=== PATIENT | male | born 1945 | race Caucasian/White ===

== ENCOUNTER 2022-08-10 15:05 | Inpatient (IN) | payer MEDICARE, OTHER, SELFPAY ==
--- NOTE | 2022-08-10 15:24 | PC.NURSE ---
Pt arrived to the floor at 1515
[2022-08-10 15:35] VITALS: BP 145/66; PULSE 83; RESP 18; TEMP 36.9; O2SAT 99; BMI 37.3
--- NOTE | 2022-08-10 16:29 | XR_ITS ---
PROCEDURE INFORMATION: Exam: XR Chest Exam date and time: 08/10/2022 4:42 PM Age: 77 years old Clinical indication: Shortness of breath; Additional info: SOA, failure to thrive TECHNIQUE: Imaging protocol: Radiologic exam of the chest. Views: 1 view. COMPARISON: No relevant prior studies available. FINDINGS: Tubes, catheters and devices: A pulse generator device is present, and its leads are in appropriate position. Lungs: Bilateral patchy airspace opacities with lower lobe gradient. Lungs are hypoaerated. Pleural spaces: Small bilateral pleural effusions. Heart/Mediastinum: Mild cardiomegaly Bones/joints: Unremarkable. IMPRESSION: 1. Bilateral patchy airspace opacities with lower lobe gradient which can be seen in the context of chronic interstitial changes and/or superimposed pneumonia. 2. Small bilateral pleural effusions
--- NOTE | 2022-08-10 16:38 | ECG_ITS ---
APPROVED REPORT Exam: Resting ECG HR:68 bpm ECG Measurements Heart Rate 68 AXES QRSd 192 QRS -39 QT 420 T 60 QTc 437 Conclusion ELECTRONIC VENTRICULAR PACEMAKER ABNORMAL RHYTHM ECG UNCONFIRMED REPORT Electronically signed by : Navi Pino MD 08/11/2022 22:05:29
[2022-08-10 16:39] LABS: Coronavirus 19, PCR Not Detected (NotDetected); Influenza A, PCR Not Detected (NotDetected); Influenza B, PCR Not Detected (NotDetected)
[2022-08-10 16:47] LABS: Basophils % 0.5 % (0.1-2.0); Eosinophils % 1.1 % (0.1-12.0); Hematocrit 37.3 % (42.0-52.0); Hemoglobin 11.2 g/dL (14.1-18.0); Lymphocytes # 0.8 K/mm3 (0.7-4.5); Lymphocytes % 18.6 % (10-50); Mean Corpuscular HGB Conc 30.1 g/dL (31.8-35.4); Mean Corpuscular Hemoglobin 30.6 pg (27.0-31.2); Mean Corpuscular Volume 101.7 fl (80-94); Mean Platelet Volume 8.2 fl (7.4-10.4); Monocytes # 0.3 K/mm3 (0.1-1.0); Monocytes % 7.9 % (1.7-9.3); Neutrophils # 2.9 K/mm3 (1.8-7.8); Neutrophils % 71.9 % (37.0-80.0); Platelet Count 347 K/mm3 (142-424); Red Blood Count 3.67 M/mm3 (4.60-6.20); Red Cell Distribution Width 19.8 % (11.5-17.5)
[2022-08-10 16:49] LABS: Alanine Aminotransferase 13 U/L (12-78); Albumin Level 4.4 g/dl (3.5-5.0); Albumin/Globulin Ratio 1.5 (1.1-1.8); Alkaline Phosphatase 70 U/L (38-126); Anion Gap 17.7 mEq/L (5-15); Aspartate Amino Transferase 47 U/L (17-59); Bilirubin,Total 3.2 mg/dl (0.2-1.3); Blood Urea Nitrogen 49 mg/dl (9-20); Calcium 9.5 mg/dl (8.4-10.2); Carbon Dioxide 35 mmol/L (22.0-30.0); Chloride 90 mmol/L (98-107); Creatinine Clearance Estimated 63 mL/min (50-200); Estimated Glomerular Filt Rate 45 ml/min (>60); GFR (African American) 55 ML/MIN (>60); Globulin 2.9 g/dL (1.3-3.2); Glucose 99 mg/dl (74-100); Magnesium 1.5 mg/dl (1.6-2.3); Potassium 4.7 mmoL/L (3.5-5.1); Sodium 138 mmol/L (136-145); Total Protein,Serum 7.3 g/dl (6.3-8.2)
[2022-08-10 17:38] LABS: Microscopic, Urine URINE MICROSCOPIC (MICROSCOPIC)
--- NOTE | 2022-08-10 17:50 | EXP.HP ---
History of Present Illness *Admission Date: 08/10/22 *Reason for visit:: Weakness/immobility/diminished urine output *History of present illness: 77-year-old white male with history of chronic A. fib, CHF and coronary atherosclerosis who 8 weeks ago was diagnosed with aplastic anemia after CBC was done when his brassiere cup mold cutter noticed that he was very pale while he presented for echocardiogram to follow his heart disease. Hemoglobin is found to be less than 6 g, was transfused appropriately and hematology work-up initiated which resulted in a diagnosis of aplastic anemia on bone marrow biopsy. Patient was initiated on cyclosporine therapy which has been somewhat poorly tolerated because of the capsule size and its propensity for stomach upset in this patient. He aspirated on one of the capsules a couple of weeks ago and was admitted to the [facility] and treated with IV antibiotics, transition to p.o., was found to have elevated cyclosporine levels and be dehydrated. His creatinine was corrected to baseline and he was discharged on p.o. antibiotics, cyclosporine dosage was maintained the same. Over the past couple weeks has been progressively more weak and has had more problems with swallowing, notices that his urine output has declined and he has had problems with darker urine & urine leakage. His daughter brought him to our hospital today for evaluation of all these problems and he was admitted for labs, IV fluids and further diagnostic testing. [facility] Medical History (Updated 08/10/22 @ 17:59 by Navi Pino MD) Aplastic anemia Atrial fibrillation Cataract Congestive heart failure Gallbladder & bile duct stone, acute cholecystitis and obstruction History of pacemaker Hyperlipidemia Hypertension Hypothyroidism Rotator cuff arthropathy of left shoulder Rotator cuff arthropathy of right shoulder Surgical History History of revision of total knee arthroplasty Stented coronary artery Family History (Updated 08/10/22 @ 15:55 by Ashwini Love RN) Family history of acute congestive heart failure Family history of cancer Social History (Updated 08/10/22 @ 15:56 by Ashwini Love RN) Smoking Status: Never smoker alcohol intake: never current occupational status: retired Travel in the last 8 weeks: None Review of Systems Review of Systems Review of systems:: pertinent systems reviewed and negative unless documented below Review of systems (narrative): Positive for loss of taste with metallic taste. Positive for blurry vision. Positive for nausea. Positive for cough with occasional productive of clear sputum although this has not worsened since his discharge from [facility] for an pneumonia. Negative for blood in stool or urine. Negative for fevers. Negative for chills or skin rash. Positive for worsening pedal edema to mid velez. Positive for neuropathy, worse in the right leg-patient believes this is status post knee replacement therapy surgical complication. Meds Home Medications and Allergies Home Medications Medication Instructions Recorded Confirmed Type apixaban 2.5 mg tablet (Eliquis) 2.5 mg PO BID Blood thinner 08/10/22 08/10/22 History aspirin 81 mg chewable tablet See Rx Instructions .Route 08/10/22 08/10/22 History .COMPLEX Heart cyclosporine 25 mg capsule 125 mg PO BID APLASTIC ANEMIA 08/10/22 08/10/22 History digoxin 125 mcg (0.125 mg) tablet 125 mcg PO DAILY AFIB 08/10/22 08/10/22 History furosemide 40 mg tablet (Lasix) 40 mg PO DAILY CHF 08/10/22 08/10/22 History mecobalamin (vitamin B12) 1,000 1,000 mcg PO DAILY VITAMIN 08/10/22 08/10/22 History mcg chewable tablet (B12 Active) nebivolol 5 mg tablet (Bystolic) 5 mg PO DAILY BLOOD PRESSURE 08/10/22 08/10/22 History rosuvastatin 5 mg tablet (Crestor) 5 mg PO DAILY Cholesterol 08/10/22 08/10/22 History New Prescriptions to Start Prescriptions: Allergies Aller
[2022-08-10 18:16] LABS: Appearance,Urine CLEAR (Clear); Bilirubin,Urine Negative (Negative); Blood, Urine Negative (Negative); Color,Urine YELLOW (Yellow); Glucose,Urine (UA) Negative (Negative); Ketones,Urine Negative (Negative); Leukocyte Esterase,Urine Negative (Negative); Nitrate,Urine Negative (Negative); Protein,Urine Negative (Negative); Specific Gravity, Urine 1.025 (1.005-1.030); Urobilinogen,Urine 0.2 EU/dl (0.2)
[2022-08-10 18:43] LABS: Amorphous Sediment,Urine Trace /lpf; Bacteria,Urine Trace /lpf; RBC,Urine Occasional #/hpf (0-3); Squamous Epithelial Cell,Urine Occasional #/hpf (0-5); WBC,Urine Occasional #/hpf (0-3)
[2022-08-10 19:51] VITALS: BP 141/67; PULSE 64; RESP 18; TEMP 36.8; O2SAT 98
--- NOTE | 2022-08-10 21:11 | HMH.PHAINT1 ---
Pharmacy Intervention Comments: home medication list verified using list from pt and outpt pharmacy
[2022-08-11] VITALS (8 sets, daily range): BP systolic 131–150; BP diastolic 65–76; PULSE 60–90; RESP 17–18; TEMP 36.8–37.1; O2SAT 95–100; BMI 38.0
[2022-08-11 06:31] LABS: Alanine Aminotransferase 10 U/L (12-78); Albumin Level 3.6 g/dl (3.5-5.0); Albumin/Globulin Ratio 1.4 (1.1-1.8); Alkaline Phosphatase 70 U/L (38-126); Anion Gap 14.4 mEq/L (5-15); Aspartate Amino Transferase 31 U/L (17-59); Bilirubin,Total 2.4 mg/dl (0.2-1.3); Blood Urea Nitrogen 39 mg/dl (9-20); Calcium 8.7 mg/dl (8.4-10.2); Carbon Dioxide 34 mmol/L (22.0-30.0); Chloride 96 mmol/L (98-107); Creatinine Clearance Estimated 74 mL/min (50-200); Estimated Glomerular Filt Rate 54 ml/min (>60); GFR (African American) 65 ML/MIN (>60); Globulin 2.5 g/dL (1.3-3.2); Glucose 99 mg/dl (74-100); Magnesium 1.8 mg/dl (1.6-2.3); Potassium 4.4 mmoL/L (3.5-5.1); Sodium 140 mmol/L (136-145); Total Protein,Serum 6.1 g/dl (6.3-8.2)
[2022-08-11 07:28] LABS: Basophils % 0.6 % (0.1-2.0); Eosinophils # 0.1 K/mm3 (0.0-0.4); Eosinophils % 1.1 % (0.1-12.0); Lymphocytes # 0.7 K/mm3 (0.7-4.5); Lymphocytes % 15.8 % (10-50); Mean Corpuscular HGB Conc 31.1 g/dL (31.8-35.4); Mean Corpuscular Hemoglobin 31.3 pg (27.0-31.2); Mean Corpuscular Volume 100.5 fl (80-94); Mean Platelet Volume 8.2 fl (7.4-10.4); Monocytes # 0.4 K/mm3 (0.1-1.0); Monocytes % 9.8 % (1.7-9.3); Neutrophils % 72.8 % (37.0-80.0); Platelet Count 284 K/mm3 (142-424); Red Blood Count 3.19 M/mm3 (4.60-6.20); Red Cell Distribution Width 19.8 % (11.5-17.5); White Blood Count 4.1 K/mm3 (4.8-10.8)
--- NOTE | 2022-08-11 09:54 | HMH.PTEV ---
Physical Therapy Evaluation Rehab PT IP Evaluation Start: 08/11/22 08:31 Freq: ONCE Status: Active Protocol: Document 08/11/22 09:51 ANANYA (Rec: 08/11/22 09:53 ANANYA [id number]) Subjective/History History History 77-year-old white male with history of chronic A. 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 Hemoglobin is found to be less than 6 g, was transfused appropriately and hematology work-up initiated which resulted in a diagnosis of aplastic anemia on bone marrow biopsy. Subjective Subjective Pt reports he lives w/ spouse and has HHPT and caregiver assistance Rehab PT IP Eval Objective Appearance Patient Behavior Appropriate,Cooperative Patient Orientation Place,Name,Birthday,Year, Situation Difficulty following instructions none Speech Pattern Appropriate Ambulation Patient Able to Ambulate Yes Ambulation Observation IP General Gait Pattern Observation Shuffling Step Ambulation Distance (feet) 30 Ambulation Assistive Device Rolling Walker Ambulation Ability Supervision/Stand by Balance Ability to Arise Able, uses arms to help Sitting Balance Steady, safe Standing Balance Steady, wide stance Dynamic Sitting Balance Ability Good Dynamic Standing Balance Ability Fair Transfers Bed Transfer Ability Independent Chair Transfer Ability Independent Sit to Stand Bed Transfer Ability Supervision/Stand by Sit to Stand Chair Transfer Ability Supervision/Stand by Rehab PT IP prob,goals,plan Problems Date of Evaluation: 08/11/22 PT IP Problems Transfers,Gait,Balance,Self care,Safety Rehab Potential Rehab Potential Good Equipment Needs Assistive Devices Rolling / Wheeled Walker Plan PT Intervention Plan Transfers,Gait,Balance,Self care,Safety,Therapeutic Exercise PT Plan Frequency BID Duration
--- NOTE | 2022-08-11 10:36 | HMH.OTEV ---
OT Inpatient Evaluation Rehab OT IP Evaluation Start: 08/11/22 08:27 Freq: ONCE Status: Complete Protocol: Document 08/11/22 09:59 [facility] (Rec: 08/11/22 10:35 [facility] [id number]) Rehab OT IP Assessment Subjective History Pt oriented x 3 on arrival. Pt agreeable to engage in therapy evaluation. Pt was admitted to [facility] on 08/10/22 due to Weakness, immobility, and diminished urine output. Prior to being in the hospital , pt lived at home with his . His has Stage 4 lung cancer as well. They do have a caregiver come in and complete all IADLs (cooking, cleaning, grocery shoppping, and laundry). Pt claims he is normally able to complete ADLs independently (dressing, bathing, and feeding). He uses a walker during ambulation. Pt has a past medical history of: Aplastic anemia Atrial fibrillation Cataract Congestive heart failure Gallbladder & bile duct stone, acute cholecystitis and obstruction History of pacemaker Hyperlipidemia Hypertension Hypothyroidism Rotator cuff arthropathy of left shoulder Rotator cuff arthropathy of right shoulde Subjective I have been weak since I was sick with pneumonia. Objective Patient Orientation Person,Place,Birthday Upper Extremity Gross ROM WFL Transfer Training Sit/Stand Transfer Assist Level Contact Guard/Hand Hold Chair Transfer Ability Contact Guard/Hand Hold Chair Transfer Technique Sit to/from Ambulatory Chair Transfer Assistive Devices Rolling Walker Rehab OT IP prob,goals,plan Problems Date of Evaluation: 08/11/22 OT IP Problems Bed Mobility,Transfers,Balance ,Self care,Safety Rehab Potential Rehab Potential
--- NOTE | 2022-08-11 12:20 | EXP.ACUTE.PN ---
Subjective *Date: 08/11/22 *Time: 12:20 Interval history: Overall has little bit more energy than yesterday, feels a little better, visual disturbances of blurring have resolved. Was able to eat a little bit of his supper last night. Good urine output. No fevers. Has coughed up some sputum and it has been sent off for culture. Medical Exam Vital signs and Labs for Last 24 Hours: Vital Signs Temp Pulse Resp BP Pulse Ox 08/11/22 07:21 98.8 F 65 17 144/71 H 96 08/11/22 04:00 98.2 F 64 18 138/68 98 08/10/22 19:51 98.3 F 64 18 141/67 H 98 08/10/22 15:35 98.5 F 83 18 145/66 H 99 Intake and Output 08/11/22 08/11/22 08/11/22 03:59 11:59 19:59 Intake Total 1652 / 1952 180 / 1952 Output Total 1150 / 2375 1000 / 2375 Balance 502 / -423 -820 / -423 Intake: Intake, Oral Amount 222 / 522 180 / 522 Intake, Total IV Amount 1430 / 1430 0.9 % Sodium Chloride 1,000 ml 1430 / 1430 @ 100 mls/hr IV .Q10H [facility] Rx#: [id number] Output: Output, Urine Amount 1150 / 2375 1000 / 2375 Other: Number of Voids 0 Number of Unmeasured Voids 1 Weight 242 lb 0.728 oz Laboratory Results - last 24 hr 08/10/22 15:30: WBC 4.0 L, RBC 3.67 L, Hgb 11.2 L, Hct 37.3 L, MCV 101.7 H, MCH 30.6, MCHC 30.1 L, RDW 19.8 H, Plt Count 347, MPV 8.2, Neut % (Auto) 71.9, Lymph % (Auto) 18.6, [place] % (Auto) 7.9, Eos % (Auto) 1.1, Baso % (Auto) 0.5, Neut # (Auto) 2.9, Lymph # (Auto) 0.8, [place] # (Auto) 0.3, Eos # (Auto) 0.0, Baso # (Auto) 0.0 08/10/22 15:30: Sodium 138, Potassium 4.7, Chloride 90 L, Carbon Dioxide 35 H, Anion Gap 17.7 H, BUN 49 H, Creatinine 1.50 H, Estimated Creat Clear 63, Estimated GFR 45 L, Est GFR ( Amer) 55 L, Glucose 99, Calcium 9.5, Total Bilirubin 3.2 H, AST 47, ALT 13, Alkaline Phosphatase 70, Total Protein 7.3, Albumin 4.4, Globulin 2.9, Albumin/Globulin Ratio 1.5 08/10/22 15:30: Magnesium 1.5 L 08/10/22 15:30: Digoxin 2.30 H* 08/10/22 17:25: Urine Color Yellow, Urine Appearance Clear, Urine pH 5.0, Ur Specific [place] 1.025, Urine Protein Negative, Urine Glucose (UA) Negative, Urine Ketones Negative, Urine Blood Negative, Urine Nitrate Negative, Urine Bilirubin Negative, Urine Urobilinogen 0.2, Ur Leukocyte Esterase Negative, Urine RBC Occasional, Urine WBC Occasional, Ur Squamous Epith Cells Occasional, Amorphous Sediment Trace, Urine Bacteria Trace 08/10/22 : SARS-CoV-2 (PCR) Not detected, Influenza A Untype (PCR) Not detected, Influenza Type B (PCR) Not detected 08/11/22 06:10: Magnesium 1.8 D 08/11/22 06:10: WBC 4.1 L, RBC 3.19 L, Hgb 10.0 L D, Hct 32.0 L, MCV 100.5 H, MCH 31.3 H, MCHC 31.1 L, RDW 19.8 H, Plt Count 284, MPV 8.2, Neut % (Auto) 72.8, Lymph % (Auto) 15.8, [place] % (Auto) 9.8 H, Eos % (Auto) 1.1, Baso % (Auto) 0.6, Neut # (Auto) 3.0, Lymph # (Auto) 0.7, [place] # (Auto) 0.4, Eos # (Auto) 0.1, Baso # (Auto) 0.0 08/11/22 06:10: Sodium 140, Potassium 4.4, Chloride 96 L, Carbon Dioxide 34 H, Anion Gap 14.4, BUN 39 H, Creatinine 1.30 H, Estimated Creat Clear 74, Estimated GFR 54 L, Est GFR ( Amer) 65, Glucose 99, Calcium 8.7, Total Bilirubin 2.4 H, AST 31 D, ALT 10 L, Alkaline Phosphatase 70, Total Protein 6.1 L, Albumin 3.6 D, Globulin 2.5, Albumin/Globulin Ratio 1.4 08/11/22 06:10: Digoxin 2.80 H* I & O for Labs for Last 24 Hours: Intake & Output 08/09/22 08/10/22 08/11/22 08/12/22 11:59 11:59 11:59 11:59 Intake Total 1951 / 1951 Output Total 2375 / 2375 Balance -423 / -423 Weight 242 lb 0.728 oz Comment:: , Pleasant. Appears less dehydrated. Skin turgor normal. Lungs have rhonchi on the left middle lung field as previously noted. Heart rate regular. Abdomen soft, extremities still with edema to mid velez as noted. Assessment and Plan *Assessment and plan (1) Aplastic anemia: Status: Acute Category: Medical Code(s): D61.9 - Aplastic anemia, unspecified Plan: Aplastic anemia seems to have greatly improved with
--- NOTE | 2022-08-11 17:42 | CA_ITS ---
APPROVED REPORT EXAM: Comprehensive 2D, Doppler, and color-flow Echocardiogram Gold Marker: TAMRA Carney, RVS Ht: 5 ft 7 in Wt: 238lbs BSA: 2.18 BP: 144/65 mmHg Indications: Afib, Edema, Aplastic Anemia, Pacer, Stent, CHF 2D Dimensions IVSd 1.64 cm LVEF (Visual) 47.90 % PWd 1.37 cm LA Volume 192.30 mL LVDd 4.92 cm LA Volume Index 88.60 mL/m2 (M/F) 16-34 LVDs 3.73 cm Aortic Root 3.22 cm Left Atrium 7.89 cm LVOT 2.16 cm (M/F) 1.5-2.5 M-Mode Dimensions LA Diam 6.36 cm (1.9-4.0) Ao Diam 4.13 cm (2.0-3.7) EPSs 0.79 cm TAPSE 1.26 (<1.7) LV Diastology E Decel Time 160.00 (160-240 msec) E/A Ratio 1.33 MED E' 6.00 (< 7 cm/sec) MED A' 2.70 cm/s E'/MED E' Ratio 19.57 (>14) LAT E' 8.90 (<10 cm/sec) LAT A' 3.80 cm/s E/LAT E' Ratio 13.19 (>14) Aortic Valve LVOT Max 114.00 (70-110 cm/s) LVOT VTI 25.37 cm AI PHT 626.00 ms AO VTI 182.71 (18-25 cm) Mitral Valve MV A Velocity 88.00 (40-130 cm/s) E/A Ratio 1.33 MV Decel. Time 160.00 (160-240 ms) MV Mean Gr. 2.70 (<2mmHg) MV PHT 43.00 ms Pulmonary Valve PV Peak Velocity 69.00 (50-150 cm/s) NV End VMAX 212.00 cm/s Tricuspid Valve TR P. Velocity 306.00 cm/s RAP Estimate 10.00 mmHg RVSP 47.50 mmHg Left Ventricle Left atrium is markedly enlarged, left ventricle is normal size mild concentric left ventricular hypertrophy, estimated ejection fraction 50%, there with no regional wall motion abnormality, diastolic parameters are inconclusive. Right Ventricle Right atrium and right ventricle are mildly enlarged with normal contractility. Pacemaker leads in the right ventricle. Aortic Valve Aortic valve is thickened and calcified without aortic stenosis there is moderate aortic insufficiency. Mitral Valve Mitral valve has mitral annular calcification, there is no mitral stenosis, there is moderate mitral regurgitation. Tricuspid Valve Tricuspid valve is minimally thickened, there is moderate tricuspid regurgitation. Calculated right ventricular systolic pressure is 48 mmHg. Pulmonic Valve Pulmonic valve is poorly visualized. Great Vessels Aortic root is normal size. Inferior vena cava is poorly visualized. Pericardium No significant pericardial effusion noted. Conclusion 1. Biatrial enlargement, normal left ventricular size, mild concentric left ventricular hypertrophy, estimated ejection fraction 50% with no regional wall motion abnormality, diastolic parameters are inconclusive. 2. Mildly enlarged right ventricle with normal contractility. 3. Moderate aortic, mitral and tricuspid regurgitation, calculated right ventricular systolic pressure is 48 mmHg. 4. No significant pericardial effusion noted. 5. Inferior vena cava is poorly visualized. Electronically signed by : Timothy Vaz MD 08/12/2022 06:54:07
--- NOTE | 2022-08-11 19:29 | PC.NURSE ---
Addendum entered by Dean Michel RN 08/11/22 19:31: Report given to Lizzie Seay RN. Original Note: Have educated on use of incentive spirometer. Pt remains on 2 L NC. No distress, with family @ bedside. VSS. CB in reach.
[2022-08-12] VITALS: BP 128/62; PULSE 60; PULSE 62; RESP 17; TEMP 36.8; O2SAT 93; O2SAT 97
[2022-08-12 03:57] VITALS: BP 129/53; PULSE 61; RESP 18; TEMP 36.9; O2SAT 95
[2022-08-12 04:00] VITALS: PULSE 60
[2022-08-12 04:54] VITALS: BMI 38.0
[2022-08-12 06:53] LABS: Basophils % 0.6 % (0.1-2.0); Eosinophils # 0.1 K/mm3 (0.0-0.4); Eosinophils % 2.1 % (0.1-12.0); Hematocrit 33.4 % (42.0-52.0); Lymphocytes # 0.8 K/mm3 (0.7-4.5); Lymphocytes % 23.2 % (10-50); Mean Corpuscular HGB Conc 29.9 g/dL (31.8-35.4); Mean Corpuscular Volume 103.7 fl (80-94); Mean Platelet Volume 8.1 fl (7.4-10.4); Monocytes # 0.3 K/mm3 (0.1-1.0); Monocytes % 8.6 % (1.7-9.3); Neutrophils # 2.2 K/mm3 (1.8-7.8); Neutrophils % 65.6 % (37.0-80.0); Platelet Count 277 K/mm3 (142-424); Red Blood Count 3.22 M/mm3 (4.60-6.20); Red Cell Distribution Width 19.7 % (11.5-17.5); White Blood Count 3.4 K/mm3 (4.8-10.8)
--- NOTE | 2022-08-12 07:00 | PC.NURSE ---
no changes in previous assessment, lung sounds diminished, 02 sats 95-96% on 2L 02 pnc, pt alert and oriented x4, VSS, pt assisted up to chair and ambulated via walker with assist x1 without difficulty, 1-2+ pitting edema to BLE, no other issues or concerns noted at this time, no acute distress.
[2022-08-12 07:02] LABS: Magnesium 1.8 mg/dl (1.6-2.3)
[2022-08-12 07:04] LABS: Anion Gap 14.3 mEq/L (5-15); Blood Urea Nitrogen 29 mg/dl (9-20); Calcium 8.5 mg/dl (8.4-10.2); Carbon Dioxide 34 mmol/L (22.0-30.0); Chloride 100 mmol/L (98-107); Creatinine Clearance Estimated 96 mL/min (50-200); Estimated Glomerular Filt Rate 72 ml/min (>60); GFR (African American) 88 ML/MIN (>60); Glucose 112 mg/dl (74-100); Potassium 4.3 mmoL/L (3.5-5.1); Sodium 144 mmol/L (136-145)
[2022-08-12 07:19] VITALS: BP 135/58; PULSE 67; RESP 16; TEMP 36.7; O2SAT 96
--- NOTE | 2022-08-12 08:16 | EXP.DC.SUM ---
General Admission date:: 08/10/22 Discharge date: 08/12/22 HPI HPI HPI: 77-year-old white male with history of chronic A. 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 Hemoglobin is found to be less than 6 g, was transfused appropriately and hematology work-up initiated which resulted in a diagnosis of aplastic anemia on bone marrow biopsy. Patient was initiated on cyclosporine therapy which has been somewhat poorly tolerated because of the capsule size and its propensity for stomach upset in this patient. He aspirated on one of the capsules a couple of weeks ago and was admitted to the [facility] and treated with IV antibiotics, transition to p.o., was found to have elevated cyclosporine levels and be dehydrated. His creatinine was corrected to baseline and he was discharged on p.o. antibiotics, cyclosporine dosage was maintained the same. Over the past couple weeks has been progressively more weak and has had more problems with swallowing, notices that his urine output has declined and he has had problems with darker urine & urine leakage. His daughter brought him to our hospital today for evaluation of all these problems and he was admitted for labs, IV fluids and further diagnostic testing. Hospital Course Hospital Course Hospital Course: Patient was admitted to hospital. Rehydrated secondary to CHARISSA and digoxin was held secondary to digitalis toxicity. His creatinine slowly returned to normal and this morning was back at 1.0. [place] much better with holding of digoxin with less fatigue and visual disturbances improved. Echocardiogram confirmed his diagnosis of chronic systolic and diastolic heart failure as well as the diagnosis of mitral regurgitation-moderate. Patient was found to have a left lobe infiltrate. Comparison of his chest x-rays to his recent admission showed that this was new and he was started on ceftriaxone and azithromycin. He did well this morning and is able to go home. He will be discharged home with antibiotics as noted. I have asked him to stop his digoxin, resume his Lasix and continue just on beta-isra for rate control. 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 If worsening of fluid status occurs we will reevaluate. He will resume care with his primary care physicians in [place]. Exam Data for Last 24 hours Vital signs and Labs for Last 24 Hours: Temp Pulse Resp BP Pulse Ox 98.1 F 67 16 135/58 L 96 08/12/22 07:19 08/12/22 07:19 08/12/22 07:19 08/12/22 07:19 08/12/22 07:19 Laboratory Results - last 24 hr 08/12/22 06:38: WBC 3.4 L, RBC 3.22 L, Hgb 10.0 L, Hct 33.4 L, MCV 103.7 H, MCH 31.0, MCHC 29.9 L, RDW 19.7 H, Plt Count 277, MPV 8.1, Neut % (Auto) 65.6, Lymph % (Auto) 23.2, [place] % (Auto) 8.6, Eos % (Auto) 2.1, Baso % (Auto) 0.6, Neut # (Auto) 2.2, Lymph # (Auto) 0.8, [place] # (Auto) 0.3, Eos # (Auto) 0.1, Baso # (Auto) 0.0 08/12/22 06:38: Sodium 144, Potassium 4.3, Chloride 100, Carbon Dioxide 34 H, Anion Gap 14.3, BUN 29 H D, Creatinine 1.00 D, Estimated Creat Clear 96, Estimated GFR 72, Est GFR ( Amer) 88 D, Glucose 112 H, Calcium 8.5 08/12/22 06:38: Magnesium 1.8 08/12/22 06:38: Digoxin 1.70 I & O for Last 24 hours: Intake & Output 08/09/22 08/10/22 08/11/22 08/12/22 11:59 11:59 11:59 11:59 Intake Total 1951 / 1951 4405 / 4405 Output Total 2375 / 2375 400 / 400 Balance -423 / -423 4005 / 4005 Weight 242 lb 0.728 oz 242 lb 9 oz Microbiology Reports for the Last 24 Hours: Microbiology 08/10/22 07:12 Sputum - Expectorated Sputum Gram Stain - Final 08/10/22 07:12 Sputum - Expectorated Sputum Sputum Culture - Preliminary Constitutional Constitutional: no acute distress
--- NOTE | 2022-08-12 10:42 | SW/DCPLANNER ---
I spoke with patient, and daughter regarding discharge plans. Patient is currently established with a home private sitter and home PT services. PT evaluated this patient and stated that he was safe to return home w/ home PT services. Patient and concur w/ discharge plan. Patient will discharge home later today.
[2022-08-12 11:13] VITALS: BP 140/65; PULSE 78; RESP 17; TEMP 36.7; O2SAT 100
--- NOTE | 2022-08-13 13:47 | CARE MANAGER ---
Contacted patient's whom states he is doing very well. 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 They will follow up with MD as previously scheduled. VIRAL Tripathi
[2022-08-16 12:44] LABS: Cyclosporine 377 ng/mL (100-400)
== END 2022-08-12 13:12 | disposition home health service (06) | DRG 682 ==
PROVIDERS: Admitting Provider Internal Medicine Adolescent Medicine; PCP Internal Medicine Adolescent Medicine; Visit Provider Internal Medicine Adolescent Medicine
DX: N17.9 Acute kidney failure, unspecified (principal); I50.23 Acute on chronic systolic (congestive) heart failure; J18.1 Lobar pneumonia, unspecified organism; D61.9 Aplastic anemia, unspecified; I48.20 Chronic atrial fibrillation, unspecified; R01.1 Cardiac murmur, unspecified; T46.0X5A Adverse effect of cardiac-stimulant glycosides and drugs of similar action, initial encounter; N18.9 Chronic kidney disease, unspecified; I11.0 Hypertensive heart disease with heart failure; E03.9 Hypothyroidism, unspecified; E78.5 Hyperlipidemia, unspecified
CPT/HCPCS: 36415; 71045; 80048; 80053; 80158; 80162; 81001; 83735; 85025; 87070; 87205; 93005; 93306; 94640; 97110; 97116; 97162; 97166; 97530; C9803; J0696; J3475; U0003; U0005

== ENCOUNTER 2022-09-20 22:45 | Inpatient (IN) | payer MEDICARE, OTHER, SELFPAY ==
[2022-09-20 23:00] VITALS: RESP 16; O2SAT 99
[2022-09-20 23:06] VITALS: BP 94/59; PULSE 77; RESP 16; O2SAT 98
[2022-09-20 23:30] VITALS: BP 120/69; PULSE 69; RESP 17; O2SAT 98
[2022-09-20 23:44] VITALS: BMI 34.9
[2022-09-20 23:58] LABS: ABG Base Excess 12.4 mmol/L (-2.4-2.3); ABG HCO3 34.8 mmhg (22.0-26.0); ABG Oxygen Saturation 98 % (90-100); ABG PCO2 41.4 mmhg (35.0-45.0); ABG PH 7.54 mmol/L (7.35-7.45); ABG PO2 101.8 mmhg (80-100); ABG TCO2 36.1 mmhg (23-27)
[2022-09-21] VITALS (34 sets, daily range): BP systolic 90–124; BP diastolic 46–76; PULSE 60–81; RESP 16–18; TEMP 36.7–37.2; O2SAT 92–100; BMI 34.7
[2022-09-21] LABS: Allen's Test Non Applicable; Oxygen 60 %; PEEP 5; Source Right Radial; Tidal Volume 450; Vent Rate 16
--- NOTE | 2022-09-21 | XR_ITS ---
PROCEDURE INFORMATION: Exam: XR Chest Exam date and time: 09/21/2022 12:15 AM Age: 77 years old Clinical indication: Device placement; Ett placement (vent status) TECHNIQUE: Imaging protocol: Radiologic exam of the chest. Views: 1 view. COMPARISON: CR XR CHEST PORTABLE 08/10/2022 4:42 PM FINDINGS: Tubes, catheters and devices: Endotracheal tube in good position above the henry. Single lead left-sided cardiac pacemaker. And Lungs: Bilateral atelectasis and or edema. Pleural spaces: Large bilateral pleural effusions right greater than left. Heart/Mediastinum: Unremarkable. No cardiomegaly. Bones/joints: Unremarkable. IMPRESSION: 1. Endotracheal tube in good position above the henry. 2. Large bilateral pleural effusions right greater than left. 3. Bilateral atelectasis and or edema.
--- NOTE | 2022-09-21 00:09 | PC.NURSE ---
RESP CARE NOTE: FIO2 weaned to 50% per Dr Pino t/o. Will continue to monitor patient.
--- NOTE | 2022-09-21 00:25 | HMH.PHAINT1 ---
Pharmacy Intervention Comments: HOME MEDICATION LIST RECONCILED USING LIST FROM [facility]
[2022-09-21 01:04] LABS: Coronavirus 19, PCR Not Detected (NotDetected); Influenza A, PCR Not Detected (NotDetected); Influenza B, PCR Not Detected (NotDetected)
--- NOTE | 2022-09-21 01:36 | PC.WOUNDNOTE ---
pt's davon area.
--- NOTE | 2022-09-21 05:31 | PC.NURSE ---
Pt remains intubated and sedated. Vent settings area as follows: AC, FiO2 40, TV 450, PEEP 5. Fentanyl is infusing @ 150 mcg/hr, Versed @ 0.06 mg/kg/hr. Levophed @ 9 mcg/hr. VSS at this time. Medication administered per dec. Oral care administered. Pt has excoriation to davon area and stage 2 to coccyx. See wound note.
--- NOTE | 2022-09-21 06:54 | CA_ITS ---
APPROVED REPORT EXAM: Comprehensive 2D, Doppler, and color-flow Echocardiogram Credit Department Manager: Elsie Heredia RT(R) Ht: 5 ft 6 in Wt: 216lbs BSA: 2.07 BP: 95/54 mmHg Indications: pleural effusion, hypotension, ARF, 08/11/22 echo 50% EF, MR, pt on ventilator, LIVAN, pacemaker, GERD, AFIB, CAD, hx CHF Tricuspid Valve TR P. Velocity 281.00 cm/s RAP Estimate 15.00 mmHg RVSP 46.70 mmHg Conclusion 1. Limited echocardiogram is performed. This is technically difficult and poor study. 2. Normal left ventricular size preserved left ventricular systolic function, estimated ejection fraction 55%. 3. Right atrium and right ventricle are mildly enlarged with normal contractility. 4. Aortic valve is thickened and calcified. 5. Dense mitral annular calcification seen. 6. No significant pericardial effusion noted. Electronically signed by : Timothy Vaz MD 09/21/2022 19:32:09
[2022-09-21 06:59] LABS: Basophils % 0.4 % (0.1-2.0); Eosinophils # 0.5 K/mm3 (0.0-0.4); Eosinophils % 5.6 % (0.1-12.0); Hematocrit 24.7 % (42.0-52.0); Hemoglobin 8.2 g/dL (14.1-18.0); Lymphocytes # 1.3 K/mm3 (0.7-4.5); Lymphocytes % 15.2 % (10-50); Mean Corpuscular HGB Conc 33.4 g/dL (31.8-35.4); Mean Corpuscular Volume 86.9 fl (80-94); Mean Platelet Volume 8.9 fl (7.4-10.4); Monocytes # 0.5 K/mm3 (0.1-1.0); Monocytes % 6.1 % (1.7-9.3); Neutrophils # 6.4 K/mm3 (1.8-7.8); Neutrophils % 72.7 % (37.0-80.0); Platelet Count 280 K/mm3 (142-424); Red Blood Count 2.84 M/mm3 (4.60-6.20); Red Cell Distribution Width 16.9 % (11.5-17.5); White Blood Count 8.8 K/mm3 (4.8-10.8)
[2022-09-21 07:05] LABS: Chloride 98 mmol/L (98-107); INR 1.16 (0.9-1.1); Prothrombin Time 12.4 seconds (10.1-12.5)
[2022-09-21 07:06] LABS: Potassium 3.5 mmoL/L (3.5-5.1); Sodium 138 mmol/L (136-145)
[2022-09-21 07:08] LABS: Alanine Aminotransferase 29 U/L (12-78); Aspartate Amino Transferase 45 U/L (17-59); Blood Urea Nitrogen 59 mg/dl (9-20); Creatinine Clearance Estimated 66 mL/min (50-200); Estimated Glomerular Filt Rate 54 ml/min (>60); GFR (African American) 65 ML/MIN (>60)
[2022-09-21 07:09] LABS: Albumin/Globulin Ratio 1.1 (1.1-1.8); Alkaline Phosphatase 141 U/L (38-126); Anion Gap 8.5 mEq/L (5-15); Bilirubin,Total 0.6 mg/dl (0.2-1.3); Calcium 11.3 mg/dl (8.4-10.2); Carbon Dioxide 35 mmol/L (22.0-30.0); Globulin 2.8 g/dL (1.3-3.2); Glucose 122 mg/dl (74-100); Magnesium 2.3 mg/dl (1.6-2.3); Total Protein,Serum 5.8 g/dl (6.3-8.2)
--- NOTE | 2022-09-21 07:12 | EXP.HP ---
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 He had been in a somewhat compromised state of health with chronic A. fib and history of vascular disease until this fatigue symptomatology, diagnosed with aplastic anemia and initiated on cyclosporine therapy. Has had several complications of cyclosporine therapy, most notably recurrent pulmonary edema and pneumonitis. He was admitted here in the first week of August for pneumonia and pulmonary edema, treated with empiric antibiotics and diuretics and improved, but a couple of weeks later ended up worsening and was in the [facility] in [place] for pneumonia and pneumonitis. Of note at the [place] admission around he did have thoracentesis and drainage of some of his fluid.At that time hematology felt that his aplastic anemia might not be a primary disease but could have been related to viral issues and cyclosporine was finally stopped, although we had stopped it here in August because of the toxicity issues. Because of the [id number] respiratory issues he was extremely weak and was admitted to a swing bed type rehab unit at the [facility]. There he has been wearing a BiPAP mask at night because of persistent hypercapnia and chronic respiratory failure from the pulmonary edema symptomatology. In the swing bed occasionally he will not wear his BiPAP at night and a couple of times this is because severe hypercapnia with admission once to the acute care side of the [facility] for 5 days and treatment of his hypercapnia and another time that apparently required intubation and transferred to [place]. Over the past week or so has been back at the swing bed unit at [facility]. He was diagnosed a week ago with an Enterococcus UTI and treated with vancomycin. He finished 5 days of vancomycin. Unfortunately, this happened again on the evening of 09/19/2022, where he was not wearing his BiPAP in the swing bed and was unable to be aroused the next morning and was found to have CO2 levels above 120. Transferred to the ER at the [facility] where he was intubated. Intubation and mechanical ventilation quickly resolved his hypercapnia situation his CO2 went down to the 40s. Blood pressure over was somewhat low and Levophed drip was started and because of his increasing mental status and some agitation on the vent he was started on Versed and fentanyl. He was given 2 doses of Zosyn while he was at the [place] emergency department. Unsure about whether cultures were obtained. Right before transfer he was found to have a fever over 100 degrees before getting on the helicopter for transfer to [place]. Because of his need for ongoing ICU care and the unavailability of beds at the [facility] his family wished him to be transferred here as family members live in the [place] area. He arrived early this morning. Initial ABG here looks good, essentially unchanged from the [place] ABG after stabilization. Chest x-ray here shows large pleural effusions bilaterally. He has continued to require pressor support at 8 mics of Levophed. Remains on his 2 drips for sedation. [facility] Disclaimer: The information contained in this section may have been updated after the patient was seen, as this information can be updated by other users. Medical History (Updated 09/21/22 @ 07:21 by Navi Pino MD) Aplastic anemia Atrial fibrillation Cataract Congestive heart failure Enterococcus UTI Gallbladder & bile duct stone, acute cholecystitis and obstruction History of anemia History of cataract History of gastroesophageal reflux (GERD) History of pacemaker Hyperlipidemia Hypertens
[2022-09-21 07:16] LABS: ABG Base Excess 9.4 mmol/L (-2.4-2.3); ABG HCO3 32.1 mmhg (22.0-26.0); ABG Oxygen Saturation 94 % (90-100); ABG PCO2 39.8 mmhg (35.0-45.0); ABG PH 7.53 mmol/L (7.35-7.45); ABG PO2 70.3 mmhg (80-100); ABG TCO2 33.4 mmhg (23-27)
[2022-09-21 07:18] LABS: Oxygen 40% %; PEEP 5; Source RIGHT BRACHIAL; Tidal Volume 450; Vent Rate 16
--- NOTE | 2022-09-21 08:11 | ECG_ITS ---
APPROVED REPORT Exam: Resting ECG HR:63 bpm ECG Measurements Heart Rate 63 AXES QRSd 107 QRS 184 QT 397 T 198 QTc 405 Conclusion Atrial fibrillation Electronic PACEMAKER -- CONTOUR ANALYSIS BASED ON INTRINSIC RHYTHM POSSIBLE RIGHT VENTRICULAR HYPERTROPHY [SOME/ALL OF: PROMINENT R IN V1, LATE TRANSITION, RAD, MARY ALICE, SSS] INFERIOR MYOCARDIAL INFARCTION , OF INDETERMINATE AGE [40+ ms Q WAVE AND/OR ST/T ABNORMALITY IN II/aVF] ABNORMAL ECG UNCONFIRMED REPORT Electronically signed by : Navi Pino MD 09/21/2022 22:17:51
--- NOTE | 2022-09-21 09:46 | EXP.PHA.CONS ---
Pharmacy Consult Date: 09/21/22 Time: 09:46 Referring provider: DR MARTINEZ Reason for Consult:: VANCOMYCIN DOSE CONSULT Allergies Allergy/AdvReac Type Severity Reaction Status Date / Time No Known Allergies Allergy Unverified 09/20/17 14:17 Home Medications Medication Instructions Recorded Confirmed Type apixaban 5 mg tablet (Eliquis) 5 mg PO BID atrial fib/blood 08/10/22 09/20/22 History thinner aspirin 81 mg chewable tablet 81 mg PO MOWEFR Heart disease 08/10/22 09/20/22 History mecobalamin (vitamin B12) 1,000 1,000 mcg PO DAILY Supplement 08/10/22 09/20/22 History mcg chewable tablet (B12 Active) nebivolol 5 mg tablet (Bystolic) 5 mg PO DAILY High blood pressure- 08/10/22 09/20/22 History hold for SBP <120 rosuvastatin 5 mg tablet (Crestor) 5 mg PO DAILY Cholesterol 08/10/22 09/20/22 History bumetanide 1 mg tablet 1 mg PO Q48H Fluid 09/20/22 09/20/22 History cetirizine 10 mg capsule (Zyrtec) 10 mg PO DAILY Allergy symptoms 09/20/22 09/20/22 History levothyroxine 50 mcg tablet 50 mcg PO DAILY Allergy symptoms 09/20/22 09/20/22 History New Prescriptions to Start Prescriptions: Height: 1.68 m Weight: 98.067 kg Laboratory Results:: Laboratory Results - last 24 hr 09/20/22 23:54: Specimen Source Right radial, O2 % 60, ABG pH 7.54 H, ABG pCO2 41.4, ABG pO2 101.8 H, ABG HCO3 34.8 H, ABG Total CO2 36.1 H, ABG O2 Saturation 98, ABG Base Excess 12.4 H, Daniel Test Non applicable, Vent Rate 16, Tidal Volume 450, PEEP 5 09/21/22 00:45: SARS-CoV-2 (PCR) Not detected, Influenza A Untype (PCR) Not detected, Influenza Type B (PCR) Not detected 09/21/22 05:39: WBC 8.8, RBC 2.84 L, Hgb 8.2 L, Hct 24.7 L, MCV 86.9, MCH 29.0, MCHC 33.4, RDW 16.9, Plt Count 280, MPV 8.9, Neut % (Auto) 72.7, Lymph % (Auto) 15.2, [place] % (Auto) 6.1, Eos % (Auto) 5.6, Baso % (Auto) 0.4, Neut # (Auto) 6.4, Lymph # (Auto) 1.3, [place] # (Auto) 0.5, Eos # (Auto) 0.5 H, Baso # (Auto) 0.0 09/21/22 05:39: PT 12.4, INR 1.16 H 09/21/22 05:39: Sodium 138, Potassium 3.5, Chloride 98, Carbon Dioxide 35 H, Anion Gap 8.5, BUN 59 H, Creatinine 1.30 H, Estimated Creat Clear 66, Estimated GFR 54 L, Est GFR ( Amer) 65, Glucose 122 H, Calcium 11.3 H, Magnesium 2.3, Total Bilirubin 0.6, AST 45, ALT 29, Alkaline Phosphatase 141 H, Total Protein 5.8 L, Albumin 3.0 L, Globulin 2.8, Albumin/Globulin Ratio 1.1 09/21/22 07:13: Specimen Source Right brachial, O2 % 40%, ABG pH 7.53 H, ABG pCO2 39.8, ABG pO2 70.3 L, ABG HCO3 32.1 H, ABG Total CO2 33.4 H, ABG O2 Saturation 94, ABG Base Excess 9.4 H, Vent Rate 16, Tidal Volume 450, PEEP 5 Medical History: Medical History (Updated 09/21/22 @ 07:21 by Navi Martinez MD) Aplastic anemia Atrial fibrillation Cataract Congestive heart failure Enterococcus UTI Gallbladder & bile duct stone, acute cholecystitis and obstruction History of anemia History of cataract History of gastroesophageal reflux (GERD) History of pacemaker Hyperlipidemia Hypertension Hypothyroid Hypothyroidism Rotator cuff arthropathy of left shoulder Rotator cuff arthropathy of right shoulder Sleep apnea Urinary tract infection Assessment and Plan Assessment and plan all Dx Assessment and Plan for all problems:: Pharmacokinetic dosing service Objective: Patient: Floor: Age: 77 yo Serum creatinine: 1.3 mg/dL Height: 66.1 Inches Weight (kg): 98.067 Diagnosis: UTI/PNEUMONIA Assessment: IBW (kg): 64.03 Dosing wt(kg): 98.067 Estimated Creatinine clearance (ml/min): 43.1 CRCL method: Cockcroft and Gault using ibw(default). Drug selected: Vancomycin Vd (liters): 68.6 (factor used: 0.7 L/kg) Josias (hr-1): 0.040 Half life (hrs): 17.33 CLvanco=?? 2.744 L/hr Recommended dose: 1500 mg Interval: 24 hrs Infusion time (hrs): 2.0 Predicted peak (mcg/mL): 34.1 Predicted trough (mcg/mL): 14.14 Total bod
--- NOTE | 2022-09-21 10:00 | HMH.PTWOUND ---
Rehab Inpt Wound Evaluation Rehab IP Wound Evaluation Start: 09/21/22 09:51 Freq: ONCE Status: Active Protocol: Document 09/21/22 08:00 PHOBrooksDOMENIC (Rec: 09/21/22 09:59 PHORNE [id number]) Rehab PT Wound Assessment Subjective Subjective 77 yowm adm to [facility] with ARF requiring mech vent currently. Sacral pressure injury present prior to adm. He was previously staying in a usp care facility. Wound Sacrum Wound Type Pressure Ulcer Is This a Chronic Wound Yes Wound Staging Stage II Query Text:Stage I - Unbroken, red skin, no blanching. Stage II - Skin broken, superficial skin loss involving epidermis alone or also dermis. Partial loss of skin layers. Stage III - Pressure area involves epidermis, dermis and subcutaneous tissue, full thickness skin loss. Stage IV - Pressure area involves epidermis, subcutaneous tissue, bone and other supportive tissue. Full thickness skin loss with extensive destruction of underlying tissue and structures. Wound Length (cm) 12.8 Wound Width (cm) 10.0 Wound Depth (cm) 0.1 Wound Bed Appearance Dusky Red,[place],Peeling Skin Wound Margins Description Indistinct Surrounding Tissue Appearance [place],Purple Wound Drainage Description Sanguineous Drainage Amount Small Drainage Odor No Odor Dressing Status Changed Wound Topical Solution/Irrigant Saline Irrigant Primary Dressing Composite Comment optifoam gentle sacrum border Wound Debridement Method Gauze Wound Debridement Amount of Tissue None Removed Dressing Change Patient Tolerance Tolerated Well Plan/Recommendation Comment Pt is currently sedated on mech vent and unable to participatie in care. Recommend return to LTC once medically stable. Nsg to perform dressing changes as needed with above dressing unless wound evolves further, which is possible given pt current medical status. NSG already performing proper pressure relief. Will follow distantly and provide input as
--- NOTE | 2022-09-21 10:01 | PC.NURSE ---
Addendum entered by Jennifer Burks RN 09/21/22 14:31: fentanyl decreased to 25mcg Addendum entered by Jennifer Burks RN 09/21/22 13:36: versed stopped at 1300. fentanyl decreased to 75mcg Original Note: versed decreased to 0.01 mg/kg/hr fentanyl decreased to 100mcg/hr
--- NOTE | 2022-09-21 10:09 | XR_ITS ---
FINAL REPORT CLINICAL HISTORY: Confirm PICC line placement COMPARISON: 3 hours prior FINDINGS: The endotracheal tube terminates in the midthoracic trachea. The right PICC line courses up the right side of the neck off of the image and likely in the right internal jugular. The heart size is normal. The mediastinum is within normal limits. There are moderate bilateral pleural effusions. There are bilateral pulmonary opacities. There is no pneumothorax. The bony thorax is intact. IMPRESSION: Right-sided PICC line likely in the right internal jugular vein. Moderate pleural effusions with bilateral pulmonary opacities that could represent pneumonia or atelectasis. Reviewed, Interpreted and Dictated by Patrice Gonzalez III, MD Transcribed by Thuan Myers Authenticated and [facility]
--- NOTE | 2022-09-21 10:12 | DIET.NUTRFU ---
RD consulted for TF order. Patient was here on 08/11 with wt of 109kg, CBW is 98kg. Has been in facilities and hospitals since was discharged. He had thorcentesis in August. Also had PNA and UTI in August. Hx of swallowing difficulty. 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 Currently has a G-tube and has been receiving 100% nutrition via tube. Nutritional needs at current wt with hx of CHF and skin breakdown are: 2500-2700kcal, 116-125gm protein (stage II), fluid needs are 1950ml/day (20ml/kg d/t CHF). His renal fxn appears fair with BUN 59H, Cr 1.3H, increased protein needs are feasible at this time. Will continue to monitor renal fxn. Was tolerating Nepro at 60ml/hr ATC at previous facility, will restart at 20ml/hr with goal of 60ml/hr. To provide 1440ml formula/2592kcal/116gm protein with 1046ml formula water. Would also benefit from prostat AWC BID to provide additional 34gm protein for total of 150gm/day and add additional [id number]=3815dbpb/day. He is currently receiving IVF, will provide minimal flush of 50ml TID. Once IVF discontinued increase to 150 Q4H providing 900ml for total of 1946ml/day. He is also receiving ABT and protonix.
--- NOTE | 2022-09-21 10:34 | EXP.PULM.CON ---
History of Present Illness History of present illness: Mr. Loja is a 77-year-old male with a significant smoking history, prior respiratory complaints recently diagnosed with aplastic anemia status post bone marrow biopsy, initiating cyclosporine complicated by pulmonary toxicity status post discontinuation of cyclosporine around July 2022, since then noted to have new oxygen requirements and new hypercarbic respiratory failure requiring 2-3 recent hospital admissions for hypercarbic respiratory failure presented to [facility] ER yesterday with hypercarbic respiratory failure needing intubation mechanical ventilatory support, transferred to [facility] for further evaluation. [facility] Disclaimer: The information contained in this section may have been updated after the patient was seen, as this information can be updated by other users. Medical History (Updated 09/21/22 @ 16:35 by Darnell Stewart MD) Aplastic anemia Atrial fibrillation Cataract Congestive heart failure Enterococcus UTI Gallbladder & bile duct stone, acute cholecystitis and obstruction History of anemia History of cataract History of gastroesophageal reflux (GERD) History of pacemaker Hyperlipidemia Hypertension Hypothyroid Hypothyroidism On mechanically assisted ventilation Pleural effusion Rotator cuff arthropathy of left shoulder Rotator cuff arthropathy of right shoulder Sleep apnea Urinary tract infection Surgical History History of revision of total knee arthroplasty Stented coronary artery Family History Other Family history of acute congestive heart failure Family history of cancer Social History (Updated 09/20/22 @ 23:33 by Perla Martinez, RN) Smoking Status: Never smoker alcohol intake: never current occupational status: retired Travel in the last 8 weeks: None Review of Systems Review of Systems Review of systems:: unable to obtain Review of systems (narrative): Intubated and sedated Pulmonology Exam Inpatient Vital signs and Labs for Last 24 Hours: Temp Pulse Resp BP Pulse Ox FiO2 98.1 F 64 16 109/54 L 96 40 09/21/22 08:00 09/21/22 07:00 09/21/22 10:29 09/21/22 07:00 09/21/22 10:29 09/21/22 10:29 Laboratory Results - last 24 hr 09/20/22 23:54: Specimen Source Right radial, O2 % 60, ABG pH 7.54 H, ABG pCO2 41.4, ABG pO2 101.8 H, ABG HCO3 34.8 H, ABG Total CO2 36.1 H, ABG O2 Saturation 98, ABG Base Excess 12.4 H, Daniel Test Non applicable, Vent Rate 16, Tidal Volume 450, PEEP 5 09/21/22 00:45: SARS-CoV-2 (PCR) Not detected, Influenza A Untype (PCR) Not detected, Influenza Type B (PCR) Not detected 09/21/22 05:39: WBC 8.8, RBC 2.84 L, Hgb 8.2 L, Hct 24.7 L, MCV 86.9, MCH 29.0, MCHC 33.4, RDW 16.9, Plt Count 280, MPV 8.9, Neut % (Auto) 72.7, Lymph % (Auto) 15.2, [place] % (Auto) 6.1, Eos % (Auto) 5.6, Baso % (Auto) 0.4, Neut # (Auto) 6.4, Lymph # (Auto) 1.3, [place] # (Auto) 0.5, Eos # (Auto) 0.5 H, Baso # (Auto) 0.0 09/21/22 05:39: PT 12.4, INR 1.16 H 09/21/22 05:39: Sodium 138, Potassium 3.5, Chloride 98, Carbon Dioxide 35 H, Anion Gap 8.5, BUN 59 H, Creatinine 1.30 H, Estimated Creat Clear 66, Estimated GFR 54 L, Est GFR ( Amer) 65, Glucose 122 H, Calcium 11.3 H, Magnesium 2.3, Total Bilirubin 0.6, AST 45, ALT 29, Alkaline Phosphatase 141 H, Total Protein 5.8 L, Albumin 3.0 L, Globulin 2.8, Albumin/Globulin Ratio 1.1 09/21/22 07:13: Specimen Source Right brachial, O2 % 40%, ABG pH 7.53 H, ABG pCO2 39.8, ABG pO2 70.3 L, ABG HCO3 32.1 H, ABG Total CO2 33.4 H, ABG O2 Saturation 94, ABG Base Excess 9.4 H, Vent Rate 16, Tidal Volume 450, PEEP 5 I & O for Labs for Last 24 Hours: Intake & Output 09/18/22 09/19/22 09/20/22 09/21/22 23:59 23:59 23:59 23:59 Intake Total 1427 / 1427 Output Total 795 / 795 Balance 632 / 632 Weight 216 lb 11.43 oz 216 lb 3.2 oz [place]
--- NOTE | 2022-09-21 11:23 | HMH.PTWOUND ---
Rehab Inpt Wound Evaluation Rehab IP Wound Evaluation Start: 09/21/22 09:51 Freq: ONCE Status: Active Protocol: Document 09/21/22 08:00 PHOBrooksDOMENIC (Rec: 09/21/22 09:59 PHORNE [id number]) Rehab PT Wound Assessment Subjective Subjective 77 yowm adm to [facility] with ARF requiring mech vent currently. Sacral pressure injury present prior to adm. He was previously staying in a long-term care facility. Wound Sacrum Wound Type Pressure Ulcer Is This a Chronic Wound Yes Wound Staging Stage II Query Text:Stage I - Unbroken, red skin, no blanching. Stage II - Skin broken, superficial skin loss involving epidermis alone or also dermis. Partial loss of skin layers. Stage III - Pressure area involves epidermis, dermis and subcutaneous tissue, full thickness skin loss. Stage IV - Pressure area involves epidermis, subcutaneous tissue, bone and other supportive tissue. Full thickness skin loss with extensive destruction of underlying tissue and structures. Wound Length (cm) 12.8 Wound Width (cm) 10.0 Wound Depth (cm) 0.1 Wound Bed Appearance Dusky Red,[place],Peeling Skin Wound Margins Description Indistinct Surrounding Tissue Appearance [place],Purple Wound Drainage Description Sanguineous Drainage Amount Small Drainage Odor No Odor Dressing Status Changed Wound Topical Solution/Irrigant Saline Irrigant Primary Dressing Composite Comment optifoam gentle sacrum border Wound Debridement Method Gauze Wound Debridement Amount of Tissue None Removed Dressing Change Patient Tolerance Tolerated Well Plan/Recommendation Comment Pt is currently sedated on mech vent and unable to participatie in care. Recommend return to LTC once medically stable. Nsg to perform dressing changes as needed with above dressing unless wound evolves further, which is possible given pt current medical status. NSG already performing proper pressure relief. Will follow distantly and provide input as
--- NOTE | 2022-09-21 12:57 | XR_ITS ---
FINAL REPORT CLINICAL HISTORY: PICC line placement COMPARISON: 30 minutes prior FINDINGS: The endotracheal tube terminates in the midthoracic trachea. A right-sided PICC line now terminates near the cavoatrial junction. The heart size is normal. The mediastinum is within normal limits. There are persistent pulmonary opacities and pleural effusions. There is no pneumothorax. The bony thorax is intact. IMPRESSION: Right-sided PICC line terminates near the cavoatrial junction. Persistent pulmonary opacities and pleural effusions. Reviewed, Interpreted and Dictated by Patrice Gonzalez III, MD Transcribed by Thuan Myers Authenticated and . [facility]
--- NOTE | 2022-09-21 16:02 | XR_ITS ---
FINAL REPORT CLINICAL HISTORY: change in exam rapidly decreasing oxygen level. COMPARISON: Earlier the same day FINDINGS: A single portable view of the chest was obtained. An endotracheal tube remains in place with it's tip 3.5 cm from the henry. A right PICC line remains in place. A left subclavian pacemaker is present. There is cardiomegaly. The mediastinum is within normal limits. There are moderate to large right and moderate left pleural effusions, appear larger on the right since the prior. There is worsening right lung base opacities, atelectasis or pneumonia. The bony thorax is intact. IMPRESSION: Worsening right lung base atelectasis or pneumonia. Bilateral pleural effusions as above, appear larger on the right since the prior exam. Reviewed, Interpreted and Dictated by Patrice Gonzalez III, MD Transcribed by Lanette Wheeler Authenticated and [facility]
--- NOTE | 2022-09-21 16:41 | PC.NURSE ---
1550 pt oxygen level noted to desat into the mid 70's. pt suctioned, no sputum noted, sats did not improve. RT called to bedside, assessment revealed minimal to no lung sounds on left. stat chest xray ordered. Dr Stewart notified via phone at 1558 and asked to come to bedside. RT suctioned and lavaged pt ett, mucous plugs noted. pt o2 sats improved to mid to upper 90's. xray and Dr Stewart at bedside 1605. pt stable at time of MD arrival to unit.
--- NOTE | 2022-09-21 16:45 | PC.NURSE ---
orders received from Dr Stewart. dc versed, start propofol at 10mcg, fentanyl decreased to 12.5mcg. per Dr Stewart may bolus 12.5mcg of fentanyl 3 times before increasing drip. titrate for rass of -1 to 1
--- NOTE | 2022-09-21 18:05 | PC.NURSE ---
RESP CARE NOTE: Attempted to do an SBT with patient per Dr Stewart order, but patient was apneic and unable to perform the spontaneous breathing trial. RN informed and we will continue to monitor patient.
--- NOTE | 2022-09-21 18:27 | PC.NURSE ---
R Femoral central line removed at 1809. pressure held until 1814, no bleeding noted.
--- NOTE | 2022-09-21 19:49 | PC.WOUNDNOTE ---
coccyx during am assessment
--- NOTE | 2022-09-21 19:50 | PC.WOUNDNOTE ---
coccyx during am assessment
--- NOTE | 2022-09-21 19:51 | PC.WOUNDNOTE ---
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
--- NOTE | 2022-09-21 19:51 | PC.WOUNDNOTE ---
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
--- NOTE | 2022-09-21 19:52 | PC.WOUNDNOTE ---
wound to back of left ear during am assessment
--- NOTE | 2022-09-21 20:01 | PC.NURSE ---
1850 levophed drip titrated to 6mcg
[2022-09-22] VITALS (29 sets, daily range): BP systolic 94–131; BP diastolic 43–66; PULSE 69–121; RESP 10–22; TEMP 36.9–37; O2SAT 91–100; BMI 34.7
--- NOTE | 2022-09-22 06:55 | PC.NURSE ---
Pt is resting in bed with little response at this time. Fentanyl gtt was placed on standby at 0650. Levophed titrated to 5 mcg/min.Tube feedings started overnight. Nepro is currently infusing @ 30 ml/hr. No residuals. Pt has tolerated well. Family remains at bedside.
[2022-09-22 07:00] LABS: Basophils % 0.3 % (0.1-2.0); Eosinophils # 0.7 K/mm3 (0.0-0.4); Eosinophils % 8.5 % (0.1-12.0); Hematocrit 25.9 % (42.0-52.0); Hemoglobin 8.3 g/dL (14.1-18.0); Lymphocytes # 0.8 K/mm3 (0.7-4.5); Mean Corpuscular HGB Conc 32.2 g/dL (31.8-35.4); Mean Corpuscular Hemoglobin 29.3 pg (27.0-31.2); Mean Corpuscular Volume 90.8 fl (80-94); Monocytes # 0.5 K/mm3 (0.1-1.0); Monocytes % 6.1 % (1.7-9.3); Neutrophils # 5.7 K/mm3 (1.8-7.8); Neutrophils % 74.2 % (37.0-80.0); Platelet Count 304 K/mm3 (142-424); Red Blood Count 2.85 M/mm3 (4.60-6.20); Red Cell Distribution Width 17.5 % (11.5-17.5); White Blood Count 7.6 K/mm3 (4.8-10.8)
[2022-09-22 07:04] LABS: Chloride 99 mmol/L (98-107); Potassium 3.6 mmoL/L (3.5-5.1); Sodium 138 mmol/L (136-145)
[2022-09-22 07:07] LABS: Anion Gap 8.6 mEq/L (5-15); Blood Urea Nitrogen 54 mg/dl (9-20); Calcium 10.5 mg/dl (8.4-10.2); Carbon Dioxide 34 mmol/L (22.0-30.0); Creatinine Clearance Estimated 72 mL/min (50-200); Estimated Glomerular Filt Rate 59 ml/min (>60); GFR (African American) 71 ML/MIN (>60); Glucose 126 mg/dl (74-100)
--- NOTE | 2022-09-22 07:11 | XR_ITS ---
PROCEDURE INFORMATION: Exam: XR Chest Exam date and time: 09/22/2022 5:52 AM Age: 77 years old Clinical indication: Device placement; Ett placement (vent status); Additional info: F/u icu exam TECHNIQUE: Imaging protocol: Radiologic exam of the chest. Views: 1 view. COMPARISON: CR XR CHEST PORTABLE 09/21/2022 4:02 PM FINDINGS: Tubes, catheters and devices: There is an endotracheal tube with its tip 6.1 cm above the henry. Right-sided PICC line with its tip in stable position in the SVC/right atrial junction. Cardiac pacer system in place. Lungs: Stable opacification of the right lower lung. Pleural spaces: Moderate left and large right pleural effusions. No pneumothoraces. Heart/Mediastinum: Unremarkable. No cardiomegaly. Bones/joints: Degenerative changes throughout the spine. IMPRESSION: Endotracheal tube 6.1 cm above the henry. Otherwise stable chest x-ray.
--- NOTE | 2022-09-22 08:13 | EXP.ACUTE.PN ---
Subjective *Date: 09/22/22 *Time: 08:13 Interval history: Overnight patient has been stable. Has been weaned off sedation over the past several hours. Levophed has been weaned down to 5 mics. Blood pressure has remained somewhat low in the low 100s systolic. He is minimally more responsive to stimuli. Good urine output. Medical Exam Vital signs and Labs for Last 24 Hours: Vital Signs Temp Pulse Pulse Resp BP Pulse Ox FiO2 09/22/22 04:00 80 09/22/22 07:00 74 16 113/64 100 40 09/22/22 06:00 73 16 98/56 L 97 40 09/22/22 06:00 16 94 L 40 09/22/22 05:00 73 16 97/54 L 97 40 09/22/22 04:00 40 09/22/22 04:00 98.5 F 76 16 97/56 L 98 40 09/22/22 03:00 90 16 103/52 L 99 40 09/22/22 02:00 75 16 102/57 L 97 40 09/22/22 00:00 80 09/21/22 20:00 80 09/22/22 01:15 16 98 40 09/22/22 01:00 76 16 101/61 L 97 40 09/22/22 00:00 98.6 F 76 16 101/57 L 97 40 09/22/22 00:00 97 40 09/21/22 21:35 16 100 40 09/21/22 17:30 16 100 40 09/21/22 23:00 78 16 111/67 98 40 09/21/22 22:00 40 09/21/22 20:00 40 09/21/22 22:00 78 16 95/52 L 99 40 09/21/22 21:00 73 16 107/46 L 100 40 09/21/22 20:00 98.9 F 61 16 96/54 L 99 40 09/21/22 16:00 63 100 09/21/22 12:00 73 100 09/21/22 16:00 80 09/21/22 16:00 98.4 F 09/21/22 14:00 40 09/21/22 19:00 71 16 97/54 L 100 09/21/22 18:00 73 16 105/46 L 100 09/21/22 17:00 74 16 109/60 L 100 09/21/22 18:00 40 09/21/22 12:00 40 09/21/22 16:30 81 16 114/62 100 09/21/22 15:00 71 16 100/66 L 100 09/21/22 14:00 63 16 102/55 L 98 09/21/22 13:00 63 16 96/60 L 98 09/21/22 12:00 63 16 110/62 99 09/21/22 12:00 70 09/21/22 14:22 16 98 40 09/21/22 12:00 98.6 F 09/21/22 11:00 68 16 102/65 L 99 09/21/22 10:00 65 16 90/51 L 92 L 09/21/22 09:00 74 16 99/51 L 92 L 09/21/22 10:29 16 96 40 09/21/22 10:00 40 Intake and Output 09/21/22 09/22/22 09/22/22 19:59 03:59 11:59 Intake Total 335.025 / 1105.025 397 / 1105.025 373 / 1105.025 Output Total 410 / 1260 575 / 1260 275 / 1260 Balance -74.975 / -154.975 -178 / -154.975 98 / -154.975 Intake: Intake, Tube Feeding Amount 143 / 320 177 / 320 Intake, Tube Irrigant Amount 150 / 300 150 / 300 Intake, Total IV Amount 335.025 / 485.025 104 / 485.025 46 / 485.025 0.9 % Sodium Chloride 1,000 ml 80 / 80 @ 75 mls/hr IV .[id number] RANJAN Rx# :[id number] Fentanyl Citrate/Pf 1,000 mcg 15 / 30 10 / 30 5 / 30 In 0.9 % Sodium Chloride 80 ml @ 150 MCG/HR 15 mls/hr IV .Q7H RANJAN Rx#:[id number] Norepinephrine Bitartrate 8 mg 82 / 217 94 / 217 41 / 217 In Dextrose 5 % in Water 250 ml @ 10 MCG/MIN 19.35 mls/hr IV . [id number] RANJAN Rx#:[id number] Output: Output, Urine Amount 410 / 410 Output, Urine Amount (Catheter) 575 / 850 275 / 850 Ny 575 / 850 275 / 850 Other: Number of Voids 0 Number of Unmeasured Voids 0 0 0 Weight 216 lb 3.176 oz Patient Weight 09/22/22 11:59 Weight 216 lb 3.176 oz Laboratory Results - last 24 hr 09/22/22 06:43: WBC 7.6, RBC 2.85 L, Hgb 8.3 L, Hct 25.9 L, MCV 90.8, MCH 29.3, MCHC 32.2, RDW 17.5, Plt Count 304, MPV 8.0, Neut % (Auto) 74.2, Lymph % (Auto) 11.0, Ellis % (Auto) 6.1, Eos % (Auto) 8.5, Baso % (Auto) 0.3, Neut # (Auto) 5.7, Lymph # (Auto) 0.8, Ellis # (Auto) 0.5, Eos # (Auto) 0.7 H, Baso # (Auto) 0.0 09/22/22 06:43: Sodium 138, Potassium 3.6, Chloride 99, Carbon Dioxide 34 H, Anion Gap 8.6, BUN 54 H, Creatinine 1.20, Estimated Creat Clear 72, Estimated GFR 59, Est GFR ( Amer) 71, Glucose 126 H, Calcium 10.5 H I & O for Labs for Last 24 Hours: Intake & Output 09/19/22 09/20/22 09/21/22 09/22/22 11:59
--- NOTE | 2022-09-22 11:08 | PC.NURSE ---
lung sounds in [place] are muffled and diminished
--- NOTE | 2022-09-22 11:22 | DIET.NUTRFU ---
Addendum entered by Elke Ramirez, RD, LD 09/22/22 14:33: Patient continues to tolerate tubefeeding at 40ml/hr and flush at [id number]/day. prostat AWC requires 30ml flush prior to dose, dilute with 60ml and then flush after with 30ml, total fluid with prostat dose is 120ml fluid BID. Therefore will change flush to 110ml fluid Q4H= 660ml plus the 240ml with prostat [id number] needed. Pharmacy to add to dosing instruction and also printed out for nursing. No IVF running at this time and propofol continues to be on hold. Administration instructions also encourages nursing not to mix with any other medications Original Note: patient tolerating TF, currently running Nepro at 40ml/hr ATC with goal rate of 60ml/hr. no residuals noted. IVF discontinued, flush with 150ml [id number] for total of 1950ml/day. He is also receiving Prostat AWC BID to provide additional 200kcal and 30gm protein for skin breakdown. Labs reviewed, renal labs showing some improvement BUN 54H, Cr 1.20. Propofol ordered but not given. Bumex given today. Good urine output 09/22 at 915ml. Will continue to monitor TF tolerance.
--- NOTE | 2022-09-22 13:11 | EXP.PULM.PN ---
Subjective *Date: 09/22/22 *Time: 13:34 Interval history: No acute respiratory events overnight. Patient off sedation still lethargic only responding to painful stimuli. Pulmonology Exam Inpatient Vital signs and Labs for Last 24 Hours: Temp Pulse Resp BP Pulse Ox FiO2 98.5 F 121 H 22 131/59 L 95 40 09/22/22 04:00 09/22/22 11:00 09/22/22 11:00 09/22/22 11:00 09/22/22 11:00 09/22/22 10:00 Laboratory Results - last 24 hr 09/22/22 06:43: WBC 7.6, RBC 2.85 L, Hgb 8.3 L, Hct 25.9 L, MCV 90.8, MCH 29.3, MCHC 32.2, RDW 17.5, Plt Count 304, MPV 8.0, Neut % (Auto) 74.2, Lymph % (Auto) 11.0, [place] % (Auto) 6.1, Eos % (Auto) 8.5, Baso % (Auto) 0.3, Neut # (Auto) 5.7, Lymph # (Auto) 0.8, [place] # (Auto) 0.5, Eos # (Auto) 0.7 H, Baso # (Auto) 0.0 09/22/22 06:43: Sodium 138, Potassium 3.6, Chloride 99, Carbon Dioxide 34 H, Anion Gap 8.6, BUN 54 H, Creatinine 1.20, Estimated Creat Clear 72, Estimated GFR 59, Est GFR ( Amer) 71, Glucose 126 H, Calcium 10.5 H I & O for Labs for Last 24 Hours: Intake & Output 09/19/22 09/20/22 09/21/22 09/22/22 23:59 23:59 23:59 23:59 Intake Total 1848.025 / 2039.025 1200 / 1200 Output Total 1525 / 1600 885 / 885 Balance 323.025 / 439.025 315 / 315 Weight 216 lb 11.43 oz 216 lb 3.2 oz 216 lb 3.176 oz Constitutional: Present severe distress Head: Present normocephalic and atraumatic ENT: Present normal exam, normal oropharynx and mucous membranes moist Neck: Present normal inspection and trachea midline Respiratory: Present respiratory distress, crackles, distant breath sounds, diminished air movement and able to speak in complete sentences Comment:: Decreased breath sounds lower lung hayden Cardiac: Present S1/S2, Tachycardia and radial pulses present GI: Present soft and distention; Absent tenderness or guarding Skin: Present intact; Absent cyanosis or jaundice Neuro: Absent alert, awake or oriented x 3 Extremities: Present edema; Absent clubbing or cyanosis Assessment and Plan *Assessment and plan (1) Acute hypercapnic respiratory failure: Status: Acute Category: Medical Code(s): J96.02 - Acute respiratory failure with hypercapnia (2) On mechanically assisted ventilation: Status: Acute Category: Medical Code(s): Z99.11 - Dependence on respirator [ventilator] status (3) Pleural effusion: Status: Acute Category: Medical Code(s): J90 - Pleural effusion, not elsewhere classified Plan #Acute hypoxic respiratory failure: #On mechanical ventilation: #Bilateral pleural effusions right > left, #HAP: Intubated and sedated, history obtained from chart review and patient's family 77-year-old male with a significant smoking history, prior respiratory complaints recently diagnosed with aplastic anemia status post bone marrow biopsy, initiating cyclosporine complicated by pulmonary toxicity status post discontinuation of cyclosporine around July 2022, since then noted to have new oxygen requirements and new hypercarbic respiratory failure requiring 2-3 recent hospital admissions for hypercarbic respiratory failure presented to [facility] ER yesterday with hypercarbic respiratory failure needing intubation mechanical ventilatory support, transferred to [facility] for further evaluation. Patient chest x-ray significant also noted to have bilateral pleural effusions right greater than left, worsening from his most recent hospital admission for August 2022. As per the family patient had a recent right-sided thoracentesis performed by [facility], will obtain records for further evaluation. Records from outside hospital reviewed patient had a thoracentesis with pleural fluid studies consistent with exudative effusion with LDH of 250 pH is 7.5. Lymphocytic predominant at 64% however negative for malignancy. Interval update: Sedation and completely this morning only responding to painful stimuli.
[2022-09-22 14:23] LABS: Thyroid Stimulating Hormone 9.13 uIU/mL (0.465-4.68)
[2022-09-22 14:48] LABS: Ammonia 12 umol/L (9-30)
[2022-09-22 14:58] LABS: Vitamin B12 380 pg/mL (239-931)
--- NOTE | 2022-09-22 16:31 | PC.WOUNDNOTE ---
skin assessment from noon
--- NOTE | 2022-09-22 19:50 | PC.NURSE ---
bp 113/52, decreased levophed drip to 3mcg/min (was at 5mcg/min), bp at 1999 94/56 (70)
--- NOTE | 2022-09-22 20:50 | PC.NURSE ---
bp 109/60 (74), decreased levophed drip to 2mcg/min
--- NOTE | 2022-09-22 21:00 | PC.NURSE ---
RESP CARE NOTE: Pt is more responsive to verbal stimulus, and sedation medication was stopped early this AM. Spontaneous breathing trial initiated with 8cmH20 of Pressure support, and 5 cmH2O of PEEP. Sensitivity was decreased to 1.0 to accommodate patient's inspiratory effort. Vt ranges 250 ml-350 ml, and patients SPO2 remains 91-92%. Will continue to monitor patient.
--- NOTE | 2022-09-22 21:30 | PC.NURSE ---
RESP CARE NOTE: Pt placed back into assist control mode after 30 minute breathing trial. Vt began to decrease to 200 ml and respiratory rate averaged 20 bpm. Vitals remained in patient's normal range. Will continue to monitor patient.
[2022-09-23] VITALS (30 sets, daily range): BP systolic 92–123; BP diastolic 46–68; PULSE 72–102; RESP 16–33; TEMP 36.4–37.4; O2SAT 90–99; BMI 34.0
--- NOTE | 2022-09-23 02:31 | PC.NURSE ---
2315-bp 116/54 (74), held levophed drip at this time 0115-bp 85/39 (58), restarted levophed drip at 2mcg/min 0130-bp 75/42 (55), increased levophed drip to 4mcg/min 0145-bp 120/66 (82) 0200-bp 104/57 (78) 0215-bp 136/73, decreased levophed drip to 2mcg/min 0230-bp 96/56 (68)
--- NOTE | 2022-09-23 02:56 | PC.NURSE ---
changed tubefeeding and flush bags
--- NOTE | 2022-09-23 06:36 | PC.WOUNDNOTE ---
changed dressing after bath, mild serous drainage on old dressing upon removal
--- NOTE | 2022-09-23 06:47 | PC.NURSE ---
pt has not been on any sedation this shift, RT attempting SBT at this time
[2022-09-23 07:49] LABS: ABG HCO3 31.7 mmhg (22.0-26.0); ABG Oxygen Saturation 72 % (90-100); ABG PH 7.28 mmol/L (7.35-7.45); ABG TCO2 33.9 mmhg (23-27)
--- NOTE | 2022-09-23 08:30 | EXP.ACUTE.PN ---
Subjective *Date: 09/23/22 *Time: 08:30 Interval history: Patient remains intubated on mechanical ventilation. Spontaneous breathing trial was unsuccessful. He remains on a very minimal dose of Levophed. In talking with his family apparently at [facility] he was on midodrine for pressure support. They do report that his communication is much improved with hand squeezing and acknowledging their presence. Medical Exam Vital signs and Labs for Last 24 Hours: Vital Signs Temp Pulse Pulse Pulse Resp BP Pulse Ox 09/23/22 06:44 95 H 33 H 112/65 93 L 09/23/22 06:00 88 18 101/54 L 93 L 09/23/22 04:00 93 L 09/23/22 05:00 94 H 16 103/53 L 94 L 09/23/22 04:00 99.3 F 90 16 95/51 L 93 L 09/23/22 04:00 88 09/23/22 02:30 17 90 L 09/22/22 23:30 16 93 L 09/22/22 21:30 18 94 L 09/22/22 21:00 18 92 L 09/22/22 17:45 16 94 L 09/23/22 00:00 90 L 09/23/22 03:00 99 H 16 95/50 L 90 L 09/23/22 02:00 09/23/22 02:00 88 16 104/57 L 94 L 09/23/22 01:00 88 16 92/46 L 93 L 09/23/22 00:00 96 H 16 96/55 L 90 L 09/22/22 23:00 82 18 97/49 L 91 L 09/22/22 22:00 09/23/22 00:00 84 09/22/22 22:00 80 18 109/57 L 93 L 09/22/22 20:00 95 09/22/22 21:00 82 10 L 104/52 L 92 L 09/22/22 20:00 78 09/22/22 20:00 85 11 L 94/56 L 94 L 09/22/22 19:00 91 H 15 113/52 L 95 09/22/22 16:00 09/22/22 12:00 09/22/22 18:00 09/22/22 18:00 79 16 98/50 L 93 L 09/22/22 16:00 70 09/22/22 12:00 90 09/22/22 17:00 84 16 114/57 L 98 09/22/22 16:00 86 96 09/22/22 12:00 82 92 L 09/22/22 16:00 86 16 119/61 96 09/22/22 15:00 91 H 16 109/57 L 97 09/22/22 14:00 83 16 111/64 91 L 09/22/22 13:00 83 16 97/52 L 91 L 09/22/22 12:00 82 16 101/43 L 92 L 09/22/22 14:20 16 94 L 09/22/22 11:00 121 H 22 131/59 L 95 09/22/22 10:00 69 16 101/50 L 98 09/22/22 09:00 77 16 96/55 L 99 09/22/22 10:00 16 FiO2 09/23/22 06:44 09/23/22 06:00 09/23/22 04:00 25 09/23/22 05:00 25 09/23/22 04:00 25 09/23/22 04:00 09/23/22 02:30 30 09/22/22 23:30 25 09/22/22 21:30 25 09/22/22 21:00 25 09/22/22 17:45 25 09/23/22 00:00 25 09/23/22 03:00 25 09/23/22 02:00 25 09/23/22 02:00 09/23/22 01:00 09/23/22 00:00 09/22/22 23:00 09/22/22 22:00 25 09/23/22 00:00 09/22/22 22:00 09/22/22 20:00 09/22/22 21:00 25 09/22/22 20:00 09/22/22 20:00 25 09/22/22 19:00 25 09/22/22 16:00 25 09/22/22 12:00 25 09/22/22 18:00 25 09/22/22 18:00 09/22/22 16:00 09/22/22 12:00 09/22/22 17:00 09/22/22 16:00 09/22/22 12:00 09/22/22 16:00 09/22/22 15:00 09/22/22 14:00 09/22/22 13:00 09/22/22 12:00 09/22/22 14:20 25 09/22/22 11:00 09/22/22 10:00 09/22/22 09:00 09/22/22 10:00 40 Intake and Output 09/22/22 09/23/22 09/23/22 19:59 03:59 11:59 Intake Total 767 / 2375 120 / 2375 1488 / 2375 Output Total 790 / 1920 470 / 1920 660 / 1920 Balance -23 / 455 -350 / 455 828 / 455 Intake: Intake, Oral Amount 0 / 0 Intake, Tube Feeding Amount 291 / 835 544 / 835 Intake, Tube Irrigant Amount 300 / 870 120 / 870 450 / 870 Intake, Total IV Amount 176 / 670 494 / 670 Cefepime HCl 2 gm In 0.9 % 98 / 198 100 / 198 Sodium Chloride 100 ml @ 200 mls/hr IV Q12H RANJAN Rx#:[id number] Norepinephrine Bitartrate 8 mg 78 / 222 144 / 222 In Dextrose 5 % in Water 250 ml @ 10 MCG/MIN 19.35 mls/hr IV . [id number] RANJAN Rx#:[id number] Vancomycin/Water For Inj (Peg) 250 / 250 1.5 gm In 300 ml @ 150 mls/hr IV Q18H RANJAN Rx#:[id number] Output: Output, Urine Amount 790 / 790 0 / 790 0 / 790 Output, Urine Amount (Catheter) 470 / 1130 660 / 113
[2022-09-23 08:49] LABS: Basophils % 0.4 % (0.1-2.0); Eosinophils # 0.8 K/mm3 (0.0-0.4); Hematocrit 28.2 % (42.0-52.0); Hemoglobin 8.7 g/dL (14.1-18.0); Lymphocytes # 0.7 K/mm3 (0.7-4.5); Lymphocytes % 8.3 % (10-50); Mean Corpuscular HGB Conc 30.6 g/dL (31.8-35.4); Mean Corpuscular Hemoglobin 28.4 pg (27.0-31.2); Mean Corpuscular Volume 92.8 fl (80-94); Mean Platelet Volume 8.3 fl (7.4-10.4); Monocytes # 0.4 K/mm3 (0.1-1.0); Monocytes % 4.6 % (1.7-9.3); Neutrophils # 6.1 K/mm3 (1.8-7.8); Neutrophils % 76.7 % (37.0-80.0); Platelet Count 335 K/mm3 (142-424); Red Blood Count 3.04 M/mm3 (4.60-6.20); Red Cell Distribution Width 17.3 % (11.5-17.5)
[2022-09-23 09:04] LABS: Chloride 99 mmol/L (98-107); Potassium 3.5 mmoL/L (3.5-5.1); Sodium 138 mmol/L (136-145)
[2022-09-23 09:07] LABS: Anion Gap 9.5 mEq/L (5-15); Blood Urea Nitrogen 58 mg/dl (9-20); Carbon Dioxide 33 mmol/L (22.0-30.0); Creatinine Clearance Estimated 70 mL/min (50-200); Estimated Glomerular Filt Rate 59 ml/min (>60); GFR (African American) 71 ML/MIN (>60)
[2022-09-23 09:08] LABS: Calcium 10.6 mg/dl (8.4-10.2); Glucose 152 mg/dl (74-100)
[2022-09-23 11:01] LABS: Allen's Test ACCEPTABLE; Oxygen 50 %; PEEP 5; Pressure Support 8; Source L RADIAL
[2022-09-23 11:02] LABS: ABG PCO2 69.1 mmhg (35.0-45.0); ABG PO2 45.9 mmhg (80-100)
--- NOTE | 2022-09-23 11:24 | XR_ITS ---
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 An endotracheal tube is again seen terminating in the midthoracic trachea. A right-sided PICC line terminates in the lower SVC. The heart size is normal. The mediastinum is within normal limits. There is bibasilar atelectasis. There are large right and moderate left pleural effusions, stable. There is no pneumothorax. The bony thorax is intact. IMPRESSION: Endotracheal tube as above. Right greater than left pleural effusions, stable. Reviewed, Interpreted and Dictated by Patrice Gonzalez III, MD Transcribed by Thuan Myers Authenticated and . [facility]
--- NOTE | 2022-09-23 12:18 | PC.NURSE ---
BP 123/60, MAP 78, levophed titrated to 1mcg at this time
--- NOTE | 2022-09-23 12:57 | PC.NURSE ---
DR. PEPPER ROUNDING AT BEDSIDE
--- NOTE | 2022-09-23 13:20 | DIET.NUTRFU ---
Tolerating Nepro at 60ml/hr ATC, providing 1440ml formula/2592kcal/116gm protein with 1046ml formula water. Also providing prostat AWC BID to provide additional 34gm protein for total of 150gm/day and add additional [id number]=9128bfkp/day. Flush with Prostat is 120ml TDR=790tg+1046ml formula water and 110ml flush G6J=035sc for grand total of 1946ml/day. labs reviewed: Na 138, BUN 58H, Cr 1.2, glucose 152H. Urine out 09/22: 1370ml and todays output so far 1530ml. Bumex given again today to help with respiratory. No BM noted, will review tomorrow. No bowel regimen ordered and pain meds in place.
--- NOTE | 2022-09-23 13:29 | US_ITS ---
FINAL REPORT CLINICAL HISTORY: Pleural effusion, 720 ml FINDINGS: ULTRASOUND-GUIDED THORACENTESIS HISTORY: Pleural effusion. TECHNIQUE: Ultrasound guidance was provided by clinical service and performance of a thoracentesis. IMPRESSION: Ultrasound guidance for thoracentesis performed by clinical service. Films reviewed , interpreted and dictated by Dr. Gonzalez Transcribed by Sukhdev Oleary PA-C. Reviewed, Interpreted and Dictated by Patrice Gonzalez III, MD Transcribed by DEBBIE Younger Authenticated and [facility]
--- NOTE | 2022-09-23 13:37 | PC.NURSE ---
BP 86/41, Levophed titrated to 2mcg at this time
--- NOTE | 2022-09-23 15:01 | XR_ITS ---
PROCEDURE INFORMATION: Exam: XR Chest Exam date and time: 09/23/2022 3:42 PM Age: 77 years old Clinical indication: Screening exam; Other screening; Additional info: Post US thoracentesis TECHNIQUE: Imaging protocol: Radiologic exam of the chest. Views: 1 view. COMPARISON: CR (CHEST, CXR AP LANDSCAPE) 09/22/2022 5:52 AM FINDINGS: Tubes, catheters and devices: A pulse generator device is present, and its leads are in appropriate position. Right PICC line, endotracheal tube remain in place. There is a pigtail catheter projected in the right lower lobe. Lungs: Unremarkable. No consolidation. Pleural spaces: Interval decrease in size of right pleural effusion. Left pleural effusion persists. Heart/Mediastinum: Contours of the cardiac silhouette are unchanged Bones/joints: Unremarkable. IMPRESSION: 1. Interval decrease in size of right pleural effusion. Left pleural effusion persists. 2. Right pigtail catheter in the right lower lobe
--- NOTE | 2022-09-23 15:16 | EXP.PULM.PN ---
Subjective *Date: 09/23/22 *Time: 15:16 Interval history: No acute respiratory vents overnight. Continues remain on minimal vent settings. Pulmonology Exam Inpatient Vital signs and Labs for Last 24 Hours: Temp Pulse Resp BP Pulse Ox FiO2 98.5 F 93 H 16 101/46 L 93 L 30 09/23/22 13:00 09/23/22 13:00 09/23/22 13:00 09/23/22 13:00 09/23/22 13:00 09/23/22 13:00 Laboratory Results - last 24 hr 09/23/22 07:47: Specimen Source L radial, O2 % 50, ABG pH 7.28 L, ABG pCO2 69.1 H, ABG pO2 45.9 L, ABG HCO3 31.7 H, ABG Total CO2 33.9 H, ABG O2 Saturation 72 L*, ABG Base Excess 5.0 H, Daniel Test Acceptable, PEEP 5 09/23/22 08:30: WBC 8.0, RBC 3.04 L, Hgb 8.7 L, Hct 28.2 L, MCV 92.8, MCH 28.4, MCHC 30.6 L, RDW 17.3, Plt Count 335, MPV 8.3, Neut % (Auto) 76.7, Lymph % (Auto) 8.3 L, [place] % (Auto) 4.6, Eos % (Auto) 10.0, Baso % (Auto) 0.4, Neut # (Auto) 6.1, Lymph # (Auto) 0.7, [place] # (Auto) 0.4, Eos # (Auto) 0.8 H, Baso # (Auto) 0.0 09/23/22 08:30: Sodium 138, Potassium 3.5, Chloride 99, Carbon Dioxide 33 H, Anion Gap 9.5, BUN 58 H, Creatinine 1.20, Estimated Creat Clear 70, Estimated GFR 59, Est GFR ( Amer) 71, Glucose 152 H, Calcium 10.6 H I & O for Labs for Last 24 Hours: Intake & Output 09/20/22 09/21/22 09/22/22 09/23/22 23:59 23:59 23:59 23:59 Intake Total 1848.025 / 2039.025 2138 / 2138 2130 / 2130 Output Total 1525 / 1600 2180 / 2230 1670 / 1670 Balance 323.025 / 439.025 -42 / -92 460 / 460 Weight 216 lb 11.43 oz 216 lb 3.2 oz 216 lb 3.176 oz 211 lb 6.773 oz Constitutional: Present severe distress Head: Present normocephalic and atraumatic ENT: Present normal exam, normal oropharynx and mucous membranes moist Neck: Present normal inspection and trachea midline Respiratory: Present respiratory distress, crackles, distant breath sounds, diminished air movement and able to speak in complete sentences Comment:: Decreased breath sounds lower lung hayden Cardiac: Present S1/S2, Tachycardia and radial pulses present GI: Present soft and distention; Absent tenderness or guarding Skin: Present intact; Absent cyanosis or jaundice Neuro: Absent alert, awake or oriented x 3 Extremities: Present edema; Absent clubbing or cyanosis Assessment and Plan *Assessment and plan (1) Acute hypercapnic respiratory failure: Status: Acute Category: Medical Code(s): J96.02 - Acute respiratory failure with hypercapnia (2) On mechanically assisted ventilation: Status: Acute Category: Medical Code(s): Z99.11 - Dependence on respirator [ventilator] status (3) Pleural effusion: Status: Acute Category: Medical Code(s): J90 - Pleural effusion, not elsewhere classified Plan #Acute hypoxic respiratory failure: #On mechanical ventilation: #Bilateral pleural effusions right > left, #HAP: Intubated and sedated, history obtained from chart review and patient's family 77-year-old male with a NO significant smoking history, prior respiratory complaints recently diagnosed with aplastic anemia status post bone marrow biopsy, initiating cyclosporine complicated by pulmonary toxicity status post discontinuation of cyclosporine around July 2022, since then noted to have new oxygen requirements and new hypercarbic respiratory failure requiring 2-3 recent hospital admissions for hypercarbic respiratory failure presented to [facility] ER yesterday with hypercarbic respiratory failure needing intubation mechanical ventilatory support, transferred to [facility] for further evaluation. Patient chest x-ray significant also noted to have bilateral pleural effusions right greater than left, worsening from his most recent hospital admission for August 2022. As per the family patient had a recent right-sided thoracentesis performed by [facility], will obtain records for further evaluation. Records from outside hospital reviewed patient had a thoracentesis with
--- NOTE | 2022-09-23 15:19 | P.PCN_ITS ---
[facility] Procedure Note Date: 09/23/22 Time: 15:20 Procedure Note:: Procedure: Right Thoracentesis Indication for procedure: Pleural Effusion, Hypoxic Respiratory failure A time out was performed, and the chest x-ray was reviewed, the appropriate side was confirmed and marked. My hands were washed immediately prior to the procedure. I wore a surgical cap, mask with protective eyewear, sterile gown, and sterile gloves throughout the procedure. The patient was prepped and draped in a sterile manner using chlorhexidine scrub after the appropriate level was percussed and confirmed by ultrasound. 1% lidocaine was used to anesthetize the skin, ?subcutaneous tissue, superior aspect of the rib periosteum and parietal pleura.? A finder needle was then introduced at the seventh intercoastal space posteriorly?to locate the pleural fluid; blood-tinged fluid was aspirated. A 10- blade scalpel was used to nita the skin at the insertion site. The Ckuy-t-Uhcxldew needle was then introduced through the skin incision into the pleural space using negative aspiration pressure and the red colorimetric indicator to confirm appropriate positioning of the needle. The thoracentesis catheter was then threaded without difficulty.? 720 ml of blood-tinged?fluid was removed without difficulty. The catheter was then removed. No immediate complications were noted during the procedure. A post-procedure chest X-ray is pending at the time of this note. The fluid will be sent for routine pleural studies, cultures along with cytopathology.? Patient tolerated the procedure well? Estimated blood loss is 5cc.
--- NOTE | 2022-09-23 15:23 | PC.WOUNDNOTE ---
daily skin assessment
[2022-09-23 15:37] LABS: RBC,Body Fluid 126 cells/uL (< 10 X 10^3); TNC,Body Fluid 921 cells/uL (< 1000)
[2022-09-23 15:38] LABS: Appearance,Body Fld. Bloody; Source, Body Fld. Thoracentesis Fluid; Volume,Body Fld. 720 mL
[2022-09-23 18:06] LABS: Mononuclear WBCs,Body Fluid 54 %; Polynuclear WBC,Body Fluid 46 %
[2022-09-23 18:56] LABS: Chloride 98 mmol/L (98-107); Potassium 3.6 mmoL/L (3.5-5.1); Sodium 138 mmol/L (136-145)
[2022-09-23 18:59] LABS: Alanine Aminotransferase 42 U/L (12-78); Alkaline Phosphatase 160 U/L (38-126); Anion Gap 9.6 mEq/L (5-15); Aspartate Amino Transferase 47 U/L (17-59); Bilirubin,Total 0.4 mg/dl (0.2-1.3); Blood Urea Nitrogen 64 mg/dl (9-20); Calcium 10.4 mg/dl (8.4-10.2); Carbon Dioxide 34 mmol/L (22.0-30.0); Creatinine Clearance Estimated 70 mL/min (50-200); Estimated Glomerular Filt Rate 59 ml/min (>60); GFR (African American) 71 ML/MIN (>60); Globulin 2.9 g/dL (1.3-3.2); Glucose 139 mg/dl (74-100); Total Protein,Serum 5.9 g/dl (6.3-8.2)
[2022-09-23 19:17] LABS: Lactate Dehydrogenase 141 U/L (313-618)
--- NOTE | 2022-09-23 22:16 | XR_ITS ---
PROCEDURE INFORMATION: Exam: XR Chest Exam date and time: 09/23/2022 10:18 PM Age: 77 years old Clinical indication: Other: 02 sat decrease; Prior surgery; Surgery date: Post-operative (0-2 days); Surgery type: Thoracentesis; Patient HX: Right sided chest tube; Additional info: Oxygen saturations decreasing TECHNIQUE: Imaging protocol: Radiologic exam of the chest. Views: 1 view. COMPARISON: CR XR CHEST PORTABLE 09/23/2022 3:42 PM FINDINGS: Tubes, catheters and devices: Stable left chest cardiac device. There is pleural catheter at the right lung base. Stable right-sided PICC line. Endotracheal tube is stable. Lungs: Atelectasis annual infiltrate at the left mid to lower lung zone, stable. Pleural spaces: Left-sided pleural effusion is stable. There is right-sided pneumothorax with up to 1.8 cm of pleural separation. This is decreased in size compared to prior examination. Heart/Mediastinum: Stable cardiac silhouette. Bones/joints: Unremarkable. IMPRESSION: 1. Right-sided pneumothorax measures up to 1.8 cm of pleural separation at the right lung apex which is improved compared to prior examination. Pleural catheter remains at the right lung base. 2. Remaining findings are not significantly changed.
--- NOTE | 2022-09-23 23:35 | PC.NURSE ---
turned pt's suction on pleuravac up to 30 per telephone order from Dr. Green and called RT to lavage suction pt once
[2022-09-24] VITALS (35 sets, daily range): BP systolic 101–138; BP diastolic 51–77; PULSE 70–106; RESP 16–28; TEMP 36.6–37.6; O2SAT 88–99; BMI 33.9
[2022-09-24 02:17] LABS: Vancomycin,Trough 21.8 ug/mL (5.0-10.0)
--- NOTE | 2022-09-24 02:21 | PC.NURSE ---
notified nightwatch of pt's vanc trough of 21.8, instructed to hold 0200 dose and pharmacy will re-dose in am accordingly
[2022-09-24 05:57] LABS: Basophils % 0.2 % (0.1-2.0); Eosinophils % 11.9 % (0.1-12.0); Hematocrit 26.4 % (42.0-52.0); Hemoglobin 8.4 g/dL (14.1-18.0); Lymphocytes # 0.8 K/mm3 (0.7-4.5); Lymphocytes % 10.5 % (10-50); Mean Corpuscular HGB Conc 31.7 g/dL (31.8-35.4); Mean Corpuscular Hemoglobin 29.1 pg (27.0-31.2); Mean Corpuscular Volume 91.6 fl (80-94); Mean Platelet Volume 8.1 fl (7.4-10.4); Monocytes # 0.5 K/mm3 (0.1-1.0); Monocytes % 6.1 % (1.7-9.3); Neutrophils # 5.7 K/mm3 (1.8-7.8); Neutrophils % 71.3 % (37.0-80.0); Platelet Count 362 K/mm3 (142-424); Red Blood Count 2.89 M/mm3 (4.60-6.20); Red Cell Distribution Width 17.5 % (11.5-17.5)
[2022-09-24 06:01] LABS: Chloride 99 mmol/L (98-107); Potassium 3.4 mmoL/L (3.5-5.1); Sodium 140 mmol/L (136-145)
[2022-09-24 06:04] LABS: Blood Urea Nitrogen 65 mg/dl (9-20); Creatinine Clearance Estimated 70 mL/min (50-200); Estimated Glomerular Filt Rate 59 ml/min (>60); GFR (African American) 71 ML/MIN (>60)
[2022-09-24 06:05] LABS: Anion Gap 9.4 mEq/L (5-15); Calcium 10.7 mg/dl (8.4-10.2); Carbon Dioxide 35 mmol/L (22.0-30.0); Glucose 143 mg/dl (74-100)
[2022-09-24 06:46] LABS: Vancomycin,Peak 24.8 ug/ml (11-39)
--- NOTE | 2022-09-24 07:35 | EXP.PHA.PN ---
Subjective *Date: 09/24/22 *Time: 07:35 Medical Exam Vital signs and Labs for Last 24 Hours: Vital Signs Temp Pulse Pulse Resp BP Pulse Ox FiO2 09/24/22 06:11 22 88 L 80 09/24/22 04:00 94 L 100 09/24/22 06:00 88 17 106/56 L 93 L 09/24/22 05:00 85 16 128/68 94 L 09/24/22 04:00 99.2 F 09/24/22 04:00 85 09/24/22 03:13 25 H 95 80 09/24/22 03:00 91 H 16 115/64 95 80 09/24/22 02:00 87 17 117/58 L 96 90 09/24/22 01:00 90 16 112/51 L 97 100 09/24/22 00:00 85 09/24/22 01:44 16 98 90 09/24/22 00:00 99 100 09/23/22 20:00 95 30 09/24/22 00:00 99 100 09/24/22 00:00 97.8 F 85 26 H 112/60 98 100 09/23/22 23:00 81 17 113/61 98 100 09/23/22 23:24 16 99 100 09/23/22 22:00 78 16 110/57 L 97 100 09/23/22 21:00 75 16 103/48 L 99 40 09/23/22 21:33 17 93 L 40 09/23/22 20:00 77 09/23/22 20:00 97.5 F L 81 16 110/58 L 94 L 30 09/23/22 19:49 16 94 L 30 09/23/22 16:00 78 09/23/22 18:43 81 16 104/58 L 95 30 09/23/22 18:00 81 16 107/51 L 98 30 09/23/22 18:05 97 30 09/23/22 18:05 16 97 30 09/23/22 17:00 98.6 F 72 16 95/52 L 94 L 30 09/23/22 12:00 90 09/23/22 08:00 100 H 09/23/22 16:00 79 16 94/49 L 94 L 30 09/23/22 15:59 94 L 30 09/23/22 15:00 80 16 115/55 L 96 30 09/23/22 14:00 30 09/23/22 14:00 90 16 105/61 L 95 30 09/23/22 13:00 98.5 F 93 H 16 101/46 L 93 L 30 09/23/22 12:00 91 L 09/23/22 12:00 98.7 F 91 H 20 123/60 91 L 30 09/23/22 11:00 88 16 112/54 L 95 30 09/23/22 08:00 95 30 09/23/22 10:00 30 09/23/22 10:00 83 16 105/54 L 94 L 30 09/23/22 09:00 92 H 16 96/53 L 95 30 09/23/22 08:00 98.9 F 102 H 16 115/68 95 30 Intake and Output 09/23/22 09/23/22 09/24/22 15:59 23:59 07:59 Intake Total 779 / 2586 456 / 2586 Output Total 1020 / 2490 770 / 2490 365 / 365 Balance -241 / 96 -314 / 96 -365 / -365 Intake: Intake, Tube Feeding Amount 518 / 1168 234 / 1168 Intake, Tube Irrigant Amount 230 / 790 110 / 790 Intake, Total IV Amount 31 / 628 112 / 628 Cefepime HCl 2 gm In 0.9 % 100 / 200 Sodium Chloride 100 ml @ 200 mls/hr IV Q12H RANJAN Rx#:[id number] Norepinephrine Bitartrate 8 mg 9 / 144 In Dextrose 5 % in Water 250 ml @ 10 MCG/MIN 19.35 mls/hr IV . [id number] RANJAN Rx#:[id number] Norepinephrine Bitartrate 8 mg / In Dextrose 5 % in Water 250 ml @ 2 MCG/MIN 3.87 mls/hr IV . Q24H RANJAN Rx#:[id number] Output: Output, Urine Amount 0 / 0 0 / 0 0 / 0 Output, Urine Amount (Catheter) 1010 / 2480 770 / 2480 365 / 365 Ny 1010 / 2480 770 / 2480 365 / 365 Output, Gastric Drainage Amount 10 / 10 Mid Upper Abdomen 10 10 Other: Number of Unmeasured Voids 0 0 0 Weight 95.7 kg Patient Weight 09/24/22 23:59 Weight 95.7 kg Laboratory Results - last 24 hr 09/23/22 07:47: Specimen Source L radial, O2 % 50, ABG pH 7.28 L, ABG pCO2 69.1 H, ABG pO2 45.9 L, ABG HCO3 31.7 H, ABG Total CO2 33.9 H, ABG O2 Saturation 72 L*, ABG Base Excess 5.0 H, Daniel Test Acceptable, PEEP 5 09/23/22 08:30: WBC 8.0, RBC 3.04 L, Hgb 8.7 L, Hct 28.2 L, MCV 92.8, MCH 28.4, MCHC 30.6 L, RDW 17.3, Plt Count 335, MPV 8.3, Neut % (Auto) 76.7, Lymph % (Auto) 8.3 L, [place] % (Auto) 4.6, Eos % (Auto) 10.0, Baso % (Auto) 0.4, Neut # (Auto) 6.1, Lymph # (Auto) 0.7, [place] # (Auto) 0.4, Eos # (Auto) 0.8 H, Baso # (Auto) 0.0 09/23/22 08:30: Sodium 138, Potassium 3.5, Chloride 99, Carbon Dioxide 33 H, Anion Gap 9.5, BUN 58 H, Creatinine 1.20, Estimated Creat Clear 70, Estimated GFR 59, Est GFR ( Amer) 71, Glucose 152 H, Calcium 10.6 H 09/23/22 14:40: Fluid Source Thoracentesis fluid, Fluid Volume 720, Fluid Appearance Bloody
--- NOTE | 2022-09-24 09:30 | CT_ITS ---
FINAL REPORT CLINICAL HISTORY: MS changes COMPARISON: 09/20/2022 FINDINGS: After the administration of IV contrast, images of the head were obtained without contrast. Coronal reformatted images were also obtained. This study was performed with techniques to keep radiation doses as low as reasonably achievable (ALARA). Individualized dose reduction techniques using automated exposure control or adjustment of mA and/or kV according to the patient''s size were employed. There is generalized age-appropriate atrophy. Periventricular low-attenuation areas are seen consistent with mild chronic ischemic changes. There is no evidence of intracranial hemorrhage or mass. There is no evidence of acute infarct. There is no evidence of shift of the midline structures. No skull abnormality is seen on the bone window images. There is no evidence of abnormal contrast enhancement. IMPRESSION: Atrophy and mild periventricular chronic ischemic changes. No acute intracranial abnormality identified. Reviewed, Interpreted and Dictated by Patrice Gonzalez III, MD Transcribed by Raeann Duke Authenticated and [facility]
--- NOTE | 2022-09-24 09:32 | EXP.ACUTE.PN ---
Subjective *Date: 09/24/22 *Time: 09:32 Interval history: Patient had a fairly stable night except for a couple of hours of hypoxia which were ameliorated by turning him in bed and repositioning him. His CT status is improving with better air excursion after evacuation of the pleural effusion. Long discussion with patient's ongoing care with daughters at bedside. Patient did not do well with a spontaneous breathing trial this morning. Medical Exam Vital signs and Labs for Last 24 Hours: Vital Signs Temp Pulse Pulse Resp BP Pulse Ox FiO2 09/24/22 08:00 99.4 F 85 18 133/54 L 96 09/24/22 07:00 104 H 24 116/61 95 09/24/22 06:11 22 88 L 80 09/24/22 04:00 94 L 100 09/24/22 06:00 88 17 106/56 L 93 L 09/24/22 05:00 85 16 128/68 94 L 09/24/22 04:00 99.2 F 09/24/22 04:00 85 09/24/22 03:13 25 H 95 80 09/24/22 03:00 91 H 16 115/64 95 80 09/24/22 02:00 87 17 117/58 L 96 90 09/24/22 01:00 90 16 112/51 L 97 100 09/24/22 00:00 85 09/24/22 01:44 16 98 90 09/24/22 00:00 99 100 09/23/22 20:00 95 30 09/24/22 00:00 99 100 09/24/22 00:00 97.8 F 85 26 H 112/60 98 100 09/23/22 23:00 81 17 113/61 98 100 09/23/22 23:24 16 99 100 09/23/22 22:00 78 16 110/57 L 97 100 09/23/22 21:00 75 16 103/48 L 99 40 09/23/22 21:33 17 93 L 40 09/23/22 20:00 77 09/23/22 20:00 97.5 F L 81 16 110/58 L 94 L 30 09/23/22 19:49 16 94 L 30 09/23/22 16:00 78 09/23/22 18:43 81 16 104/58 L 95 30 09/23/22 18:00 81 16 107/51 L 98 30 09/23/22 18:05 97 30 09/23/22 18:05 16 97 30 09/23/22 17:00 98.6 F 72 16 95/52 L 94 L 30 09/23/22 12:00 90 09/23/22 16:00 79 16 94/49 L 94 L 30 09/23/22 15:59 94 L 30 09/23/22 15:00 80 16 115/55 L 96 30 09/23/22 14:00 30 09/23/22 14:00 90 16 105/61 L 95 30 09/23/22 13:00 98.5 F 93 H 16 101/46 L 93 L 30 09/23/22 12:00 91 L 09/23/22 12:00 98.7 F 91 H 20 123/60 91 L 30 09/23/22 11:00 88 16 112/54 L 95 30 09/23/22 10:00 30 09/23/22 10:00 83 16 105/54 L 94 L 30 Intake and Output 09/23/22 09/24/22 09/24/22 19:59 03:59 11:59 Intake Total 814 / 1686 872 / 1686 Output Total 765 / 1755 680 / 1755 310 / 1755 Balance 49 / -69 -680 / -69 562 / -69 Intake: Intake, Tube Feeding Amount 469 / 1275 806 / 1275 Intake, Tube Irrigant Amount 220 / 280 60 / 280 Intake, Total IV Amount 125 / 131 6 / 131 Cefepime HCl 2 gm In 0.9 % 100 / 100 Sodium Chloride 100 ml @ 200 mls/hr IV Q12H RANJAN Rx#:[id number] Norepinephrine Bitartrate 8 mg In Dextrose 5 % in Water 250 ml @ 2 MCG/MIN 3.87 mls/hr IV . Q24H RANJAN Rx#:[id number] Output: Output, Urine Amount 0 / 0 0 / 0 0 / 0 Output, Urine Amount (Catheter) 755 / 1745 680 / 1745 310 / 1745 Ny 755 / 1745 680 / 1745 310 / 1745 Output, Gastric Drainage Amount 10 Mid Upper Abdomen 10 Other: Number of Unmeasured Voids 0 0 0 Weight 210 lb 15.718 oz Patient Weight 09/24/22 11:59 Weight 210 lb 15.718 oz Laboratory Results - last 24 hr 09/23/22 07:47: Specimen Source L radial, O2 % 50, ABG pH 7.28 L, ABG pCO2 69.1 H, ABG pO2 45.9 L, ABG HCO3 31.7 H, ABG Total CO2 33.9 H, ABG O2 Saturation 72 L*, ABG Base Excess 5.0 H, Daniel Test Acceptable, PEEP 5 09/23/22 14:40: Fluid Source Thoracentesis fluid, Fluid Volume 720, Fluid Appearance Bloody, Fluid RBC (Auto) 126, Fld Tot Nucleated Cell 921, Fld Polynuclear WBCs % 46, Fld Mononuclear WBCs % 54 09/23/22 18:37: Sodium 138, Potassium 3.6, Chloride 98, Carbon Dioxide 34 H, Anion Gap 9.6, BUN 64 H, Creatinine 1.20, Estimated Creat Clear 70, Estimated GFR 59, Est GFR ( Amer) 71, Glucose 139 H, Calcium 10.4 H, Total Bilirubin 0.4, A
[2022-09-24 10:30] LABS: Thyroid Stimulating Hormone 8.34 uIU/mL (0.465-4.68)
--- NOTE | 2022-09-24 11:15 | DIET.NUTRFU ---
Patient continues to tolerate TF- Nepro 60ml/hr ATC with flush of 110ml Q4H to meet 100% of needs. Minimal residuals of 10ml noted. I/O's reviewed, good urine out 09/23 at 2430 with bumex tx. he is ordered bumex again today. No BM since admit, will review with nursing today. Had thorcentesis 1222 pulled 720ml off. Wt went from 216# to 210#. Continued to be intubated, SBT unsuccessful. ABT tx in place. Has skin breakdown with prostat AWC ordered BID for extra protein/amino acids to promote healing. Labs reviewed: Na 140, K 3.4, BUN 65, Cr 1.2, glucose 143H. Will continue current POC
--- NOTE | 2022-09-24 11:15 | HMH.ITSTN ---
late entry: spoke to alma graff around 944 and she stated she was with another pt and would call when available
--- NOTE | 2022-09-24 11:26 | XR_ITS ---
FINAL REPORT CLINICAL HISTORY: Pneumothorax COMPARISON: 09/23/2022 FINDINGS: SINGLE-VIEW CHEST There is cardiomegaly. Left subclavian pacer is identified. Endotracheal tube terminates in the midthoracic trachea. Right PICC line tip terminates in the lower SVC. The mediastinum is normal. There are stable bilateral pleural effusions and bibasilar pulmonary opacities. There is a stable right apical pneumothorax with approximately 1.8 cm of pleural separation. IMPRESSION: Stable appearance of the chest. Reviewed, Interpreted and Dictated by Patrice Gonzalez III, MD Transcribed by Raeann Duke Authenticated and [facility]
--- NOTE | 2022-09-24 11:27 | EXP.PULM.PN ---
Subjective *Date: 09/24/22 *Time: 13:48 Interval history: No acute respiratory events overnight except for a hypoxic episode needing increasing afterwards 100% eventually weaned to 35% this morning. Otherwise continue to remain on minimal vent settings. Pulmonology Exam Inpatient Vital signs and Labs for Last 24 Hours: Temp Pulse Resp BP Pulse Ox FiO2 99.6 F 96 H 16 110/67 95 40 09/24/22 08:00 09/24/22 11:00 09/24/22 11:00 09/24/22 11:00 09/24/22 11:00 09/24/22 10:40 Laboratory Results - last 24 hr 09/23/22 14:40: Fluid Source Thoracentesis fluid, Fluid Volume 720, Fluid Appearance Bloody, Fluid RBC (Auto) 126, Fld Tot Nucleated Cell 921, Fld Polynuclear WBCs % 46, Fld Mononuclear WBCs % 54 09/23/22 18:37: Sodium 138, Potassium 3.6, Chloride 98, Carbon Dioxide 34 H, Anion Gap 9.6, BUN 64 H, Creatinine 1.20, Estimated Creat Clear 70, Estimated GFR 59, Est GFR ( Amer) 71, Glucose 139 H, Calcium 10.4 H, Total Bilirubin 0.4, AST 47, ALT 42 D, Alkaline Phosphatase 160 H, Lactate Dehydrogenase 141 L, Total Protein 5.9 L, Albumin 3.0 L, Globulin 2.9, Albumin/Globulin Ratio 1.0 L 09/24/22 00:05: Vancomycin Trough 21.8 H 09/24/22 05:50: Vancomycin Peak 24.8 09/24/22 05:50: WBC 8.0, RBC 2.89 L, Hgb 8.4 L, Hct 26.4 L, MCV 91.6, MCH 29.1, MCHC 31.7 L, RDW 17.5, Plt Count 362, MPV 8.1, Neut % (Auto) 71.3, Lymph % (Auto) 10.5, [place] % (Auto) 6.1, Eos % (Auto) 11.9, Baso % (Auto) 0.2, Neut # (Auto) 5.7, Lymph # (Auto) 0.8, [place] # (Auto) 0.5, Eos # (Auto) 1.0 H, Baso # (Auto) 0.0 09/24/22 05:50: Sodium 140, Potassium 3.4 L, Chloride 99, Carbon Dioxide 35 H, Anion Gap 9.4, BUN 65 H, Creatinine 1.20, Estimated Creat Clear 70, Estimated GFR 59, Est GFR ( Amer) 71, Glucose 143 H, Calcium 10.7 H 09/24/22 05:50: TSH 8.34 H I & O for Labs for Last 24 Hours: Intake & Output 09/21/22 09/22/22 09/23/22 09/24/22 23:59 23:59 23:59 23:59 Intake Total 1848.025 / 2039.025 2138 / 2138 2844 / 2844 1211 / 1211 Output Total 1525 / 1600 2180 / 2230 2440 / 2490 845 / 845 Balance 323.025 / 439.025 -42 / -92 404 / 354 366 / 366 Weight 216 lb 3.2 oz 216 lb 3.176 oz 211 lb 6.773 oz 210 lb 15.718 oz Microbiology Reports for the Last 24 Hours: Microbiology 09/23/22 14:40 Pleural Fluid - Pleura Gram Stain - Final Constitutional: Present severe distress Head: Present normocephalic and atraumatic ENT: Present normal exam, normal oropharynx and mucous membranes moist Neck: Present normal inspection and trachea midline Respiratory: Present respiratory distress, crackles, distant breath sounds, diminished air movement and able to speak in complete sentences Comment:: Decreased breath sounds lower lung hayden Cardiac: Present S1/S2, Tachycardia and radial pulses present GI: Present soft and distention; Absent tenderness or guarding Skin: Present intact; Absent cyanosis or jaundice Neuro: Absent alert, awake or oriented x 3 Extremities: Present edema; Absent clubbing or cyanosis Assessment and Plan *Assessment and plan (1) Acute hypercapnic respiratory failure: Status: Acute Category: Medical Code(s): J96.02 - Acute respiratory failure with hypercapnia (2) On mechanically assisted ventilation: Status: Acute Category: Medical Code(s): Z99.11 - Dependence on respirator [ventilator] status (3) Pleural effusion: Status: Acute Category: Medical Code(s): J90 - Pleural effusion, not elsewhere classified Plan #Acute hypoxic respiratory failure: #On mechanical ventilation: #Bilateral pleural effusions right > left, #HAP: # Right Pneumothorax Intubated and sedated, history obtained from chart review and patient's family 77-year-old male with a NO significant smoking history, prior respiratory complaints recently diagnosed with aplastic anemia status post bone marrow biopsy, initiating cyclosporine complicated by pulmonary toxicity status post discontinuation of cyclosporine around
--- NOTE | 2022-09-24 12:21 | CT_ITS ---
FINAL REPORT TECHNIQUE: Axial CT images were performed from the lung apices through the upper abdomen. Coronal reformats were submitted. This study was performed with techniques to keep radiation doses as low as reasonably achievable (ALARA). Individualized dose reduction techniques using automated exposure control or adjustment of mA and/or kV according to the patient's size were employed. CLINICAL HISTORY: pleural effusions, mech vent COMPARISON: 09/11/2022 FINDINGS: There is no axillary adenopathy. There is no hilar or mediastinal mass or adenopathy. Heart size is normal. Endotracheal tube is present. There is a left subclavian pacer. There are moderate right and large left pleural effusions. The left pleural effusion is somewhat larger than previous. There is bilateral lower lobe collapse. There is small to moderate anterior right pneumothorax with up to 27 mm of pleural separation. Right PICC line tip terminates in the lower SVC. Limited images of the upper abdomen demonstrate the patient to be status post cholecystectomy. A G-tube is present. IMPRESSION: Bilateral pleural effusions, left greater than right. Small to moderate anterior right pneumothorax with up to 27 mm of pleural separation. Reviewed, Interpreted and Dictated by Patrice Gonzalez III, MD Transcribed by Raeann Duke Authenticated and [facility]
[2022-09-24 13:12] LABS: ABG Base Excess 7.2 mmol/L (-2.4-2.3); ABG HCO3 32.3 mmhg (22.0-26.0); ABG Oxygen Saturation 94 % (90-100); ABG PH 7.38 mmol/L (7.35-7.45); ABG PO2 79.9 mmhg (80-100); ABG TCO2 34.1 mmhg (23-27)
[2022-09-24 13:13] LABS: Allen's Test Patient Unable; PEEP 5; Pressure Support 10; Source Left Radial
[2022-09-24 13:14] LABS: ABG PCO2 56.3 mmhg (35.0-45.0)
[2022-09-24 15:22] LABS: Vancomycin,Trough 17.2 ug/mL (5.0-10.0)
[2022-09-25] VITALS (37 sets, daily range): BP systolic 92–149; BP diastolic 42–88; PULSE 71–105; RESP 15–29; TEMP 36.7–37.9; O2SAT 91–99; BMI 33.5
--- NOTE | 2022-09-25 04:50 | PC.NURSE ---
Pt is awake and following commands this AM. Pt will blink eyes, lift arms and nod yes or no when asked for responses. Levophed is currently on standby. Was titrated from 2 mcg to 1 mcg around 0100. Standby @ 0300. Pt has been suctioned multiple times this shift due to copious amounts of sputum. Oral care also provided. Pt has had periods of desaturation in the upper 80s. Consuelo Brown STOCK [employer] consulted. BP is currently stable. Pt has had elevated temp this AM of 100.2. Tube feeds, Nepro has infused @ goal rate of 60 ml/hr. Stopped @ 0445 due to SBT this AM. Pt has tolerated well. Residuals have been no more than 10 ml. Pt has had 2 BM. F/C draining to bedside with yellow urine . Sediment noted. Pt is Afib-paced on telemetry.
--- NOTE | 2022-09-25 07:00 | XR_ITS ---
PROCEDURE INFORMATION: Exam: XR Chest Exam date and time: 09/25/2022 6:54 AM Age: 77 years old Clinical indication: Device placement; Ett placement (vent status) TECHNIQUE: Imaging protocol: Radiologic exam of the chest. Views: 1 view. COMPARISON: CT CHEST WO CON 09/24/2022 1:14 PM FINDINGS: Tubes, catheters and devices: The endotracheal tube is above the level of the henry. Pacemaker is present via a left subclavian approach. PICC line from the right with the tip projecting over the right atrium. Lungs: See Pleural spaces finding. Pleural spaces: Moderate subpulmonic effusions bilaterally. Adjacent atelectasis. Heart/Mediastinum: Unremarkable. No cardiomegaly. Bones/joints: Unremarkable. IMPRESSION: Moderate subpulmonic effusions bilaterally. Adjacent atelectasis.
[2022-09-25 07:19] LABS: Chloride 102 mmol/L (98-107)
[2022-09-25 07:20] LABS: Potassium 3.4 mmoL/L (3.5-5.1); Sodium 142 mmol/L (136-145)
[2022-09-25 07:22] LABS: Blood Urea Nitrogen 64 mg/dl (9-20); Creatinine Clearance Estimated 75 mL/min (50-200); Estimated Glomerular Filt Rate 65 ml/min (>60); GFR (African American) 79 ML/MIN (>60)
[2022-09-25 07:23] LABS: Anion Gap 8.4 mEq/L (5-15); Calcium 10.9 mg/dl (8.4-10.2); Carbon Dioxide 35 mmol/L (22.0-30.0); Glucose 106 mg/dl (74-100)
[2022-09-25 07:24] LABS: Basophils % 0.3 % (0.1-2.0); Eosinophils # 0.9 K/mm3 (0.0-0.4); Eosinophils % 8.7 % (0.1-12.0); Hematocrit 23.7 % (42.0-52.0); Hemoglobin 7.5 g/dL (14.1-18.0); Lymphocytes % 9.5 % (10-50); Mean Corpuscular HGB Conc 31.8 g/dL (31.8-35.4); Mean Corpuscular Hemoglobin 28.4 pg (27.0-31.2); Mean Corpuscular Volume 89.4 fl (80-94); Mean Platelet Volume 8.5 fl (7.4-10.4); Monocytes # 0.6 K/mm3 (0.1-1.0); Monocytes % 5.4 % (1.7-9.3); Neutrophils # 7.7 K/mm3 (1.8-7.8); Neutrophils % 76.1 % (37.0-80.0); Platelet Count 371 K/mm3 (142-424); Red Blood Count 2.66 M/mm3 (4.60-6.20); Red Cell Distribution Width 17.5 % (11.5-17.5); White Blood Count 10.1 K/mm3 (4.8-10.8)
[2022-09-25 08:39] LABS: Alanine Aminotransferase 38 U/L (12-78); Albumin Level 2.9 g/dl (3.5-5.0); Alkaline Phosphatase 140 U/L (38-126); Aspartate Amino Transferase 45 U/L (17-59); Bilirubin,Direct 0.4 mg/dl (0.0-0.4); Bilirubin,Indirect 0.1 mg/dL (0.0-0.9); Bilirubin,Total 0.5 mg/dl (0.2-1.3); Total Protein,Serum 5.9 g/dl (6.3-8.2)
--- NOTE | 2022-09-25 09:41 | EXP.PHA.CONS ---
Pharmacy Consult Date: 09/25/22 Time: 09:41 Referring provider: DR. MARTINEZ Reason for Consult:: VANCOMYCIN LEVELS Allergies Allergy/AdvReac Type Severity Reaction Status Date / Time No Known Allergies Allergy Unverified 09/20/17 14:17 Home Medications Medication Instructions Recorded Confirmed Type apixaban 5 mg tablet (Eliquis) 5 mg PO BID atrial fib/blood 08/10/22 09/20/22 History thinner aspirin 81 mg chewable tablet 81 mg PO MOWEFR Heart disease 08/10/22 09/20/22 History mecobalamin (vitamin B12) 1,000 1,000 mcg PO DAILY Supplement 08/10/22 09/20/22 History mcg chewable tablet (B12 Active) nebivolol 5 mg tablet (Bystolic) 5 mg PO DAILY High blood pressure- 08/10/22 09/20/22 History hold for SBP <120 rosuvastatin 5 mg tablet (Crestor) 5 mg PO DAILY Cholesterol 08/10/22 09/20/22 History bumetanide 1 mg tablet 1 mg PO Q48H Fluid 09/20/22 09/20/22 History cetirizine 10 mg capsule (Zyrtec) 10 mg PO DAILY Allergy symptoms 09/20/22 09/20/22 History levothyroxine 50 mcg tablet 50 mcg PO DAILY Allergy symptoms 09/20/22 09/20/22 History New Prescriptions to Start Prescriptions: Height: 1.68 m Weight: 94.6 kg Laboratory Results:: Laboratory Results - last 24 hr 09/24/22 05:50: TSH 8.34 H 09/24/22 13:10: Specimen Source Left radial, O2 % 34%, ABG pH 7.38, ABG pCO2 56.3 H, ABG pO2 79.9 L, ABG HCO3 32.3 H, ABG Total CO2 34.1 H, ABG O2 Saturation 94, ABG Base Excess 7.2 H, Daniel Test Patient unable, PEEP 5 09/24/22 14:16: Vancomycin Trough 17.2 H 09/25/22 06:40: WBC 10.1 D, RBC 2.66 L, Hgb 7.5 L, Hct 23.7 L, MCV 89.4, MCH 28.4, MCHC 31.8, RDW 17.5, Plt Count 371, MPV 8.5, Neut % (Auto) 76.1, Lymph % (Auto) 9.5 L, [place] % (Auto) 5.4, Eos % (Auto) 8.7, Baso % (Auto) 0.3, Neut # (Auto) 7.7, Lymph # (Auto) 1.0, [place] # (Auto) 0.6, Eos # (Auto) 0.9 H, Baso # (Auto) 0.0 09/25/22 06:40: Sodium 142, Potassium 3.4 L, Chloride 102, Carbon Dioxide 35 H, Anion Gap 8.4, BUN 64 H, Creatinine 1.10, Estimated Creat Clear 75, Estimated GFR 65, Est GFR ( Amer) 79, Glucose 106 H, Calcium 10.9 H 09/25/22 06:40: Total Bilirubin 0.5, Direct Bilirubin 0.4, Conjugated Bilirubin 0.0, Indirect Bilirubin 0.1, Unconjugated Bilirubin 0.0, AST 45, ALT 38, Alkaline Phosphatase 140 H, Total Protein 5.9 L, Albumin 2.9 L Medical History: Medical History (Updated 09/21/22 @ 16:35 by Darnell Stewart MD) Aplastic anemia Atrial fibrillation Cataract Congestive heart failure Enterococcus UTI Gallbladder & bile duct stone, acute cholecystitis and obstruction History of anemia History of cataract History of gastroesophageal reflux (GERD) History of pacemaker Hyperlipidemia Hypertension Hypothyroid Hypothyroidism On mechanically assisted ventilation Pleural effusion Rotator cuff arthropathy of left shoulder Rotator cuff arthropathy of right shoulder Sleep apnea Urinary tract infection Assessment and Plan Assessment and plan all Dx Assessment and Plan for all problems:: PATIENT HAS BEEN RECEIVING VANCOMYCIN 1500 MG Q24H. LEVELS WERE DRAWN ON 09/24/22 AT 0005 (21.8 MCG/ML), 0550 (24.8 MCG/ML), AND 1416 (17.2 MCG/ML). PATIENT RECEIVED DOSE AT 1500 YESTERDAY. RECHECKING LEVEL AT 1430 TODAY TO DETERMINE CLEARANCE.
[2022-09-25 13:16] LABS: Glucose, Body Fluid 155 mg/dL (.); LD, Body Fluid 192 IU/L (.); Protein, Body Fluid 3.6 g/dL (.)
--- NOTE | 2022-09-25 14:12 | EXP.PN ---
Subjective *Date: 09/25/22 *Time: 14:12 Interval history: No acute events overnight. Patient is awake this morning, he remains intubated, able to give me a thumbs up or thumb sideways to convey how he's feeling. Groggy despite having no sedation in 4 days. Exam Data for Last 24 hours Vital signs and Labs for Last 24 Hours: Temp Pulse Resp BP Pulse Ox FiO2 98.9 F 105 H 16 131/65 93 L 35 09/25/22 12:55 09/25/22 14:00 09/25/22 14:00 09/25/22 14:00 09/25/22 14:00 09/25/22 13:45 Laboratory Results - last 24 hr 09/23/22 14:40: Fluid Glucose 155, Fluid Albumin 2.0, Fluid LDH 192 09/23/22 14:40: Fluid Total Protein 3.6 09/24/22 14:16: Vancomycin Trough 17.2 H 09/25/22 06:40: WBC 10.1 D, RBC 2.66 L, Hgb 7.5 L, Hct 23.7 L, MCV 89.4, MCH 28.4, MCHC 31.8, RDW 17.5, Plt Count 371, MPV 8.5, Neut % (Auto) 76.1, Lymph % (Auto) 9.5 L, [place] % (Auto) 5.4, Eos % (Auto) 8.7, Baso % (Auto) 0.3, Neut # (Auto) 7.7, Lymph # (Auto) 1.0, [place] # (Auto) 0.6, Eos # (Auto) 0.9 H, Baso # (Auto) 0.0 09/25/22 06:40: Sodium 142, Potassium 3.4 L, Chloride 102, Carbon Dioxide 35 H, Anion Gap 8.4, BUN 64 H, Creatinine 1.10, Estimated Creat Clear 75, Estimated GFR 65, Est GFR ( Amer) 79, Glucose 106 H, Calcium 10.9 H 09/25/22 06:40: Total Bilirubin 0.5, Direct Bilirubin 0.4, Conjugated Bilirubin 0.0, Indirect Bilirubin 0.1, Unconjugated Bilirubin 0.0, AST 45, ALT 38, Alkaline Phosphatase 140 H, Total Protein 5.9 L, Albumin 2.9 L I & O for Last 24 hours: Intake & Output 09/22/22 09/23/22 09/24/22 09/25/22 23:59 23:59 23:59 23:59 Intake Total 2138 / 2138 2844 / 2844 2608 / 2670 1003 / 1003 Output Total 2180 / 2230 2440 / 2490 1845 / 1905 945 / 945 Balance -42 / -92 404 / 354 763 / 765 58 / 58 Weight 98.066 kg 95.9 kg 95.7 kg 94.6 kg Microbiology Reports for the Last 24 Hours: Microbiology 09/23/22 14:40 Pleural Fluid - Pleura Gram Stain - Final 09/23/22 14:40 Pleural Fluid - Pleura Body Fluid Culture - Preliminary NO GROWTH AFTER 24 HOURS Constitutional Constitutional: moderate distress (Intubated and altered mental status), average body habitus, chronically ill appearing and cooperative *Routine HEENT Exam Head: Present normocephalic and atraumatic Eye: Present EOMI and PERRL ENT: Present mucous membranes dry *Routine Neck Exam Neck: Present supple; Absent lymphadenopathy *Routine Respiratory Exam Respiratory: Present accessory muscle use, patient mechanically ventilated, respiratory distress, crackles (Fine crackles diffusely), distant breath sounds and diminished air movement; Absent CTA bilaterally *Routine Cardiovascular Exam Cardiovascular: Present murmur, tachycardia and irregular rhythm *Routine Abdominal Exam Abdominal: Present soft and normoactive bowel sounds; Absent tenderness *Routine Extremities Exam Extremities: Absent cyanosis, clubbing, edema or tenderness *Routine Skin Exam Skin: Present pallor and warm; Absent rash *Routine Neurological Exam Neurological: Present alert, altered mental status (Groggy despite no sedation) and moving all extremities; Absent motor deficit Comments: Global weakness but no focal deficits. Routine Psychiatric Exam Psychiatric: Present unable to assess Assessment and Plan *Assessment and plan (1) On mechanically assisted ventilation: Status: Acute Category: Medical Code(s): Z99.11 - Dependence on respirator [ventilator] status (2) G tube feedings: Status: Acute Category: Medical Code(s): Z93.1 - Gastrostomy status (3) Acute febrile illness: Status: Acute Category: Medical Code(s): R50.9 - Fever, unspecified (4) Pleural effusion: Status: Acute Category: Medical Code(s): J90 - Pleural effusion, not elsewhere classified (5) Acute hypercapnic respiratory failure: Status: Acute Category: Medical Code(s): J96.02 - Acute respiratory failure with hyperca
[2022-09-25 14:51] LABS: Basophils % 0.3 % (0.1-2.0); Eosinophils # 0.9 K/mm3 (0.0-0.4); Eosinophils % 8.2 % (0.1-12.0); Hematocrit 24.5 % (42.0-52.0); Hemoglobin 8.1 g/dL (14.1-18.0); Lymphocytes # 0.8 K/mm3 (0.7-4.5); Lymphocytes % 7.3 % (10-50); Mean Corpuscular HGB Conc 33.1 g/dL (31.8-35.4); Mean Corpuscular Hemoglobin 29.3 pg (27.0-31.2); Mean Corpuscular Volume 88.5 fl (80-94); Mean Platelet Volume 8.6 fl (7.4-10.4); Monocytes # 0.5 K/mm3 (0.1-1.0); Monocytes % 4.1 % (1.7-9.3); Neutrophils # 8.8 K/mm3 (1.8-7.8); Platelet Count 400 K/mm3 (142-424); Red Blood Count 2.77 M/mm3 (4.60-6.20); Red Cell Distribution Width 17.7 % (11.5-17.5)
[2022-09-25 15:06] LABS: Lactic Acid 0.9 mmol/L (0.7-2.1)
[2022-09-25 15:07] LABS: Alanine Aminotransferase 39 U/L (12-78); Albumin Level 3.2 g/dl (3.5-5.0); Alkaline Phosphatase 147 U/L (38-126); Anion Gap 8.3 mEq/L (5-15); Aspartate Amino Transferase 49 U/L (17-59); Bilirubin,Total 0.5 mg/dl (0.2-1.3); Blood Urea Nitrogen 71 mg/dl (9-20); Calcium 11.2 mg/dl (8.4-10.2); Carbon Dioxide 34 mmol/L (22.0-30.0); Chloride 103 mmol/L (98-107); Creatinine Clearance Estimated 69 mL/min (50-200); Estimated Glomerular Filt Rate 59 ml/min (>60); GFR (African American) 71 ML/MIN (>60); Globulin 3.3 g/dL (1.3-3.2); Glucose 148 mg/dl (74-100); Potassium 3.3 mmoL/L (3.5-5.1); Sodium 142 mmol/L (136-145); Total Protein,Serum 6.5 g/dl (6.3-8.2)
[2022-09-25 15:35] LABS: Vancomycin,Trough 21.1 ug/mL (5.0-10.0)
--- NOTE | 2022-09-25 18:23 | PC.WOUNDNOTE ---
daily am skin assessment
[2022-09-26] VITALS (34 sets, daily range): BP systolic 94–172; BP diastolic 43–87; PULSE 61–112; RESP 11–29; TEMP 36.7–37.4; O2SAT 90–99; BMI 34.0
--- NOTE | 2022-09-26 04:36 | PC.NURSE ---
Pt follows commands. We'll answer with shaking head yes or no. Has slept at intervals this shift. Has denied any pain. Has tolerated tube feeds. Residuals 5-10 ml. Has had a BM. Brown and soft. F/C draining to bedside with yellow urine. Sediment noted. PICC line is not patent. Double lumen. Neither will draw or flush. Consuelo Brown notified. New IV placed #20 in LFA. Pt bathed, turned, oral care provided. VSS.
[2022-09-26 09:17] LABS: Basophils # 0.1 K/mm3 (0-0.2); Basophils % 0.5 % (0.1-2.0); Eosinophils # 0.9 K/mm3 (0.0-0.4); Eosinophils % 9.6 % (0.1-12.0); Hematocrit 23.9 % (42.0-52.0); Hemoglobin 7.7 g/dL (14.1-18.0); Lymphocytes % 10.8 % (10-50); Mean Corpuscular HGB Conc 32.2 g/dL (31.8-35.4); Mean Corpuscular Hemoglobin 28.7 pg (27.0-31.2); Mean Corpuscular Volume 88.9 fl (80-94); Mean Platelet Volume 8.5 fl (7.4-10.4); Monocytes # 0.6 K/mm3 (0.1-1.0); Monocytes % 6.7 % (1.7-9.3); Neutrophils # 6.7 K/mm3 (1.8-7.8); Neutrophils % 72.4 % (37.0-80.0); Platelet Count 442 K/mm3 (142-424); Red Blood Count 2.69 M/mm3 (4.60-6.20); Red Cell Distribution Width 17.5 % (11.5-17.5); White Blood Count 9.3 K/mm3 (4.8-10.8)
[2022-09-26 09:25] LABS: Chloride 103 mmol/L (98-107); Sodium 143 mmol/L (136-145)
[2022-09-26 09:28] LABS: Alanine Aminotransferase 42 U/L (12-78); Alkaline Phosphatase 133 U/L (38-126); Aspartate Amino Transferase 47 U/L (17-59); Bilirubin,Total 0.4 mg/dl (0.2-1.3); Blood Urea Nitrogen 64 mg/dl (9-20); Carbon Dioxide 34 mmol/L (22.0-30.0); Creatinine Clearance Estimated 77 mL/min (50-200); Estimated Glomerular Filt Rate 65 ml/min (>60); GFR (African American) 79 ML/MIN (>60)
[2022-09-26 09:29] LABS: Calcium 10.9 mg/dl (8.4-10.2); Glucose 137 mg/dl (74-100)
--- NOTE | 2022-09-26 10:11 | EXP.PHA.CONS ---
Pharmacy Consult Date: 09/26/22 Time: 10:11 Referring provider: DR. MARTINEZ Reason for Consult:: VANCOMYCIN RANDOM LEVEL Allergies Allergy/AdvReac Type Severity Reaction Status Date / Time No Known Allergies Allergy Unverified 09/20/17 14:17 Home Medications Medication Instructions Recorded Confirmed Type apixaban 5 mg tablet (Eliquis) 5 mg PO BID atrial fib/blood 08/10/22 09/20/22 History thinner aspirin 81 mg chewable tablet 81 mg PO MOWEFR Heart disease 08/10/22 09/20/22 History mecobalamin (vitamin B12) 1,000 1,000 mcg PO DAILY Supplement 08/10/22 09/20/22 History mcg chewable tablet (B12 Active) nebivolol 5 mg tablet (Bystolic) 5 mg PO DAILY High blood pressure- 08/10/22 09/20/22 History hold for SBP <120 rosuvastatin 5 mg tablet (Crestor) 5 mg PO DAILY Cholesterol 08/10/22 09/20/22 History bumetanide 1 mg tablet 1 mg PO Q48H Fluid 09/20/22 09/20/22 History cetirizine 10 mg capsule (Zyrtec) 10 mg PO DAILY Allergy symptoms 09/20/22 09/20/22 History levothyroxine 50 mcg tablet 50 mcg PO DAILY Allergy symptoms 09/20/22 09/20/22 History New Prescriptions to Start Prescriptions: Height: 1.68 m Weight: 96.2 kg Laboratory Results:: Laboratory Results - last 24 hr 09/23/22 14:40: Fluid Glucose 155, Fluid Albumin 2.0, Fluid LDH 192 09/23/22 14:40: Fluid Total Protein 3.6 09/25/22 14:28: Vancomycin Trough 21.1 H 09/25/22 14:28: WBC 11.0 H, RBC 2.77 L, Hgb 8.1 L, Hct 24.5 L, MCV 88.5, MCH 29.3, MCHC 33.1, RDW 17.7 H, Plt Count 400, MPV 8.6, Neut % (Auto) 80.0, Lymph % (Auto) 7.3 L, Bailey % (Auto) 4.1, Eos % (Auto) 8.2, Baso % (Auto) 0.3, Neut # (Auto) 8.8 H, Lymph # (Auto) 0.8, Bailey # (Auto) 0.5, Eos # (Auto) 0.9 H, Baso # (Auto) 0.0 09/25/22 14:28: Sodium 142, Potassium 3.3 L, Chloride 103, Carbon Dioxide 34 H, Anion Gap 8.3, BUN 71 H, Creatinine 1.20, Estimated Creat Clear 69, Estimated GFR 59, Est GFR ( Amer) 71, Glucose 148 H D, Calcium 11.2 H, Total Bilirubin 0.5, AST 49, ALT 39, Alkaline Phosphatase 147 H, Total Protein 6.5, Albumin 3.2 L D, Globulin 3.3 H, Albumin/Globulin Ratio 1.0 L 09/25/22 14:28: Lactate 0.9 09/26/22 09:06: WBC 9.3, RBC 2.69 L, Hgb 7.7 L, Hct 23.9 L, MCV 88.9, MCH 28.7, MCHC 32.2, RDW 17.5, Plt Count 442 H, MPV 8.5, Neut % (Auto) 72.4, Lymph % (Auto) 10.8, Bailey % (Auto) 6.7, Eos % (Auto) 9.6, Baso % (Auto) 0.5, Neut # (Auto) 6.7, Lymph # (Auto) 1.0, Bailey # (Auto) 0.6, Eos # (Auto) 0.9 H, Baso # (Auto) 0.1 09/26/22 09:06: Sodium 143, Potassium 3.0 L, Chloride 103, Carbon Dioxide 34 H, Anion Gap 9.0, BUN 64 H, Creatinine 1.10, Estimated Creat Clear 77, Estimated GFR 65, Est GFR ( Amer) 79, Glucose 137 H, Calcium 10.9 H, Total Bilirubin 0.4, AST 47, ALT 42, Alkaline Phosphatase 133 H, Total Protein 6.0 L, Albumin 3.0 L, Globulin 3.0, Albumin/Globulin Ratio 1.0 L Medical History: Medical History (Updated 09/21/22 @ 16:35 by Darnell Stewart MD) Aplastic anemia Atrial fibrillation Cataract Congestive heart failure Enterococcus UTI Gallbladder & bile duct stone, acute cholecystitis and obstruction History of anemia History of cataract History of gastroesophageal reflux (GERD) History of pacemaker Hyperlipidemia Hypertension Hypothyroid Hypothyroidism On mechanically assisted ventilation Pleural effusion Rotator cuff arthropathy of left shoulder Rotator cuff arthropathy of right shoulder Sleep apnea Urinary tract infection Assessment and Plan Assessment and plan all Dx Assessment and Plan for all problems:: BASED ON PATIENT FACTORS AND RANDOM VANCOMYCIN LEVEL OF 21.1, RECOMMEND CONTINUING CURRENT DOSE OF VANCOMYCIN AT 1,500MG IV EVERY 36 HOURS. PHARMACY WILL CONTINUE TO MONITOR. -JAZMYN PEREZ, MARYLOUD
[2022-09-26 13:21] LABS: ABG Base Excess 6.8 mmol/L (-2.4-2.3); ABG HCO3 31.4 mmhg (22.0-26.0); ABG Oxygen Saturation 97 % (90-100); ABG PCO2 49.9 mmhg (35.0-45.0); ABG PH 7.42 mmol/L (7.35-7.45); ABG PO2 89.8 mmhg (80-100); ABG TCO2 32.9 mmhg (23-27)
[2022-09-26 13:24] LABS: Allen's Test Patient Unable; Oxygen 35% %; PEEP 5; Pressure Support 8; Source Right Radial
--- NOTE | 2022-09-26 14:11 | EXP.PN ---
Subjective *Date: 09/26/22 *Time: 14:11 Interval history: No acute events overnight. Patient remains intubated, although receiving little to no sedation. This morning he is awake, he interacts some. He tries to mouth answers to some questions, although I cannot understand him while he is intubated. He is able to raise both hands on request. Exam Data for Last 24 hours Vital signs and Labs for Last 24 Hours: Temp Pulse Resp BP Pulse Ox FiO2 99.1 F 88 11 L 108/57 L 99 35 09/26/22 07:57 09/26/22 07:00 09/26/22 13:42 09/26/22 07:00 09/26/22 13:42 09/26/22 13:42 Laboratory Results - last 24 hr 09/25/22 14:28: Vancomycin Trough 21.1 H 09/25/22 14:28: WBC 11.0 H, RBC 2.77 L, Hgb 8.1 L, Hct 24.5 L, MCV 88.5, MCH 29.3, MCHC 33.1, RDW 17.7 H, Plt Count 400, MPV 8.6, Neut % (Auto) 80.0, Lymph % (Auto) 7.3 L, Dorado % (Auto) 4.1, Eos % (Auto) 8.2, Baso % (Auto) 0.3, Neut # (Auto) 8.8 H, Lymph # (Auto) 0.8, Dorado # (Auto) 0.5, Eos # (Auto) 0.9 H, Baso # (Auto) 0.0 09/25/22 14:28: Sodium 142, Potassium 3.3 L, Chloride 103, Carbon Dioxide 34 H, Anion Gap 8.3, BUN 71 H, Creatinine 1.20, Estimated Creat Clear 69, Estimated GFR 59, Est GFR ( Amer) 71, Glucose 148 H D, Calcium 11.2 H, Total Bilirubin 0.5, AST 49, ALT 39, Alkaline Phosphatase 147 H, Total Protein 6.5, Albumin 3.2 L D, Globulin 3.3 H, Albumin/Globulin Ratio 1.0 L 09/25/22 14:28: Lactate 0.9 09/26/22 09:06: WBC 9.3, RBC 2.69 L, Hgb 7.7 L, Hct 23.9 L, MCV 88.9, MCH 28.7, MCHC 32.2, RDW 17.5, Plt Count 442 H, MPV 8.5, Neut % (Auto) 72.4, Lymph % (Auto) 10.8, Dorado % (Auto) 6.7, Eos % (Auto) 9.6, Baso % (Auto) 0.5, Neut # (Auto) 6.7, Lymph # (Auto) 1.0, Dorado # (Auto) 0.6, Eos # (Auto) 0.9 H, Baso # (Auto) 0.1 09/26/22 09:06: Sodium 143, Potassium 3.0 L, Chloride 103, Carbon Dioxide 34 H, Anion Gap 9.0, BUN 64 H, Creatinine 1.10, Estimated Creat Clear 77, Estimated GFR 65, Est GFR ( Amer) 79, Glucose 137 H, Calcium 10.9 H, Total Bilirubin 0.4, AST 47, ALT 42, Alkaline Phosphatase 133 H, Total Protein 6.0 L, Albumin 3.0 L, Globulin 3.0, Albumin/Globulin Ratio 1.0 L 09/26/22 13:17: Specimen Source Right radial, O2 % 35%, ABG pH 7.42, ABG pCO2 49.9 H, ABG pO2 89.8, ABG HCO3 31.4 H, ABG Total CO2 32.9 H, ABG O2 Saturation 97, ABG Base Excess 6.8 H, Daniel Test Patient unable, PEEP 5 I & O for Last 24 hours: Intake & Output 09/23/22 09/24/22 09/25/22 09/26/22 23:59 23:59 23:59 23:59 Intake Total 2844 / 2844 2608 / 2670 1870 / 2040 1100 / 1100 Output Total 2440 / 2490 1845 / 1905 2495 / 2595 500 / 500 Balance 404 / 354 763 / 765 -625 / -555 600 / 600 Weight 95.9 kg 95.7 kg 94.6 kg 96.2 kg Microbiology Reports for the Last 24 Hours: Microbiology 09/23/22 14:40 Pleural Fluid - Pleura Gram Stain - Final 09/23/22 14:40 Pleural Fluid - Pleura Body Fluid Culture - Preliminary NO GROWTH AFTER 48 HOURS Constitutional Constitutional: mild distress, moderate distress (Intubated and altered mental status), average body habitus, chronically ill appearing and cooperative *Routine HEENT Exam Head: Present normocephalic and atraumatic Eye: Present EOMI and PERRL ENT: Present mucous membranes dry *Routine Neck Exam Neck: Present supple; Absent lymphadenopathy *Routine Respiratory Exam Respiratory: Present accessory muscle use, patient mechanically ventilated, respiratory distress, crackles (Fine crackles diffusely), distant breath sounds and diminished air movement; Absent CTA bilaterally *Routine Cardiovascular Exam Cardiovascular: Present RRR, murmur and irregular rhythm *Routine Abdominal Exam Abdominal: Present soft and normoactive bowel sounds; Absent tenderness *Routine Extremities Exam Extremities: Absent cyanosis, clubbing, edema or tenderness *Routine Skin Exam Skin: Present pallor and warm; Absent rash *Routine Neurological Exam Neurological: Present alert and moving all extremities; Absent motor deficit or altered mental status Comme
--- NOTE | 2022-09-26 17:38 | PC.NURSE ---
Pt follows commands, will answer by shaking head yes or no, has been awake most of shift, has denied any pain, tolerating tube feeds, did have a BM this shift that was brown and soft, ricks draining at bedside with yellow urine with sediment noted, pt turned Q2, oral care provided
--- NOTE | 2022-09-26 22:16 | XR_ITS ---
PROCEDURE INFORMATION: Exam: XR Chest Exam date and time: 09/26/2022 10:20 PM Age: 77 years old Clinical indication: Device placement; Ett placement (vent status); Additional info: Had to adjust oett TECHNIQUE: Imaging protocol: Radiologic exam of the chest. Views: 1 view. COMPARISON: CR XR CHEST PORTABLE 09/25/2022 6:54 AM FINDINGS: Tubes, catheters and devices: Endotracheal tube tip projecting 7.0 cm above the henry. Left-sided chest wall pacing device. Lungs: See Pleural spaces finding. Pleural spaces: Left basilar opacity, probably combination of pleural effusion and adjacent atelectasis/consolidation. Additional hazy ground-glass opacities in the left hemithorax. Probable small pleural effusion on the right. Heart/Mediastinum: Unremarkable cardiomediastinal silhouette. Bones/joints: No acute osseous findings. Soft tissues: Right supraclavicular line with the tip projecting over mid SVC. IMPRESSION: 1. Left basilar opacity, probably combination of pleural effusion and adjacent atelectasis/consolidation. Additional hazy ground-glass opacities in the left hemithorax. Recommend imaging follow-up until complete resolution. 2. Endotracheal tube tip projecting 7.0 cm above the henry.
[2022-09-27] VITALS (31 sets, daily range): BP systolic 98–159; BP diastolic 42–87; PULSE 75–113; RESP 16–40; TEMP 36.6–38.2; O2SAT 89–99; BMI 34.0
--- NOTE | 2022-09-27 06:00 | XR_ITS ---
PROCEDURE INFORMATION: Exam: XR Chest Exam date and time: 09/27/2022 5:54 AM Age: 77 years old Clinical indication: Other: Pneumonia on vent; Additional info: Pneumonia mechanical ventilation TECHNIQUE: Imaging protocol: Radiologic exam of the chest. Views: 1 view. COMPARISON: CR XR CHEST PORTABLE 09/26/2022 10:20 PM FINDINGS: Tubes, catheters and devices: ET tube and central venous catheter are in good position. Right-sided effusion is noted. Left-sided effusion is also present. Lungs: The lung volumes are low. Pleural spaces: Unremarkable. No pleural effusion. No pneumothorax. Heart/Mediastinum: Unremarkable. No cardiomegaly. Bones/joints: Unremarkable. IMPRESSION: Stable exam.
--- NOTE | 2022-09-27 10:53 | EXP.PULM.PN ---
Subjective *Date: 09/27/22 *Time: 12:04 Interval history: No acute respiratory vents overnight. He denies any new complaints. Awake following commands today. Pulmonology Exam Inpatient Vital signs and Labs for Last 24 Hours: Temp Pulse Resp BP Pulse Ox FiO2 98.9 F 96 H 16 137/87 95 40 09/27/22 09:14 09/27/22 07:00 09/27/22 09:00 09/27/22 07:00 09/27/22 09:00 09/27/22 09:00 Laboratory Results - last 24 hr 09/26/22 13:17: Specimen Source Right radial, O2 % 35%, ABG pH 7.42, ABG pCO2 49.9 H, ABG pO2 89.8, ABG HCO3 31.4 H, ABG Total CO2 32.9 H, ABG O2 Saturation 97, ABG Base Excess 6.8 H, Daniel Test Patient unable, PEEP 5 I & O for Labs for Last 24 Hours: Intake & Output 09/24/22 09/25/22 09/26/22 09/27/22 23:59 23:59 23:59 23:59 Intake Total 2608 / 2670 1870 / 2040 2085 / 2085 917 / 917 Output Total 1845 / 1905 2495 / 2595 2265 / 2340 475 / 475 Balance 763 / 765 -625 / -555 -180 / -255 442 / 442 Weight 210 lb 15.718 oz 208 lb 8.917 oz 212 lb 1.355 oz 211 lb 13.828 oz Microbiology Reports for the Last 24 Hours: Microbiology 09/23/22 14:40 Pleural Fluid - Pleura Gram Stain - Final 09/23/22 14:40 Pleural Fluid - Pleura Body Fluid Culture - Preliminary NO GROWTH AFTER 72 HOURS Constitutional: Present moderate distress Head: Present normocephalic and atraumatic ENT: Present normal exam, normal oropharynx and mucous membranes moist Neck: Present normal inspection and trachea midline Respiratory: Present respiratory distress, crackles, distant breath sounds, diminished air movement and able to speak in complete sentences Comment:: Decreased breath sounds lower lung hayden Cardiac: Present S1/S2, Tachycardia and radial pulses present GI: Present soft and distention; Absent tenderness or guarding Skin: Present intact; Absent cyanosis or jaundice Neuro: Present alert and awake; Absent oriented x 3 Extremities: Present edema; Absent clubbing or cyanosis Assessment and Plan *Assessment and plan (1) Acute hypercapnic respiratory failure: Status: Acute Category: Medical Code(s): J96.02 - Acute respiratory failure with hypercapnia (2) On mechanically assisted ventilation: Status: Acute Category: Medical Code(s): Z99.11 - Dependence on respirator [ventilator] status (3) Pleural effusion: Status: Acute Category: Medical Code(s): J90 - Pleural effusion, not elsewhere classified Plan #Acute hypoxic respiratory failure: #On mechanical ventilation: #Bilateral pleural effusions right > left, #HAP: # Right Pneumothorax Intubated and sedated, history obtained from chart review and patient's family 77-year-old male with a NO significant smoking history, prior respiratory complaints recently diagnosed with aplastic anemia status post bone marrow biopsy, initiating cyclosporine complicated by pulmonary toxicity status post discontinuation of cyclosporine around July 2022, since then noted to have new oxygen requirements and new hypercarbic respiratory failure requiring 2-3 recent hospital admissions for hypercarbic respiratory failure presented to [facility] ER yesterday with hypercarbic respiratory failure needing intubation mechanical ventilatory support, transferred to [facility] for further evaluation. Patient chest x-ray significant also noted to have bilateral pleural effusions right greater than left, worsening from his most recent hospital admission for August 2022. As per the family patient had a recent right-sided thoracentesis performed by [facility], will obtain records for further evaluation. Records from outside hospital reviewed patient had a thoracentesis with pleural fluid studies consistent with exudative effusion with LDH of 250 pH is 7.5. Lymphocytic predominant at 64% however negative for malignancy. Right Thoracentesis 09/23/22 with removal of 720 cc of blood-ting
--- NOTE | 2022-09-27 15:23 | PC.NURSE ---
[address] byrd. ordered pt to be on fentanyl and propfol. family concerned about pt being on fentatnyl r/t length of time pt took to become alert last time. per dr byrd ok to start propofol and use fentanyl prn. family asked about information on chest tube. per dr byrd, place chest tube to waterseal, tube to stay in place while pt intubated.
--- NOTE | 2022-09-27 20:37 | EXP.PN ---
Subjective *Date: 09/27/22 *Time: 20:37 Interval history: No acute events overnight. Patient seems slightly more weak and confused today compared to yesterday. Exam Data for Last 24 hours Vital signs and Labs for Last 24 Hours: Temp Pulse Resp BP Pulse Ox FiO2 100.7 F H 94 H 16 110/57 L 97 31 09/27/22 16:00 09/27/22 19:00 09/27/22 20:34 09/27/22 19:00 09/27/22 19:00 09/27/22 20:34 I & O for Last 24 hours: Intake & Output 09/24/22 09/25/22 09/26/22 09/27/22 23:59 23:59 23:59 23:59 Intake Total 2608 / 2670 1870 / 2040 2085 / 2085 2474 / 2474 Output Total 1845 / 1905 2495 / 2595 2265 / 2340 1805 / 1805 Balance 763 / 765 -625 / -555 -180 / -255 669 / 669 Weight 95.7 kg 94.6 kg 96.2 kg 96.1 kg Microbiology Reports for the Last 24 Hours: Microbiology 09/23/22 14:40 Pleural Fluid - Pleura Gram Stain - Final 09/23/22 14:40 Pleural Fluid - Pleura Body Fluid Culture - Preliminary NO GROWTH AFTER 4 DAYS Constitutional Constitutional: mild distress, moderate distress (Intubated and altered mental status), average body habitus, chronically ill appearing and cooperative *Routine HEENT Exam Head: Present normocephalic and atraumatic Eye: Present EOMI and PERRL ENT: Present mucous membranes dry *Routine Neck Exam Neck: Present supple; Absent lymphadenopathy *Routine Respiratory Exam Respiratory: Present accessory muscle use, patient mechanically ventilated, CTA bilaterally, respiratory distress, distant breath sounds and diminished air movement; Absent rhonchi, wheezes or crackles *Routine Cardiovascular Exam Cardiovascular: Present RRR, murmur and irregular rhythm *Routine Abdominal Exam Abdominal: Present soft and normoactive bowel sounds; Absent tenderness *Routine Extremities Exam Extremities: Absent cyanosis, clubbing, edema or tenderness *Routine Skin Exam Skin: Present pallor and warm; Absent rash *Routine Neurological Exam Neurological: Present alert, altered mental status and moving all extremities; Absent motor deficit Comments: Global weakness but no focal deficits. Routine Psychiatric Exam Psychiatric: Present cooperative Assessment and Plan *Assessment and plan (1) On mechanically assisted ventilation: Status: Acute Category: Medical Code(s): Z99.11 - Dependence on respirator [ventilator] status (2) G tube feedings: Status: Acute Category: Medical Code(s): Z93.1 - Gastrostomy status (3) Acute febrile illness: Status: Acute Category: Medical Code(s): R50.9 - Fever, unspecified (4) Pleural effusion: Status: Acute Category: Medical Code(s): J90 - Pleural effusion, not elsewhere classified (5) Acute hypercapnic respiratory failure: Status: Acute Category: Medical Code(s): J96.02 - Acute respiratory failure with hypercapnia (6) Acute on chronic systolic and diastolic heart failure, NYHA class 1: Status: Acute Category: Medical Code(s): I50.43 - Acute on chronic combined systolic (congestive) and diastolic (congestive) heart failure (7) Atrial fibrillation: Status: Acute Category: Medical Code(s): I48.91 - Unspecified atrial fibrillation Plan 1. Mechanical ventilation - SBT daily, pt failed weaning trial again this morning and had a worse tidal volume than yesterday. - Currently on FiO2 of 30%. - ABG yesterday shows improved hypercapnea: pCO2 69 -> 56 -> 49.9. And improved hypoxia 45 -> 80 -> 89.8. - CXR today is stable: moderate subpulmonic effusions bilaterally. - Pulm following. 2. Cont vancomycin and cefepime. Fluconazole added 09/24 as urine Cx from [facility] were positive for antionette. - Tmax of 100.1 at 4pmyesterday. WBC stable at 9.3. 3. Pleural effusion - Thoracentesis on 09/23 suggests exudative effusion. 720 mL of blood-tinged fluid removed. 4. CHF - Cont Bumex 1 mg IV qd. Cr has remain
--- NOTE | 2022-09-27 22:22 | PC.NURSE ---
5 - pt daughter called to check on him - updated of current status.
[2022-09-28] VITALS (31 sets, daily range): BP systolic 90–133; BP diastolic 48–77; PULSE 68–93; RESP 16–42; TEMP 36.6–37.3; O2SAT 91–100; BMI 34.3
--- NOTE | 2022-09-28 06:00 | XR_ITS ---
PROCEDURE INFORMATION: Exam: XR Chest Exam date and time: 09/28/2022 5:59 AM Age: 77 years old Clinical indication: Device placement; Ett placement (vent status); Additional info: Pneumonia mechanical ventilation TECHNIQUE: Imaging protocol: Radiologic exam of the chest. Views: 1 view. COMPARISON: CR XR CHEST PORTABLE 09/27/2022 5:54 AM FINDINGS: Tubes, catheters and devices: The ET tube central and venous catheter tube are unchanged. Lungs: The lung volumes are low. Bibasilar airspace disease. Pleural spaces: Unremarkable. No pleural effusion. No pneumothorax. Heart/Mediastinum: The heart is enlarged. Bilateral effusions are unchanged. Bones/joints: Unremarkable. IMPRESSION: ET tube in good position. Stable exam.
--- NOTE | 2022-09-28 06:05 | PC.NURSE ---
Addendum entered by Teri Anne RN 09/28/22 06:19: Received total bath and bed change this shift. Original Note: Pt remains intubated and sedated with minimal sedation. Pt will open eyes to verbal and physical stimuli and will follow commands. Has rested fairly well this shift. Pt being turned Q2 hours using wedge pillow, and heels floated. 1+ edema noted to BLE. Remains Afib/flutter/paced on telemetry. BP stable. Pt has required frequent oral and ETT suctioning this shift. LS rhonchorus t/o. Diminished bases. Chest tube to right chest remains intact, no change from previous shift. F/c remains intact, draining clear, yellow urine. No BM this shift. Peg tube remains in place with Nepro 1.8 tube feeds running at 60ml/hr. No acute distress noted, will continue to monitor.
[2022-09-28 09:16] LABS: Chloride 103 mmol/L (98-107)
[2022-09-28 09:17] LABS: Potassium 3.4 mmoL/L (3.5-5.1); Sodium 145 mmol/L (136-145)
[2022-09-28 09:19] LABS: Blood Urea Nitrogen 67 mg/dl (9-20); Creatinine Clearance Estimated 77 mL/min (50-200); Estimated Glomerular Filt Rate 65 ml/min (>60); GFR (African American) 79 ML/MIN (>60)
[2022-09-28 09:20] LABS: Anion Gap 10.4 mEq/L (5-15); Calcium 11.8 mg/dl (8.4-10.2); Carbon Dioxide 35 mmol/L (22.0-30.0); Glucose 116 mg/dl (74-100)
[2022-09-28 09:24] LABS: Basophils # 0.1 K/mm3 (0-0.2); Basophils % 0.6 % (0.1-2.0); Eosinophils # 0.7 K/mm3 (0.0-0.4); Eosinophils % 9.1 % (0.1-12.0); Hematocrit 23.7 % (42.0-52.0); Hemoglobin 7.7 g/dL (14.1-18.0); Lymphocytes # 1.3 K/mm3 (0.7-4.5); Lymphocytes % 16.3 % (10-50); Mean Corpuscular HGB Conc 32.3 g/dL (31.8-35.4); Mean Corpuscular Volume 89.8 fl (80-94); Mean Platelet Volume 8.5 fl (7.4-10.4); Monocytes # 0.4 K/mm3 (0.1-1.0); Monocytes % 5.3 % (1.7-9.3); Neutrophils # 5.6 K/mm3 (1.8-7.8); Neutrophils % 68.6 % (37.0-80.0); Platelet Count 507 K/mm3 (142-424); Red Blood Count 2.64 M/mm3 (4.60-6.20); Red Cell Distribution Width 17.7 % (11.5-17.5); White Blood Count 8.2 K/mm3 (4.8-10.8)
[2022-09-28 10:55] LABS: ABG Base Excess 8.8 mmol/L (-2.4-2.3); ABG HCO3 33.1 mmhg (22.0-26.0); ABG Oxygen Saturation 92 % (90-100); ABG PH 7.43 mmol/L (7.35-7.45); ABG TCO2 34.7 mmhg (23-27)
[2022-09-28 10:56] LABS: ABG PCO2 51.3 mmhg (35.0-45.0); Allen's Test ACCEPTABLE; Oxygen 40% %; Pressure Support T-PIECE; Source Left Radial
--- NOTE | 2022-09-28 12:27 | EXP.ENTCONS ---
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 He had been in a somewhat compromised state of health with chronic A. fib and history of vascular disease until this fatigue symptomatology, diagnosed with aplastic anemia and initiated on cyclosporine therapy. Has had several complications of cyclosporine therapy, most notably recurrent pulmonary edema and pneumonitis. He was admitted here in the first week of August for pneumonia and pulmonary edema, treated with empiric antibiotics and diuretics and improved, but a couple of weeks later ended up worsening and was in the [facility] in [place] for pneumonia and pneumonitis. Of note at the [facility] admission around he did have thoracentesis and drainage of some of his fluid.At that time hematology felt that his aplastic anemia might not be a primary disease but could have been related to viral issues and cyclosporine was finally stopped, although we had stopped it here in August because of the toxicity issues. Because of the [id number] respiratory issues he was extremely weak and was admitted to a swing bed type rehab unit at the [facility]. There he has been wearing a BiPAP mask at night because of persistent hypercapnia and chronic respiratory failure from the pulmonary edema symptomatology. In the swing bed occasionally he will not wear his BiPAP at night and a couple of times this is because severe hypercapnia with admission once to the acute care side of the [facility] for 5 days and treatment of his hypercapnia and another time that apparently required intubation and transferred to [place]. Over the past week or so has been back at the swing bed unit at [facility]. He was diagnosed a week ago with an Enterococcus UTI and treated with vancomycin. He finished 5 days of vancomycin. Unfortunately, this happened again on the evening of 09/19/2022, where he was not wearing his BiPAP in the swing bed and was unable to be aroused the next morning and was found to have CO2 levels above 120. Transferred to the ER at the [facility] where he was intubated. Intubation and mechanical ventilation quickly resolved his hypercapnia situation his CO2 went down to the 40s. Blood pressure over was somewhat low and Levophed drip was started and because of his increasing mental status and some agitation on the vent he was started on Versed and fentanyl. He was given 2 doses of Zosyn while he was at the [place] emergency department. Unsure about whether cultures were obtained. Right before transfer he was found to have a fever over 100 degrees before getting on the helicopter for transfer to [place]. Because of his need for ongoing ICU care and the unavailability of beds at the [place] facility his family wished him to be transferred here as family members live in the [place] area. so far has been unable to adequately wean on trials ENT consulted re: possible trach Exam: NAD, resting comfortably on t-piece trial neck soft, thin, with palpable landmarks OC with ET tube in place, otherwise WNL PFSH PFS Disclaimer: The information contained in this section may have been updated after the patient was seen, as this information can be updated by other users. Medical History (Updated 09/21/22 @ 16:35 by Darnell Stewart MD) Aplastic anemia Atrial fibrillation Cataract Congestive heart failure Enterococcus UTI Gallbladder & bile duct stone, acute cholecystitis and obstruction History of anemia History of cataract History of gastroesophageal reflux (GERD) History of pacemaker Hyperlipidemia Hypertension Hypothyroid Hypothyroidism On mechanically assisted ventilation Pleural effusion Rotator cuff arthropathy of left shoulder Rotato
--- NOTE | 2022-09-28 12:31 | EXP.ACUTE.PN ---
Subjective *Date: 09/28/22 *Time: 16:51 Interval history: Patient alert this morning and interactive. Still on the vent. Remains afebrile and hemodynamically stable. Labs reviewed, kidney function stable. Family at bedside and updated of plan. Tolerating tube feeds, having bowel movements. Medical Exam Vital signs and Labs for Last 24 Hours: Vital Signs Temp Pulse Pulse Resp BP Pulse Ox FiO2 09/28/22 08:00 76 20 93 L 30 09/28/22 11:00 91 H 18 129/61 97 09/28/22 10:00 80 21 133/59 L 97 09/28/22 09:00 75 20 90/51 L 94 L 09/28/22 08:00 76 20 107/49 L 93 L 09/28/22 11:22 40 09/28/22 08:00 99.2 F 09/28/22 06:50 75 18 118/58 L 93 L 30 09/28/22 06:30 16 94 L 30 09/28/22 04:00 84 18 93 L 30 09/28/22 06:00 83 18 112/59 L 93 L 30 09/28/22 04:00 80 09/28/22 04:00 98.6 F 76 18 103/54 L 93 L 30 09/28/22 03:34 16 94 L 30 09/28/22 03:00 76 18 100/54 L 93 L 30 09/28/22 02:00 81 18 99/56 L 93 L 30 09/28/22 02:13 91 L 30 09/28/22 00:00 70 09/28/22 00:00 99 F 84 18 97/53 L 92 L 30 09/28/22 00:00 93 H 93 L 30 09/27/22 18:40 95 30 09/27/22 23:23 16 93 L 30 09/28/22 01:00 84 18 95/58 L 94 L 30 09/27/22 23:00 79 18 107/53 L 93 L 35 09/27/22 20:00 80 09/27/22 21:41 16 96 30 09/27/22 22:00 88 18 100/63 L 94 L 35 09/27/22 21:00 75 18 101/64 L 96 35 09/27/22 20:00 97.9 F 87 18 107/42 L 95 35 09/27/22 20:00 97 35 09/27/22 20:34 16 31 09/27/22 19:00 94 H 16 110/57 L 97 09/27/22 16:00 78 94 L 09/27/22 18:00 30 09/27/22 14:00 40 09/27/22 18:39 17 95 30 09/27/22 18:00 81 20 104/50 L 94 L 09/27/22 17:00 89 20 100/44 L 96 09/27/22 16:00 84 09/27/22 16:00 100.7 F H 09/27/22 16:00 78 22 110/63 94 L 09/27/22 15:00 84 22 109/63 L 90 L 09/27/22 14:00 80 24 113/64 92 L 09/27/22 13:00 85 22 119/62 95 Intake and Output 09/27/22 09/28/22 09/28/22 23:59 07:59 15:59 Intake Total 677 / 3036 720 / 849 129 / 849 Output Total 575 / 2130 500 / 1260 760 / 1260 Balance 102 / 906 220 / -411 -631 / -411 Intake: Intake, Oral Amount 0 / 0 Intake, Tube Feeding Amount 408 / 1638 441 / 561 120 / 561 Intake, Tube Irrigant Amount 200 / 1120 223 / 223 Intake, Other Amount 20 / 20 Intake, Total IV Amount 49 / 258 56 / 65 9 65 propofoL 100 ml @ 5 MCG/KG/MIN 49 / 68 56 / 65 65 2.942 mls/hr IV .Q25H [facility] Rx#: [id number] Output: Output, Urine Amount 350 / 1330 Output, Urine Amount (Catheter) 225 / 800 500 / 1260 760 / 1260 Ny 225 / 800 500 / 1260 760 / 1260 Output, Gastric Drainage Amount 0 / 0 Mid Upper Abdomen 0 / 0 Other: Intake, Other Source Saline Solution Number of Unmeasured Voids 0 Number of Bowel Movements 1 Weight 96.9 kg Patient Weight 09/28/22 23:59 Weight 96.9 kg Laboratory Results - last 24 hr 09/28/22 08:50: WBC 8.2, RBC 2.64 L, Hgb 7.7 L, Hct 23.7 L, MCV 89.8, MCH 29.0, MCHC 32.3, RDW 17.7 H, Plt Count 507 H, MPV 8.5, Neut % (Auto) 68.6, Lymph % (Auto) 16.3, [place] % (Auto) 5.3, Eos % (Auto) 9.1, Baso % (Auto) 0.6, Neut # (Auto) 5.6, Lymph # (Auto) 1.3, [place] # (Auto) 0.4, Eos # (Auto) 0.7 H, Baso # (Auto) 0.1 09/28/22 08:50: Sodium 145, Potassium 3.4 L, Chloride 103, Carbon Dioxide 35 H, Anion Gap 10.4, BUN 67 H, Creatinine 1.10, Estimated Creat Clear 77, Estimated GFR 65, Est GFR ( Amer) 79, Glucose 116 H, Calcium 11.8 H 09/28/22 10:52: Specimen Source Left radial, O2 % 40%, ABG pH 7.43, ABG pCO2 51.3 H, ABG pO2 67.0 L, ABG HCO3 33.1 H, ABG Total CO2 34.7 H, ABG O2 Saturation 92, ABG Base Excess 8.8 H, Daniel Test Acceptable I & O for Labs for Last 24 Hours: Intake & Output 09/25/22 09/26/22 09/27/22 09/28/22 23:59
--- NOTE | 2022-09-28 13:36 | DIET.NUTRFU ---
Rounded this AM, Patient seemed more alert, wanting mittens off. Unable to extubate at this time, may need trach for senior living respiratory tx. Reviewed labs: Na 145, Cr 3.4, BUN 67H, Cr 1.10H, glucose 116H. Tolerating TF with minimal residuals noted 09/26 at 5-10ml. TF is providing 1440ml formula/2592kcal/116gm protein with 1046ml formula water. Also providing prostat AWC BID to provide additional 34gm protein for total of 150gm/day and add additional [id number]=9291hboh/day. Flush with Prostat is 120ml XFQ=973bp+1046ml formula water and 110ml flush [id number] for grand total of 1946ml/day. Current BW 96kg, fluid is 20ml/kg. Continues to have skin breakdown, prostat will help meet high protein needs. Daughter reports abdomen seemed distended possibly d/t fluid, no lower edema present today. Continues on bumex. LBM noted today and yesterday. Urine output continues to be good. propofol was started yesterday provided 54ml or 59kcal and today so far 65ml=72kcal. Will continue to monitor amount provided may need to adjust TF, currently rate is 5mcg/kg/min= at most 132kcal/day. Will continue to monitor.
--- NOTE | 2022-09-28 16:25 | EXP.PULM.PN ---
Subjective *Date: 09/28/22 *Time: 16:25 Interval history: No acute respiratory events overnight. Continue to remain on minimal ventilator settings. Pulmonology Exam Inpatient Vital signs and Labs for Last 24 Hours: Temp Pulse Resp BP Pulse Ox FiO2 97.8 F 85 22 107/63 L 100 40 09/28/22 12:00 09/28/22 15:00 09/28/22 15:00 09/28/22 15:00 09/28/22 15:00 09/28/22 11:22 Laboratory Results - last 24 hr 09/28/22 08:50: WBC 8.2, RBC 2.64 L, Hgb 7.7 L, Hct 23.7 L, MCV 89.8, MCH 29.0, MCHC 32.3, RDW 17.7 H, Plt Count 507 H, MPV 8.5, Neut % (Auto) 68.6, Lymph % (Auto) 16.3, [place] % (Auto) 5.3, Eos % (Auto) 9.1, Baso % (Auto) 0.6, Neut # (Auto) 5.6, Lymph # (Auto) 1.3, [place] # (Auto) 0.4, Eos # (Auto) 0.7 H, Baso # (Auto) 0.1 09/28/22 08:50: Sodium 145, Potassium 3.4 L, Chloride 103, Carbon Dioxide 35 H, Anion Gap 10.4, BUN 67 H, Creatinine 1.10, Estimated Creat Clear 77, Estimated GFR 65, Est GFR ( Amer) 79, Glucose 116 H, Calcium 11.8 H 09/28/22 10:52: Specimen Source Left radial, O2 % 40%, ABG pH 7.43, ABG pCO2 51.3 H, ABG pO2 67.0 L, ABG HCO3 33.1 H, ABG Total CO2 34.7 H, ABG O2 Saturation 92, ABG Base Excess 8.8 H, Daniel Test Acceptable I & O for Labs for Last 24 Hours: Intake & Output 09/25/22 09/26/22 09/27/22 09/28/22 23:59 23:59 23:59 23:59 Intake Total 1869 / 20395 / 5 2799 / 3036 1029 / 1029 Output Total 2495 / 2595 2265 / 2340 2029 / 2129 1655 / 1655 Balance -625 / -555 -180 / -255 769 / 906 -626 / -626 Weight 208 lb 8.917 oz 212 lb 1.355 oz 211 lb 13.828 oz 213 lb 10.047 oz Microbiology Reports for the Last 24 Hours: Microbiology 09/23/22 14:40 Pleural Fluid - Pleura Gram Stain - Final 09/23/22 14:40 Pleural Fluid - Pleura Body Fluid Culture - Final NO GROWTH AFTER 5 DAYS Constitutional: Present moderate distress Head: Present normocephalic and atraumatic ENT: Present normal exam, normal oropharynx and mucous membranes moist Neck: Present normal inspection and trachea midline Respiratory: Present respiratory distress, crackles, distant breath sounds, diminished air movement and able to speak in complete sentences Comment:: Decreased breath sounds lower lung hayden Cardiac: Present S1/S2, Tachycardia and radial pulses present GI: Present soft and distention; Absent tenderness or guarding Skin: Present intact; Absent cyanosis or jaundice Neuro: Present alert and awake; Absent oriented x 3 Extremities: Present edema; Absent clubbing or cyanosis Assessment and Plan *Assessment and plan (1) Acute hypercapnic respiratory failure: Status: Acute Category: Medical Code(s): J96.02 - Acute respiratory failure with hypercapnia (2) On mechanically assisted ventilation: Status: Acute Category: Medical Code(s): Z99.11 - Dependence on respirator [ventilator] status (3) Pleural effusion: Status: Acute Category: Medical Code(s): J90 - Pleural effusion, not elsewhere classified Plan #Acute hypoxic respiratory failure: #On mechanical ventilation: #Bilateral pleural effusions right > left, #HAP: # Right Pneumothorax Intubated and sedated, history obtained from chart review and patient's family 77-year-old male with a NO significant smoking history, prior respiratory complaints recently diagnosed with aplastic anemia status post bone marrow biopsy, initiating cyclosporine complicated by pulmonary toxicity status post discontinuation of cyclosporine around July 2022, since then noted to have new oxygen requirements and new hypercarbic respiratory failure requiring 2-3 recent hospital admissions for hypercarbic respiratory failure presented to [facility] ER yesterday with hypercarbic respiratory failure needing intubation mechanical ventilatory support, transferred to [facility] for further evaluation. Patient chest x-ray significant also noted to have bilateral pleural effusions right gre
--- NOTE | 2022-09-28 17:19 | PC.NURSE ---
talked to Dr. Duggan at this time, stated to have RT turn FiO2 to 30, wants sats 90-95%, no blood gas in the morning
--- NOTE | 2022-09-28 18:35 | PC.NURSE ---
pt extubated this shift and placed on Bipap, able to communicate, family and pt educated on importance of leaving bipap mask in place, dressing to coccyx changed this shift, PICC line dressing changed this shift, tube feed still running at 60 mL/hr, ricks remains in place with 1285 mL out so far this shift, FiO2 decreased to 30, sats have remained above 90%
--- NOTE | 2022-09-28 20:55 | PC.NURSE ---
2015 - per RT pt bipap switched to Room Air. RT stated they spoke with Dr. Duggan and he stated to switch bipap to room air and leave bipap settings the same until the morning.
--- NOTE | 2022-09-28 23:43 | PC.NURSE ---
Pt complaining of generalized pain at this time. Pt and family requesting something else for pain. Informed patient and daughter he had a pain pill per mar at 2030, and it was not due again until 229. Pt requested to contact hospitalist to request additional pain meds. Spoke to NANO Marin at [phone]. She stated to give a Lortab 5/325mg po via peg tube now. She stated she would enter the order in.
[2022-09-29] VITALS (22 sets, daily range): BP systolic 95–130; BP diastolic 50–95; PULSE 58–114; RESP 18–25; TEMP 36.8–37.1; O2SAT 90–100; BMI 32.3
--- NOTE | 2022-09-29 04:50 | PC.NURSE ---
Pt has not rested very well t/o the shift, only sleeping for short periods of time. Pt daughter was with him most of the night. Has c/o pain frequently t/o the shift. Has been medicated per dec. Pt has been turned frequently t/o the night. IPC's remain in place, removed for skin break and then replaced. LS remain rhoncorus t/o. Pt has worn the bipap t/o the night with O2 saturations ranging from 92-100. Denies soa, but does get winded when attempting to speak. Chest tube remains in place, no change from previous assessments. Oral care given. Pt c/o pain on the bridge of his nose from the bipap, polymem dressing in place to try to prevent breakdown. Remains in Afib/flutter/paced rhythm on telemetry. Denies CP. Tube feeds infusing at 60ml/hr, minimal residual noted. No bm this shift. F/c remains patent, draining clear yellow urine, pt has had adequate urine output this shift. Swelling remains to BLE. Polymem dressing to bottom changed. Pt had a complete bath and bed change and tolerated well. No acute distress noted at this time, will continue to monitor.
--- NOTE | 2022-09-29 06:00 | XR_ITS ---
PROCEDURE INFORMATION: Exam: XR Chest Exam date and time: 09/29/2022 5:26 AM Age: 77 years old Clinical indication: Condition or disease; Lung condition and disease; Pneumonia; Additional info: Pneumonia mechanical ventilation TECHNIQUE: Imaging protocol: Radiologic exam of the chest. Views: 1 view. COMPARISON: CR (CHEST, CXR AP LANDSCAPE) 09/28/2022 5:59 AM FINDINGS: Tubes, catheters and devices: Cardiac rhythm maintenance device is in place. Right upper extremity PICC terminates in the region of the superior cavoatrial junction. Lungs: Similar bibasilar airspace opacities. Pleural spaces: Small bilateral pleural effusions, left greater than right. No pneumothorax. Heart/Mediastinum: Unremarkable. No cardiomegaly. Bones/joints: Unremarkable. IMPRESSION: Similar small bilateral pleural effusions with bibasilar airspace opacities.
--- NOTE | 2022-09-29 08:13 | EXP.ACUTE.PN ---
Subjective *Date: 09/29/22 *Time: 13:05 Interval history: Tolerating nasal cannula oxygen on exam this morning. Requesting ice chips. Denies chest pain, nausea, vomiting. Stable shortness of breath. No nausea or vomiting. Having bowel movements. Family at bedside. Updated of plan. Afebrile overnight. Wore BiPAP overnight, blood gas this morning with mild respiratory alkalosis. Medical Exam Vital signs and Labs for Last 24 Hours: Vital Signs Temp Pulse Pulse Resp BP Pulse Ox FiO2 09/29/22 07:00 69 22 112/67 97 21 09/29/22 06:00 89 22 103/51 L 95 21 09/29/22 04:00 80 09/29/22 04:00 98.3 F 82 22 114/64 94 L 21 09/29/22 04:00 82 22 95 21 09/29/22 00:00 80 09/28/22 20:00 80 09/29/22 01:44 21 09/29/22 01:00 71 22 105/56 L 100 21 09/29/22 00:00 71 22 98 21 09/29/22 00:00 98.3 F 79 22 110/67 99 21 09/28/22 23:00 68 22 92/63 L 100 21 09/28/22 22:00 77 20 109/48 L 98 21 09/28/22 21:29 21 09/28/22 21:00 82 20 115/67 100 0 09/28/22 20:00 98.9 F 86 20 113/62 100 0 09/28/22 20:00 81 20 94 L 0 09/28/22 20:25 18 09/29/22 05:00 76 22 102/57 L 100 21 09/29/22 03:00 73 22 100/61 L 95 21 09/29/22 02:00 73 22 96/57 L 95 21 09/28/22 19:00 86 18 99/58 L 99 09/28/22 18:00 81 18 126/70 94 L 09/28/22 17:00 84 18 102/60 L 100 09/28/22 17:22 100 30 09/28/22 17:21 30 09/28/22 16:00 85 09/28/22 16:00 87 18 97 09/28/22 16:00 87 18 121/77 97 09/28/22 12:00 80 22 99/59 L 95 09/28/22 15:00 85 22 107/63 L 100 09/28/22 14:00 90 24 111/60 100 09/28/22 13:00 84 20 112/55 L 99 09/28/22 12:00 80 22 95 09/28/22 12:00 89 09/28/22 12:00 97.8 F 09/28/22 11:00 91 H 18 129/61 97 09/28/22 10:00 80 21 133/59 L 97 09/28/22 09:00 75 20 90/51 L 94 L 09/28/22 11:22 40 Intake and Output 09/28/22 09/29/22 09/29/22 23:59 07:59 15:59 Intake Total 887 / 2083 721 / 721 Output Total 335 / 0 595 / 595 Balance 552 / 33 126 / 126 Intake: Intake, Oral Supplement Amount 58 / 58 Intake, Tube Feeding Amount 362 / 1157 437 / 437 Intake, Tube Irrigant Amount 405 / 741 226 / 226 Intake, Other Amount 20 / 20 Intake, Total IV Amount 100 / 165 Fluconazole in NaCl,Iso-Osm 200 100 / 100 mg In 100 ml @ 200 mls/hr IV Q24H [facility] Rx#:[id number] Output: Output, Urine Amount 65 / 65 Output, Urine Amount (Catheter) 335 / 0 530 / 530 Ny 335 / 0 530 / 530 Other: Intake, Other Source Saline Solution Weight 91.3 kg Patient Weight 09/29/22 23:59 Weight 91.3 kg Laboratory Results - last 24 hr 09/28/22 08:50: WBC 8.2, RBC 2.64 L, Hgb 7.7 L, Hct 23.7 L, MCV 89.8, MCH 29.0, MCHC 32.3, RDW 17.7 H, Plt Count 507 H, MPV 8.5, Neut % (Auto) 68.6, Lymph % (Auto) 16.3, [place] % (Auto) 5.3, Eos % (Auto) 9.1, Baso % (Auto) 0.6, Neut # (Auto) 5.6, Lymph # (Auto) 1.3, [place] # (Auto) 0.4, Eos # (Auto) 0.7 H, Baso # (Auto) 0.1 12/27/22 08:50: Sodium 145, Potassium 3.4 L, Chloride 103, Carbon Dioxide 35 H, Anion Gap 10.4, BUN 67 H, Creatinine 1.10, Estimated Creat Clear 77, Estimated GFR 65, Est GFR ( Amer) 79, Glucose 116 H, Calcium 11.8 H 09/28/22 10:52: Specimen Source Left radial, O2 % 40%, ABG pH 7.43, ABG pCO2 51.3 H, ABG pO2 67.0 L, ABG HCO3 33.1 H, ABG Total CO2 34.7 H, ABG O2 Saturation 92, ABG Base Excess 8.8 H, Daniel Test Acceptable I & O for Labs for Last 24 Hours: Intake & Output 09/26/22 09/27/22 09/28/22 09/29/22 23:59 23:59 23:59 23:59 Intake Total 2084 2799 / 3036 1915 721 / 721 Output Total 2265 / 2340 2029 595 / 595 Balance -180 / -255 769 / 906 -74 / 33 126 / 126 Weight 96.2 kg 96.1 kg 96.9 kg 91.3 kg Microbiology Reports for the Last 24 Hours: M
[2022-09-29 09:08] LABS: ABG Base Excess 7.5 mmol/L (-2.4-2.3); ABG HCO3 30.1 mmhg (22.0-26.0); ABG Oxygen Saturation 93 % (90-100); ABG PCO2 36.4 mmhg (35.0-45.0); ABG PH 7.54 mmol/L (7.35-7.45); ABG PO2 64.4 mmhg (80-100); ABG TCO2 31.3 mmhg (23-27)
[2022-09-29 09:12] LABS: Allen's Test ACCEPTABLE; Oxygen 21 %; Pressure Support BIPAP 14/6; Source Right Radial; Vent Rate 20
--- NOTE | 2022-09-29 09:15 | PC.NURSE ---
RESP CARE NOTE: Pt placed on 1 lpm nasal cannula, oriented to time and place, and conversating with family. Will continue to monitor patient.
--- NOTE | 2022-09-29 09:37 | EXP.PULM.CON ---
[facility] Disclaimer: The information contained in this section may have been updated after the patient was seen, as this information can be updated by other users. Medical History (Updated 09/21/22 @ 16:35 by Darnell Stewart MD) Aplastic anemia Atrial fibrillation Cataract Congestive heart failure Enterococcus UTI Gallbladder & bile duct stone, acute cholecystitis and obstruction History of anemia History of cataract History of gastroesophageal reflux (GERD) History of pacemaker Hyperlipidemia Hypertension Hypothyroid Hypothyroidism On mechanically assisted ventilation Pleural effusion Rotator cuff arthropathy of left shoulder Rotator cuff arthropathy of right shoulder Sleep apnea Urinary tract infection Surgical History History of revision of total knee arthroplasty Stented coronary artery Family History Other Family history of acute congestive heart failure Family history of cancer Social History (Updated 09/20/22 @ 23:33 by Perla Martinez, RN) Smoking Status: Never smoker alcohol intake: never current occupational status: retired Travel in the last 8 weeks: None Pulmonology Exam Inpatient Vital signs and Labs for Last 24 Hours: Temp Pulse Resp BP Pulse Ox FiO2 98.8 F 89 20 121/95 H 96 21 09/29/22 08:00 09/29/22 09:00 09/29/22 09:00 09/29/22 09:00 09/29/22 09:00 09/29/22 07:00 Laboratory Results - last 24 hr 09/28/22 10:52: Specimen Source Left radial, O2 % 40%, ABG pH 7.43, ABG pCO2 51.3 H, ABG pO2 67.0 L, ABG HCO3 33.1 H, ABG Total CO2 34.7 H, ABG O2 Saturation 92, ABG Base Excess 8.8 H, Daniel Test Acceptable 09/29/22 08:53: Specimen Source Right radial, O2 % 21, ABG pH 7.54 H, ABG pCO2 36.4, ABG pO2 64.4 L, ABG HCO3 30.1 H, ABG Total CO2 31.3 H, ABG O2 Saturation 93, ABG Base Excess 7.5 H, Daniel Test Acceptable, Vent Rate 20 I & O for Labs for Last 24 Hours: Intake & Output 09/26/22 09/27/22 09/28/22 09/29/22 23:59 23:59 23:59 23:59 Intake Total 2084 2799 / 3036 1915 839 / 839 Output Total 2264 / 2340 2029 695 / 695 Balance -180 / -255 769 / 906 -74 / 33 144 / 144 Weight 212 lb 1.355 oz 211 lb 13.828 oz 213 lb 10.047 oz 201 lb 4.513 oz Microbiology Reports for the Last 24 Hours: Microbiology 09/23/22 14:40 Pleural Fluid - Pleura Gram Stain - Final 09/23/22 14:40 Pleural Fluid - Pleura Body Fluid Culture - Final NO GROWTH AFTER 5 DAYS Meds Home Medications and Allergies Home Medications Medication Instructions Recorded Confirmed Type apixaban 5 mg tablet (Eliquis) 5 mg PO BID atrial fib/blood 08/10/22 09/20/22 History thinner aspirin 81 mg chewable tablet 81 mg PO MOWEFR Heart disease 08/10/22 09/20/22 History mecobalamin (vitamin B12) 1,000 1,000 mcg PO DAILY Supplement 08/10/22 09/20/22 History mcg chewable tablet (B12 Active) nebivolol 5 mg tablet (Bystolic) 5 mg PO DAILY High blood pressure- 08/10/22 09/20/22 History hold for SBP <120 rosuvastatin 5 mg tablet (Crestor) 5 mg PO DAILY Cholesterol 08/10/22 09/20/22 History bumetanide 1 mg tablet 1 mg PO Q48H Fluid 09/20/22 09/20/22 History cetirizine 10 mg capsule (Zyrtec) 10 mg PO DAILY Allergy symptoms 09/20/22 09/20/22 History levothyroxine 50 mcg tablet 50 mcg PO DAILY Allergy symptoms 09/20/22 09/20/22 History New Prescriptions to Start Prescriptions: Allergies Allergy/AdvReac Type Severity Reaction Status Date / Time No Known Allergies Allergy Unverified 09/20/17 14:17 Results Laboratory Findings CBC and BMP: 09/28/22 08:50 09/28/22 08:50 ABG ABG pH 7.54 mmol/L (7.35-7.45) H 09/29/22 08:53 ABG pCO2 36.4 mmhg (35.0-45.0) 09/29/22 08:53 ABG pO2 64.4 mmhg (80-100) L 09/29/22 08:53 ABG O2 Saturation 93 % (90-100) 09/29/22 08:53 PT/INR, D-dimer
--- NOTE | 2022-09-29 10:24 | DIET.NUTRFU ---
Rounded with provider today, patient was able to be extubated. He was visiting with upon clinical visit. He has a strong cough and able to project voice, STEAM TABLE ATTENDANT jannette ordered. Prior to this recent hospitalization he was taking ice chips. Before that he was on pureed when had PEG placed. Will follow up with STEAM TABLE ATTENDANT recommendations. Continues to tolerate TF, Ca depleted at 11.8, provider added phosphate binder and additional labs. Family continues to be concerned about confusion. Continues on bumex tx. Propofol received 09/28 was 65ml, 72kcal. BM noted on 09/27,09/28. Also continues on prostat AWC BID for additional protein to promote healing. No changes in TF regimen at this time.
[2022-09-29 10:42] LABS: Alanine Aminotransferase 56 U/L (12-78); Albumin Level 3.3 g/dl (3.5-5.0); Alkaline Phosphatase 137 U/L (38-126); Anion Gap 8.2 mEq/L (5-15); Aspartate Amino Transferase 68 U/L (17-59); Bilirubin,Total 0.5 mg/dl (0.2-1.3); Carbon Dioxide 37 mmol/L (22.0-30.0); Chloride 104 mmol/L (98-107); Creatinine Clearance Estimated 73 mL/min (50-200); Estimated Glomerular Filt Rate 65 ml/min (>60); GFR (African American) 79 ML/MIN (>60); Globulin 3.2 g/dL (1.3-3.2); Glucose 141 mg/dl (74-100); Phosphorous 4.5 mg/dl (2.5-4.5); Potassium 3.2 mmoL/L (3.5-5.1); Sodium 146 mmol/L (136-145); Total Protein,Serum 6.5 g/dl (6.3-8.2)
[2022-09-29 10:52] LABS: Blood Urea Nitrogen 83 mg/dl (9-20)
[2022-09-29 11:13] LABS: Thyroid Stimulating Hormone 9.97 uIU/mL (0.465-4.68)
--- NOTE | 2022-09-29 11:38 | EXP.PULM.PN ---
Subjective *Date: 09/29/22 *Time: 11:38 Interval history: No acute respiratory events overnight. Tolerating BiPAP well overnight. Denies any new complaints today. Pulmonology Exam Inpatient Vital signs and Labs for Last 24 Hours: Temp Pulse Resp BP Pulse Ox FiO2 98.8 F 82 20 115/62 93 L 21 09/29/22 08:00 09/29/22 11:00 09/29/22 11:00 09/29/22 11:00 09/29/22 11:00 09/29/22 07:00 Laboratory Results - last 24 hr 09/29/22 08:53: Specimen Source Right radial, O2 % 21, ABG pH 7.54 H, ABG pCO2 36.4, ABG pO2 64.4 L, ABG HCO3 30.1 H, ABG Total CO2 31.3 H, ABG O2 Saturation 93, ABG Base Excess 7.5 H, Daniel Test Acceptable, Vent Rate 20 09/29/22 10:20: Sodium 146 H, Potassium 3.2 L, Chloride 104, Carbon Dioxide 37 H, Anion Gap 8.2, BUN 83 H, Creatinine 1.10, Estimated Creat Clear 73, Estimated GFR 65, Est GFR ( Amer) 79, Glucose 141 H, Calcium 11.0 H, Phosphorus 4.5, Total Bilirubin 0.5, AST 68 H, ALT 56, Alkaline Phosphatase 137 H, Total Protein 6.5, Albumin 3.3 L, Globulin 3.2, Albumin/Globulin Ratio 1.0 L, TSH 9.97 H I & O for Labs for Last 24 Hours: Intake & Output 09/26/22 09/27/22 09/28/22 09/29/22 23:59 23:59 23:59 23:59 Intake Total 2084 / 2084 2799 / 3036 1915 / 208 1159 / 1159 Output Total 2265 / 2340 2029 / 2129 820 / 820 Balance -180 / -255 769 / 906 -74 / 33 339 / 339 Weight 212 lb 1.355 oz 211 lb 13.828 oz 213 lb 10.047 oz 201 lb 4.513 oz Microbiology Reports for the Last 24 Hours: Microbiology 09/23/22 14:40 Pleural Fluid - Pleura Gram Stain - Final 09/23/22 14:40 Pleural Fluid - Pleura Body Fluid Culture - Final NO GROWTH AFTER 5 DAYS Constitutional: Present moderate distress Head: Present normocephalic and atraumatic ENT: Present normal exam, normal oropharynx and mucous membranes moist Neck: Present normal inspection and trachea midline Respiratory: Present respiratory distress, crackles, distant breath sounds, diminished air movement and able to speak in complete sentences; Absent accessory muscle use Comment:: Decreased breath sounds lower lung hayden Cardiac: Present S1/S2, Tachycardia and radial pulses present GI: Present soft and distention; Absent tenderness or guarding Skin: Present intact; Absent cyanosis or jaundice Neuro: Present alert, awake and oriented x 3 Extremities: Absent edema, clubbing or cyanosis Assessment and Plan *Assessment and plan (1) Acute hypercapnic respiratory failure: Status: Acute Category: Medical Code(s): J96.02 - Acute respiratory failure with hypercapnia (2) Pleural effusion: Status: Acute Category: Medical Code(s): J90 - Pleural effusion, not elsewhere classified Plan #Acute hypoxic respiratory failure: #Bilateral pleural effusions right > left, #HAP: Intubated and sedated, history obtained from chart review and patient's family 77-year-old male with a NO significant smoking history, prior respiratory complaints recently diagnosed with aplastic anemia status post bone marrow biopsy, initiating cyclosporine complicated by pulmonary toxicity status post discontinuation of cyclosporine around July 2022, since then noted to have new oxygen requirements and new hypercarbic respiratory failure requiring 2-3 recent hospital admissions for hypercarbic respiratory failure presented to [facility] ER yesterday with hypercarbic respiratory failure needing intubation mechanical ventilatory support, transferred to [facility] for further evaluation. Patient chest x-ray significant also noted to have bilateral pleural effusions right greater than left, worsening from his most recent hospital admission for August 2022. As per the family patient had a recent right-sided thoracentesis performed by [facility], will obtain records for further evaluation. Records from outside hospital reviewed patient had a thoracentesis with pleural fluid
--- NOTE | 2022-09-29 13:42 | FL_ITS ---
FINAL REPORT CLINICAL HISTORY: EVALUATE SWALLOWING POST INTUBATION FINDINGS: MODIFIED BARIUM SWALLOW History: Dysphagia FINDINGS: Fluoroscopy was provided for the speech pathologist to evaluate the swallowing mechanism. The patient was given several different consistencies of barium while the swallow was visualized fluoroscopically. The report of the speech pathologist should be consulted prior to making dietary decisions. FLUOROSCOPY TIME:2 minutes IMPRESSION: Modified barium swallow under fluoroscopic guidance. Please see the report of the speech pathologist for Dietary recommendations. Reviewed, Interpreted and Dictated by Patrice Gonzalez III, MD Transcribed by DEBBIE Younger Authenticated and [facility]
--- NOTE | 2022-09-29 13:52 | HMH.OTEV ---
OT Inpatient Evaluation Rehab OT IP Evaluation Start: 09/29/22 10:40 Freq: ONCE Status: Active Protocol: Document 09/29/22 13:41 [facility] (Rec: 09/29/22 13:51 [facility] [id number]) Rehab OT IP Assessment Subjective History Pt orineted x 3 on arrival. Pt agreeable to engage in therapy evaluation. Pt was admitted was admitted on 09/21 due to Status post respiratory arrest and intubation, acute respiratory failure. Pt does have a compromised state of health with chronic A. fib and history of vascular disease until this fatigue symptomatology, diagnosed with aplastic anemia and initiated on cyclosporine therapy. Pt was intubated at outside facility on 09/19/22 and then transferred here on 09/21/22. He has had multiple hospital stays and has been in and out of short term rehab prior to . Pt has a past medical history of: Aplastic anemia Atrial fibrillation Cataract Congestive heart failure Enterococcus UTI Gallbladder & bile duct stone, acute cholecystitis and obstruction History of anemia History of cataract History of gastroesophageal reflux (GERD) History of pacemaker Hyperlipidemia Hypertension Hypothyroid Hypothyroidism Rotator cuff arthropathy of left shoulder Rotator cuff arthropathy of right shoulder Sleep apnea Urinary tract infection Subjective I need to lay back down. Objective Patient Orientation Person,Place,Birthday Upper Extremity
--- NOTE | 2022-09-29 13:59 | SW/DCPLANNER ---
Addendum entered by Meggan Beaulieu 10/05/22 09:10: The plan for this patient is to discharge to [facility] level of care later today. COVID swab will be ordered prior to discharge. Addendum entered by Meggan Beaulieu 10/04/22 15:28: Jo Ann stated that she will be onsite tomorrow morning to re evaluate this patient. Addendum entered by Meggan Beaulieu 10/04/22 10:54: Updated patient information has been faxed to Jo Ann Casper. Original Note: I spoke with patient's and daughter regarding plans once medically stable for discharge. PT/OT evaluated this patient today and has recommended SNF level of care at time of discharge. has requested that patient information be faxed to Jo Ann Casper. Patient information has been faxed at this time. Discharge date is unknown at this time.
--- NOTE | 2022-09-29 14:00 | HMH.PTEV ---
Physical Therapy Evaluation Rehab PT IP Evaluation Start: 09/29/22 10:40 Freq: ONCE Status: Active Protocol: Document 09/29/22 13:43 [facility] (Rec: 09/29/22 13:59 [facility] [id number]) Subjective/History History History Patient is a 77 year old male admitted to [facility] 09/21/22 secondary to ARF. Patient has previously been under some form of skilled care for approx the past 2 months per spouse report. Patient has previously undergone intubation secondary to hypoxic episodes. He was previously seen by PT for sacral ulcer, which has since improved per caregiver report. Subjective Subjective I feel horrible. I hurt all over. Rehab PT IP Eval Objective Appearance Patient Behavior Appropriate,Fatigued Patient Orientation Person,Place,Name,Birthday Difficulty following instructions none Speech Pattern Clear,Delayed Ambulation Patient Able to Ambulate No Balance Ability to Arise Able, uses arms to help Dynamic Sitting Balance Ability Fair Transfers Bed Transfer Ability Moderate x 2 (50% assist) ROM All Extremities PT ROM Status ABN MMT All Extremities PT MMT ABN Abnormal MMT Grade 3-/5 Rehab PT IP prob,goals,plan Problems Date of Evaluation: 09/29/22 PT IP Problems Bed Mobility,Transfers,Gait, Balance,Self care,Safety Rehab Potential Rehab Potential Fair Equipment Needs Assistive Devices Rolling / Wheeled Walker Plan PT Intervention Plan Bed Mobility,Transfers,Gait, Balance,Self care,Safety, Therapeutic Exercise PT Plan Frequency BID Duration LOS Discharge Goals Bed Transfer Ability Contact Guard/Hand Hold Sit to Stand Chair Transfer Ability Contact Guard/Hand Hold Ambulation Assistive Device Rolling Walker Ambulation Distance (feet) 20 Discharge Plan PT Discharge Plan PT suggests that patient would benefit from transferring to SNF for further rehab once found medically stable by MD. G -code Required Yes Eval Complexity Eval Charge Codes 67018 - High Complexity G Codes PT Current Status
--- NOTE | 2022-09-29 15:26 | HMH.SLDYSPHA ---
Speech & Language Evaluation Speech/Language Dysphagia Evaluation Start: 09/29/22 14:42 Freq: ONCE Status: Active Protocol: Document 09/29/22 14:44 [facility] (Rec: 09/29/22 15:26 [facility] [id number]) Dysphagia Assess/Goals/Plan Assessment Date of Evaluation: 09/29/22 Evaluation Type Initial Certification Assessment/Problems Clinical bedside swallow evaluation completed per MD order for post-extubation. Does Patient Qualify for Service Yes Qualify/Failure Comment Based on CSE results, pt requires further assessment and MBSS will be completed. Recommendations PHYSICIAN CERTIFICATION: The specified therapy services are required, authorized, and reviewed every 30 days. Pt will be seen # times/week 3 for # weeks 3 Diet Recommendations MBSS Plan Pt/Guardian verbally ack understanding Yes of dx/prognosis/goals G -code Required No STG-Other Comment/Non-Specific Pt will complete further instrumental testing to evaluate swallow. Education Instructions provided Discussed risk of aspiration/ aspiration and need for further testing with pt, family, nursing, and care management all of whom expressed understanding. Pt/Caregiver able to recall information Able to recall/restate Reinforcement needed No Speech & Language HPI History Present Illness Description of Patient Problem Pt is a 77 year old male admitted for acute respiratory failure. He had been in a somewhat compromised state of health with chronic A. fib and history of vascular disease until this fatigue symptomatology, diagnosed with aplastic anemia and initiated on cyclosporine therapy. Has had several complications of cyclosporine therapy, most notably recurrent pulmonary edema and pneumonitis. Chest X -ray impressions exhbited large bilateral pleural effusions. He has had frequent admissions to acute care setting in [address]
--- NOTE | 2022-09-29 16:17 | HMH.SLMBS2 ---
Speech & Language Evaluation Speech/Language Mod Barium Swallow Start: 09/29/22 13:42 Freq: ONCE Status: Complete Protocol: Document 09/29/22 15:27 [facility] (Rec: 09/29/22 16:17 [facility] [id number]) General Information General Current Food Consistancy NPO Dentition Good Dentition Oxygen Status Nasal Cannula Patient Orientation Person,Place Ability to Follow Directions Good Communication Ability Mild Impairment MBS Recommendations Diet Dietary Recommendations NPO Referrals/Other Recommended Referrals Alternate Feeding Method Other Recommendations Discussed with care mangement following discussion with family as they requested for pt to continue on PEG. Mod Barium Swallow Impressions Summary and Impressions Oral Phase Impression Severe Impairment Oral Phase Summary There was obstructed view 2' pt being cathardic, however, throughout bolus adminstration across all consistencies, pt had anterior loss, premature spillage, and was observed to withold the bolus in his oral cavity. Pharyngeal Phase Impression Severe Impairment Pharyngeal Phase Summary Pt was observed to have a delayed swallow with fatigue that resulted in marie aspiration across all presented consistencies. Speech/Language MBS Assessment/Goals/Plan Assessment Date of Evaluation: 09/29/22 Evaluation Type Initial Certification Assessment/Problems MBSS 2' results of CSE per order. Does Patient Qualify for Service Yes Qualify/Failure Comment Based on clinical observation and results of MBSS, pt would benefit from skilled speech therapy services to improve oral motor strength and awareness, as well as completing trials for PO intake. Recommendations PHYSICIAN CERTIFICATION: The specified therapy services are required, authorized, and reviewed every 30 days. Pt will be seen # times/week 3 for # weeks 4 Diet Recommendations NPO SL Swallow Guidelines High aspiration risk Plan Anticipate reaching STG in # weeks 2 Anticipate reaching LTG in # weeks 4 Pt/Guardian verbally ack understanding Yes of dx/prognosis/goals
--- NOTE | 2022-09-29 19:44 | PC.NURSE ---
Pt has been alert to person and place. He remains on RA with O2 sats measuring > then 90%. He's been afib on telemetry. His ricks is to bedside draining yellow urine with some sediment noted. Chest tube in place to water seal, no output this shift. Tube feeds running at goal rate of 60mls/hr. Residuals have been less than 5mls at each check. Dressing to coccyx and bridge of nose. Scab noted to upper lip. He's been turned q2hrs and oral care provided. Bed is locked and in the lowest position, call light is within reach.
[2022-09-30] VITALS (14 sets, daily range): BP systolic 96–138; BP diastolic 44–70; PULSE 70–92; RESP 18–30; TEMP 36.3–37.1; O2SAT 89–96; BMI 32.1
--- NOTE | 2022-09-30 06:00 | XR_ITS ---
PROCEDURE INFORMATION: Exam: XR Chest Exam date and time: 09/30/2022 5:08 AM Age: 77 years old Clinical indication: Condition or disease; Lung condition and disease; Pneumonia; Additional info: Pneumonia mechanical ventilation TECHNIQUE: Imaging protocol: Radiologic exam of the chest. Views: 1 view. COMPARISON: CR (CHEST, CXR AP LANDSCAPE) 09/29/2022 5:26 AM FINDINGS: Tubes, catheters and devices: Right-sided PICC line with the tip at the lower SVC level. Pacemaker in the left hemithorax in stable position. Lungs: Mild left basilar opacity similar to the prior exam. Rounded soft tissue density projects over the trachea at the level of the clavicular heads, not seen on the prior exam. Pleural spaces: Moderate left-sided pleural effusion. Trace right-sided pleural effusion. Heart/Mediastinum: No acute findings or cardiomegaly. Persistent elevation of the right hemidiaphragm. Bones/joints: No acute findings. IMPRESSION: 1. Persistent left basilar airspace disease with bilateral pleural effusions, left greater than right. 2. Rounded soft tissue density projecting over the trachea at the level of the clavicular heads, not seen on the prior exam suspected to be related to rotation producing overlapping spinal and soft tissue structures. Correlate clinically.
--- NOTE | 2022-09-30 06:25 | PC.NURSE ---
Pt has rested well this shift. Tolerated bipap t/o night. C/O discomfort x1 this shift. Medicated per dec. Nepro infusing @ 60 ml/hr. Residuals 5. Pt bathed and turned Q2 hr. Bed bath given. VSS. F/C draining to bedside with yellow urine with sediment noted. No BM this shift. Call light within reach.
[2022-09-30 06:45] LABS: Basophils # 0.1 K/mm3 (0-0.2); Basophils % 1.5 % (0.1-2.0); Eosinophils # 0.6 K/mm3 (0.0-0.4); Eosinophils % 9.9 % (0.1-12.0); Hematocrit 26.2 % (42.0-52.0); Hemoglobin 8.2 g/dL (14.1-18.0); Lymphocytes # 1.1 K/mm3 (0.7-4.5); Lymphocytes % 16.9 % (10-50); Mean Corpuscular HGB Conc 31.4 g/dL (31.8-35.4); Mean Corpuscular Hemoglobin 29.4 pg (27.0-31.2); Mean Corpuscular Volume 93.7 fl (80-94); Mean Platelet Volume 8.5 fl (7.4-10.4); Monocytes # 0.5 K/mm3 (0.1-1.0); Neutrophils # 4.2 K/mm3 (1.8-7.8); Neutrophils % 64.7 % (37.0-80.0); Platelet Count 624 K/mm3 (142-424); Red Cell Distribution Width 17.7 % (11.5-17.5); White Blood Count 6.5 K/mm3 (4.8-10.8)
[2022-09-30 06:47] LABS: Phosphorous 5.5 mg/dl (2.5-4.5)
--- NOTE | 2022-09-30 07:20 | DIET.NUTRFU ---
Addendum entered by Elke Ramirez RD, LD 10/01/22 15:40: wt review: wt on 09/21 was 98kg, thorcentesis completed on 09/23 with wt on 09/24 at 95kg. Current wt is 92kg after receiving diuretic tx, edema improved. Bumex on hold yesterday, restarted today and plan to continue skilled nursing. Urine output 09/2800=8626gq, 09/2985=4938vg and 09/3051=0365tq. Started on remeron to help with sleeping. Na improved slightly at 147H, will continue to monitor on same flush. Plan is to discharge to [facility] when ready Addendum entered by Elke Ramirez RD, LD 09/30/22 11:11: todays sodium was 148H, will increase flush to 150 Q4H= 900ml for total of 2186ml/day. Dr. Bo also held bumex with labs labs ordered again tomorrow. Original Note: Speech completed MBSS 09/29 and recommends yto continue NPO diet d/t high aspiration risk secondary to holding in oral cavity and fatigue. may need to re-eval when patient feels stronger. He is okayed to have trials ice chips at bedside. Will continue to provide 100% of nutrition via TF. Labs reviewed Na 146H, K 3.2L, BUN 83H, ca continues to be high at 11.0, phosphorous was WNL at 4.5. Continues to receive bumex tx. TF is providing 1440ml formula/2592kcal/116gm protein with 1046ml formula water. Also providing prostat AWC BID to provide additional 34gm protein for total of 150gm/day and add additional 152ikgt=9855tomt/day. Flush with Prostat is 120ml BYP=053ki+1046ml formula water and 110ml flush E9L=213hb for grand total of 1946ml/day. Will review hydration status with provider
[2022-09-30 09:33] LABS: Chloride 103 mmol/L (98-107); Sodium 148 mmol/L (136-145)
[2022-09-30 09:34] LABS: Potassium 3.8 mmoL/L (3.5-5.1)
--- NOTE | 2022-09-30 09:34 | EXP.PULM.PN ---
Subjective *Date: 09/30/22 *Time: 11:44 Interval history: No acute respiratory events overnight. Patient admits improving symptoms . Pulmonology Exam Inpatient Vital signs and Labs for Last 24 Hours: Temp Pulse Resp BP Pulse Ox FiO2 98.8 F 78 19 108/56 L 94 L 21 09/30/22 08:00 09/30/22 06:00 09/30/22 06:00 09/30/22 06:00 09/30/22 06:00 09/30/22 05:20 Laboratory Results - last 24 hr 09/29/22 10:20: Sodium 146 H, Potassium 3.2 L, Chloride 104, Carbon Dioxide 37 H, Anion Gap 8.2, BUN 83 H, Creatinine 1.10, Estimated Creat Clear 73, Estimated GFR 65, Est GFR ( Amer) 79, Glucose 141 H, Calcium 11.0 H, Phosphorus 4.5, Total Bilirubin 0.5, AST 68 H, ALT 56, Alkaline Phosphatase 137 H, Total Protein 6.5, Albumin 3.3 L, Globulin 3.2, Albumin/Globulin Ratio 1.0 L, TSH 9.97 H 09/30/22 06:14: Phosphorus 5.5 H 09/30/22 06:14: WBC 6.5, RBC 2.80 L, Hgb 8.2 L, Hct 26.2 L, MCV 93.7, MCH 29.4, MCHC 31.4 L, RDW 17.7 H, Plt Count 624 H, MPV 8.5, Neut % (Auto) 64.7, Lymph % (Auto) 16.9, [place] % (Auto) 7.0, Eos % (Auto) 9.9, Baso % (Auto) 1.5, Neut # (Auto) 4.2, Lymph # (Auto) 1.1, [place] # (Auto) 0.5, Eos # (Auto) 0.6 H, Baso # (Auto) 0.1 I & O for Labs for Last 24 Hours: Intake & Output 09/27/22 09/28/22 09/29/22 09/30/22 23:59 23:59 23:59 23:59 Intake Total 2799 / 3036 1915 / 2082 1434 / 1894 460 / 460 Output Total 2029 / 2129 1470 / 2220 750 / 750 Balance 769 / 906 -74 / 33 -36 / -326 -290 / -290 Weight 211 lb 13.828 oz 213 lb 10.047 oz 201 lb 4.513 oz 200 lb 4.513 oz Microbiology Reports for the Last 24 Hours: Microbiology 09/23/22 14:40 Pleural Fluid - Pleura Gram Stain - Final 09/23/22 14:40 Pleural Fluid - Pleura Body Fluid Culture - Final NO GROWTH AFTER 5 DAYS Constitutional: Present moderate distress Head: Present normocephalic and atraumatic ENT: Present normal exam, normal oropharynx and mucous membranes moist Neck: Present normal inspection and trachea midline Respiratory: Present respiratory distress, crackles, diminished air movement and able to speak in complete sentences; Absent accessory muscle use or wheezes Comment:: Decreased breath sounds lower lung hayden Cardiac: Present S1/S2, Tachycardia and radial pulses present GI: Present soft and distention; Absent tenderness or guarding Skin: Present intact; Absent cyanosis or jaundice Neuro: Present alert, awake and oriented x 3 Extremities: Absent edema, clubbing or cyanosis Assessment and Plan *Assessment and plan (1) Acute hypercapnic respiratory failure: Status: Acute Category: Medical Code(s): J96.02 - Acute respiratory failure with hypercapnia (2) Pleural effusion: Status: Acute Category: Medical Code(s): J90 - Pleural effusion, not elsewhere classified Plan #Acute hypoxic respiratory failure: #Bilateral pleural effusions right > left, #HAP: 77-year-old male with a NO significant smoking history, prior respiratory complaints recently diagnosed with aplastic anemia status post bone marrow biopsy, initiating cyclosporine complicated by pulmonary toxicity status post discontinuation of cyclosporine around July 2022, since then noted to have new oxygen requirements and new hypercarbic respiratory failure requiring 2-3 recent hospital admissions for hypercarbic respiratory failure presented to [facility] ER yesterday with hypercarbic respiratory failure needing intubation mechanical ventilatory support, transferred to [facility] for further evaluation. Patient chest x-ray on admission noted to have bilateral pleural effusions right greater than left, worsening from his most recent hospital admission for August 2022. As per the family patient had a recent right-sided thoracentesis performed by [facility], Records from outside hospital reviewed patient had a thoracentesis with pleural fluid studies consistent with exudativ
[2022-09-30 09:36] LABS: Alanine Aminotransferase 53 U/L (12-78); Albumin Level 3.3 g/dl (3.5-5.0); Albumin/Globulin Ratio 1.1 (1.1-1.8); Alkaline Phosphatase 137 U/L (38-126); Anion Gap 10.8 mEq/L (5-15); Aspartate Amino Transferase 55 U/L (17-59); Bilirubin,Total 0.5 mg/dl (0.2-1.3); Carbon Dioxide 38 mmol/L (22.0-30.0); Creatinine Clearance Estimated 66 mL/min (50-200); Estimated Glomerular Filt Rate 59 ml/min (>60); GFR (African American) 71 ML/MIN (>60); Globulin 3.1 g/dL (1.3-3.2); Total Protein,Serum 6.4 g/dl (6.3-8.2)
[2022-09-30 09:37] LABS: Calcium 10.7 mg/dl (8.4-10.2); Glucose 119 mg/dl (74-100)
[2022-09-30 09:41] LABS: Blood Urea Nitrogen 82 mg/dl (9-20)
--- NOTE | 2022-09-30 11:21 | PC.WOUNDNOTE ---
[address] chest tube removed by Dr Stewart. 4x4 tegaderm placed at that time
--- NOTE | 2022-09-30 11:40 | EXP.ACUTE.PN ---
Subjective *Date: 09/30/22 *Time: 17:24 Interval history: Wore BiPAP overnight. Transition to room air this morning. Showing improvement daily. Denies nausea, vomiting. Having daily bowel movements. Tolerating tube feeds. Afebrile overnight. Weak but stable. Family at bedside, updated of plan. Still having mild confusion but oriented to person and place. Medical Exam Vital signs and Labs for Last 24 Hours: Vital Signs Temp Pulse Pulse Resp BP Pulse Ox FiO2 09/30/22 10:00 86 18 138/67 90 L 09/30/22 08:00 90 18 130/66 96 09/30/22 08:00 98.8 F 09/29/22 20:00 100 H 09/30/22 04:00 80 09/30/22 00:00 80 09/30/22 06:00 78 19 108/56 L 94 L 09/30/22 04:00 98.6 F 82 19 106/54 L 96 09/30/22 05:20 21 09/30/22 02:00 76 21 96/44 L 95 09/30/22 00:00 98.2 F 92 H 20 117/64 94 L 09/29/22 22:00 82 20 95/66 L 96 09/29/22 20:00 98.4 F 79 20 104/52 L 92 L 09/30/22 01:02 21 09/29/22 16:00 98.4 F 09/29/22 12:00 98.4 F 09/29/22 18:00 105 H 20 129/67 92 L 09/29/22 16:00 100 H 09/29/22 16:00 81 18 130/69 92 L 09/29/22 12:00 80 09/29/22 15:00 108 H 22 123/66 92 L 09/29/22 14:00 114 H 20 127/68 90 L 09/29/22 13:00 87 18 124/73 96 09/29/22 12:00 87 22 118/68 95 Intake and Output 09/29/22 09/30/22 09/30/22 23:59 07:59 15:59 Intake Total 60 / 1894 460 / 460 Output Total 750 / 1050 300 / 1050 Balance 60 / -326 -290 / -590 -300 / -590 Intake: Intake, Tube Feeding Amount 60 / 1130 240 / 240 Intake, Tube Irrigant Amount 220 / 220 Output: Output, Urine Amount 750 / 750 Output, Urine Amount (Catheter) 300 / 300 Ny 300 / 300 Other: Number of Unmeasured Voids 0 0 0 Weight 90.846 kg Patient Weight 09/30/22 23:59 Weight 90.846 kg Laboratory Results - last 24 hr 09/30/22 06:14: Phosphorus 5.5 H 09/30/22 06:14: WBC 6.5, RBC 2.80 L, Hgb 8.2 L, Hct 26.2 L, MCV 93.7, MCH 29.4, MCHC 31.4 L, RDW 17.7 H, Plt Count 624 H, MPV 8.5, Neut % (Auto) 64.7, Lymph % (Auto) 16.9, [place] % (Auto) 7.0, Eos % (Auto) 9.9, Baso % (Auto) 1.5, Neut # (Auto) 4.2, Lymph # (Auto) 1.1, [place] # (Auto) 0.5, Eos # (Auto) 0.6 H, Baso # (Auto) 0.1 09/30/22 06:14: Sodium 148 H, Potassium 3.8, Chloride 103, Carbon Dioxide 38 H, Anion Gap 10.8, BUN 82 H, Creatinine 1.20, Estimated Creat Clear 66, Estimated GFR 59, Est GFR ( Amer) 71, Glucose 119 H, Calcium 10.7 H, Total Bilirubin 0.5, AST 55, ALT 53, Alkaline Phosphatase 137 H, Total Protein 6.4, Albumin 3.3 L, Globulin 3.1, Albumin/Globulin Ratio 1.1 I & O for Labs for Last 24 Hours: Intake & Output 09/27/22 09/28/22 09/29/22 09/30/22 23:59 23:59 23:59 23:59 Intake Total 2799 / 3036 191 / 3 1434 / 1894 460 / 460 Output Total 2029 1470 / 2220 1050 / 1050 Balance 769 / 906 -74 / 33 -36 / -326 -590 / -590 Weight 96.1 kg 96.9 kg 91.3 kg 90.846 kg Constitutional: Present no acute distress, obese, chronically ill appearing, disheveled and cooperative Head: Present atraumatic and normocephalic ENT: Present normal exam Comment:: irritation of upper lip from ETT vela. Neck: Present normal inspection Respiratory: Present accessory muscle use and able to speak in complete sentences; Absent rhonchi, wheezes or crackles Cardiac: Present Reg Rate and Rhythm and No Murmur GI: Present soft; Absent distention or tenderness Extremities: Present normal inspection; Absent edema Skin: Present intact; Absent cyanosis or erythema Comment:: See wound care notes for breakdown lesions on back Neuro: Present alert, awake and moves all extremities Comment:: Oriented to person and place. Answers questions appropriately. Recognizes family. Follows command, globally weak Assessment and Plan *Assessment and plan (1) Acute hypercapnic respiratory failure: Status: Acute [place]
--- NOTE | 2022-09-30 11:43 | PC.NURSE ---
0940 critical lab results BUN 82 received from lab. results repeated and verified back. [address] Shrestha face to face of lab values. new orders, hold bumex at this time
[2022-09-30 17:22] LABS: Calcium, Ionized 6.5 mg/dL (4.5-5.6)
[2022-10-01] VITALS (10 sets, daily range): BP systolic 102–148; BP diastolic 52–75; PULSE 71–93; RESP 18–30; TEMP 36.3–36.9; O2SAT 91–95; BMI 32.7
--- NOTE | 2022-10-01 00:47 | PC.NURSE ---
pt. has a stage 2 to coccyx. Turn q 2 hours with confusion. He also has a male pure wick in place with urine present.
--- NOTE | 2022-10-01 01:36 | PC.NURSE ---
pt. continues to remove his bipap. He is 93% on RA.
--- NOTE | 2022-10-01 04:26 | PC.NURSE ---
RESP CARE NOTE placed pt on bipap around 2030 pt took of bipap several times and was placed back on the bipap. when asked why he kept taking it off he stated he was already on a bipap.
--- NOTE | 2022-10-01 06:00 | XR_ITS ---
PROCEDURE INFORMATION: Exam: XR Chest Exam date and time: 10/01/2022 5:40 AM Age: 77 years old Clinical indication: Condition or disease; Lung condition and disease; Pneumonia; Additional info: Pneumonia mechanical ventilation TECHNIQUE: Imaging protocol: Radiologic exam of the chest. Views: 1 view. COMPARISON: CR XR CHEST PORTABLE 09/30/2022 5:08 AM FINDINGS: Tubes, catheters and devices: Pacemaker is present via a left subclavian approach. PICC line from the right with the tip projecting over the right atrium. Lungs: Prominent and indistinct pulmonary vasculature as well as prominence of the interstitium representing edema.. Alveolar airspace disease/consolidation in the perihilar region and particularly within the lung bases left greater than right. Pleural spaces: Pleural effusions bilaterally left greater than right. Heart/Mediastinum: cardiac silhouette is enlarged. Bones/joints: No acute osseous abnormality IMPRESSION: Edema with basilar consolidation and pleural effusions left greater than right.
--- NOTE | 2022-10-01 06:18 | PC.NURSE ---
Pt. is total care and a trun q2 hours. Meds are crushed and put through his peg. He has been confused through out the night.
[2022-10-01 07:50] LABS: Chloride 104 mmol/L (98-107); Potassium 3.9 mmoL/L (3.5-5.1); Sodium 147 mmol/L (136-145)
[2022-10-01 07:52] LABS: Alanine Aminotransferase 43 U/L (12-78); Aspartate Amino Transferase 42 U/L (17-59); Creatinine Clearance Estimated 73 mL/min (50-200); Estimated Glomerular Filt Rate 65 ml/min (>60); GFR (African American) 79 ML/MIN (>60)
[2022-10-01 07:53] LABS: Albumin Level 3.4 g/dl (3.5-5.0); Albumin/Globulin Ratio 1.1 (1.1-1.8); Alkaline Phosphatase 138 U/L (38-126); Anion Gap 7.9 mEq/L (5-15); Bilirubin,Total 0.5 mg/dl (0.2-1.3); Calcium 10.5 mg/dl (8.4-10.2); Carbon Dioxide 39 mmol/L (22.0-30.0); Glucose 138 mg/dl (74-100); Magnesium 2.6 mg/dl (1.6-2.3); Phosphorous 5.2 mg/dl (2.5-4.5); Total Protein,Serum 6.4 g/dl (6.3-8.2)
[2022-10-01 08:20] LABS: Blood Urea Nitrogen 83 mg/dl (9-20)
--- NOTE | 2022-10-01 10:00 | EXP.PULM.PN ---
Subjective *Date: 10/01/22 *Time: 12:15 Interval history: Patient has worsening respiratory distress and altered mentation overnight and this morning eventually needing BiPAP therapy. He is awake this morning but not oriented. Pulmonology Exam Inpatient Vital signs and Labs for Last 24 Hours: Temp Pulse Resp BP Pulse Ox FiO2 97.7 F 71 18 102/53 L 91 L 21 10/01/22 08:00 10/01/22 08:00 10/01/22 08:00 10/01/22 08:00 10/01/22 08:00 09/30/22 20:36 Laboratory Results - last 24 hr 09/29/22 10:20: Ionized Calcium 6.5 H 10/01/22 06:58: Sodium 147 H, Potassium 3.9, Chloride 104, Carbon Dioxide 39 H, Anion Gap 7.9, BUN 83 H, Creatinine 1.10, Estimated Creat Clear 73, Estimated GFR 65, Est GFR ( Amer) 79, Glucose 138 H, Calcium 10.5 H, Phosphorus 5.2 H, Magnesium 2.6 H, Total Bilirubin 0.5, AST 42, ALT 43, Alkaline Phosphatase 138 H, Total Protein 6.4, Albumin 3.4 L, Globulin 3.0, Albumin/Globulin Ratio 1.1 I & O for Labs for Last 24 Hours: Intake & Output 09/28/22 09/29/22 09/30/22 10/01/22 23:59 23:59 23:59 23:59 Intake Total 1915 / 2082 1434 / 1894 1404 / 1404 780 / 780 Output Total 1989 1470 / 2220 1800 / 1800 Balance -74 / 33 -36 / -326 -396 / -396 780 / 780 Weight 213 lb 10.047 oz 201 lb 4.513 oz 200 lb 4.513 oz 203 lb 8 oz Microbiology Reports for the Last 24 Hours: Microbiology 09/23/22 14:40 Pleural Fluid - Pleura Gram Stain - Final 09/23/22 14:40 Pleural Fluid - Pleura Body Fluid Culture - Final NO GROWTH AFTER 5 DAYS Constitutional: Present moderate distress Head: Present normocephalic and atraumatic ENT: Present normal exam, normal oropharynx and mucous membranes moist Neck: Present normal inspection and trachea midline Respiratory: Present respiratory distress, crackles, diminished air movement and able to speak in complete sentences; Absent accessory muscle use or wheezes Comment:: Decreased breath sounds lower lung hayden Cardiac: Present S1/S2, Tachycardia and radial pulses present GI: Present soft and distention; Absent tenderness or guarding Skin: Present intact; Absent cyanosis or jaundice Neuro: Present alert and awake; Absent oriented x 3 Extremities: Absent edema, clubbing or cyanosis Assessment and Plan *Assessment and plan (1) Pleural effusion: Status: Acute Category: Medical Code(s): J90 - Pleural effusion, not elsewhere classified (2) Acute and chronic respiratory failure with hypercapnia: Status: Acute Category: Medical Code(s): J96.22 - Acute and chronic respiratory failure with hypercapnia Plan #Acute hypoxic respiratory failure: #Bilateral pleural effusions right > left, #HAP: 77-year-old male with a NO significant smoking history, prior respiratory complaints recently diagnosed with aplastic anemia status post bone marrow biopsy, initiating cyclosporine complicated by pulmonary toxicity status post discontinuation of cyclosporine around July 2022, since then noted to have new oxygen requirements and new hypercarbic respiratory failure requiring 2-3 recent hospital admissions for hypercarbic respiratory failure presented to [facility] ER yesterday with hypercarbic respiratory failure needing intubation mechanical ventilatory support, transferred to [facility] for further evaluation. Patient chest x-ray on admission noted to have bilateral pleural effusions right greater than left, worsening from his most recent hospital admission for August 2022. As per the family patient had a recent right-sided thoracentesis performed by [facility], Records from outside hospital reviewed patient had a thoracentesis with pleural fluid studies consistent with exudative effusion with LDH of 250 pH is 7.5. Lymphocytic predominant at 64% however negative for malignancy. Right Thoracentesis at [facility] 09/23/22 with removal of 720 cc of blood-tinged fluid. Pleural fluid no gr
--- NOTE | 2022-10-01 11:19 | ECG_ITS ---
APPROVED REPORT Exam: Resting ECG HR:99 bpm ECG Measurements Heart Rate 99 AXES QRSd 108 QRS 9 QT 382 T 15 QTc 438 Conclusion ATRIAL FIBRILLATION PROBABLE LATERAL MYOCARDIAL INFARCTION , PROBABLY OLD [35 ms Q WAVE IN I/aVL/V5/V6] ABNORMAL ECG UNCONFIRMED REPORT Electronically signed by : Navi Pino MD 10/01/2022 17:02:44
[2022-10-01 14:13] LABS: ABG Base Excess 11.3 mmol/L (-2.4-2.3); ABG HCO3 35.7 mmhg (22.0-26.0); ABG Oxygen Saturation 91 % (90-100); ABG PH 7.43 mmol/L (7.35-7.45); ABG TCO2 37.3 mmhg (23-27)
[2022-10-01 14:16] LABS: Allen's Test ACCEPTABLE; Oxygen 1 LPM %
[2022-10-01 14:17] LABS: Source Right Radial
[2022-10-01 14:29] LABS: ABG PCO2 55.2 mmhg (35.0-45.0)
--- NOTE | 2022-10-01 15:45 | PC.NURSE ---
Called to bedside for SPO2 76% on 6 LPM NC per RN. Placed Pt on BiPAP see charting.
--- NOTE | 2022-10-01 18:27 | EXP.ACUTE.PN ---
Subjective *Date: 10/01/22 *Time: 18:27 Interval history: Wore BiPAP intermittently overnight. More confused last night per family. Kept removing his BiPAP. Has required oxygen this morning. Tolerating tube feeds. Reviewed labs. Denies nausea, chest pain, shortness of breath. Working with therapy today, in bedside chair. Having daily bowel movements. Tolerating tube feeds. Afebrile overnight. Weak but stable. Family at bedside, updated of plan. Medical Exam Vital signs and Labs for Last 24 Hours: Vital Signs Temp Pulse Pulse Resp BP Pulse Ox FiO2 10/01/22 15:50 21 10/01/22 15:41 98.0 F 89 22 125/75 94 L 10/01/22 13:52 79 10/01/22 12:00 97.4 F L 77 20 109/64 L 95 10/01/22 08:00 97.7 F 71 18 102/53 L 91 L 10/01/22 04:00 98.4 F 93 H 18 111/61 94 L 09/30/22 20:00 95 10/01/22 00:00 98.2 F 87 18 111/52 L 93 L 09/30/22 20:36 21 09/30/22 19:52 98.6 F 87 20 109/56 L 92 L Intake and Output 10/01/22 10/01/22 10/01/22 07:59 15:59 23:59 Intake Total 780 / 780 Output Total 800 / 800 0 / 800 Balance 780 / -20 -800 / -20 0 / -20 Intake: Intake, Tube Feeding Amount 480 / 480 Intake, Tube Irrigant Amount 300 / 300 Output: Output, Urine Amount 800 / 800 0 / 800 Other: Number of Unmeasured Voids 0 0 Weight 92.306 kg Patient Weight 10/01/22 23:59 Weight 92.306 kg Laboratory Results - last 24 hr 10/01/22 06:58: Sodium 147 H, Potassium 3.9, Chloride 104, Carbon Dioxide 39 H, Anion Gap 7.9, BUN 83 H, Creatinine 1.10, Estimated Creat Clear 73, Estimated GFR 65, Est GFR ( Amer) 79, Glucose 138 H, Calcium 10.5 H, Phosphorus 5.2 H, Magnesium 2.6 H, Total Bilirubin 0.5, AST 42, ALT 43, Alkaline Phosphatase 138 H, Total Protein 6.4, Albumin 3.4 L, Globulin 3.0, Albumin/Globulin Ratio 1.1 10/01/22 13:59: Specimen Source Right radial, O2 % 1 lpm, ABG pH 7.43, ABG pCO2 55.2 H, ABG pO2 63.0 L, ABG HCO3 35.7 H, ABG Total CO2 37.3 H, ABG O2 Saturation 91, ABG Base Excess 11.3 H, Daniel Test Acceptable I & O for Labs for Last 24 Hours: Intake & Output 09/28/22 09/29/22 09/30/22 10/01/22 23:59 23:59 23:59 23:59 Intake Total 1915 / 2082 1434 / 1894 1404 / 1404 780 / 780 Output Total 1989 1470 / 2220 1800 / 1800 800 / 800 Balance -74 / 33 -36 / -326 -396 / -396 -20 / -20 Weight 96.9 kg 91.3 kg 90.846 kg 92.306 kg Constitutional: Present no acute distress, obese, chronically ill appearing, disheveled and cooperative Head: Present atraumatic and normocephalic ENT: Present normal exam Comment:: irritation of upper lip from ETT vela. Neck: Present normal inspection Respiratory: Present accessory muscle use and able to speak in complete sentences; Absent rhonchi, wheezes or crackles Cardiac: Present Reg Rate and Rhythm and No Murmur GI: Present soft; Absent distention or tenderness Extremities: Present normal inspection; Absent edema Skin: Present intact; Absent cyanosis or erythema Comment:: Intervally improving stage I decub over sacrum Neuro: Present alert, awake and moves all extremities Comment:: Oriented to person and place. Answers questions appropriately. Recognizes family. Follows command, globally weak Assessment and Plan *Assessment and plan (1) Acute hypercapnic respiratory failure: Status: Acute Category: Medical Code(s): J96.02 - Acute respiratory failure with hypercapnia (2) Acute on chronic systolic and diastolic heart failure, NYHA class 1: Status: Acute Category: Medical Code(s): I50.43 - Acute on chronic combined systolic (congestive) and diastolic (congestive) heart failure (3) G tube feedings: Status: Acute Category: Medical Code(s): Z93.1 - Gastrostomy status (4) Acute febrile illness: Status: Acute Category: Medical Code(s): R50.9 - Fever, unspecified (5) Atrial fibrillation: Status: Acute
--- NOTE | 2022-10-01 20:26 | PC.NURSE ---
pt alert to self only. pt has done well for the most part with leaving bipap on. have went back and forth between bipap and 1l o2 via nc, with sats bouncing between 85%-95%. pt did have an episode where sats dropped in the 70s, RT notified and pt put back on cpap. pt has had a weak cough, have been able to get mucus up with suction. family has been at bedside all day. questions and concerns addressed. peg tube i place with feeding at 60ml/hr, no complications at this time.
[2022-10-02] VITALS (10 sets, daily range): BP systolic 101–117; BP diastolic 49–68; PULSE 69–88; RESP 18–22; TEMP 36.4–36.9; O2SAT 93–99; BMI 32.8
--- NOTE | 2022-10-02 06:00 | XR_ITS ---
PROCEDURE INFORMATION: Exam: XR Chest Exam date and time: 10/02/2022 5:52 AM Age: 77 years old Clinical indication: Dyspnea; Additional info: Pneumonia mechanical ventilation TECHNIQUE: Imaging protocol: Radiologic exam of the chest. Views: 1 view. COMPARISON: CR XR CHEST PORTABLE 10/01/2022 5:40 AM FINDINGS: Tubes, catheters and devices: Right PICC line and pacemaker again demonstrated. Lungs: Trace right basilar airspace disease. Pleural spaces: Hypoinflation with asymmetric left-sided airspace/pleural disease. Small right pleural effusion. Heart/Mediastinum: No cardiomegaly. Bones/joints: Degenerative change. IMPRESSION: Hypoinflation with asymmetric left-sided airspace/pleural disease.
--- NOTE | 2022-10-02 06:23 | PC.NURSE ---
NO ACUTE CHANGES SINCE PREVIOUS ASSESSMENT. PT HAS RESTED BEER THIS SHIFT. LUNG SOUNDS HAVE CRACKLES ON THE LEFT SIDE. TOLERATING BIPAP WELL. VSS. PT C/O BACK PAIN X1 THIS SHIFT AND WAS MEDICATED PER MAR WITH ADEQUATE RELIEF. BEING TURNED Q2HRS AND PT/FAMILY REQUESTED. GASTRIC RESIDUALS HAVE BEEN 0-1ML. CALL MAY WITHIN REACH. DAUGHTER AT BEDSIDE.
--- NOTE | 2022-10-02 13:47 | EXP.ACUTE.PN ---
Subjective *Date: 10/02/22 *Time: 13:47 Interval history: Wore BiPAP overnight. Slept from approximately 1 AM to 8 AM. Family at bedside this morning. Confusion is stable. Oriented to self but not place and time. Tolerating tube feeds. Having daily bowel movements. Chest x-ray obtained this morning, reviewed, stable effusions. No nausea, vomiting, chest pain, worsening shortness of breath. Continues to require monitoring. Plan to get up to bedside chair today and work with therapy. Medical Exam Vital signs and Labs for Last 24 Hours: Vital Signs Temp Pulse Pulse Resp BP Pulse Ox FiO2 10/02/22 11:37 97.9 F 69 19 117/62 99 10/02/22 09:15 95 10/02/22 08:38 84 10/02/22 08:00 97.6 F 73 22 110/68 95 10/02/22 03:47 21 10/02/22 03:54 98.4 F 80 20 101/65 L 98 10/01/22 23:58 98.4 F 86 20 105/56 L 95 10/01/22 21:39 25 10/01/22 21:38 25 10/01/22 20:00 97.9 F 88 20 148/58 H 94 L 10/01/22 15:50 21 10/01/22 15:41 98.0 F 89 22 125/75 94 L 10/01/22 13:52 79 Intake and Output 10/01/22 10/02/22 10/02/22 23:59 07:59 15:59 Intake Total 1994 Output Total 800 / 1600 900 / 900 Balance -800 / -820 1994 -900 / 1095 Intake: Intake, Tube Feeding Amount 1495 / 1495 Intake, Tube Irrigant Amount 500 / 500 Output: Output, Urine Amount 800 / 1600 900 / 900 Other: Number of Unmeasured Voids 0 0 Weight 92.788 kg Patient Weight 10/02/22 23:59 Weight 92.788 kg Laboratory Results - last 24 hr 10/01/22 13:59: Specimen Source Right radial, O2 % 1 lpm, ABG pH 7.43, ABG pCO2 55.2 H, ABG pO2 63.0 L, ABG HCO3 35.7 H, ABG Total CO2 37.3 H, ABG O2 Saturation 91, ABG Base Excess 11.3 H, Daniel Test Acceptable I & O for Labs for Last 24 Hours: Intake & Output 09/29/22 09/30/22 10/01/22 10/02/22 23:59 23:59 23:59 23:59 Intake Total 1434 / 1894 1404 / 1404 780 / 780 1994 Output Total 1470 / 2220 1800 / 1800 1600 / 1600 900 / 900 Balance -36 / -326 -396 / -396 -820 / -820 1095 / 1095 Weight 91.3 kg 90.846 kg 92.306 kg 92.788 kg Constitutional: Present no acute distress, obese, chronically ill appearing, disheveled and cooperative Head: Present atraumatic and normocephalic ENT: Present normal exam Comment:: irritation of upper lip from ETT vela. Neck: Present normal inspection Respiratory: Present accessory muscle use and able to speak in complete sentences; Absent rhonchi, wheezes or crackles Cardiac: Present Reg Rate and Rhythm and No Murmur GI: Present soft; Absent distention or tenderness Extremities: Present normal inspection; Absent edema Skin: Present intact; Absent cyanosis or erythema Comment:: Intervally improving stage I decub over sacrum Neuro: Present alert, awake and moves all extremities Comment:: Oriented to person and place. Answers questions appropriately. Recognizes family. Follows command, globally weak Assessment and Plan *Assessment and plan (1) Acute hypercapnic respiratory failure: Status: Acute Category: Medical Code(s): J96.02 - Acute respiratory failure with hypercapnia (2) Acute on chronic systolic and diastolic heart failure, NYHA class 1: Status: Acute Category: Medical Code(s): I50.43 - Acute on chronic combined systolic (congestive) and diastolic (congestive) heart failure (3) G tube feedings: Status: Acute Category: Medical Code(s): Z93.1 - Gastrostomy status (4) Acute febrile illness: Status: Acute Category: Medical Code(s): R50.9 - Fever, unspecified (5) Atrial fibrillation: Status: Acute Category: Medical Code(s): I48.91 - Unspecified atrial fibrillation Plan 77-year-old gentleman with respiratory failure due to pulmonary fibrosis secondary to treatment for aplastic anemia with cyclosporine. Was intubated for 9 days, extubated to BiPAP. Gonzalez
--- NOTE | 2022-10-02 18:24 | PC.NURSE ---
Pt has been up to the chair for most of the evening per jose j lift. Pt has reported the need to have a BM-when putting pt on bedoan, he is unable to have one and just reports being gassy . pt currently on room air, o2 saturation is currently 100%. Stage 2 decubitus ulcer noted to coccyx this shift, new dressing applied. SCDS on BLE. Family has remained at bedside. No other acute changes or complaints.
[2022-10-03] VITALS (8 sets, daily range): BP systolic 93–126; BP diastolic 52–71; PULSE 76–102; RESP 17–22; TEMP 36–36.9; O2SAT 91–99; BMI 33.0
--- NOTE | 2022-10-03 06:00 | XR_ITS ---
PROCEDURE INFORMATION: Exam: XR Chest Exam date and time: 10/03/2022 6:24 AM Age: 77 years old Clinical indication: Condition or disease; Lung condition and disease; Respiratory failure; Patient HX: Pneumonia, resp failure; Additional info: Pneumonia mechanical ventilation TECHNIQUE: Imaging protocol: Radiologic exam of the chest. Views: 1 view. COMPARISON: CR XR CHEST PORTABLE 10/02/2022 5:52 AM FINDINGS: Tubes, catheters and devices: There is a right upper extremity PICC with tip terminating in the superior cavoatrial junction. There is a single lead pacemaker with generator in the left chest. Lungs: Bibasilar atelectasis. Pleural spaces: Large left pleural effusion. Small right pleural effusion. No detectable pneumothorax. Heart/Mediastinum: Unremarkable. No cardiomegaly. Bones/joints: Unremarkable. IMPRESSION: 1. Large left pleural effusion. Small right pleural effusion. 2. Bibasilar atelectasis. 3. No detectable pneumothorax.
[2022-10-03 07:01] LABS: Basophils # 0.1 K/mm3 (0-0.2); Basophils % 1.1 % (0.1-2.0); Eosinophils # 0.5 K/mm3 (0.0-0.4); Eosinophils % 6.7 % (0.1-12.0); Hematocrit 26.3 % (42.0-52.0); Hemoglobin 8.4 g/dL (14.1-18.0); Lymphocytes # 1.6 K/mm3 (0.7-4.5); Lymphocytes % 21.4 % (10-50); Mean Corpuscular HGB Conc 31.8 g/dL (31.8-35.4); Mean Corpuscular Hemoglobin 28.9 pg (27.0-31.2); Mean Corpuscular Volume 90.7 fl (80-94); Mean Platelet Volume 8.1 fl (7.4-10.4); Monocytes # 0.5 K/mm3 (0.1-1.0); Neutrophils # 4.9 K/mm3 (1.8-7.8); Neutrophils % 64.8 % (37.0-80.0); Platelet Count 694 K/mm3 (142-424); Red Cell Distribution Width 18.2 % (11.5-17.5); White Blood Count 7.5 K/mm3 (4.8-10.8)
[2022-10-03 07:09] LABS: Alanine Aminotransferase 37 U/L (12-78); Albumin Level 3.3 g/dl (3.5-5.0); Albumin/Globulin Ratio 1.1 (1.1-1.8); Alkaline Phosphatase 131 U/L (38-126); Anion Gap 9.9 mEq/L (5-15); Aspartate Amino Transferase 38 U/L (17-59); Bilirubin,Total 0.5 mg/dl (0.2-1.3); Blood Urea Nitrogen 79 mg/dl (9-20); Calcium 10.5 mg/dl (8.4-10.2); Carbon Dioxide 39 mmol/L (22.0-30.0); Chloride 106 mmol/L (98-107); Creatinine Clearance Estimated 81 mL/min (50-200); Estimated Glomerular Filt Rate 72 ml/min (>60); GFR (African American) 88 ML/MIN (>60); Glucose 132 mg/dl (74-100); Magnesium 2.5 mg/dl (1.6-2.3); Phosphorous 3.9 mg/dl (2.5-4.5); Potassium 3.9 mmoL/L (3.5-5.1); Total Protein,Serum 6.3 g/dl (6.3-8.2)
[2022-10-03 07:11] LABS: Sodium 151 mmol/L (136-145)
--- NOTE | 2022-10-03 07:26 | EXP.ACUTE.PN ---
Subjective *Date: 10/03/22 *Time: 14:55 Interval history: Pleasant on exam this morning but still remains altered. Did not sleep very well last night. Family at bedside this morning. Remains afebrile. No vomiting. Trying to speak but voice is weak. Denies worsening shortness of breath, chest pain, headache. Medical Exam Vital signs and Labs for Last 24 Hours: Vital Signs Temp Pulse Pulse Resp BP Pulse Ox FiO2 10/03/22 03:54 81 22 93/52 L 97 10/03/22 00:00 94 L 10/02/22 23:37 21 10/03/22 00:00 98.5 F 94 H 20 125/71 94 L 10/02/22 20:00 99 10/02/22 19:41 97.7 F 80 18 107/49 L 99 10/02/22 16:00 98.0 F 88 20 115/59 L 93 L 10/02/22 11:37 97.9 F 69 19 117/62 99 10/02/22 09:15 95 10/02/22 08:38 84 10/02/22 08:00 97.6 F 73 22 110/68 95 Intake and Output 10/02/22 10/02/22 10/03/22 15:59 23:59 07:59 Output Total 900 / 900 0 / 0 Balance -900 / 1095 0 / 0 Output: Output, Urine Amount 900 / 900 0 / 0 Other: Number of Unmeasured Voids 0 1 Weight 93.128 kg Patient Weight 10/03/22 23:59 Weight 93.128 kg Laboratory Results - last 24 hr 10/03/22 06:45: WBC 7.5, RBC 2.90 L, Hgb 8.4 L, Hct 26.3 L, MCV 90.7, MCH 28.9, MCHC 31.8, RDW 18.2 H, Plt Count 694 H, MPV 8.1, Neut % (Auto) 64.8, Lymph % (Auto) 21.4, [place] % (Auto) 6.0, Eos % (Auto) 6.7, Baso % (Auto) 1.1, Neut # (Auto) 4.9, Lymph # (Auto) 1.6, [place] # (Auto) 0.5, Eos # (Auto) 0.5 H, Baso # (Auto) 0.1 10/03/22 06:45: Sodium 151 H*, Potassium 3.9, Chloride 106, Carbon Dioxide 39 H, Anion Gap 9.9, BUN 79 H, Creatinine 1.00, Estimated Creat Clear 81, Estimated GFR 72, Est GFR ( Amer) 88, Glucose 132 H, Calcium 10.5 H, Phosphorus 3.9, Magnesium 2.5 H, Total Bilirubin 0.5, AST 38, ALT 37, Alkaline Phosphatase 131 H, Total Protein 6.3, Albumin 3.3 L, Globulin 3.0, Albumin/Globulin Ratio 1.1 I & O for Labs for Last 24 Hours: Intake & Output 09/30/22 10/01/22 10/02/22 10/03/22 23:59 23:59 23:59 23:59 Intake Total 1404 / 1404 780 / 780 1994 Output Total 1800 / 1800 1600 / 1600 900 / 900 0 / 0 Balance -396 / -396 -820 / -820 1095 / 1095 0 / 0 Weight 90.846 kg 92.306 kg 92.788 kg 93.128 kg Constitutional: Present no acute distress, obese, chronically ill appearing, disheveled and cooperative Head: Present atraumatic and normocephalic ENT: Present normal exam Comment:: irritation of upper lip from ETT vela improving Neck: Present normal inspection Respiratory: Present accessory muscle use and able to speak in complete sentences; Absent rhonchi, wheezes or crackles Cardiac: Present Reg Rate and Rhythm and No Murmur GI: Present soft; Absent distention or tenderness Comments:: G-tube insertion site clean dry and intact Extremities: Present normal inspection; Absent edema Skin: Present intact; Absent cyanosis or erythema Neuro: Present alert, awake and moves all extremities Comment:: Oriented to person and place. Answers questions appropriately. Recognizes family. Follows command, globally weak Assessment and Plan *Assessment and plan (1) Acute on chronic systolic and diastolic heart failure, NYHA class 1: Status: Acute Category: Medical Code(s): I50.43 - Acute on chronic combined systolic (congestive) and diastolic (congestive) heart failure (2) G tube feedings: Status: Acute Category: Medical Code(s): Z93.1 - Gastrostomy status (3) Acute febrile illness: Status: Acute Category: Medical Code(s): R50.9 - Fever, unspecified (4) Atrial fibrillation: Status: Acute Category: Medical Code(s): I48.91 - Unspecified atrial fibrillation (5) Sleep disturbance: Status: Acute Category: Medical Code(s): G47.9 - Sleep disorder, unspecified (6) Hypernatremia: Status: Acute Category: Medical Code(s): E87.0 - Hyperosmolality and hypernatremia
--- NOTE | 2022-10-03 10:31 | DIET.NUTRFU ---
Addendum entered by Elke Ramirez RD, LD 10/03/22 13:19: TF is providing 1440ml formula/2592kcal/116gm protein with 1046ml formula water. Also providing prostat AWC BID to provide additional 34gm protein for total of 150gm/day and add additional 039munl=1996pqbs/day. Flush with Prostat is 120ml TFN=509cx+1046ml formula water and 110ml flush X8K=003av for grand total of 1946ml/day. Based on elevated sodium of 150H, spoke to Dr Bo and agree in increasing flush to 250ml/day for total fluid 2546+ prostat flush= 2786ml/day (30ml/kg). Will continue to monitor labs. Original Note: Patients sodium is 150H, provider ordered dextrose IV, 500ml. Continues on TF, will continue to monitor labs, may need to increase flush to 250 Q4H to provide 1500+1046 from KD=8264qp/day (27ml/kg). Will recheck labs after dextrose completed.
--- NOTE | 2022-10-03 12:55 | PC.NURSE ---
Pt has been total care this shift. Tube feeds continue to infuse, residuals have been 5-10mL q4h. Active bowel sounds in all 4 quads, no BM noted this shift thus far despite mowel movement aids. D5% is infusing at 75mL/hr per PICC line. Pt has been incontinent of urine, urine is very strong. Stage 2 remains on pt's coccyx, dressing is CDI. Pt has been a q2h turn and is currently on his back. No other acute changes or complaints.
--- NOTE | 2022-10-03 20:17 | PC.NURSE ---
Pt has been on 1 L NC all shift. He gotten up to the BSC with 4 person assist. He had a large BM. I changed the dressing on the coccyx, and back. He has been turned q2, and done o2 oral care on pt.
--- NOTE | 2022-10-03 22:20 | PC.NURSE ---
FILM WASHER-Tomas contacted because pt's daughter stated that the pt was becoming more agitated and was starting to hallucinate and see things flying in his room. Tomas stated she would be in to evaluate pt.
[2022-10-04] VITALS (10 sets, daily range): BP systolic 107–141; BP diastolic 57–70; PULSE 68–113; RESP 17–32; TEMP 36.4–37.7; O2SAT 91–96; BMI 33.0
--- NOTE | 2022-10-04 05:56 | PC.NURSE ---
NO ACUTE CHANGES SINCE PREVIOUS ASSESSMENT. PT HAS SATED WELL ON BIPAP THIS SHIFT. PT HAS BEEN CONFUSED AND AGITATED THIS SHIFT. REPOSITIONING AND ORAL CARE DONE Q2HRS. VSS. LUNG SOUNDS CLEAR. RECREATIONAL ASSISTANT JULIA IS AWARE OF PT AGITATION THIS SHIFT. PT HAS NOT SLEPT VERY MUCH THIS SHIFT. MITTENS WERE PLACED ON PT LAST NIGHT DUE TO PT PULLING AT BIPAP MASK, IV, AND PICC LINES. CALL MAY WITHIN REACH. SITTER IS AT BEDSIDE.
--- NOTE | 2022-10-04 06:00 | XR_ITS ---
PROCEDURE INFORMATION: Exam: XR Chest Exam date and time: 10/04/2022 5:41 AM Age: 77 years old Clinical indication: Condition or disease; Lung condition and disease; Pleural effusion; Influenza; Additional info: Pneumonia mechanical ventilation TECHNIQUE: Imaging protocol: Radiologic exam of the chest. Views: 1 view. COMPARISON: CR XR CHEST PORTABLE 10/03/2022 6:24 AM FINDINGS: Tubes, catheters and devices: Single lead pacer is unchanged. Right PICC line is stable. Lungs: Hypoventilatory changes of the lungs, with perihilar vascular crowding and a diffuse increase in pulmonary parenchymal density. Pleural spaces: Decreasing size of left pleural effusion. Small right pleural effusion unchanged. No pneumothorax. Heart/Mediastinum: Stable cardiac size. Bones/joints: Degenerative changes of the spine. IMPRESSION: Decreasing size of left pleural effusion.
[2022-10-04 08:01] LABS: Chloride 102 mmol/L (98-107); Potassium 3.9 mmoL/L (3.5-5.1); Sodium 148 mmol/L (136-145)
[2022-10-04 08:04] LABS: Anion Gap 10.9 mEq/L (5-15); Blood Urea Nitrogen 65 mg/dl (9-20); Carbon Dioxide 39 mmol/L (22.0-30.0); Creatinine Clearance Estimated 81 mL/min (50-200); Estimated Glomerular Filt Rate 72 ml/min (>60); GFR (African American) 88 ML/MIN (>60)
[2022-10-04 08:05] LABS: Calcium 10.5 mg/dl (8.4-10.2); Glucose 146 mg/dl (74-100)
--- NOTE | 2022-10-04 09:44 | EXP.PULM.PN ---
Subjective *Date: 10/04/22 *Time: 13:55 Interval history: No acute respiratory events overnight. Patient denies any complaints. Pulmonology Exam Inpatient Vital signs and Labs for Last 24 Hours: Temp Pulse Resp BP Pulse Ox FiO2 99.9 F H 113 H 19 130/65 91 L 21 10/04/22 07:50 10/04/22 07:50 10/04/22 07:50 10/04/22 07:50 10/04/22 07:50 10/04/22 06:20 Laboratory Results - last 24 hr 10/04/22 07:45: Sodium 148 H, Potassium 3.9, Chloride 102, Carbon Dioxide 39 H, Anion Gap 10.9, BUN 65 H, Creatinine 1.00, Estimated Creat Clear 81, Estimated GFR 72, Est GFR ( Amer) 88, Glucose 146 H, Calcium 10.5 H I & O for Labs for Last 24 Hours: Intake & Output 10/01/22 10/02/22 10/03/22 10/04/22 23:59 23:59 23:59 23:59 Intake Total 780 / 780 1994 0 / 0 2292 / 2292 Output Total 1600 / 1600 900 / 900 0 / 0 Balance -820 / -820 1095 / 1095 0 / 0 2292 / 2292 Weight 203 lb 8 oz 204 lb 9 oz 205 lb 5 oz 205 lb 4.993 oz Microbiology Reports for the Last 24 Hours: Microbiology 09/23/22 14:40 Pleural Fluid - Pleura Gram Stain - Final 09/23/22 14:40 Pleural Fluid - Pleura Body Fluid Culture - Final NO GROWTH AFTER 5 DAYS Constitutional: Present moderate distress Head: Present normocephalic and atraumatic ENT: Present normal exam, normal oropharynx and mucous membranes moist Neck: Present normal inspection and trachea midline Respiratory: Present respiratory distress, crackles, diminished air movement and able to speak in complete sentences; Absent accessory muscle use or wheezes Comment:: Decreased breath sounds lower lung hayden Cardiac: Present S1/S2, Tachycardia and radial pulses present GI: Present soft and distention; Absent tenderness or guarding Skin: Present intact; Absent cyanosis or jaundice Neuro: Present alert and awake; Absent oriented x 3 Extremities: Absent edema, clubbing or cyanosis Assessment and Plan *Assessment and plan (1) Pleural effusion: Status: Acute Category: Medical Code(s): J90 - Pleural effusion, not elsewhere classified (2) Acute and chronic respiratory failure with hypercapnia: Status: Acute Category: Medical Code(s): J96.22 - Acute and chronic respiratory failure with hypercapnia Plan #Acute hypoxic respiratory failure: #Bilateral pleural effusions right > left, #HAP: 77-year-old male with a NO significant smoking history, prior respiratory complaints recently diagnosed with aplastic anemia status post bone marrow biopsy, initiating cyclosporine complicated by pulmonary toxicity status post discontinuation of cyclosporine around July 2022, since then noted to have new oxygen requirements and new hypercarbic respiratory failure requiring 2-3 recent hospital admissions for hypercarbic respiratory failure presented to [facility] ER yesterday with hypercarbic respiratory failure needing intubation mechanical ventilatory support, transferred to [facility] for further evaluation. Patient chest x-ray on admission noted to have bilateral pleural effusions right greater than left, worsening from his most recent hospital admission for August 2022. As per the family patient had a recent right-sided thoracentesis performed by [facility], Records from outside hospital reviewed patient had a thoracentesis with pleural fluid studies consistent with exudative effusion with LDH of 250 pH is 7.5. Lymphocytic predominant at 64% however negative for malignancy. Right Thoracentesis at [facility] 09/23/22 with removal of 720 cc of blood-tinged fluid. Pleural fluid no growth so far.? Exudative pleural effusion, LDH 192/151 and protein 6/3.6.? Cytology negative for malignancy. CT head no acute intracranial abnormality. Extubated to BiPAP 09/28/2022, tolerating well. Completed 7-day course of vancomycin and cefepime. Currently receiving Diflucan for positive urine culture for Sandra from an outsid
--- NOTE | 2022-10-04 12:16 | EXP.ACUTE.PN ---
Subjective *Date: 10/04/22 *Time: 12:16 Interval history: Pleasant on exam this morning, significantly altered overnight. Was pulling at things. Slept after receiving a dose of Neurontin. Did not seem to have anticipated response to higher dose of mirtazapine. Tolerating tube feeds. Remains afebrile. Stable oxygen requirement. Family remains at bedside. Remains afebrile. No vomiting. In bedside chair on exam. Medical Exam Vital signs and Labs for Last 24 Hours: Vital Signs Temp Pulse Pulse Resp BP Pulse Ox FiO2 10/04/22 11:46 98.0 F 75 20 141/68 H 94 L 10/04/22 10:06 113 H 10/04/22 07:50 99.9 F H 113 H 19 130/65 91 L 10/04/22 06:20 21 10/04/22 04:00 97.9 F 78 18 123/64 96 10/04/22 00:00 98.1 F 68 17 120/66 94 L 10/03/22 23:03 21 10/03/22 20:00 96.8 F L 76 17 126/60 97 10/03/22 15:17 98.1 F 102 H 18 120/62 91 L Intake and Output 10/03/22 10/04/22 10/04/22 23:59 07:59 15:59 Intake Total 2292 / 2292 Output Total 0 / 0 Balance 2292 / 2292 0 / 2292 Intake: Intake, Tube Feeding Amount 1272 / 1272 Intake, Tube Irrigant Amount 1020 / 1020 Output: Output, Urine Amount 0 / 0 Other: Number of Unmeasured Voids 1 1 1 Number of Bowel Movements 1 Weight 93.128 kg Patient Weight 10/04/22 23:59 Weight 93.128 kg Laboratory Results - last 24 hr 10/04/22 07:45: Sodium 148 H, Potassium 3.9, Chloride 102, Carbon Dioxide 39 H, Anion Gap 10.9, BUN 65 H, Creatinine 1.00, Estimated Creat Clear 81, Estimated GFR 72, Est GFR ( Amer) 88, Glucose 146 H, Calcium 10.5 H I & O for Labs for Last 24 Hours: Intake & Output 10/01/22 10/02/22 10/03/22 10/04/22 23:59 23:59 23:59 23:59 Intake Total 780 / 780 1994 0 / 0 2292 / 2291 Output Total 1600 / 1600 900 / 900 0 / 0 0 / 0 Balance -820 / -820 1095 / 1095 0 / 0 2291 / 2291 Weight 92.306 kg 92.788 kg 93.128 kg 93.128 kg Constitutional: Present no acute distress, obese, chronically ill appearing, disheveled and cooperative Head: Present atraumatic and normocephalic ENT: Present normal exam Neck: Present normal inspection Respiratory: Present accessory muscle use and able to speak in complete sentences; Absent rhonchi, wheezes or crackles Comment:: Voice weak Cardiac: Present Reg Rate and Rhythm and No Murmur GI: Present soft; Absent distention or tenderness Extremities: Present normal inspection; Absent edema Skin: Present intact; Absent cyanosis or erythema Neuro: Present alert, awake and moves all extremities Comment:: Oriented to person, Recognizes family. Follows command, globally weak Assessment and Plan *Assessment and plan (1) Acute on chronic systolic and diastolic heart failure, NYHA class 1: Status: Acute Category: Medical Code(s): I50.43 - Acute on chronic combined systolic (congestive) and diastolic (congestive) heart failure (2) G tube feedings: Status: Acute Category: Medical Code(s): Z93.1 - Gastrostomy status (3) Acute febrile illness: Status: Acute Category: Medical Code(s): R50.9 - Fever, unspecified (4) Atrial fibrillation: Status: Acute Category: Medical Code(s): I48.91 - Unspecified atrial fibrillation (5) Sleep disturbance: Status: Acute Category: Medical Code(s): G47.9 - Sleep disorder, unspecified (6) Hypernatremia: Status: Acute Category: Medical Code(s): E87.0 - Hyperosmolality and hypernatremia (7) Delirium: Status: Acute Category: Medical Code(s): R41.0 - Disorientation, unspecified Plan 77-year-old gentleman with respiratory failure due to pulmonary fibrosis secondary to treatment for aplastic anemia with cyclosporine. Was intubated for 9 days, extubated to BiPAP. Has tolerated BiPAP at night with room air tolerance during the day. Pulmonology consulted, appreciate their recomme
--- NOTE | 2022-10-04 12:41 | DIET.NUTRFU ---
Patient reviewed during rounds today, todays sodium still elevated at 148H, down from 151H with the addition of Dextrose 500ml and increase in tubefeeding flush. He is now receiving =2786ml/day. Dextrose IV ordered again today and 1 dose of Diuril salt wasting. Will continue current flush and monitor labs. Some sleep/behavior meds were addressed also. Dischargeis stilled planned for [facility] when ready
[2022-10-04 15:03] LABS: 25-OH Vitamin D, Total 26.6 ng/mL (30-100)
--- NOTE | 2022-10-04 17:33 | PC.NURSE ---
patient has done well. minimal complaints. did sit up in chair for short period. also got up to bedside commode with a max assist. q2 turns. purwick placed. tolerating tube feeds well. no complaints of pain when asked. scuds have been on and off. sitter at bedside at this time. patient requested bipap on at this time for an attempt at resting. encouraged sitter and patient to ring out as needed
--- NOTE | 2022-10-04 19:29 | EXP.DC.SUM ---
General Admission date:: 09/20/22 HPI HPI HPI: HPI per medical records: 77-year-old male with recent diagnosis, and the late summer of this year of aplastic anemia that was found after work-up by his art specialist for fatigue. He had been in a somewhat compromised state of health with chronic A. fib and history of vascular disease until this fatigue symptomatology, diagnosed with aplastic anemia and initiated on cyclosporine therapy. Has had several complications of cyclosporine therapy, most notably recurrent pulmonary edema and pneumonitis. He was admitted here in the first week of August for pneumonia and pulmonary edema, treated with empiric antibiotics and diuretics and improved, but a couple of weeks later ended up worsening and was in the [facility] in [place] for pneumonia and pneumonitis. Of note at the [place] admission around he did have thoracentesis and drainage of some of his fluid.At that time hematology felt that his aplastic anemia might not be a primary disease but could have been related to viral issues and cyclosporine was finally stopped, although we had stopped it here in August because of the toxicity issues. Because of the [id number] respiratory issues he was extremely weak and was admitted to a swing bed type rehab unit at the [facility]. There he has been wearing a BiPAP mask at night because of persistent hypercapnia and chronic respiratory failure from the pulmonary edema symptomatology. In the swing bed occasionally he will not wear his BiPAP at night and a couple of times this is because severe hypercapnia with admission once to the acute care side of the [facility] for 5 days and treatment of his hypercapnia and another time that apparently required intubation and transferred to [place]. Over the past week or so has been back at the swing bed unit at [facility]. He was diagnosed a week ago with an Enterococcus UTI and treated with vancomycin. He finished 5 days of vancomycin. Unfortunately, this happened again on the evening of 09/19/2022, where he was not wearing his BiPAP in the swing bed and was unable to be aroused the next morning and was found to have CO2 levels above 120. Transferred to the ER at the [facility] where he was intubated. Intubation and mechanical ventilation quickly resolved his hypercapnia situation his CO2 went down to the 40s. Blood pressure over was somewhat low and Levophed drip was started and because of his increasing mental status and some agitation on the vent he was started on Versed and fentanyl. He was given 2 doses of Zosyn while he was at the [place] emergency department. Unsure about whether cultures were obtained. Right before transfer he was found to have a fever over 100 degrees before getting on the helicopter for transfer to [place]. Because of his need for ongoing ICU care and the unavailability of beds at the [place] facility his family wished him to be transferred here as family members live in the [place] area. so far has been unable to adequately wean on trials ENT consulted re: possible trach Exam: NAD, resting comfortably on t-piece trial neck soft, thin, with palpable landmarks OC with ET tube in place, otherwise WNL Hospital Course Hospital Course Hospital Course: 77-year-old gentleman with respiratory failure due to pulmonary fibrosis secondary to treatment for aplastic anemia with cyclosporine.? Was intubated for 9 days, extubated to BiPAP.? Has tolerated BiPAP at night with 1L NC during the day.? Pulmonology consulted, appreciate their recommendations and management.? [facility]. Remains weak needing therapy for meaningful recovery.? Problems addressed as follows: Hypercapnic and hypoxemic respiratory failure Pleural effusion -Patient presented as a transfer to [facility] from [facility] where he presented in hypercapnic respiratory failure nec
[2022-10-05] VITALS: BP 120/68; PULSE 69; RESP 17; TEMP 36.7; O2SAT 94
--- NOTE | 2022-10-05 01:55 | PC.NURSE ---
Pt laying in bed awake at this time. Pt has been sleeping intermittently. Bipap secure no leaks. Pt has been Alert and oriented. Sitter at bedside. Patient has been repositioned q 2 hours, feeding pump is patent, no residual. Pt has a external catheter in place. Pt educated on Plan of care. Encouraged sitter to report any needs. Pt lungs where clear but diminished this morning. Resp even and non labored. Bed locked in low position, side rails up x 2, call light in place.
--- NOTE | 2022-10-05 02:49 | PC.NURSE ---
Called Bailee Per Pt request, no answer. Pt wanting to speak with his .
[2022-10-05 04:00] VITALS: BP 104/53; PULSE 76; RESP 19; TEMP 36.2; O2SAT 93; BMI 329536.7
--- NOTE | 2022-10-05 05:28 | PC.NURSE ---
Notified Hospitalist of patient stating he felt short of air. Placed pt tube feeding on hold. Pt has not had any residual tonight, lungs sound diminished, no crackles for Rhonchi noted. New order for chest x ray. Pt placed in high fowlers. No signs of distress noted.
--- NOTE | 2022-10-05 06:00 | XR_ITS ---
PROCEDURE INFORMATION: Exam: XR Chest Exam date and time: 10/05/2022 5:52 AM Age: 77 years old Clinical indication: Shortness of breath; Prior surgery; Additional info: SOA TECHNIQUE: Imaging protocol: Radiologic exam of the chest. Views: 1 view. COMPARISON: CR XR CHEST PORTABLE 10/04/2022 5:41 AM FINDINGS: Tubes, catheters and devices: Again noted is the right-sided PICC line. The support tubes/lines are stable in the interval. Again noted is the pacemaker. Lungs: Again noted is hazy density at the lung bases, more on the left. The density represents a combination of pleural fluid and airspace consolidation. The appearance of the lungs is essentially unchanged in the interval. Pleural spaces: See Lungs finding. Heart/Mediastinum: Unremarkable. No cardiomegaly. Bones/joints: Unremarkable. IMPRESSION: Hazy density over both lung hayden probably representing a combination of pleural fluid and adjacent airspace consolidation. Findings are unchanged in the interval.
--- NOTE | 2022-10-05 07:34 | PC.NURSE ---
Pt has been A/O through the night, was cooperative with his Plan of care. Has slept most of shift, awake for short periods of time. Pt voice has become stronger this morning, able to communicate better. Pt States he has no needs at this time. Encouraged pt to report any Shortness of air or pain to staff. Bed locked in low position, side railes up x 2, call light in reach
[2022-10-05 07:58] LABS: Basophils # 0.1 K/mm3 (0-0.2); Basophils % 1.1 % (0.1-2.0); Eosinophils # 0.5 K/mm3 (0.0-0.4); Eosinophils % 6.8 % (0.1-12.0); Hematocrit 27.3 % (42.0-52.0); Hemoglobin 8.6 g/dL (14.1-18.0); Lymphocytes # 1.7 K/mm3 (0.7-4.5); Lymphocytes % 22.3 % (10-50); Mean Corpuscular HGB Conc 31.4 g/dL (31.8-35.4); Mean Corpuscular Hemoglobin 28.5 pg (27.0-31.2); Mean Corpuscular Volume 90.8 fl (80-94); Mean Platelet Volume 8.2 fl (7.4-10.4); Monocytes # 0.6 K/mm3 (0.1-1.0); Monocytes % 7.2 % (1.7-9.3); Neutrophils # 4.8 K/mm3 (1.8-7.8); Neutrophils % 62.6 % (37.0-80.0); Platelet Count 680 K/mm3 (142-424); Red Blood Count 3.01 M/mm3 (4.60-6.20); White Blood Count 7.7 K/mm3 (4.8-10.8)
[2022-10-05 08:00] VITALS: BP 115/67; PULSE 78; RESP 22; TEMP 37; O2SAT 94; O2SAT 97
[2022-10-05 08:07] LABS: Alanine Aminotransferase 30 U/L (12-78); Albumin Level 3.6 g/dl (3.5-5.0); Albumin/Globulin Ratio 1.2 (1.1-1.8); Alkaline Phosphatase 141 U/L (38-126); Aspartate Amino Transferase 34 U/L (17-59); Bilirubin,Total 0.7 mg/dl (0.2-1.3); Blood Urea Nitrogen 67 mg/dl (9-20); Calcium 10.3 mg/dl (8.4-10.2); Carbon Dioxide 38 mmol/L (22.0-30.0); Chloride 100 mmol/L (98-107); Creatinine Clearance Estimated 56 mL/min (50-200); Estimated Glomerular Filt Rate 72 ml/min (>60); GFR (African American) 88 ML/MIN (>60); Glucose 109 mg/dl (74-100); Magnesium 2.6 mg/dl (1.6-2.3); Sodium 144 mmol/L (136-145); Total Protein,Serum 6.6 g/dl (6.3-8.2)
[2022-10-05 09:04] VITALS: PULSE 81
--- NOTE | 2022-10-05 09:18 | DIET.NUTRFU ---
Addendum entered by Elke Ramirez RD, LD 10/05/22 12:01: TF Nepro at 60ml/hr ATC is providing 1440ml formula/2592kcal/116gm protein with 1046ml formula water. Also providing prostat AWC BID to provide additional 34gm protein for total of 150gm/day and add additional [id number]=3587pgoh/day. Flush with Prostat is 120ml [id number]+1046ml formula water and 250ml flush [id number] for grand total of 2786ml/day. Spoke to provider about flushes, since his sodium is now corrected at 144, he only needs to continue the increase flush for 2 more days. So until continue 250ml Q4H for water flushes ands then decrease to 150ml Q4H to provide 900ml for grand total of 2186ml/day (24ml/kg). Spoke to Yadiel Casper to review flush changes and RD was off today, spoke to admissions and they would like progress notes sent to relay this information. Original Note: Reviewed labs Na 144, K 4.0, BUN 67H, Cr 1.0, BS 109H. Hypernatermia resolved, will continue current TF regimen. 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 Continues to have good urine output and wt is stable. LBM was 10/03. No new dietary interventions at this time.
--- NOTE | 2022-10-05 09:50 | EXP.PULM.PN ---
Subjective *Date: 10/05/22 *Time: 13:49 Interval history: No acute respiratory events overnight. Pulmonology Exam Inpatient Vital signs and Labs for Last 24 Hours: Temp Pulse Resp BP Pulse Ox FiO2 98.6 F 81 22 115/67 97 21 10/05/22 08:00 10/05/22 09:04 10/05/22 08:00 10/05/22 08:00 10/05/22 08:00 10/04/22 22:28 Laboratory Results - last 24 hr 10/04/22 07:45: 25-OH Vitamin D Total 26.6 L 10/05/22 07:51: WBC 7.7, RBC 3.01 L, Hgb 8.6 L, Hct 27.3 L, MCV 90.8, MCH 28.5, MCHC 31.4 L, RDW 19.0 H, Plt Count 680 H, MPV 8.2, Neut % (Auto) 62.6, Lymph % (Auto) 22.3, [place] % (Auto) 7.2, Eos % (Auto) 6.8, Baso % (Auto) 1.1, Neut # (Auto) 4.8, Lymph # (Auto) 1.7, [place] # (Auto) 0.6, Eos # (Auto) 0.5 H, Baso # (Auto) 0.1 10/05/22 07:51: Sodium 144, Potassium 4.0, Chloride 100, Carbon Dioxide 38 H, Anion Gap 10.0, BUN 67 H, Creatinine 1.00, Estimated Creat Clear 56, Estimated GFR 72, Est GFR ( Amer) 88, Glucose 109 H, Calcium 10.3 H, Magnesium 2.6 H, Total Bilirubin 0.7, AST 34, ALT 30, Alkaline Phosphatase 141 H, Total Protein 6.6, Albumin 3.6, Globulin 3.0, Albumin/Globulin Ratio 1.2 I & O for Labs for Last 24 Hours: Intake & Output 10/02/22 10/03/22 10/04/22 10/05/22 23:59 23:59 23:59 23:59 Intake Total 1994 0 / 0 2818 / 2818 Output Total 900 / 900 0 / 0 1700 / 1700 800 / 800 Balance 1095 / 1095 0 / 0 1118 / 1118 -800 / -800 Weight 204 lb 9 oz 205 lb 5 oz 205 lb 4.993 oz [id number] lb 1.867 oz Microbiology Reports for the Last 24 Hours: Microbiology 09/23/22 14:40 Pleural Fluid - Pleura Gram Stain - Final 09/23/22 14:40 Pleural Fluid - Pleura Body Fluid Culture - Final NO GROWTH AFTER 5 DAYS Constitutional: Present mild distress Head: Present normocephalic and atraumatic ENT: Present normal exam, normal oropharynx and mucous membranes moist Neck: Present normal inspection and trachea midline Respiratory: Present respiratory distress, diminished air movement and able to speak in complete sentences; Absent accessory muscle use, wheezes or crackles Comment:: Decreased breath sounds lower lung hayden Cardiac: Present S1/S2, Tachycardia and radial pulses present GI: Present soft and distention; Absent tenderness or guarding Skin: Present intact; Absent cyanosis or jaundice Neuro: Present alert and awake; Absent oriented x 3 Extremities: Absent edema, clubbing or cyanosis Assessment and Plan *Assessment and plan (1) Pleural effusion: Status: Acute Category: Medical Code(s): J90 - Pleural effusion, not elsewhere classified (2) Acute and chronic respiratory failure with hypercapnia: Status: Acute Category: Medical Code(s): J96.22 - Acute and chronic respiratory failure with hypercapnia Plan #Acute hypoxic respiratory failure: #Bilateral pleural effusions right > left, #HAP: 77-year-old male with a NO significant smoking history, prior respiratory complaints recently diagnosed with aplastic anemia status post bone marrow biopsy, initiating cyclosporine complicated by pulmonary toxicity status post discontinuation of cyclosporine around July 2022, since then noted to have new oxygen requirements and new hypercarbic respiratory failure requiring 2-3 recent hospital admissions for hypercarbic respiratory failure presented to [facility] ER yesterday with hypercarbic respiratory failure needing intubation mechanical ventilatory support, transferred to [facility] for further evaluation. Patient chest x-ray on admission noted to have bilateral pleural effusions right greater than left, worsening from his most recent hospital admission for August 2022. As per the family patient had a recent right-sided thoracentesis performed by [facility], Records from outside hospital reviewed patient had a thoracentesis with pleural fluid studies consistent with exudative effusion with LDH of 250 pH is 7.5. Lympho
[2022-10-05 10:12] LABS: ABG Base Excess 8.7 mmol/L (-2.4-2.3); ABG HCO3 32.9 mmhg (22.0-26.0); ABG Oxygen Saturation 89 % (90-100); ABG PH 7.44 mmol/L (7.35-7.45); ABG PO2 60.6 mmhg (80-100); ABG TCO2 34.4 mmhg (23-27)
[2022-10-05 10:14] LABS: Allen's Test acceptable; Oxygen room air %; Source Right Radial
[2022-10-05 10:15] LABS: ABG PCO2 50.1 mmhg (35.0-45.0)
[2022-10-05 12:00] VITALS: BP 116/64; PULSE 75; RESP 21; TEMP 37; O2SAT 95
--- NOTE | 2022-10-05 12:32 | EXP.DC.SUM ---
General Admission date:: 09/20/22 Discharge date: 10/05/22 HPI HPI HPI: HPI per medical records: 77-year-old male with recent diagnosis, and the late summer of this year of aplastic anemia that was found after work-up by his spot worker for fatigue. He had been in a somewhat compromised state of health with chronic A. fib and history of vascular disease until this fatigue symptomatology, diagnosed with aplastic anemia and initiated on cyclosporine therapy. Has had several complications of cyclosporine therapy, most notably recurrent pulmonary edema and pneumonitis. He was admitted here in the first week of August for pneumonia and pulmonary edema, treated with empiric antibiotics and diuretics and improved, but a couple of weeks later ended up worsening and was in the [facility] in [place] for pneumonia and pneumonitis. Of note at the [place] admission around he did have thoracentesis and drainage of some of his fluid.At that time hematology felt that his aplastic anemia might not be a primary disease but could have been related to viral issues and cyclosporine was finally stopped, although we had stopped it here in August because of the toxicity issues. Because of the uwye-gs-vjow respiratory issues he was extremely weak and was admitted to a swing bed type rehab unit at the [facility]. There he has been wearing a BiPAP mask at night because of persistent hypercapnia and chronic respiratory failure from the pulmonary edema symptomatology. In the swing bed occasionally he will not wear his BiPAP at night and a couple of times this is because severe hypercapnia with admission once to the acute care side of the [facility] for 5 days and treatment of his hypercapnia and another time that apparently required intubation and transferred to [place]. Over the past week or so has been back at the swing bed unit at [facility]. He was diagnosed a week ago with an Enterococcus UTI and treated with vancomycin. He finished 5 days of vancomycin. Unfortunately, this happened again on the evening of 09/19/2022, where he was not wearing his BiPAP in the swing bed and was unable to be aroused the next morning and was found to have CO2 levels above 120. Transferred to the ER at the [facility] where he was intubated. Intubation and mechanical ventilation quickly resolved his hypercapnia situation his CO2 went down to the 40s. Blood pressure over was somewhat low and Levophed drip was started and because of his increasing mental status and some agitation on the vent he was started on Versed and fentanyl. He was given 2 doses of Zosyn while he was at the [place] emergency department. Unsure about whether cultures were obtained. Right before transfer he was found to have a fever over 100 degrees before getting on the helicopter for transfer to [place]. Because of his need for ongoing ICU care and the unavailability of beds at the [place] facility his family wished him to be transferred here as family members live in the [place] area. so far has been unable to adequately wean on trials ENT consulted re: possible trach Exam: NAD, resting comfortably on t-piece trial neck soft, thin, with palpable landmarks OC with ET tube in place, otherwise WNL Hospital Course Hospital Course Hospital Course: 77-year-old gentleman with respiratory failure due to pulmonary fibrosis secondary to treatment for aplastic anemia with cyclosporine.? Was intubated for 9 days, extubated to BiPAP.? Has tolerated BiPAP at night with 1L NC during the day.? Hypercapnic and hypoxemic respiratory failure Pleural effusion Intubated due to hypercapnic respiratory failure complicated by bilateral pleural effusions, drained with chest tube. Tolerating BiPAP at night and nasal cannula. Completed vancomycin and cefepime. Follow-up pulmonology, 1 L nasal cannula as needed for saturations less than 90%. Do not use continuous O
[2022-10-05 13:48] LABS: Coronavirus 19, PCR Not Detected (NotDetected); Influenza A, PCR Not Detected (NotDetected); Influenza B, PCR Not Detected (NotDetected)
--- NOTE | 2022-10-06 15:18 | CARE MANAGER ---
Spoke with Kelly at [facility], for post-discharge interview.
== END 2022-10-05 15:02 | DRG 207 ==
PROVIDERS: Internal Medicine Adolescent Medicine; Internal Medicine Pulmonary Disease; Admitting Provider Emergency Medicine; PCP Internal Medicine Adolescent Medicine; Visit Provider Student in an Organized Health Care Education/Training Program
DX: J96.02 Acute respiratory failure with hypercapnia (principal); J18.9 Pneumonia, unspecified organism; I50.43 Acute on chronic combined systolic (congestive) and diastolic (congestive) heart failure; D61.9 Aplastic anemia, unspecified; I48.20 Chronic atrial fibrillation, unspecified; J90 Pleural effusion, not elsewhere classified; J93.9 Pneumothorax, unspecified; E87.0 Hyperosmolality and hypernatremia; Z79.01 Long term (current) use of anticoagulants; Z93.1 Gastrostomy status; L89.152 Pressure ulcer of sacral region, stage 2; J84.10 Pulmonary fibrosis, unspecified; I11.0 Hypertensive heart disease with heart failure; Y95 Nosocomial condition; E83.52 Hypercalcemia
CPT/HCPCS: 31500; 94002; 32555; 36410; 36415; 36569; 70371; 70460; 71045; 71250; 80048; 80053; 80076; 80202; 82042; 82140; 82306; 82330; 82607; 82746; 82803; 82945; 83605; 83615; 83735; 84100; 84155; 84443; 85025; 85610; 87070; 87205; 88112; 88305; 89051; 92526; 92610; 92611; 93005; 93306; 93308; 94003; 94640; 94660; 94761; 97110; 97163; 97167; 97530; 97535; C1751; C9803; G0238; J1205; J2405; J2704; J7060; Q9967; U0003; U0005

== ENCOUNTER 2022-10-08 08:12 | Inpatient (IN) | payer MEDICARE, OTHER, SELFPAY ==
[2022-10-08] VITALS (21 sets, daily range): BP systolic 85–130; BP diastolic 45–87; PULSE 60–101; RESP 12–28; TEMP 35.3–37.8; O2SAT 93–100; BMI 32.1; BMI 33.0
--- NOTE | 2022-10-08 08:16 | PC.NURSE ---
bipap placed on pt at this time
--- NOTE | 2022-10-08 08:16 | PC.NURSE ---
fsbs 190
--- NOTE | 2022-10-08 08:20 | CT_ITS ---
FINAL REPORT CLINICAL HISTORY: [facility] COMPARISON: 09/24/2022 FINDINGS: Axial images of the head were obtained without contrast. Coronal reformatted images were also obtained. This study was performed with techniques to keep radiation doses as low as reasonably achievable (ALARA). Individualized dose reduction techniques using automated exposure control or adjustment of mA and/or kV according to the patient''s size were employed. There is moderate generalized age-appropriate atrophy. Periventricular low-attenuation areas are seen consistent with mild chronic ischemic changes. There is no evidence of intracranial hemorrhage or mass. There is no evidence of acute infarct. There is no evidence of shift of the midline structures. No skull abnormality is seen on the bone window images. IMPRESSION: Atrophy and mild periventricular chronic ischemic changes. No change from previous. Reviewed, Interpreted and Dictated by Serene Huerta MD Transcribed by Raeann Duke Authenticated and [facility]
--- NOTE | 2022-10-08 08:20 | XR_ITS ---
FINAL REPORT CLINICAL HISTORY: resp failure COMPARISON: 10/05/2022 FINDINGS: SINGLE-VIEW CHEST There is cardiomegaly. The mediastinum is normal. There are bibasilar opacities compatible with effusions and atelectasis. Findings are worse since previous. The previously identified PICC line is no longer evident. There is no pneumothorax. IMPRESSION: Worsening bibasilar atelectasis and effusions. Reviewed, Interpreted and Dictated by Serene Huerta MD Transcribed by Raeann Duke Authenticated and [facility]
--- NOTE | 2022-10-08 08:21 | ECG_ITS ---
APPROVED REPORT Exam: Resting ECG HR:89 bpm ECG Measurements Heart Rate 89 AXES QRSd 124 QRS 18 QT 387 T 84 QTc 433 Conclusion ATRIAL FLUTTER/TACHYCARDIA POSSIBLE LATERAL MYOCARDIAL INFARCTION , PROBABLY OLD [30 ms Q WAVE IN I/aVL/V5/V6] ABNORMAL RHYTHM ECG UNCONFIRMED REPORT Electronically signed by : Navi Pino MD 10/08/2022 21:14:56
--- NOTE | 2022-10-08 08:25 | HMH.EDGENADL ---
Discharge Plan Disposition Patient Disposition: Admitted As Inpatient Condition: Critical Chief Complaint: Shortness of Breath/Dyspnea Prescriptions Prescriptions: No Action mecobalamin (vitamin B12) [B12 Active] 1,000 mcg Tablet,Chewable 1,000 mcg PO DAILY Eliquis 5 mg Tablet 5 mg G-tube BID Qty: 0 0RF acetaminophen 325 mg Tablet 650 mg G-tube Q6HP PRN (Reason: FEVER/MILD PAIN) Qty: 0 0RF atorvastatin 20 mg Tablet 20 mg G-tube HS Qty: 0 0RF aspirin 81 mg Tablet,Chewable 81 mg G-tube MoWeFr Qty: 0 0RF acetaminophen 325 mg/10.15 mL Solution 650 mg G-tube HS Qty: 0 0RF Pro-Stat AWC 17-100 gram-kcal/30 mL Liquid In Packet 30 ml G-tube BID Qty: 0 0RF bumetanide 0.5 mg tablet 0.5 mg PO DAILY Qty: 30 0RF quetiapine 25 mg Tablet 25 mg PO HS Qty: 0 0RF sennosides-docusate sodium [Stool Softener-Stimulant Laxat] 8.6-50 mg Tablet 1 tab PO DAILY Qty: 0 0RF midodrine 5 mg Tablet 5 mg PO TID Qty: 0 0RF levothyroxine [Synthroid] 100 mcg Tablet 100 mcg PO DAILYDM Qty: 0 0RF digoxin [Digox] 125 mcg (0.125 mg) Tablet 125 mcg PO DAILY Qty: 0 0RF ergocalciferol (vitamin D2) 1,250 mcg (50,000 unit) Capsule 50,000 unit PO WEEKLY Qty: 0 0RF Rx Instructions: dissolve capsule in warm water before administering per tube to prevent blockage melatonin 5 mg Tablet 10 mg PO HS Qty: 0 0RF nebivolol [Bystolic] 2.5 mg tablet 2.5 mg PO DAILY Qty: 30 3RF hydrocodone-acetaminophen 5-325 mg Tablet 1 tab G-tube Q6HP PRN (Reason: Moderate Pain) 3 Days Qty: 12 0RF potassium chloride 20 mEq/15 mL Liquid 20 meq G-tube DAILY 7 Days Qty: 105 0RF pantoprazole [Protonix] [address] for susp in packet 40 mg PO DAILY Qty: 30 3RF Clinical Impressions Clinical Impression: Acute on chronic respiratory failure with hypoxia and hypercapnia, Pleural effusion Discharge ED Provider: Renusch,Pasquale General Adult HPI General Chief complaint: Shortness of Breath/Dyspnea Stated complaint: Unresponsive Time Seen by Provider: 10/08/22 08:15 History of Present Illness HPI narrative: History obtained from family, nursing staff and EMS. The patient is brought in by ambulance from [facility]. 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 He reportedly was unresponsive this morning at the [facility]. He is on BiPAP at night and was on BiPAP when EMS arrived, however our nurse received report from [facility] that he wore BiPAP through the night and they had put him on nasal cannula oxygen this morning with resultant pulse ox in the 80s. They have transitioned him to [id number] ventilations during transport. He was unresponsive on their arrival and remained so. He was diaphoretic. The patient's is here and she states she does not want him to be intubated. He does consent to BiPAP and consents to other noninvasive treatments such as antibiotics and IV fluids. Related Data Home Medications Medication Instructions Recorded Confirmed mecobalamin (vitamin B12) 1,000 1,000 mcg PO DAILY Supplement 08/10/22 09/20/22 mcg chewable tablet (B12 Active) Previous Rx's Medication Instructions Recorded acetaminophen 325 mg tablet 650 mg G-tube Q6HP PRN FEVER/MILD 10/04/22 PAIN #0 tabs acetaminophen 325 mg/10.15 mL oral 650 mg (20.3 mL) G-tube HS #0 mL 10/04/22 solution amino acids-protein hydrolysate 17 30 ml G-tube BID #0 mL 10/04/22 gram-100 kcal/30 mL liquid packet (Pro-Stat AW) apixaban 5 mg tablet (Eliquis) 5 mg G-tube BID #0 tabs 10/04/22 aspirin 81 mg chewable tablet 81 mg G-tube MoWeFr #0 tabs 10/04/22 atorvastatin 20 mg tablet 20 mg G-tube HS #0 tabs 10/04/22 bumetanide 0.5 mg tablet 0.5 mg PO DAILY #30 tabs 10/04/22 digoxin 125 mcg (0.125 mg) tablet 125 mcg PO DAILY #0 tabs 10/04/22 (Dig
--- NOTE | 2022-10-08 08:30 | PC.NURSE ---
rectal temp of 95.5 obtained. pt placed on emily hugger at this time
--- NOTE | 2022-10-08 08:36 | PC.NURSE ---
RT at the bedside to assist with transport to CT
--- NOTE | 2022-10-08 08:36 | PC.NURSE ---
RN, respiratory, and radiology techs @ BS taking patient to CT
[2022-10-08 08:37] LABS: Basophils # 0.1 K/mm3 (0-0.2); Basophils % 1.1 % (0.1-2.0); Eosinophils # 0.7 K/mm3 (0.0-0.4); Eosinophils % 5.6 % (0.1-12.0); Hematocrit 32.3 % (42.0-52.0); Hemoglobin 9.8 g/dL (14.1-18.0); Lymphocytes # 1.8 K/mm3 (0.7-4.5); Lymphocytes % 14.9 % (10-50); Mean Corpuscular HGB Conc 30.2 g/dL (31.8-35.4); Mean Corpuscular Hemoglobin 27.9 pg (27.0-31.2); Mean Corpuscular Volume 92.4 fl (80-94); Mean Platelet Volume 7.8 fl (7.4-10.4); Monocytes # 0.6 K/mm3 (0.1-1.0); Monocytes % 5.1 % (1.7-9.3); Neutrophils # 8.9 K/mm3 (1.8-7.8); Neutrophils % 73.4 % (37.0-80.0); Platelet Count 769 K/mm3 (142-424); Red Cell Distribution Width 18.2 % (11.5-17.5); White Blood Count 12.1 K/mm3 (4.8-10.8)
[2022-10-08 08:38] LABS: Chloride 100 mmol/L (98-107); Potassium 4.8 mmoL/L (3.5-5.1); Sodium 147 mmol/L (136-145)
[2022-10-08 08:41] LABS: Alanine Aminotransferase 29 U/L (12-78); Albumin Level 3.9 g/dl (3.5-5.0); Alkaline Phosphatase 162 U/L (38-126); Aspartate Amino Transferase 33 U/L (17-59); Bilirubin,Total 0.5 mg/dl (0.2-1.3); Blood Urea Nitrogen 78 mg/dl (9-20); Estimated Glomerular Filt Rate 65 ml/min (>60); GFR (African American) 79 ML/MIN (>60); Globulin 3.8 g/dL (1.3-3.2); Total Protein,Serum 7.7 g/dl (6.3-8.2)
[2022-10-08 08:42] LABS: Calcium 10.7 mg/dl (8.4-10.2); Glucose 187 mg/dl (74-100); Lactic Acid 1.1 mmol/L (0.7-2.1)
[2022-10-08 08:47] LABS: Coronavirus 19, PCR Not Detected (NotDetected); Influenza B, PCR Not Detected (NotDetected)
[2022-10-08 08:48] LABS: Anion Gap 15.8 mEq/L (5-15); Carbon Dioxide 36 mmol/L (22.0-30.0)
--- NOTE | 2022-10-08 08:48 | PC.NURSE ---
pt back from ct
[2022-10-08 08:50] LABS: NT Pro Brain Natriuretic Pep. 1880 pg/mL (0-450)
[2022-10-08 08:54] LABS: Troponin I 0.02 ng/ml (0.00-0.034)
[2022-10-08 09:09] LABS: Microscopic, Urine URINE MICROSCOPIC (MICROSCOPIC)
[2022-10-08 09:11] LABS: Influenza A, PCR Detected (NotDetected)
[2022-10-08 09:13] LABS: Appearance,Urine CLEAR (Clear); Bilirubin,Urine Negative (Negative); Blood, Urine Negative (Negative); Color,Urine YELLOW (Yellow); Glucose,Urine (UA) Negative (Negative); Ketones,Urine Negative (Negative); Leukocyte Esterase,Urine Negative (Negative); Nitrate,Urine Negative (Negative); PH,Urine 5.5 (5.0-8.5); Protein,Urine 1+ (Negative); Specific Gravity, Urine >= 1.030 (1.005-1.030); Urobilinogen,Urine 0.2 EU/dl (0.2)
[2022-10-08 09:30] LABS: Bacteria,Urine Trace /lpf; Squamous Epithelial Cell,Urine Occasional #/hpf (0-5)
--- NOTE | 2022-10-08 09:34 | PC.NURSE ---
RT at the bedside for repeat abg
[2022-10-08 09:36] LABS: Thyroid Stimulating Hormone 6.39 uIU/mL (0.465-4.68)
[2022-10-08 09:42] LABS: ABG Base Excess 8.4 mmol/L (-2.4-2.3); ABG Oxygen Saturation 96 % (90-100); ABG PH 7.35 mmol/L (7.35-7.45); ABG PO2 94.9 mmhg (80-100)
[2022-10-08 09:44] LABS: Oxygen 50 %; PEEP Bipap 18/8; Vent Rate 24
[2022-10-08 09:45] LABS: ABG PCO2 63.5 mmhg (35.0-45.0); Source Right Brachial
--- NOTE | 2022-10-08 09:53 | PC.NURSE ---
MESSAGE LEFT WITH HOWARD FOR DR MARTINEZ TO CALL ED
--- NOTE | 2022-10-08 10:29 | PC.NURSE ---
cm called for admit
--- NOTE | 2022-10-08 10:30 | PC.NURSE ---
Bee STRATTON and I Fadi BS to recheck patient's temp.
[2022-10-08 10:31] LABS: ABG Base Excess 9.8 mmol/L (-2.4-2.3); ABG HCO3 37.1 mmhg (22.0-26.0); ABG Oxygen Saturation 97 % (90-100); ABG PH 7.25 mmol/L (7.35-7.45); ABG TCO2 39.8 mmhg (23-27); Oxygen 100 %
[2022-10-08 10:32] LABS: ABG PCO2 87.4 mmhg (35.0-45.0); Source R BRACHIAL; Tidal Volume 18/8
--- NOTE | 2022-10-08 11:11 | PC.NURSE ---
VIRAL Gamboa and Daniel and I @ BS to clean patient and readjust him in the bed. Also recheck patient's temp.
--- NOTE | 2022-10-08 11:40 | PC.NURSE ---
called report to alma devine
--- NOTE | 2022-10-08 12:51 | PC.NURSE ---
Maribel and Megan STRATTON taking patient up to room 206.
--- NOTE | 2022-10-08 12:53 | PC.NURSE ---
arrived to floor by stretcher form ED
--- NOTE | 2022-10-08 13:46 | EXP.HP ---
History of Present Illness *Admission Date: 10/08/22 *Reason for visit:: Unresponsive at [facility], hypercapnia *History of present illness: Very unfortunate 77-year-old male with history of coronary disease and diagnosed with aplastic anemia about 4 months ago. Initially was thought to be a hematologic process and he was placed on cyclosporine and which has caused a plethora of devastating side effects including pulmonary edema, chronic pneumonitis and chronic hypercapnia. Hematology in [place] where he lives has now thought that the aplastic anemia was viral and whether or not cyclosporine was helpful-his blood counts are now normalized. However, he continues to deal with the consequences of lung damage. He has been in and out of the hospital several times including this hospital and also the [facility] in addition to [facility] in [place] for hypercapnia. He has been placed on BiPAP because of his pneumonitis and acute on chronic respiratory failure but a pattern has emerged where he will take the BiPAP off for a certain length of time and then become hypercapnic and unresponsive. He was recently discharged from here at [facility] and the hospitalist service about 48 hours ago and went to the [facility] locally. His daughter and son-in-law live in [place], and he will be staying here to convalesce until hopefully he can return to [place]. He was doing well yesterday at the [facility] and his and daughter report that he was actually engaging in physical therapy and doing some bicep curls. He was not really verbal but was certainly responsive and following commands. This morning he was taken off of his BiPAP and placed on nasal cannula oxygen. He initially did fairly well. There was an episode of low O2 saturations in the 80% range but a large quantity of mucus was suctioned and he improved. However he then became unresponsive and ambulance brought him to the emergency room. Here where he was found to have hypercapnia, respiratory acidosis and placed on BiPAP. His has indicated she would wish to no longer have him intubated. I have confirmed this with her personally today also. He was placed on the BiPAP and this was continued, 3 hours later his blood gas improved with improving hypercapnia. Interestingly he was also have found to have flu a positive on PCR testing. COVID testing was negative. He is admitted to the hospital for BiPAP therapy, treatment of his influenza and supportive care. [facility] Disclaimer: The information contained in this section may have been updated after the patient was seen, as this information can be updated by other users. Medical History Acute and chronic respiratory failure with hypercapnia Aplastic anemia Atrial fibrillation Cataract Congestive heart failure Enterococcus UTI Gallbladder & bile duct stone, acute cholecystitis and obstruction History of anemia History of cataract History of gastroesophageal reflux (GERD) History of pacemaker Hyperlipidemia Hypertension Hypothyroid Hypothyroidism On mechanically assisted ventilation Pleural effusion Rotator cuff arthropathy of left shoulder Rotator cuff arthropathy of right shoulder Sleep apnea Urinary tract infection Surgical History History of revision of total knee arthroplasty Stented coronary artery Family History Family history of acute congestive heart failure Family history of cancer Social History Smoking Status: Never smoker alcohol intake: never current occupational status: retired Travel in the last 8 weeks: None Meds Home Medications and Allergies Home Medications Medication Instructions Recorded Confirmed Type mecobalamin (vitamin B12) 1,000 1,000
--- NOTE | 2022-10-08 13:57 | DIET.NUTRFU ---
Addendum entered by Elke Ramirez RD, LD 10/08/22 15:59: daughter (facility Pharmacist) did indicate his sodium was WNL today. Will start TF will provider feels patient is ready. Original Note: Patient was previously here, had discharged 1/3 to [facility], discharged on TF Nepro at 60ml/hr ATC is providing 1440ml formula/2592kcal/116gm protein with 1046ml formula water. Also providing prostat AWC BID to provide additional 34gm protein for total of 150gm/day and add additional [id number]/day. Flush with Prostat is 120ml XVN=982bp+1046ml formula water and 150ml flush [id number] for grand total of 1946ml/day. He should of completed his increase flush from hypernatremia. Will continue to follow provider recommendations on when TF is feasible to start.
--- NOTE | 2022-10-08 14:55 | SW/DCPLANNER ---
Addendum entered by Meggan Beaulieu 10/12/22 12:54: [facility] has stated that due to patient's BiPap settings they are unable to accept this patient back to their facility. This situation was discussed with patient's family. The following facilities stated that they are unable to accept this patient: [facility], [facility] and [facility]. Family has requested that patient information be faxed to [facility] for a [facility] where patient was prior. I will continue to follow up with facility and family. Addendum entered by Meggan Beaulieu 10/11/22 08:30: Updated patient information has been faxed to [facility] including Pulm recommendations for BiPap settings. Original Note: This patient currently resides at [facility] level of care. Per [facility] family will be paying bedhold. The plan for this patient is to return to [facility] level of care at time of discharge.
--- NOTE | 2022-10-08 16:47 | PC.NURSE ---
tech note; notified nurse of high temp for 1600 vital signs. Room temperature decreased. Pt blankets previously stripped to one sheet.
[2022-10-08 17:11] LABS: ABG Base Excess 7.2 mmol/L (-2.4-2.3); ABG HCO3 33.3 mmhg (22.0-26.0); ABG Oxygen Saturation 99 % (90-100); ABG PH 7.32 mmol/L (7.35-7.45); ABG PO2 148.9 mmhg (80-100); ABG TCO2 35.4 mmhg (23-27)
[2022-10-08 17:13] LABS: Allen's Test Patient Unable; Oxygen 70% %; Source Left Radial; Vent Rate 24
[2022-10-08 17:16] LABS: ABG PCO2 66.6 mmhg (35.0-45.0)
--- NOTE | 2022-10-08 21:39 | PC.NURSE ---
He has been awake during this shift with his eyes open but is unable to answer questions. 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 He continues on bipap-70% FiO2. His mucus membranes are dry and oral care provided. He is being turned q 2 hours. G-tube placement verified via auscultation. He continues in droplet precautions.
[2022-10-08 22:27] LABS: POC Glucose,Bedside 136 (70-110)
--- NOTE | 2022-10-08 23:20 | ECG_ITS ---
APPROVED REPORT Exam: Resting ECG HR:68 bpm ECG Measurements Heart Rate 68 AXES QRSd 112 QRS 34 QT 378 T -2 QTc 394 Conclusion Atrial fibrillation ELECTRONIC VENTRICULAR PACEMAKER -- CONTOUR ANALYSIS BASED ON INTRINSIC RHYTHM MODERATE INTRAVENTRICULAR CONDUCTION DELAY [110+ ms QRS DURATION] NONSPECIFIC ST & T-WAVE ABNORMALITY ABNORMAL RHYTHM ECG UNCONFIRMED REPORT Electronically signed by : Navi Pino MD 10/09/2022 21:20:15
--- NOTE | 2022-10-08 23:21 | ECG_ITS ---
APPROVED REPORT Exam: Resting ECG HR:70 bpm ECG Measurements Heart Rate 70 AXES QRSd 113 QRS 34 QT 372 T -3 QTc 393 Conclusion Atrial fib with slow response MODERATE INTRAVENTRICULAR CONDUCTION DELAY [110+ ms QRS DURATION] NONSPECIFIC ST & T-WAVE ABNORMALITY ABNORMAL RHYTHM ECG UNCONFIRMED REPORT Electronically signed by : Navi Pino MD 10/09/2022 21:20:49
[2022-10-09] VITALS (15 sets, daily range): BP systolic 88–112; BP diastolic 50–59; PULSE 60–93; RESP 18–25; TEMP 36.5–37.3; O2SAT 98–100; BMI 33.4
--- NOTE | 2022-10-09 08:38 | XR_ITS ---
PROCEDURE INFORMATION: Exam: XR Chest Exam date and time: 10/09/2022 10:48 AM Age: 77 years old Clinical indication: Shortness of breath; Additional info: F/u icu exam TECHNIQUE: Imaging protocol: Radiologic exam of the chest. Views: 1 view. COMPARISON: CR XR CHEST PORTABLE 10/08/2022 9:00 AM FINDINGS: Lungs: Unremarkable. No consolidation. Pleural spaces: Bilateral smaller but persistent, tvdum-sy-vgwntuzn pleural effusions. Bilateral compressive subsegmental atelectasis. Heart/Mediastinum: Unremarkable. No cardiomegaly. Bones/joints: Unremarkable. Single lead pacemaker grossly in place. IMPRESSION: Bilateral, smaller but persistent pleural effusions with compressive subsegmental atelectasis.
[2022-10-09 08:49] LABS: Calcium 9.9 mg/dl (8.4-10.2); Carbon Dioxide 34 mmol/L (22.0-30.0); Chloride 108 mmol/L (98-107); Creatinine Clearance Estimated 75 mL/min (50-200); Estimated Glomerular Filt Rate 65 ml/min (>60); GFR (African American) 79 ML/MIN (>60); Glucose 110 mg/dl (74-100); Sodium 149 mmol/L (136-145)
[2022-10-09 08:54] LABS: Blood Urea Nitrogen 109 mg/dl (9-20)
--- NOTE | 2022-10-09 08:57 | EXP.ACUTE.PN ---
Subjective *Date: 10/09/22 *Time: 08:57 Interval history: Patient has been stable overnight. Blood pressure has been in the low 100s at baseline. Heart rate remains irregular, paced rhythm. No vomiting. No diarrhea. Patient remains minimally responsive to verbal and tactile stimuli. His tidal volumes on BiPAP instruments are erratic and very frequently below 100. When aroused he improves and will box puller 250 mL. He was unwilling to let ABG be drawn this morning with withdrawal complaints. BMP was drawn from a fingerstick. Medical Exam Vital signs and Labs for Last 24 Hours: Vital Signs Temp Pulse Pulse Resp BP BP Pulse Ox 10/09/22 07:56 10/09/22 04:00 99.2 F 76 24 109/54 L 100 10/09/22 04:00 70 10/09/22 01:53 10/09/22 00:00 80 10/09/22 00:43 88/54 L 10/09/22 00:00 97.9 F 10/08/22 23:27 10/08/22 20:00 85 10/08/22 20:00 100 10/08/22 20:00 98.5 F 66 24 127/53 L 100 10/08/22 16:00 85 10/08/22 17:10 98 10/08/22 17:10 10/08/22 15:35 98.6 F 10/08/22 16:00 100.0 F H 88 16 117/69 100 10/08/22 13:14 70 10/08/22 13:00 100.1 F H 82 15 85/46 L 100 10/08/22 12:50 96.8 F L 61 24 110/51 L 10/08/22 12:31 61 24 110/51 L 99 10/08/22 12:00 76 18 89/57 L 97 10/08/22 11:30 61 21 97/54 L 95 10/08/22 11:00 67 24 118/63 100 10/08/22 11:14 96.8 F L 10/08/22 10:30 95.6 F L 65 23 104/61 L 100 10/08/22 10:00 62 22 111/58 L 100 10/08/22 09:00 63 10/08/22 09:00 60 10/08/22 09:39 72 19 103/53 L 98 10/08/22 09:00 79 17 114/57 L 97 FiO2 10/09/22 07:56 70 10/09/22 04:00 10/09/22 04:00 10/09/22 01:53 70 10/09/22 00:00 10/09/22 00:43 10/09/22 00:00 10/08/22 23:27 70 10/08/22 20:00 10/08/22 20:00 70 10/08/22 20:00 10/08/22 16:00 10/08/22 17:10 70 10/08/22 17:10 70 10/08/22 15:35 10/08/22 16:00 10/08/22 13:14 10/08/22 13:00 10/08/22 12:50 10/08/22 12:31 10/08/22 12:00 10/08/22 11:30 10/08/22 11:00 10/08/22 11:14 10/08/22 10:30 10/08/22 10:00 10/08/22 09:00 10/08/22 09:00 10/08/22 09:39 10/08/22 09:00 Intake and Output 10/08/22 10/09/22 10/09/22 19:59 03:59 11:59 Intake Total 70 / 70 Output Total 0 / 1500 1500 / 1500 Balance 0 / -1430 -1430 / -1430 Intake: Intake, Tube Feeding Amount 60 / 60 Intake, Other Amount 10 / 10 Output: Output, Urine Amount 0 / 1500 1500 / 1500 Other: Intake, Other Source Saline Solution Number of Voids 0 Number of Unmeasured Voids 1 Weight 204 lb 9 oz 208 lb 3.2 oz Patient Weight 10/09/22 11:59 Weight 208 lb 3.2 oz Laboratory Results - last 24 hr 10/08/22 08:17: Digoxin 1.10 10/08/22 08:17: TSH 6.39 H 10/08/22 08:36: Specimen Source R brachial, O2 % 100, ABG pH 7.25 L, ABG pCO2 87.4 H, ABG pO2 115.0 H, ABG HCO3 37.1 H, ABG Total CO2 39.8 H, ABG O2 Saturation 97, ABG Base Excess 9.8 H, Tidal Volume 18/8 10/08/22 08:42: SARS-CoV-2 (PCR) Not detected, Influenza A Untype (PCR) Detected A, Influenza Type B (PCR) Not detected 10/08/22 08:53: Urine Color Yellow, Urine Appearance Clear, Urine pH 5.5, Ur Specific [place] >= 1.030, Urine Protein 1+, Urine Glucose (UA) Negative, Urine Ketones Negative, Urine Blood Negative, Urine Nitrate Negative, Urine Bilirubin Negative, Urine Urobilinogen 0.2, Ur Leukocyte Esterase Negative, Urine RBC None, Urine WBC None, Ur Squamous Epith Cells Occasional, Urine Bacteria Trace 10/08/22 09:39: Specimen Source Right brachial, O2 % 50, ABG pH 7.35, ABG pCO2 63.5 H, ABG pO2 94.9, ABG HCO3 34.0 H, ABG Total CO2 36.0 H, ABG O2 Saturation 96, ABG Base Excess 8.4 H, Daniel Test n/a, Vent Rate 24, PEEP Bipap 20/0510/08/22 17:00: Specimen Source Left radial, O2 % 70%, ABG pH 7.32 L, ABG pCO2 66.6 H, ABG pO2 148.9 H, ABG HCO3 33.3 H, ABG Total CO2
[2022-10-09 18:15] LABS: Chloride 106 mmol/L (98-107); Potassium 4.5 mmoL/L (3.5-5.1); Sodium 149 mmol/L (136-145)
[2022-10-09 18:18] LABS: Anion Gap 8.5 mEq/L (5-15); Carbon Dioxide 39 mmol/L (22.0-30.0); Creatinine Clearance Estimated 64 mL/min (50-200); Estimated Glomerular Filt Rate 54 ml/min (>60); GFR (African American) 65 ML/MIN (>60); Glucose 118 mg/dl (74-100)
[2022-10-09 18:19] LABS: Calcium 9.2 mg/dl (8.4-10.2)
[2022-10-09 18:21] LABS: Blood Urea Nitrogen 86 mg/dl (9-20)
--- NOTE | 2022-10-09 18:23 | PC.NURSE ---
LATE ENTRY 0850- Spoke to Elza in lab regarding critical K+ and BUN 0855- Spoke to MD Pino face to face, new orders received and carried out
--- NOTE | 2022-10-09 18:24 | PC.NURSE ---
1818- Spoke to Stefany in lab regarding critical BUN. Verified name, and room number 8780- Notified MD Pino, NNO
--- NOTE | 2022-10-09 18:25 | PC.NURSE ---
Pt has only been alert to himself at times, and other times not oriented to anything. Pt has been on and off the bipap this shift, o2 sats have been satisfactory. When pt is off the bipap, he is on 1LNC and o2 sats are >93%. Pt has had x2 small incontinent BM's this shift. Ny cath is draining cloudy, dark yellow urine per gravity. NS still infusing at 100mL/hr, PIV remains intact. Pt has been a q2h turn, heels floated w/ heel protectors in place. Family has remained at bedside.
--- NOTE | 2022-10-09 18:41 | PC.NURSE ---
pt has had 3 bm this shift
--- NOTE | 2022-10-09 21:26 | PC.NURSE ---
He continues in droplet precautions for flu A. He is being turned and repositioned q 2 hours. HOB elevated. G-tube placement verified via auscultation. F/c patent with yellow, clear urine. He continues on the bipap at a rate of 24 with 70% FiO2. Respiratory changed the mask size per family request. Family is at the beside at this time but states a sitter will be in later. Oral care provided.
[2022-10-10] VITALS (22 sets, daily range): BP systolic 99–140; BP diastolic 42–81; PULSE 60–85; RESP 1–27; TEMP 36.4–37.3; O2SAT 85–100; BMI 33.9; BMI 33.7
--- NOTE | 2022-10-10 06:24 | PC.NURSE ---
Respiratory is increasing the FiO2 to 80% at this time.
[2022-10-10 06:56] LABS: Basophils # 0.1 K/mm3 (0-0.2); Eosinophils # 0.7 K/mm3 (0.0-0.4); Hemoglobin 8.1 g/dL (14.1-18.0)
[2022-10-10 07:01] LABS: Basophils % 1.6 % (0.1-2.0); Eosinophils % 10.8 % (0.1-12.0); Lymphocytes # 1.4 K/mm3 (0.7-4.5); Lymphocytes % 20.4 % (10-50); Mean Corpuscular HGB Conc 30.8 g/dL (31.8-35.4); Mean Corpuscular Hemoglobin 28.4 pg (27.0-31.2); Mean Corpuscular Volume 92.4 fl (80-94); Mean Platelet Volume 7.8 fl (7.4-10.4); Monocytes # 0.5 K/mm3 (0.1-1.0); Monocytes % 7.8 % (1.7-9.3); Neutrophils % 59.4 % (37.0-80.0); Platelet Count 471 K/mm3 (142-424); Red Blood Count 2.84 M/mm3 (4.60-6.20); White Blood Count 6.7 K/mm3 (4.8-10.8)
[2022-10-10 07:04] LABS: Hematocrit 26.2 % (42.0-52.0)
[2022-10-10 07:10] LABS: Anion Gap 9.5 mEq/L (5-15); Calcium 9.1 mg/dl (8.4-10.2); Carbon Dioxide 35 mmol/L (22.0-30.0); Chloride 110 mmol/L (98-107); Creatinine Clearance Estimated 76 mL/min (50-200); Estimated Glomerular Filt Rate 65 ml/min (>60); GFR (African American) 79 ML/MIN (>60); Glucose 112 mg/dl (74-100); Potassium 4.5 mmoL/L (3.5-5.1)
[2022-10-10 07:24] LABS: Blood Urea Nitrogen 96 mg/dl (9-20); Sodium 150 mmol/L (136-145)
--- NOTE | 2022-10-10 08:52 | EXP.ACUTE.PN ---
Subjective *Date: 10/10/22 *Time: 08:52 Interval history: Patient had a good night, stable hemodynamically. Has been on BiPAP through the night. Is progressively, more alert, somewhat restless and try to pull his tube off. Measured tidal volumes in the BiPAP machine have improved. Urine output is good. Labs this morning are noted. Medical Exam Vital signs and Labs for Last 24 Hours: Vital Signs Temp Pulse Pulse Resp BP Pulse Ox FiO2 10/10/22 08:00 97.8 F 74 20 140/42 L 100 10/10/22 08:00 73 10/10/22 06:32 80 10/10/22 06:32 85 L 70 10/10/22 04:00 97.6 F 60 20 103/57 L 99 10/10/22 04:00 70 10/10/22 00:00 70 10/09/22 23:50 97.9 F 79 18 100/59 L 98 10/09/22 20:00 60 10/09/22 20:00 100 70 10/09/22 19:54 97.9 F 63 18 103/50 L 100 10/09/22 18:51 70 10/09/22 16:00 67 10/09/22 16:00 97.7 F 66 18 106/52 L 100 10/09/22 12:00 71 10/09/22 13:12 70 10/09/22 11:41 97.8 F 93 H 20 107/58 L 99 10/09/22 09:53 73 Intake and Output 10/09/22 10/10/22 10/10/22 19:59 03:59 11:59 Intake Total 1816 / 3011 1195 / 3011 Output Total 500 / 1200 700 / 1200 Balance 1316 / 1811 1195 / 1811 -700 / 1811 Intake: Intake, Total IV Amount 1816 / 3011 1195 / 3011 0.9 % Sodium Chloride 1,000 ml 1816 / 3011 1195 / 3011 @ 100 mls/hr IV .Q10H [facility] Rx#: [id number] Output: Output, Urine Amount 500 / 1200 700 / 1200 Other: Number of Unmeasured Voids 0 0 0 Number of Bowel Movements 1 Weight 210 lb Patient Weight 10/10/22 11:59 Weight 210 lb Laboratory Results - last 24 hr 10/09/22 07:41: Sodium 149 H, Potassium 6.0 H D, Chloride 108 H, Carbon Dioxide 34 H, Anion Gap 13.0, BUN 109 H* D, Creatinine 1.10, Estimated Creat Clear 75, Estimated GFR 65, Est GFR ( Amer) 79, Glucose 110 H D, Calcium 9.9 10/09/22 18:00: Sodium 149 H, Potassium 4.5 D, Chloride 106, Carbon Dioxide 39 H, Anion Gap 8.5, BUN 86 H, Creatinine 1.30 H, Estimated Creat Clear 64, Estimated GFR 54 L, Est GFR ( Amer) 65, Glucose 118 H, Calcium 9.2 10/10/22 06:49: WBC 6.7 D, RBC 2.84 L, Hgb 8.1 L, Hct 26.2 L, MCV 92.4, MCH 28.4, MCHC 30.8 L, RDW 18.0 H, Plt Count 471 H D, MPV 7.8, Neut % (Auto) 59.4, Lymph % (Auto) 20.4, [place] % (Auto) 7.8, Eos % (Auto) 10.8, Baso % (Auto) 1.6, Neut # (Auto) 4.0, Lymph # (Auto) 1.4, [place] # (Auto) 0.5, Eos # (Auto) 0.7 H, Baso # (Auto) 0.1 10/10/22 06:49: Sodium 150 H, Potassium 4.5, Chloride 110 H, Carbon Dioxide 35 H, Anion Gap 9.5, BUN 96 H, Creatinine 1.10, Estimated Creat Clear 76, Estimated GFR 65, Est GFR ( Amer) 79 D, Glucose 112 H, Calcium 9.1 10/10/22 06:49: Digoxin 0.90 I & O for Labs for Last 24 Hours: Intake & Output 10/07/22 10/08/22 10/09/22 10/10/22 11:59 11:59 11:59 11:59 Intake Total 70 / 70 3011 / 3011 Output Total 1500 / 1500 1200 / 1200 Balance -1430 / -1430 1811 / 1811 Weight 250 lb 208 lb 3.2 oz 210 lb Microbiology Reports for the Last 24 Hours: Microbiology 10/08/22 08:17 Blood Blood Culture - Preliminary NO GROWTH AFTER 48 HOURS 01/06/23 08:17 Blood Blood Culture - Preliminary NO GROWTH AFTER 48 HOURS 10/08/22 09:40 Sputum - Nasotracheal Suction Gram Stain - Final 10/08/22 09:40 Sputum - Nasotracheal Suction Sputum Culture - Final Normal Respiratory [place] Comment:: More alert, responsive to verbal stimuli. Much more movement of his extremities. Lungs have diminished air sounds as previously noted. Heart rate irregular. Abdomen soft. Extremities warm and well-perfused. Urine catheter draining clear yellow urine. G-tube site looks good Assessment and Plan *Assessment and plan (1) Acute on chronic respiratory failure with hypoxia and hypercapnia: Status: Acute Category: Medical
--- NOTE | 2022-10-10 10:34 | PC.NURSE ---
DR MARTINEZ GSVR V/O TO PERFORM BEDSIDE SWALLOW EVEL. PT DID NOT TOLERATE WELL.
[2022-10-10 10:56] LABS: ABG Base Excess 4.7 mmol/L (-2.4-2.3); ABG HCO3 30.8 mmhg (22.0-26.0); ABG Oxygen Saturation 100 % (90-100); ABG PH 7.32 mmol/L (7.35-7.45); ABG PO2 254.6 mmhg (80-100); ABG TCO2 32.6 mmhg (23-27)
[2022-10-10 11:02] LABS: Vent Rate 24
[2022-10-10 11:03] LABS: Allen's Test Patient Unable; Source Left Radial
[2022-10-10 11:05] LABS: ABG PCO2 60.7 mmhg (35.0-45.0)
[2022-10-10 18:48] LABS: Hematocrit 28.8 % (42.0-52.0); Hemoglobin 8.9 g/dL (14.1-18.0)
[2022-10-11] VITALS (17 sets, daily range): BP systolic 111–131; BP diastolic 50–79; PULSE 50–66; RESP 17–25; TEMP 36.4–37.1; O2SAT 92–100; BMI 32.0
--- NOTE | 2022-10-11 04:58 | PC.NURSE ---
NO ACUTE CHANGES SINCE PREVIOUS ASSESSMENT. PT HAS NOT RESTED MUCH THIS SHIFT AND HAS BEEN RESTLESS AND AGITATED AT TIMES. SPOKE WITH DAUGHTER ON THE PHONE LAST NIGHT ABOUT PT'S AGITATION. SHE STATED SHE WOULD BE HERE IN THE MORNING. PT HAS BEEN TURNED Q2HRS AND REQUESTED BY SITTERS FOR PT COMFORT. PT DID TAKE A BREAK FROM THE BIPAP THIS SHIFT AND APPEARED TO REST BETTER WITHOUT THE BIPAP. LUNG SOUNDS ARE DIMINISHED. REMAINS AFEBRILE. VSS.
[2022-10-11 06:41] LABS: Basophils # 0.1 K/mm3 (0-0.2); Basophils % 1.6 % (0.1-2.0); Eosinophils # 0.6 K/mm3 (0.0-0.4); Eosinophils % 10.8 % (0.1-12.0); Hematocrit 26.9 % (42.0-52.0); Hemoglobin 8.6 g/dL (14.1-18.0); Lymphocytes # 1.4 K/mm3 (0.7-4.5); Lymphocytes % 27.3 % (10-50); Mean Corpuscular Volume 87.5 fl (80-94); Monocytes # 0.4 K/mm3 (0.1-1.0); Monocytes % 8.7 % (1.7-9.3); Neutrophils # 2.6 K/mm3 (1.8-7.8); Neutrophils % 51.6 % (37.0-80.0); Platelet Count 376 K/mm3 (142-424); Red Blood Count 3.08 M/mm3 (4.60-6.20); White Blood Count 5.1 K/mm3 (4.8-10.8)
[2022-10-11 06:53] LABS: Anion Gap 8.6 mEq/L (5-15); Blood Urea Nitrogen 66 mg/dl (9-20); Calcium 8.8 mg/dl (8.4-10.2); Carbon Dioxide 32 mmol/L (22.0-30.0); Chloride 114 mmol/L (98-107); Creatinine Clearance Estimated 79 mL/min (50-200); Estimated Glomerular Filt Rate 82 ml/min (>60); GFR (African American) 99 ML/MIN (>60); Glucose 93 mg/dl (74-100); Potassium 3.6 mmoL/L (3.5-5.1)
[2022-10-11 07:08] LABS: Sodium 151 mmol/L (136-145)
--- NOTE | 2022-10-11 08:40 | DIET.NUTRFU ---
Currently receiving prostat AWC BID to provide additional 34gm protein for total of 150gm/day and add additional 200kcal. Flush with Prostat is 120ml [id number]. Rounded with provider okay to start TF today at slow rate. Will start Nepro at 20ml and increase every shift to reach goal of 60ml/hr ATC is providing 1440ml formula/2592kcal/116gm protein with 1046ml formula water. Will flush with 150ml Q4H= 900ml. Na level elevated, increase in fluid via TF will help. LBM was 10/09. IVF is also running for hydration. BUN improving now at 66H. [employer] ordered, trailed water at bedside, did not tolerant well. Family providing ice chips. Oral care ordered.
--- NOTE | 2022-10-11 08:41 | EXP.ACUTE.PN ---
Subjective *Date: 10/11/22 *Time: 08:41 Interval history: Overall patient has done better over the past 24 hours. Tolerated unit of packed cells well with appropriate response to hemoglobin. Was able to stay off BiPAP for several hours yesterday. Unfortunately was not able to swallow well with bedside swallowing evaluation showing symptoms/signs of coughing/aspiration. Was off the BiPAP for an hour this morning, then went back on. Is much more alert and communicative. Medical Exam Vital signs and Labs for Last 24 Hours: Vital Signs Temp Pulse Pulse Resp BP BP Pulse Ox 10/11/22 07:19 98.2 F 65 17 131/53 L 100 10/11/22 06:30 10/11/22 04:00 97.9 F 66 22 116/79 97 10/11/22 04:00 60 10/10/22 20:00 80 10/11/22 00:00 60 10/11/22 00:00 98.4 F 61 22 111/50 L 99 10/10/22 21:18 10/10/22 20:00 99.2 F 83 26 H 119/81 100 10/10/22 18:15 98.4 F 82 22 103/56 L 100 10/10/22 17:15 98.1 F 76 22 116/57 L 100 10/10/22 16:35 97.9 F 85 22 114/63 100 10/10/22 15:35 97.9 F 74 22 99/81 L 100 10/10/22 15:20 98 F 73 22 101/68 L 100 10/10/22 15:05 98.1 F 74 22 104/69 L 100 10/10/22 14:50 98.1 F 79 22 109/78 L 100 10/10/22 14:45 98.3 F 75 22 121/46 L 100 10/10/22 14:40 97.9 F 74 22 125/66 100 10/10/22 14:35 98.3 F 76 22 100/72 L 100 10/10/22 16:00 71 10/10/22 14:30 98.1 F 71 22 104/73 L 95 10/10/22 12:00 61 10/10/22 13:55 100 10/10/22 13:54 10/10/22 12:00 97.7 F 71 20 119/52 L 100 10/10/22 10:34 10/10/22 10:34 100 FiO2 10/11/22 07:19 10/11/22 06:30 30 10/11/22 04:00 10/11/22 04:00 10/10/22 20:00 10/11/22 00:00 10/11/22 00:00 10/10/22 21:18 30 10/10/22 20:00 10/10/22 18:15 10/10/22 17:15 10/10/22 16:35 10/10/22 15:35 10/10/22 15:20 10/10/22 15:05 10/10/22 14:50 10/10/22 14:45 10/10/22 14:40 10/10/22 14:35 10/10/22 16:00 10/10/22 14:30 10/10/22 12:00 10/10/22 13:55 30 10/10/22 13:54 30 10/10/22 12:00 10/10/22 10:34 70 10/10/22 10:34 70 Intake and Output 10/10/22 10/11/22 10/11/22 19:59 03:59 11:59 Intake Total 250 / 250 0 / 250 Output Total 700 / 1450 750 / 1450 Balance -450 / -1200 -750 / -1200 Intake: Intake, Oral Amount 0 / 0 Intake (Blood Product) Amt 250 / 250 Red Blood Cells Unit 250 / 250 [id number] Output: Output, Urine Amount 700 / 700 Output, Urine Amount (Catheter) 750 / 750 Ny 750 / 750 Other: Number of Bowel Movements 1 Weight 209 lb 15.986 oz 199 lb 3.2 oz Patient Weight 10/11/22 11:59 Weight 199 lb 3.2 oz Laboratory Results - last 24 hr 10/10/22 06:49: Blood Type Confirm A Positive 10/10/22 09:30: Blood Type A Positive, Antibody Screen Negative, Crossmatch (AHG) See Detail 10/10/22 11:15: Specimen Source Left radial, O2 % 70% bipap 22/10, ABG pH 7.32 L, ABG pCO2 60.7 H, ABG pO2 254.6 H, ABG HCO3 30.8 H, ABG Total CO2 32.6 H, ABG O2 Saturation 100, ABG Base Excess 4.7 H, Daniel Test Patient unable, Vent Rate 24 10/10/22 18:35: Hgb 8.9 L, Hct 28.8 L 10/11/22 06:12: WBC 5.1, RBC 3.08 L, Hgb 8.6 L, Hct 26.9 L, MCV 87.5, MCH 28.0, MCHC 32.0, RDW 18.0 H, Plt Count 376, MPV 8.0, Neut % (Auto) 51.6, Lymph % (Auto) 27.3, [place] % (Auto) 8.7, Eos % (Auto) 10.8, Baso % (Auto) 1.6, Neut # (Auto) 2.6, Lymph # (Auto) 1.4, [place] # (Auto) 0.4, Eos # (Auto) 0.6 H, Baso # (Auto) 0.1 10/11/22 06:12: Sodium 151 H*, Potassium 3.6, Chloride 114 H, Carbon Dioxide 32 H, Anion Gap 8.6, BUN 66 H D, Creatinine 0.90, Estimated Creat Clear 79, Estimated GFR 82, Est GFR ( Amer) 99 D, Glucose 93, Calcium 8.8 I & O for Labs for Last 24 Hours: Intake & Output 10/08/22 10/09/22 10/10/22 10/11/22 11:59 11:59 11:59 11:59 Intake Total 70 / 70 3011 / 3011 250 / 250 Output Total 1500 / 1500 1200 / 1200 1450
--- NOTE | 2022-10-11 10:56 | HMH.PTEV ---
Physical Therapy Evaluation Rehab PT IP Evaluation Start: 10/11/22 08:41 Freq: ONCE Status: Active Protocol: Document 10/11/22 09:00 IAN (Rec: 10/11/22 10:56 PHOBK [id number]) Subjective/History History History 77 yowm adm to [facility] with resp failure. He was [facility] prior to adm for rehab. Currently on Bi-Pap this am. Subjective Subjective Pt with only c/o feeling tired this am. Rehab PT IP Eval Objective Appearance Patient Behavior Appropriate Patient Orientation Person,Place Difficulty following instructions none Speech Pattern Clear,Soft-Spoken Ambulation Patient Able to Ambulate No Balance Ability to Arise Able, uses arms to help Sitting Balance Steady, safe Standing Balance Unsteady Dynamic Sitting Balance Ability Fair Dynamic Standing Balance Ability Poor Transfers Bed Transfer Ability Moderate x 2 (50% assist) Chair Transfer Ability Maximum x 2 (75% assist) Sit to Stand Bed Transfer Ability Maximum x 2 (75% assist) Sit to Stand Chair Transfer Ability Maximum x 2 (75% assist) Rehab PT IP prob,goals,plan Problems Date of Evaluation: 10/11/22 PT IP Problems Bed Mobility,Transfers Rehab Potential Rehab Potential Good Plan PT Intervention Plan Bed Mobility,Transfers, Therapeutic Exercise PT Plan Frequency Daily Duration LOS Discharge Goals Bed Transfer Ability Moderate x 1 (50% assist) Sit to Stand Chair Transfer Ability Maximum x 1 (75% assist) Discharge Plan PT Discharge Plan Pt is currently most appropriate to return to rehab once medically stable. G -code Required No Eval Complexity Eval Charge Codes 18306 - High Complexity PHYSICIAN CERTIFICATION: I certify the specified therapy services for Juancarlos Loja are required, authorized, and reviewed every 30 days.
--- NOTE | 2022-10-11 11:01 | HMH.OTEV ---
OT Inpatient Evaluation Rehab OT IP Evaluation Start: 10/11/22 08:41 Freq: ONCE Status: Active Protocol: Document 10/11/22 10:54 [place] (Rec: 10/11/22 11:01 [facility] [id number]) Rehab OT IP Assessment Subjective History Pt re-admitted to hospital on 10/08/22 due to being unresponsive at [facility], hypercapnia, and Flu. Prior to being in the hospital, pt was at [facility] for short term rehab placement. Prior to being in the [facility] pt required assistance with all ADLs and functional transfers. Pt has a past medical history of: Acute and chronic respiratory failure with hypercapnia Aplastic anemia Atrial fibrillation Cataract Congestive heart failure Enterococcus UTI Gallbladder & bile duct stone, acute cholecystitis and obstruction History of anemia History of cataract History of gastroesophageal reflux (GERD) History of pacemaker Hyperlipidemia Hypertension Hypothyroid Hypothyroidism On mechanically assisted ventilation Pleural effusion Rotator cuff arthropathy of left shoulder Rotator cuff arthropathy of right shoulder Sleep apnea Urinary tract infection Subjective Pt on Bipap but agreeable to engage in therapy evaluation. Objective Patient Orientation Person Upper Extremity Gross ROM Min Limitation <25% Shoulder ROM Limitations Muscle Weakness Elbow ROM Limitations Muscle Weakness Wrist Limitations of Range of Motion Muscle Weakness Bed Mobility bed mobility-scooting,bed mobility - supine/sit,bed
--- NOTE | 2022-10-11 11:18 | HMH.PTEV ---
Physical Therapy Evaluation Rehab PT IP Evaluation Start: 10/11/22 08:41 Freq: ONCE Status: Active Protocol: Document 10/11/22 09:00 IAN (Rec: 10/11/22 10:56 PHOBK [id number]) Subjective/History History History 77 yowm adm to [facility] with resp failure. He was at [facility] prior to adm for rehab. Currently on Bi-Pap this am. Subjective Subjective Pt with only c/o feeling tired this am. Rehab PT IP Eval Objective Appearance Patient Behavior Appropriate Patient Orientation Person,Place Difficulty following instructions none Speech Pattern Clear,Soft-Spoken Ambulation Patient Able to Ambulate No Balance Ability to Arise Able, uses arms to help Sitting Balance Steady, safe Standing Balance Unsteady Dynamic Sitting Balance Ability Fair Dynamic Standing Balance Ability Poor Transfers Bed Transfer Ability Moderate x 2 (50% assist) Chair Transfer Ability Maximum x 2 (75% assist) Sit to Stand Bed Transfer Ability Maximum x 2 (75% assist) Sit to Stand Chair Transfer Ability Maximum x 2 (75% assist) Rehab PT IP prob,goals,plan Problems Date of Evaluation: 10/11/22 PT IP Problems Bed Mobility,Transfers Rehab Potential Rehab Potential Good Plan PT Intervention Plan Bed Mobility,Transfers, Therapeutic Exercise PT Plan Frequency Daily Duration LOS Discharge Goals Bed Transfer Ability Moderate x 1 (50% assist) Sit to Stand Chair Transfer Ability Maximum x 1 (75% assist) Discharge Plan PT Discharge Plan Pt is currently most appropriate to return to rehab once medically stable. G -code Required No Eval Complexity Eval Charge Codes 99507 - High Complexity PHYSICIAN CERTIFICATION: I certify the specified therapy services for Juancarlos Loja are required, authorized, and reviewed every 30 days.
--- NOTE | 2022-10-11 14:20 | DIET.NUTRFU ---
Tubefeeding running, tolerating. Will advance every shift to reach a goal of 60ml/hr of Nepro
[2022-10-11 16:42] LABS: ABG Base Excess 5.4 mmol/L (-2.4-2.3); ABG HCO3 29.3 mmhg (22.0-26.0); ABG Oxygen Saturation 97 % (90-100); ABG PCO2 42.9 mmhg (35.0-45.0); ABG PH 7.45 mmol/L (7.35-7.45); ABG PO2 97.8 mmhg (80-100); ABG TCO2 30.7 mmhg (23-27); Lactate Arterial 1.2 mmol/L (0.4-2.0)
[2022-10-11 16:44] LABS: Oxygen 30% %; Tidal Volume AVAPS 500; Vent Rate 18
[2022-10-11 16:45] LABS: Allen's Test Patient Unable; Source Right Radial
[2022-10-12] VITALS (15 sets, daily range): BP systolic 110–115; BP diastolic 52–61; PULSE 60–64; RESP 17–22; TEMP 36.4–36.9; O2SAT 94–100; BMI 33.3
--- NOTE | 2022-10-12 05:05 | PC.NURSE ---
NO ACUTE CHANGES SINCE PREVIOUS ASSESSMENT. PT HAS RESTED WELL THIS SHIFT. TOLERATING BIPAP WELL. MORE ALERT WHILE AWAKE. PT HAS HAD ONE MODERATE BM THIS SHIFT. TOLERATING TUBE FEEDING WELL NO GASTRIC RESIDUALS OVER NIGHT. VSS. REMAINS AFEBRILE. PT HAS BEEN TURNED Q2HRS THIS SHIFT.
[2022-10-12 06:54] LABS: Basophils % 0.8 % (0.1-2.0); Eosinophils # 0.6 K/mm3 (0.0-0.4); Eosinophils % 10.3 % (0.1-12.0); Hematocrit 28.1 % (42.0-52.0); Hemoglobin 8.8 g/dL (14.1-18.0); Lymphocytes # 1.3 K/mm3 (0.7-4.5); Lymphocytes % 24.9 % (10-50); Mean Corpuscular HGB Conc 31.4 g/dL (31.8-35.4); Mean Corpuscular Hemoglobin 28.3 pg (27.0-31.2); Mean Platelet Volume 8.3 fl (7.4-10.4); Monocytes # 0.5 K/mm3 (0.1-1.0); Monocytes % 8.7 % (1.7-9.3); Neutrophils % 55.4 % (37.0-80.0); Platelet Count 367 K/mm3 (142-424); Red Blood Count 3.12 M/mm3 (4.60-6.20); Red Cell Distribution Width 18.3 % (11.5-17.5); White Blood Count 5.4 K/mm3 (4.8-10.8)
[2022-10-12 07:28] LABS: Anion Gap 10.3 mEq/L (5-15); Blood Urea Nitrogen 47 mg/dl (9-20); Calcium 8.5 mg/dl (8.4-10.2); Carbon Dioxide 27 mmol/L (22.0-30.0); Chloride 114 mmol/L (98-107); Creatinine Clearance Estimated 82 mL/min (50-200); Estimated Glomerular Filt Rate 109 ml/min (>60); GFR (African American) 132 ML/MIN (>60); Glucose 99 mg/dl (74-100); Potassium 5.3 mmoL/L (3.5-5.1); Sodium 146 mmol/L (136-145)
--- NOTE | 2022-10-12 07:57 | EXP.ACUTE.PN ---
Subjective *Date: 10/12/22 *Time: 07:57 Interval history: Patient is adjusted well to volume controlled settings on his CPAP/BiPAP machine. Has been much more alert, ABGs have improved nicely. He is also required some less monitoring given the improved situation. He is alert today off of oxygen after his overnight stay on the pressure device Medical Exam Vital signs and Labs for Last 24 Hours: Vital Signs Temp Pulse Pulse Resp BP Pulse Ox FiO2 10/12/22 07:42 64 10/12/22 07:14 97.9 F 61 18 114/59 L 100 10/12/22 06:20 30 10/12/22 04:58 60 10/12/22 03:37 98.5 F 62 22 114/55 L 95 10/12/22 02:16 30 10/12/22 01:11 60 10/11/22 23:30 98.7 F 62 20 112/52 L 92 L 10/11/22 20:00 60 10/11/22 22:12 30 10/11/22 20:08 100 30 10/11/22 20:03 30 10/11/22 19:36 98.6 F 64 20 117/57 L 100 10/11/22 16:00 65 10/11/22 12:00 62 10/11/22 08:00 50 L 10/11/22 14:52 97.6 F 62 18 120/76 99 10/11/22 10:45 97.6 F 61 18 117/73 99 10/11/22 08:54 65 Intake and Output 10/11/22 10/12/22 10/12/22 19:59 03:59 11:59 Intake Total 0 / 3115 3115 / 3115 Output Total 0 / 0 0 / 0 Balance 0 / 3115 0 / 3115 3115 / 3115 Intake: Intake, Oral Amount 0 / 0 0 / 0 Intake, Tube Feeding Amount 315 / 315 Intake, Tube Irrigant Amount 450 / 450 Intake, Total IV Amount 2350 / 2350 Sodium Chloride 0.45 % 1,000 ml 2350 / 2350 @ 75 mls/hr IV .[id number] [facility] Rx #:[id number] Output: Output, Urine Amount 0 / 0 0 / 0 Other: Number of Unmeasured Voids 1 1 Weight 207 lb 3 oz Patient Weight 10/12/22 11:59 Weight 207 lb 3 oz Laboratory Results - last 24 hr 10/11/22 16:30: Specimen Source Right radial, O2 % 30%, ABG pH 7.45, ABG pCO2 42.9, ABG pO2 97.8, ABG HCO3 29.3 H, ABG Total CO2 30.7 H, ABG O2 Saturation 97, ABG Base Excess 5.4 H, Daniel Test Patient unable, ABG Lactate 1.2, Vent Rate 18, Tidal Volume Avaps 500 10/12/22 06:41: WBC 5.4, RBC 3.12 L, Hgb 8.8 L, Hct 28.1 L, MCV 90.0, MCH 28.3, MCHC 31.4 L, RDW 18.3 H, Plt Count 367, MPV 8.3, Neut % (Auto) 55.4, Lymph % (Auto) 24.9, [place] % (Auto) 8.7, Eos % (Auto) 10.3, Baso % (Auto) 0.8, Neut # (Auto) 3.0, Lymph # (Auto) 1.3, [place] # (Auto) 0.5, Eos # (Auto) 0.6 H, Baso # (Auto) 0.0 10/12/22 06:41: Sodium 146 H, Potassium 5.3 H D, Chloride 114 H, Carbon Dioxide 27, Anion Gap 10.3, BUN 47 H D, Creatinine 0.70 D, Estimated Creat Clear 82, Estimated GFR 109, Est GFR ( Amer) 132 D, Glucose 99, Calcium 8.5 I & O for Labs for Last 24 Hours: Intake & Output 10/09/22 10/10/22 10/11/22 10/12/22 11:59 11:59 11:59 11:59 Intake Total 70 / 70 3011 / 3011 400 / 400 3115 / 3115 Output Total 1500 / 1500 1200 / 1200 1850 / 1850 0 / 0 Balance -1430 / -1430 1811 / 1811 -1450 / -1450 3115 / 3115 Weight 208 lb 3.2 oz 210 lb 199 lb 3.2 oz 207 lb 3 oz Comment:: Alert. Talkative. Lungs have diminished air movement but at baseline. Heart rate irregular. Abdomen soft, G-tube site looks good, infusing tube feeds well. Extremities are warm and well-perfused. Assessment and Plan *Assessment and plan (1) Acute on chronic respiratory failure with hypoxia and hypercapnia: Status: Acute Category: Medical Code(s): J96.21 - Acute and chronic respiratory failure with hypoxia; J96.22 - Acute and chronic respiratory failure with hypercapnia (2) Delirium: Status: Acute Category: Medical Code(s): R41.0 - Disorientation, unspecified (3) G tube feedings: Status: Acute Category: Medical Code(s): Z93.1 - Gastrostomy status (4) Acute on chronic systolic and diastolic heart failure, NYHA class 1: Status: Acute Category: Medical Code(s): I50.43 - Acute on chronic combined systolic (congestive) and diastolic (congestive) heart failure (5) Atrial fibrillation: Statu
--- NOTE | 2022-10-12 08:20 | DIET.NUTRFU ---
Addendum entered by Elke Ramirez RD, LD 10/12/22 16:41: When checked at lunch was up to 40ml/hr and tolerating. Will continue to increase as tolerated for goal rate of 60ml/hr. Addendum entered by Elke Ramirez RD, LD 10/12/22 08:46: Will hold prostat and recheck potassium tomorrow. Original Note: Patient tolerated TF at 20ml/hr yesterday, increased to 30 this AM. Plan to increase as tolerated to reach goal of 60ml/hr. Labs reviewed Na 146H improved from 151H, Potassium is elevated at 5.3H was 3.6. Potassium supplement and Bumex on hold since 10/09. Currently receiving 1/2 NS for additional hydration. Reviewing elevated potassium he is on a renal formula provided 456gm of potassium 10/12 plus the prostat at 40mg. Consulted pharmacy, may benefit form holding prostat. Continues to have skin breakdown to coccyx. Provider looking for placement that better meets respiratory needs. Labs ordered for tomorrow.
--- NOTE | 2022-10-12 17:35 | PC.NURSE ---
Pt was up to the chair for several hours today and tolerated well. He has been on bipap intermittently t/o the shift. He's been paced on telemetry. Tube feeds increased by 10mls/hr at 0800, 1200 and 1600 and running at 50mls/hr at this time. Residuals have been less than 5mls. He's been turned q2hrs. Bed is locked and in the lowest position, call light is within reach.
[2022-10-13] VITALS (10 sets, daily range): BP systolic 98–130; BP diastolic 51–70; PULSE 60–91; RESP 16–28; TEMP 36.6–37.1; O2SAT 90–98; BMI 33.7
--- NOTE | 2022-10-13 05:33 | PC.NURSE ---
NO ACUTE CHANGES. PT HAS RESTED WELL THIS SHIFT. MORE ALERT AND TALKATIVE WITH STAFF. TOLERATING TUBE FEEDS WELL THIS SHIFT. RESIDUALS HAVE BEEN 0 MOST OF SHIFT WAS 40ML AT THE START OF SHIFT. BEING TURNED Q2HRS. REMAINS AFEBRILE. VSS.
[2022-10-13 06:57] LABS: Basophils # 0.1 K/mm3 (0-0.2); Basophils % 0.9 % (0.1-2.0); Eosinophils # 0.6 K/mm3 (0.0-0.4); Eosinophils % 9.8 % (0.1-12.0); Hematocrit 30.5 % (42.0-52.0); Hemoglobin 9.4 g/dL (14.1-18.0); Lymphocytes # 1.2 K/mm3 (0.7-4.5); Mean Corpuscular HGB Conc 30.9 g/dL (31.8-35.4); Mean Corpuscular Volume 90.4 fl (80-94); Mean Platelet Volume 8.4 fl (7.4-10.4); Monocytes # 0.5 K/mm3 (0.1-1.0); Neutrophils # 3.5 K/mm3 (1.8-7.8); Neutrophils % 60.3 % (37.0-80.0); Platelet Count 355 K/mm3 (142-424); Red Blood Count 3.38 M/mm3 (4.60-6.20); Red Cell Distribution Width 18.2 % (11.5-17.5); White Blood Count 5.8 K/mm3 (4.8-10.8)
[2022-10-13 07:12] LABS: Anion Gap 9.4 mEq/L (5-15); Blood Urea Nitrogen 35 mg/dl (9-20); Calcium 8.6 mg/dl (8.4-10.2); Carbon Dioxide 31 mmol/L (22.0-30.0); Chloride 109 mmol/L (98-107); Creatinine Clearance Estimated 83 mL/min (50-200); Estimated Glomerular Filt Rate 131 ml/min (>60); GFR (African American) 158 ML/MIN (>60); Glucose 116 mg/dl (74-100); Potassium 3.4 mmoL/L (3.5-5.1); Sodium 146 mmol/L (136-145)
--- NOTE | 2022-10-13 08:59 | EXP.ACUTE.PN ---
Subjective *Date: 10/13/22 *Time: 08:59 Interval history: Patient did very nicely over the past 24 hours. Has been on his tidal volume support through his BiPAP machine at night and its made a big difference in his overall breathing and alertness level. Also correction of his BUN has improved his situation Medical Exam Vital signs and Labs for Last 24 Hours: Vital Signs Temp Pulse Pulse Resp BP Pulse Ox FiO2 10/13/22 08:00 97.9 F 72 18 123/70 95 10/13/22 08:09 61 10/13/22 04:00 60 10/13/22 04:00 98.5 F 72 20 125/61 98 10/13/22 02:04 30 10/12/22 20:00 60 10/13/22 00:00 60 10/13/22 00:00 98.7 F 62 20 98/51 L 96 10/12/22 22:48 30 10/12/22 19:30 98.4 F 61 20 110/52 L 94 L 10/12/22 16:00 60 10/12/22 15:02 97.6 F 63 17 115/61 100 10/12/22 12:00 60 10/12/22 10:56 98.2 F 62 17 110/53 L 95 Intake and Output 10/12/22 10/13/22 10/13/22 19:59 03:59 11:59 Intake Total 1605 / 3969 2364 / 3969 Output Total 0 / 0 Balance 1605 / 3969 2364 / 3969 Intake: Intake, Oral Amount 0 / 0 Intake, Tube Feeding Amount 357 / 1264 907 / 1264 Intake, Tube Irrigant Amount 300 / 925 625 / 925 Intake, Other Amount 120 / 120 Intake, Total IV Amount 828 / 1660 832 / 1660 Sodium Chloride 0.45 % 1,000 ml 828 / 1660 832 / 1660 @ 75 mls/hr IV .[id number] [facility] Rx #:[id number] Output: Output, Urine Amount 0 / 0 Other: Number of Unmeasured Voids 1 Number of Urine Attends/Diapers 1 Weight 210 lb 1.99 oz Patient Weight 10/13/22 11:59 Weight 210 lb 1.99 oz Laboratory Results - last 24 hr 10/13/22 06:00: WBC 5.8, RBC 3.38 L, Hgb 9.4 L, Hct 30.5 L, MCV 90.4, MCH 28.0, MCHC 30.9 L, RDW 18.2 H, Plt Count 355, MPV 8.4, Neut % (Auto) 60.3, Lymph % (Auto) 21.0, [place] % (Auto) 8.0, Eos % (Auto) 9.8, Baso % (Auto) 0.9, Neut # (Auto) 3.5, Lymph # (Auto) 1.2, [place] # (Auto) 0.5, Eos # (Auto) 0.6 H, Baso # (Auto) 0.1 10/13/22 06:00: Sodium 146 H, Potassium 3.4 L D, Chloride 109 H, Carbon Dioxide 31 H, Anion Gap 9.4, BUN 35 H D, Creatinine 0.60 L, Estimated Creat Clear 83, Estimated GFR 131, Est GFR ( Amer) 158, Glucose 116 H, Calcium 8.6 I & O for Labs for Last 24 Hours: Intake & Output 10/10/22 10/11/22 10/12/22 10/13/22 11:59 11:59 11:59 11:59 Intake Total 3011 / 3011 400 / 400 3115 / 3115 3969 / 3969 Output Total 1200 / 1200 1850 / 1850 0 / 0 0 / 0 Balance 1811 / 1811 -1450 / -1450 3115 / 3115 3969 / 3969 Weight 210 lb 199 lb 3.2 oz 207 lb 3 oz 210 lb 1.99 oz Microbiology Reports for the Last 24 Hours: Microbiology 10/08/22 08:17 Blood Blood Culture - Final NO GROWTH AFTER 5 DAYS 10/08/22 08:17 Blood Blood Culture - Final NO GROWTH AFTER 5 DAYS Comment:: Alert, talkative. Distant breath sounds with poor air movement as previously noted. Heart rate irregular. Abdomen is soft, G-tube site looks good. Extremities are warm and well-perfused Assessment and Plan *Assessment and plan (1) Delirium: Status: Acute Category: Medical Code(s): R41.0 - Disorientation, unspecified (2) G tube feedings: Status: Acute Category: Medical Code(s): Z93.1 - Gastrostomy status (3) Acute on chronic systolic and diastolic heart failure, NYHA class 1: Status: Acute Category: Medical Code(s): I50.43 - Acute on chronic combined systolic (congestive) and diastolic (congestive) heart failure (4) Atrial fibrillation: Status: Acute Category: Medical Code(s): I48.91 - Unspecified atrial fibrillation (5) Influenza A: Status: Acute Category: Medical Code(s): J10.1 - Influenza due to other identified influenza virus with other respiratory manifestations Plan 1. Respiratory [id number] likely from tip over from his influen
--- NOTE | 2022-10-13 12:23 | DIET.NUTRFU ---
TF is now up to goal rate of 60ml/hr, tolerating well with no significant residuals. Na level continues to be 146H and potassium is now low at 3.4L. Prostat restarted since potassium level has come down. NaCl decreased to prevent fluid overload. Bumex has not restarted yet. Case mgt still working on placement. Will continue to follow TF tolerance
--- NOTE | 2022-10-13 14:18 | CARE MANAGER ---
This patient has been accepted at [facility] per Teofilo, they can take him in the am.
--- NOTE | 2022-10-13 18:12 | PC.NURSE ---
Pt has been alert to self. He's alternated between RA and bipap t/o the shift with oxygen sats measuring 90% or greater. He was up to the chair for several hours in the am and tolerated well. Tube feeds were increased to goal rate of 60mls/hr at 0800. Residuals have been less than 5mls at checks. He's been paced on telemetry. He is currently resting in bed watching tv. bed is locked and in the lowest position, call light is within reach.
[2022-10-14] VITALS (7 sets, daily range): BP systolic 109–133; BP diastolic 50–71; PULSE 60–75; RESP 16–29; TEMP 36.6–37.1; O2SAT 98–100; BMI 33.7
--- NOTE | 2022-10-14 06:07 | PC.NURSE ---
STAFF HAVING A HARD TIME KEEPING THR PEG TUBE CONNECTED TO THE TUBE FEEDING. PATIENT IS TOTAL CARE. TURN Q 2 HRS AND REPOSITION. HAS A MEPILEX DRSG TO BACK AND CALIZIME OINTMENT TO BUTTOCKS. NPO. TUBEFEEDING INFUSING AT 60 ML/HR/PUMP. NO RESIDUAL. PLACEMENT VERIFIED. SITTER HAS BEED AT THE BEDSIDE.
--- NOTE | 2022-10-14 08:27 | EXP.DC.SUM ---
General Admission date:: 10/08/22 Discharge date: 10/14/22 HPI HPI HPI: Very unfortunate 77-year-old male with history of coronary disease and diagnosed with aplastic anemia about 4 months ago. Initially was thought to be a hematologic process and he was placed on cyclosporine and which has caused a plethora of devastating side effects including pulmonary edema, chronic pneumonitis and chronic hypercapnia. Hematology in [place] where he lives has now thought that the aplastic anemia was viral and whether or not cyclosporine was helpful-his blood counts are now normalized. However, he continues to deal with the consequences of lung damage. He has been in and out of the hospital several times including this hospital and also the [facility] in addition to formerly [facility] in [place] for hypercapnia. He has been placed on BiPAP because of his pneumonitis and acute on chronic respiratory failure but a pattern has emerged where he will take the BiPAP off for a certain length of time and then become hypercapnic and unresponsive. He was recently discharged from here at [facility] and the hospitalist service about 48 hours ago and went to the [facility] locally. His daughter and son-in-law live in [place] [facility], and he will be staying here to convalesce until hopefully he can return to [place]. He was doing well yesterday at the care home and his and daughter report that he was actually engaging in physical therapy and doing some bicep curls. He was not really verbal but was certainly responsive and following commands. This morning he was taken off of his BiPAP and placed on nasal cannula oxygen. He initially did fairly well. There was an episode of low O2 saturations in the 80% range but a large quantity of mucus was suctioned and he improved. However he then became unresponsive and ambulance brought him to the emergency room. Here where he was found to have hypercapnia, respiratory acidosis and placed on BiPAP. His has indicated she would wish to no longer have him intubated. I have confirmed this with her personally today also. He was placed on the BiPAP and this was continued, 3 hours later his blood gas improved with improving hypercapnia. Interestingly he was also have found to have flu a positive on PCR testing. COVID testing was negative. He is admitted to the hospital for BiPAP therapy, treatment of his influenza and supportive care. Hospital Course Hospital Course Hospital Course: Patient was admitted for respiratory failure with hypercapnia. Placed on BiPAP. Patient's family has made his CODE STATUS DNI. I confirmed this with and daughters. Patient was found of positive influenza A serology and was placed on Tamiflu. He tolerated this well and completed 5 days. He was found to be uremic, diuretics were held and fluids were given, this improved his renal function and his creatinine normalized as did BUN. Electrolytes also normalized. Alertness level improved and his BiPAP settings were changed to a tidal volume control per pulmonary recommendations which remarkably improved his CO2 levels and his alertness. Over the last couple of days has been able to tolerate increasing periods of time off the BiPAP settings. He is finished up his influenza course and met maximal medical improvement in the hospital. Plan number to discharge today to skilled care facility. He will need the BiPAP/trilogy device with the tidal volume settings as per pulmonary recommendations and per current respiratory therapy notes. He will be able to come off for meals and during the day as tolerated. He is to wear this through the night however. He will need PT evaluation for the wound on his nose and his mild sacral decubitus. He will need a BMP and a CBC on 10/16/2022. He has a history of pleural effusions which have improved. I will continue to hold his Bumex given his recent history of uremia
--- NOTE | 2022-10-14 11:17 | EXP.DC.SUM ---
General Admission date:: 10/08/22 HPI HPI HPI: Very unfortunate 77-year-old male with history of coronary disease and diagnosed with aplastic anemia about 4 months ago. Initially was thought to be a hematologic process and he was placed on cyclosporine and which has caused a plethora of devastating side effects including pulmonary edema, chronic pneumonitis and chronic hypercapnia. Hematology in [place] where he lives has now thought that the aplastic anemia was viral and whether or not cyclosporine was helpful-his blood counts are now normalized. However, he continues to deal with the consequences of lung damage. He has been in and out of the hospital several times including this hospital and also the [facility] in addition to [facility] in [place] for hypercapnia. He has been placed on BiPAP because of his pneumonitis and acute on chronic respiratory failure but a pattern has emerged where he will take the BiPAP off for a certain length of time and then become hypercapnic and unresponsive. He was recently discharged from here at [facility] and the hospitalist service about 48 hours ago and went to the [facility] locally. His daughter and son-in-law live in [place] [facility], and he will be staying here to convalesce until hopefully he can return to [place]. [facility] and his and daughter report that he was actually engaging in physical therapy and doing some bicep curls. He was not really verbal but was certainly responsive and following commands. This morning he was taken off of his BiPAP and placed on nasal cannula oxygen. He initially did fairly well. There was an episode of low O2 saturations in the 80% range but a large quantity of mucus was suctioned and he improved. However he then became unresponsive and ambulance brought him to the emergency room. Here where he was found to have hypercapnia, respiratory acidosis and placed on BiPAP. His has indicated she would wish to no longer have him intubated. I have confirmed this with her personally today also. He was placed on the BiPAP and this was continued, 3 hours later his blood gas improved with improving hypercapnia. Interestingly he was also have found to have flu a positive on PCR testing. COVID testing was negative. He is admitted to the hospital for BiPAP therapy, treatment of his influenza and supportive care. Hospital Course Hospital Course Hospital Course: Patient was admitted for respiratory failure with hypercapnia. Placed on BiPAP. Patient's family has made his CODE STATUS DNI. I confirmed this with and daughters. Patient was found of positive influenza A serology and was placed on Tamiflu. He tolerated this well and completed 5 days. He was found to be uremic, diuretics were held and fluids were given, this improved his renal function and his creatinine normalized as did BUN. Electrolytes also normalized. Alertness level improved and his BiPAP settings were changed to a tidal volume control per pulmonary recommendations which remarkably improved his CO2 levels and his alertness. Over the last couple of days has been able to tolerate increasing periods of time off the BiPAP settings. He is finished up his influenza course and met maximal medical improvement in the hospital. Plan number to discharge today to skilled care facility. He will need the BiPAP/trilogy device with the tidal volume settings as per pulmonary recommendations and per current respiratory therapy notes. He will be able to come off for meals and during the day as tolerated. He is to wear this through the night however. He will need PT evaluation for the wound on his nose and his mild sacral decubitus. He will need a BMP and a CBC on 10/16/2022. He has a history of pleural effusions which have improved. I will continue to hold his Bumex given his recent history of uremia. If kidney function silas
--- NOTE | 2022-10-14 12:35 | DIET.NUTRFU ---
Patient continues to tolerate TF at 60ml meeting 100% needs. Wt stable at 95kg. 2 unmeasured voids noted 10/13 and urine output of 1 diaper. No ricks to recall ml of output. LBM 10/11. Labs reviewed Na 146H, K 3.4L, renal improvement at 35/0.60. Receiving flush of 150 H4T=506 for total fluid os 1946ml/day meeting fluid needs will just continue to monitor labs. Bumex continues to be on hold. Case mgt working on placement. Recommend to discharge on Nepro 60ml/hr ATC is providing 1440ml formula/2592kcal/116gm protein with 1046ml formula water. He is also receiving prostat AWC BID to meet protein needs for healing.
--- NOTE | 2022-10-14 14:36 | PC.NURSE ---
report called to [facility] , ems called, waiting for transport.
== END 2022-10-14 15:55 | DRG 193 ==
LOC: ER 10:30 → 2ND 11:04
PROVIDERS: Admitting Provider Internal Medicine Adolescent Medicine; Emergency Provider Emergency Medicine; PCP Internal Medicine Adolescent Medicine; Visit Provider Internal Medicine Adolescent Medicine
DX: J10.1 Influenza due to other identified influenza virus with other respiratory manifestations (principal); I50.43 Acute on chronic combined systolic (congestive) and diastolic (congestive) heart failure; J96.21 Acute and chronic respiratory failure with hypoxia; J96.22 Acute and chronic respiratory failure with hypercapnia; J96.02 Acute respiratory failure with hypercapnia; I11.0 Hypertensive heart disease with heart failure; Z93.1 Gastrostomy status; Z95.0 Presence of cardiac pacemaker; E78.5 Hyperlipidemia, unspecified; Z95.5 Presence of coronary angioplasty implant and graft; I48.91 Unspecified atrial fibrillation
CPT/HCPCS: 36415; 51702; 70450; 71045; 80048; 80053; 80162; 81001; 82803; 82962; 83605; 83880; 84443; 84484; 85014; 85018; 85025; 86850; 87040; 87070; 87205; 90732; 93005; 94660; 94760; 94761; 97110; 97163; 97167; 97530; 99291; C9803; J2405; P9016; U0003; U0005

== ENCOUNTER 2022-10-16 03:29 | Emergency (ER) | payer MEDICARE, OTHER, SELFPAY ==
[2022-10-16 03:29] VITALS: BP 113/60; PULSE 66; RESP 21; TEMP 36.6; O2SAT 100; BMI 28.5
--- NOTE | 2022-10-16 03:33 | PC.NURSE ---
EMS report received, and pt's daughter here, ok'ed to bring back to pt room
--- NOTE | 2022-10-16 03:35 | ECG_ITS ---
APPROVED REPORT Exam: Resting ECG HR:68 bpm ECG Measurements Heart Rate 68 AXES QRSd 160 QRS -47 QT 375 T 0 QTc 393 Conclusion ELECTRONIC VENTRICULAR PACEMAKER ABNORMAL RHYTHM ECG UNCONFIRMED REPORT Electronically signed by : Navi Pino MD 10/16/2022 09:35:24
--- NOTE | 2022-10-16 03:38 | PC.NURSE ---
called respiratory for ABG
--- NOTE | 2022-10-16 03:43 | CT_ITS ---
PROCEDURE INFORMATION: Exam: CT Head Without Contrast Exam date and time: 10/16/2022 4:00 AM Age: 77 years old Clinical indication: Stroke-like symptoms; Altered mental status/memory loss; Additional info: AMS TECHNIQUE: Imaging protocol: Computed tomography of the head without contrast. Radiation optimization: All CT scans at this facility use at least one of these dose optimization techniques: automated exposure control; mA and/or kV adjustment per patient size (includes targeted exams where dose is matched to clinical indication); or iterative reconstruction. Other technique: STROKE PROTOCOL was implemented. COMPARISON: CT HEAD/BRAIN W CON 09/24/2022 1:18 PM FINDINGS: Brain: Artifact limits evaluation of the brainstem, cerebellum, and inferior aspects of the occipital lobes. Areas of hypodensity are visualized within the cerebellum, although this is likely contributed by artifact. Due to the limitations of this study, infarct is difficult to exclude. A small hypodense lacunar infarct of indeterminate acuity is suggested within the left side of the damien, although also limited by artifact. Aside from the areas limited by artifact, no definitive acute intracranial hemorrhage is visualized. The mensah-white differentiation is otherwise preserved. There are periventricular foci of white matter hypodensity, likely representing small vessel ischemic disease. The acuity of the white matter disease is indeterminate. There is no midline shift. Cerebral ventricles: There is mild to moderate prominence of sulci, with mild prominence of ventricles, compatible with atrophy. Paranasal sinuses: A mucous retention cyst or polyp is visualized within the left maxillary sinus. Mastoid air cells: No mastoid effusion. Orbital cavities: Bilateral orbital lens implants. Bones/joints: The calvarium demonstrates no evidence for a depressed fracture. Soft tissues: Unremarkable. Vasculature: Intracranial atherosclerosis visualized. IMPRESSION: 1. Areas of hypodensity are visualized within the cerebellum, although this is likely contributed by artifact. Due to the limitations of this study, infarct is difficult to exclude. A small hypodense lacunar infarct of indeterminate acuity is suggested within the left side of the damien. If further evaluation is clinically indicated, an MRI of the brain is recommended. 2. There are periventricular foci of white matter hypodensity, likely representing small vessel ischemic disease. 3. Mild to moderate atrophy. 4. Additional findings described above.
--- NOTE | 2022-10-16 03:45 | XR_ITS ---
PROCEDURE INFORMATION: Exam: XR Chest Exam date and time: 10/16/2022 4:15 AM Age: 77 years old Clinical indication: Shortness of breath; Additional info: AMS TECHNIQUE: Imaging protocol: Radiologic exam of the chest. Views: 1 view. COMPARISON: CR XR CHEST PORTABLE 10/09/2022 10:48 AM FINDINGS: Tubes, catheters and devices: A left-sided pacemaker is again visualized. Lungs: Right basilar airspace disease, likely due to atelectatic change or pneumonia. Opacification in the right lower lung zone has progressed compared to the previous exam. Mild interstitial/airspace disease is seen within the left lower lung zone, without progression. Pleural spaces: A small to moderate sized bilateral pleural effusions are visualized. The left pleural effusion has increased in size compared to the previous exam. Heart/Mediastinum: The right heart border is partially obscured. Bones/joints: Hypertrophic degenerative changes are noted involving the spine. Hypertrophic degenerative changes are noted involving the spine. IMPRESSION: 1. A small to moderate sized bilateral pleural effusions are visualized. The left pleural effusion has increased in size compared to the previous exam. 2. Right basilar airspace disease, likely due to atelectatic change or pneumonia. Opacification in the right lower lung zone has progressed compared to the previous exam. Mild interstitial/airspace disease is seen within the left lower lung zone, without progression. Clinical correlation and follow-up radiographs are recommended. 3. Additional findings described above.
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
[2022-10-16 03:49] LABS: ABG Base Excess 1.9 mmol/L (-2.4-2.3); ABG HCO3 26.9 mmhg (22.0-26.0); ABG Oxygen Saturation 93 % (90-100); ABG PCO2 45.7 mmhg (35.0-45.0); ABG PH 7.39 mmol/L (7.35-7.45); ABG PO2 72.3 mmhg (80-100); ABG TCO2 28.3 mmhg (23-27)
[2022-10-16 03:50] LABS: Allen's Test Acceptable; Oxygen RA %; Source Right Radial
--- NOTE | 2022-10-16 03:52 | PC.NURSE ---
BG obtained: 100
--- NOTE | 2022-10-16 03:53 | PC.NURSE ---
Pt gone to RAD for CT via stretcher
[2022-10-16 03:55] LABS: Basophils # 0.1 K/mm3 (0-0.2); Eosinophils # 0.5 K/mm3 (0.0-0.4); Hemoglobin 9.4 g/dL (14.1-18.0); Lymphocytes # 1.4 K/mm3 (0.7-4.5); Lymphocytes % 20.3 % (10-50); Mean Corpuscular Hemoglobin 28.4 pg (27.0-31.2); Mean Corpuscular Volume 88.8 fl (80-94); Monocytes # 0.5 K/mm3 (0.1-1.0); Monocytes % 7.9 % (1.7-9.3); Neutrophils # 4.3 K/mm3 (1.8-7.8); Neutrophils % 63.8 % (37.0-80.0); Platelet Count 282 K/mm3 (142-424); Red Blood Count 3.32 M/mm3 (4.60-6.20); Red Cell Distribution Width 18.3 % (11.5-17.5); White Blood Count 6.7 K/mm3 (4.8-10.8)
[2022-10-16 03:57] LABS: POC Glucose,Bedside 100 (70-110)
[2022-10-16 03:58] LABS: Hematocrit 29.5 % (42.0-52.0)
[2022-10-16 04:00] LABS: Chloride 106 mmol/L (98-107); Potassium 4.1 mmoL/L (3.5-5.1); Sodium 145 mmol/L (136-145)
[2022-10-16 04:03] LABS: Alanine Aminotransferase 16 U/L (12-78); Albumin Level 3.4 g/dl (3.5-5.0); Albumin/Globulin Ratio 1.1 (1.1-1.8); Alkaline Phosphatase 115 U/L (38-126); Anion Gap 6.1 mEq/L (5-15); Aspartate Amino Transferase 23 U/L (17-59); Bilirubin,Total 0.6 mg/dl (0.2-1.3); Blood Urea Nitrogen 33 mg/dl (9-20); Calcium 9.6 mg/dl (8.4-10.2); Carbon Dioxide 37 mmol/L (22.0-30.0); Estimated Glomerular Filt Rate 109 ml/min (>60); GFR (African American) 132 ML/MIN (>60); Glucose 99 mg/dl (74-100); Total Protein,Serum 6.4 g/dl (6.3-8.2)
[2022-10-16 04:08] VITALS: BP 122/56; PULSE 61; RESP 17; O2SAT 94
--- NOTE | 2022-10-16 04:10 | PC.NURSE ---
Pt back from RAD via stretcher
[2022-10-16 04:12] LABS: NT Pro Brain Natriuretic Pep. 2880 pg/mL (0-450)
[2022-10-16 04:16] LABS: Troponin I 0.02 ng/ml (0.00-0.034)
--- NOTE | 2022-10-16 04:18 | PC.NURSE ---
Attempted to obtain urine sample pt advises, I don't have a lot of urine right now will attempt to obtain a sample in a few minutes
[2022-10-16 04:23] LABS: Coronavirus 19, PCR Not Detected (NotDetected); Influenza A, PCR Not Detected (NotDetected); Influenza B, PCR Not Detected (NotDetected)
--- NOTE | 2022-10-16 04:29 | PC.NURSE ---
Dr. Green s/w [facility] regarding CT head results
--- NOTE | 2022-10-16 04:32 | PC.NURSE ---
Dr. rGeen spoke with [facility] they advised quite a bit of artifact
[2022-10-16 04:34] LABS: Lactic Acid 0.8 mmol/L (0.7-2.1)
--- NOTE | 2022-10-16 04:35 | PC.NURSE ---
Dr. Green s/w [facility] regarding chest xray
--- NOTE | 2022-10-16 04:40 | PC.NURSE ---
Pt given ice chips, ok'ed by
--- NOTE | 2022-10-16 04:59 | PC.NURSE ---
Called report to Alondra @ [facility] ([phone]). Prepared PCS form for Adriel
[2022-10-16 05:00] VITALS: BP 117/51; PULSE 60; RESP 18; TEMP 36.7; O2SAT 95
[2022-10-16 05:42] LABS: Microscopic, Urine URINE MICROSCOPIC (MICROSCOPIC)
[2022-10-16 05:44] LABS: Appearance,Urine CLEAR (Clear); Bilirubin,Urine Negative (Negative); Blood, Urine Negative (Negative); Color,Urine YELLOW (Yellow); Glucose,Urine (UA) Negative (Negative); Ketones,Urine Negative (Negative); Leukocyte Esterase,Urine Negative (Negative); Nitrate,Urine Negative (Negative); PH,Urine 5.5 (5.0-8.5); Protein,Urine Negative (Negative); Urobilinogen,Urine 0.2 EU/dl (0.2)
[2022-10-16 05:48] LABS: WBC,Urine Occasional #/hpf (0-3)
== END 2022-10-16 06:02 | disposition home or self-care (01) ==
PROVIDERS: Emergency Provider Emergency Medicine; PCP Internal Medicine Adolescent Medicine
DX: J90 Pleural effusion, not elsewhere classified (principal); I50.9 Heart failure, unspecified; I48.91 Unspecified atrial fibrillation; K21.9 Gastro-esophageal reflux disease without esophagitis; J96.22 Acute and chronic respiratory failure with hypercapnia; R41.0 Disorientation, unspecified; Z95.5 Presence of coronary angioplasty implant and graft; I11.0 Hypertensive heart disease with heart failure; E03.9 Hypothyroidism, unspecified; Z87.440 Personal history of urinary (tract) infections; Z82.49 Family history of ischemic heart disease and other diseases of the circulatory system; Z80.9 Family history of malignant neoplasm, unspecified; Z20.822 Contact with and (suspected) exposure to COVID-19
CPT/HCPCS: 70450; 71045; 80053; 81001; 82803; 82962; 83605; 83880; 84484; 85025; 87040; 93005; C9803; U0003; U0005

== ENCOUNTER 2022-10-18 00:40 | Inpatient (IN) | payer MEDICARE, OTHER, SELFPAY ==
[2022-10-18] VITALS (30 sets, daily range): BP systolic 64–117; BP diastolic 33–57; PULSE 0–109; RESP 18–40; TEMP 35.7–39.5; O2SAT 74–100; BMI 28.5; BMI 27.6
--- NOTE | 2022-10-18 00:30 | ECG_ITS ---
APPROVED REPORT Exam: Resting ECG HR:94 bpm ECG Measurements Heart Rate 94 AXES QRSd 162 QRS -40 QT 364 T 107 QTc 415 Conclusion ELECTRONIC VENTRICULAR PACEMAKER ABNORMAL RHYTHM ECG UNCONFIRMED REPORT Electronically signed by : Navi Pino MD 10/18/2022 21:42:43
--- NOTE | 2022-10-18 00:37 | XR_ITS ---
PROCEDURE INFORMATION: Exam: XR Chest Exam date and time: 10/18/2022 12:52 AM Age: 77 years old Clinical indication: Shortness of breath; Additional info: Sob/cp TECHNIQUE: Imaging protocol: Radiologic exam of the chest. Views: 1 view. COMPARISON: CR XR CHEST PORTABLE 10/16/2022 4:15 AM FINDINGS: Tubes, catheters and devices: Single lead left-sided cardiac pacemaker. Lungs: Bilateral lower lobe airspace disease concerning for pneumonia. Pleural spaces: Small to moderate-sized bilateral pleural effusions. Heart/Mediastinum: Cardiomegaly. Bones/joints: Unremarkable. IMPRESSION: Bilateral lower lobe airspace disease and pleural effusions not significantly changed from previous study.
--- NOTE | 2022-10-18 00:42 | HMH.EDGENADL ---
Discharge Plan Disposition Patient Disposition: Admitted As Inpatient Condition: Fair Chief Complaint: Shortness of Breath/Dyspnea Prescriptions Prescriptions: No Action mecobalamin (vitamin B12) [B12 Active] 1,000 mcg Tablet,Chewable 1,000 mcg PO DAILY multivitamin Tablet 1 tab PO DAILY vitamin A and D [Skin Protectant A and D] Ointment 1 applic TOPICAL HS ascorbic acid (vitamin C) [Vitamin C] 500 mg Tablet,Chewable 500 mg PO DAILY zinc sulfate 220 mg Capsule 220 mg PO DAILY simethicone 80 mg Tablet,Chewable 80 mg PO QID atorvastatin 20 mg tablet 20 mg G-tube HS sennosides-docusate sodium [Stool Softener-Stimulant Laxat] 8.6-50 mg tablet 1 tab PO DAILY midodrine 5 mg tablet 5 mg PO TID potassium chloride 20 mEq/15 mL liquid 20 meq G-tube DAILY levothyroxine [Synthroid] 100 mcg tablet 100 mcg feeding tube DAILYDM bumetanide 0.5 mg tablet 0.5 mg feeding tube DAILY Hold Instructions: Resume on 10/16/22. aspirin 81 mg tablet,chewable 81 mg G-tube MoWeFr digoxin [Digox] 125 mcg (0.125 mg) tablet 125 mcg feeding tube DAILY ergocalciferol (vitamin D2) 1,250 mcg (50,000 unit) capsule 50,000 unit PO WEEKLY Rx Instructions: dissolve capsule in warm water before administering per tube to prevent blockage. To be given on Mondays nebivolol [Bystolic] 2.5 mg tablet 2.5 mg PO DAILY pantoprazole [Protonix] [address] for susp in packet 40 mg PO DAILY melatonin 5 mg tablet 10 mg feeding tube HS acetaminophen 325 mg/10.15 mL solution 650 mg G-tube HS Eliquis 5 mg tablet 5 mg G-tube BID Pro-Stat AWC 17-100 gram-kcal/30 mL liquid in packet 30 ml G-tube BID Referrals Follow up/Referrals: Navi Pino MD [Primary Care Provider] - See instructions Clinical Impressions Clinical Impression: Acute hypoxemic respiratory failure, HCAP (healthcare-associated pneumonia), Chronic CHF Discharge ED Provider: Rasheed Velasquez General Adult HPI General Chief complaint: Shortness of Breath/Dyspnea Stated complaint: Possible ST elevation per EMS & Low O2 sats Time Seen by Provider: 10/18/22 00:44 History of Present Illness HPI narrative: 77-year-old male with past medical history of CHF, atrial fibrillation, anticoagulated on Eliquis status post pacemaker implantation, aplastic anemia placed on cyclosporine a few months ago which caused numerous side effects including pulmonary edema, chronic pneumonitis and chronic hypercapnia. He had been recently admitted here as an inpatient for acute respiratory failure, his had several recent admissions, supposed to be on nightly BiPAP at [facility]. He presents tonight via EMS who were called to the nursing facility for complaint of shortness of breath and decreasing oxygen saturation throughout the evening since approximately 6 PM tonight. They report he was hypoxic in the 60s on supplemental O2 via nasal cannula upon their arrival. He was placed on CPAP prehospital. Command call was received about concern about possible STEMI however review of EKG showed rhythm is actually paced. History is limited from the patient but there is no active report of chest pain. Is reportedly afebrile. Per nursing facility, he had had some episodes of nausea but no vomiting earlier today. They state he recently had elevation of his BNP after having been taken off of his Bumex after recent hospitalization due to CHARISSA Related Data Home Medications Medication Instructions Recorded Confirmed mecobalamin (vitamin B12) 1,000 1,000 mcg PO DAILY Supplement 08/10/22 10/16/22 mcg chewable tablet (B12 Active) acetaminophen 325 mg/10.15 mL oral 650 mg G-tube HS pain 10/08/22 10/16/22 solution amino acids-protein hydrolysate 17 30 ml G-tube BID Supplement 10/08/22 10/16/22 gram-100 kcal/30 mL liquid packet (Pro-Stat AW) apixaban 5 mg tablet (
[2022-10-18 00:50] LABS: Basophils # 0.1 K/mm3 (0-0.2); Basophils % 0.6 % (0.1-2.0); Eosinophils # 0.6 K/mm3 (0.0-0.4); Eosinophils % 5.1 % (0.1-12.0); Hematocrit 32.1 % (42.0-52.0); Hemoglobin 10.1 g/dL (14.1-18.0); Lymphocytes # 0.6 K/mm3 (0.7-4.5); Lymphocytes % 4.6 % (10-50); Mean Corpuscular HGB Conc 31.6 g/dL (31.8-35.4); Mean Corpuscular Hemoglobin 27.7 pg (27.0-31.2); Mean Corpuscular Volume 87.8 fl (80-94); Mean Platelet Volume 8.1 fl (7.4-10.4); Monocytes # 0.3 K/mm3 (0.1-1.0); Monocytes % 2.3 % (1.7-9.3); Neutrophils # 10.8 K/mm3 (1.8-7.8); Neutrophils % 87.4 % (37.0-80.0); Platelet Count 381 K/mm3 (142-424); Red Blood Count 3.65 M/mm3 (4.60-6.20); White Blood Count 12.4 K/mm3 (4.8-10.8)
[2022-10-18 00:52] LABS: MANUAL DIFFERENTIAL MANUAL DIFFERENTIAL (MANUAL DIFF)
[2022-10-18 00:56] LABS: Coronavirus 19, PCR Not Detected (NotDetected); Influenza A, PCR Not Detected (NotDetected); Influenza B, PCR Not Detected (NotDetected)
[2022-10-18 00:57] LABS: ABG Base Excess 3.7 mmol/L (-2.4-2.3); ABG HCO3 29.7 mmhg (22.0-26.0); ABG Oxygen Saturation 89 % (90-100); ABG PH 7.32 mmol/L (7.35-7.45); ABG PO2 64.8 mmhg (80-100); ABG TCO2 31.5 mmhg (23-27)
[2022-10-18 00:58] LABS: Allen's Test Y; Oxygen 50 %; Source Right Radial; Vent Rate 18
[2022-10-18 01:00] LABS: Lactic Acid 1.8 mmol/L (0.7-2.1)
[2022-10-18 01:00] LABS: ABG PCO2 58.5 mmhg (35.0-45.0)
[2022-10-18 01:01] LABS: Alanine Aminotransferase 21 U/L (12-78); Albumin Level 3.8 g/dl (3.5-5.0); Albumin/Globulin Ratio 1.2 (1.1-1.8); Alkaline Phosphatase 133 U/L (38-126); Aspartate Amino Transferase 30 U/L (17-59); Bilirubin,Total 0.8 mg/dl (0.2-1.3); Blood Urea Nitrogen 33 mg/dl (9-20); Calcium 10.1 mg/dl (8.4-10.2); Carbon Dioxide 33 mmol/L (22.0-30.0); Chloride 104 mmol/L (98-107); Estimated Glomerular Filt Rate 94 ml/min (>60); GFR (African American) 113 ML/MIN (>60); Globulin 3.3 g/dL (1.3-3.2); Glucose 163 mg/dl (74-100); INR 1.22 (0.9-1.1); Lymphocytes % 7 % (10-50); Magnesium 1.8 mg/dl (1.6-2.3); Monocytes % 2 % (2-9); Neutrophils % 81 % (42-76); Sodium 145 mmol/L (136-145); Total Cells Counted 100; Total Protein,Serum 7.1 g/dl (6.3-8.2)
[2022-10-18 01:02] LABS: Anisocytosis 1+; Hypochromasia 3+; Microcytosis 1+; Platelet Estimate Normal
[2022-10-18 01:13] LABS: NT Pro Brain Natriuretic Pep. 3760 pg/mL (0-450); Troponin I 0.02 ng/ml (0.00-0.034)
[2022-10-18 01:18] LABS: Procalcitonin 0.081 ng/mL (0.0-2.0)
--- NOTE | 2022-10-18 01:22 | PC.NURSE ---
Pt has 3 visitors at [facility] at this time.
--- NOTE | 2022-10-18 02:09 | PC.NURSE ---
Daughter, , and family updated on POC and admission. State that the private sitter will be coming in to help stay with and pt.
--- NOTE | 2022-10-18 02:10 | PC.NURSE ---
Report given to Maricarmen Torres RN
--- NOTE | 2022-10-18 02:42 | PC.NURSE ---
PT ARRIVED TO FLOOR AT THIS TIME
--- NOTE | 2022-10-18 02:57 | EXP.HP ---
History of Present Illness *Admission Date: 10/18/22 *Reason for visit:: respiratory failure , fever , sepsis , pleural effusion, *History of present illness: Mr. Loja is a 77-year-old male with history of coronary artery disease, aplastic anemia, previously treated with cyclosporine. Has developed significant pulmonary edema, chronic pneumonitis, and chronic recurring hypercapnia. Has had multiple admissions to the hospital over the past month. Initially admitted to [facility] as a transfer from [place] for hypercarbic respiratory failure. Had been doing well at rehab until yesterday when he became febrile and more confused. On presentation to the ER found to be in hypercapnic respiratory failure. Patient febrile. Hypotensive. Symptoms consistent with septic shock. He has been in and out of the hospital several times including this hospital and also the [facility] in addition to [facility] in [place] for hypercapnia.? At [place] patient has been on BiPAP at night or anytime he is resting to help maintain his levels of CO2. On presentation to the ER, pH 7.32. PCO2 58. Repeat check this morning after being on BiPAP for several hours was worse with pH of 7.0, PCO2 of 90. Patient transition to AVAPS. Improvement seen after an hour to pH of 7.2 PCO2 in the 50s. Patient initiated on broad-spectrum antibiotics including vancomycin and cefepime on arrival. Of note review of chart shows blood cultures from 10/16 obtained in the ER positive for E faecalis. Repeat blood cultures obtained on admission. Still pending. Urine cultures obtained and pending. His has indicated she would wish to no longer have him intubated and he is DNR. Confirmed today. [facility] Disclaimer: The information contained in this section may have been updated after the patient was seen, as this information can be updated by other users. Medical History Acute and chronic respiratory failure with hypercapnia Aplastic anemia Atrial fibrillation Cataract Congestive heart failure Enterococcus UTI Gallbladder & bile duct stone, acute cholecystitis and obstruction History of anemia History of cataract History of gastroesophageal reflux (GERD) History of pacemaker Hyperlipidemia Hypertension Hypothyroid Hypothyroidism On mechanically assisted ventilation Pleural effusion Rotator cuff arthropathy of left shoulder Rotator cuff arthropathy of right shoulder Sleep apnea Urinary tract infection Surgical History History of revision of total knee arthroplasty Stented coronary artery Family History Other Family history of acute congestive heart failure Family history of cancer Social History (Updated 10/18/22 @ 04:25 by Maricarmen Seay RN) Smoking Status: Never smoker alcohol intake: never current occupational status: retired Travel in the last 8 weeks: None housing: assisted living facility marital status: Review of Systems Review of Systems Review of systems (narrative): most information for family and private sitter Constitutional Comments: on tube feeding Eyes Eyes: Reports as per HPI ENT Ears, Nose, Mouth, and Throat: Reports dry mouth *Cardiovascular Cardiovascular: Reports acrocyanosis Comments: has pacer , *Respiratory Respiratory: Reports as per HPI Comments: in respiratory distress , requires bi pap *Gastrointestinal Comments: tube feeding live at [facility] *Genitourinary Genitourinary: Reports as per HPI *Musculoskeletal Musculoskeletal: Reports muscle weakness Comments: bed bound Integumentary/Breasts Skin/Breast: Reports change in pigmentation (pale ) *Neurologic Comments: not responding to questions Psychiatric Psychiatric: Reports as per HPI Endocrine Endocrine: Repor
--- NOTE | 2022-10-18 04:01 | PC.NURSE ---
pt moved to stepdown from 204, report taken from Maricarmen RN; SUSANNE Ruiz verbally ordered dopamine drip for hypotension, bp 84/48 on 10mcg/kg/min of dopamine, temp 103.1 rectally toradol given, blankets removed, ice packs and fan placed on pt; HR 100-110's, afib on tele monitor, pt does not respond even to pain, pt has blank stare but pupils are reactive, pt with pallor and extremities and nail beds dusky, lung sounds diminished and fine crackles noted, active bowel sounds, positive pedal pulses, pt has bried in place, pt has peg tube in place bumper 6 at the skin, bilateral IV's in place upon arrival, picture taken of pt's wound on bottom and will upload, call light within reach, family at bedside 2-notified susanne Ruiz that pt's bp still 82/43 with dopamine at 10mcg/kg/min, instructed to give 500mL bolus
--- NOTE | 2022-10-18 04:03 | PC.NURSE ---
0242 pt arrived to room 204 via stretcher, pt unresponsive to painful stimuli, perrl, pt placed on bipap, pt was turned and brief changed, it was noted pt 02 sats 75%, pt respiratory rate 36-40, pt with labored breathing, RT notified, podiatrist assistant notified, nailbeds on hands and feed noted to be blue, v/s noted with b/p 88/35 via automatic cuff, 82/42 manually, RT at bedside and adjusted bipap settings, SCREEN DOOR MAKER at bedside and aware during this time and orders placed to start pt on dopamine drip and move to stepdown, report was given to Lindsay STRATTON, pt was ventilated via bag/mask during transport via hospital bed, pt and friend at bedside during this time, pt belongings moved as well to room 217.
[2022-10-18 04:13] LABS: Troponin I 0.06 ng/ml (0.00-0.034)
--- NOTE | 2022-10-18 04:40 | PC.WOUNDNOTE ---
stage 2 coccyx area
--- NOTE | 2022-10-18 05:17 | PC.NURSE ---
notified SUSANNE Riuz that pt's bp is 78/49 (58) with bolus going and dopamine at 10mcg/kg/min, instructed to infuse MIVF at 125mL/hr when bolus complete
--- NOTE | 2022-10-18 05:58 | PC.NURSE ---
notified SUSANNE Ruiz of pt's bp of 66/40, increased dopamine drip to 20mcg/kg/min, SUSANNE coming to bedside
--- NOTE | 2022-10-18 06:06 | PC.NURSE ---
pt's bp 60/40's, levophed started at 10mcg/min per verbal order from SUSANNE Ruiz
--- NOTE | 2022-10-18 06:20 | PC.NURSE ---
0600-bp 64/37, starting levophed drip at 10mcg/min 0607-70/36, increased levophed drip to 14mcg/min 0610-65/43, increased levophed drip to 18mcg/min 0615-bp 77/42, increased levophed drip to 20mcg/min 0620-82/40 0625-bp 81/50, increased levophed drip to 22mcg/min
--- NOTE | 2022-10-18 06:34 | PC.NURSE ---
bp 92/45, continued levophed drip at 22mcg/min
--- NOTE | 2022-10-18 07:27 | PC.NURSE ---
0710-bp 82/41, increased levophed drip to 24mcg/min
--- NOTE | 2022-10-18 07:54 | [facility].PHAINT1 ---
Pharmacy Intervention Comments: Home medications reconciled via list from outside facility. -Karla Cleveland, PharmD Candidate 2022
[2022-10-18 08:08] LABS: Troponin I 0.08 ng/ml (0.00-0.034)
--- NOTE | 2022-10-18 08:10 | EXP.PHA.CONS ---
Pharmacy Consult Date: 10/18/22 Time: 08:10 Referring provider: DR. EMANUEL Reason for Consult:: VANCOMYCIN DOSING Allergies Allergy/AdvReac Type Severity Reaction Status Date / Time No Known Allergies Allergy Unverified 09/20/17 14:17 Home Medications Medication Instructions Recorded Confirmed Type mecobalamin (vitamin B12) 1,000 1,000 mcg PO DAILY Supplement 08/10/22 10/18/22 History mcg chewable tablet (B12 Active) acetaminophen 325 mg/10.15 mL oral 650 mg G-tube HS pain 10/08/22 10/18/22 History solution amino acids-protein hydrolysate 17 30 ml G-tube BID Supplement 10/08/22 10/18/22 History gram-100 kcal/30 mL liquid packet (Pro-Stat AWC) apixaban 5 mg tablet (Eliquis) 5 mg G-tube BID Blood thinner 10/08/22 10/18/22 History aspirin 81 mg chewable tablet 81 mg G-tube MoWeFr Blood thinner 10/08/22 10/18/22 History atorvastatin 20 mg tablet 20 mg G-tube HS Cholesterol 10/08/22 10/18/22 History bumetanide 0.5 mg tablet 0.5 mg feeding tube DAILY Fluid 10/08/22 10/18/22 History digoxin 125 mcg (0.125 mg) tablet 125 mcg feeding tube DAILY heart 10/08/22 10/18/22 History (Digox) ergocalciferol (vitamin D2) 1,250 50,000 unit PO WEEKLY Supplement 10/08/22 10/18/22 History mcg (50,000 unit) capsule levothyroxine 100 mcg tablet 100 mcg feeding tube DAILYDM 10/08/22 10/18/22 History (Synthroid) thyroid melatonin 5 mg tablet 10 mg feeding tube HS sleep 10/08/22 10/18/22 History midodrine 5 mg tablet 5 mg PO TID Low blood pressure 10/08/22 10/18/22 History nebivolol 2.5 mg tablet (Bystolic) 2.5 mg PO DAILY Heart failure 10/08/22 10/18/22 History pantoprazole 40 mg granules 40 mg PO DAILY GERD 10/08/22 10/18/22 History delayed-release for susp in packet (Protonix) potassium chloride 20 mEq/15 mL 20 meq G-tube DAILY Supplement 10/08/22 10/18/22 History oral liquid sennosides 8.6 mg-docusate sodium 1 tab PO DAILY constipation 10/08/22 10/18/22 History 50 mg tablet (Stool Softener-Stimulant Laxative) ascorbic acid (vitamin C) 500 mg 500 mg PO DAILY Supplement 10/16/22 10/18/22 History chewable tablet (Vitamin C) multivitamin 1 tab PO DAILY Supplement 10/16/22 10/18/22 History simethicone 80 mg chewable tablet 80 mg PO QID Gas 10/16/22 10/18/22 History vitamin A and D (Skin Protectant A 1 applic topical HS pressure ulcer 10/16/22 10/18/22 History and D topical ointment) zinc sulfate 50 mg zinc (220 mg) 220 mg feeding tube AM Supplement 10/18/22 10/18/22 History tablet New Prescriptions to Start Prescriptions: Height: 1.83 m Weight: 92.561 kg Laboratory Results:: Laboratory Results - last 24 hr 10/18/22 00:39: Specimen Source Right radial, O2 % 50, ABG pH 7.32 L, ABG pCO2 58.5 H, ABG pO2 64.8 L, ABG HCO3 29.7 H, ABG Total CO2 31.5 H, ABG O2 Saturation 89 L, ABG Base Excess 3.7 H, Daniel Test Y, Vent Rate 18 10/18/22 00:40: WBC 12.4 H D, RBC 3.65 L, Hgb 10.1 L, Hct 32.1 L, MCV 87.8, MCH 27.7, MCHC 31.6 L, RDW 18.0 H, Plt Count 381 D, MPV 8.1, Neut % (Auto) 87.4 H, Lymph % (Auto) 4.6 L, [place] % (Auto) 2.3, Eos % (Auto) 5.1, Baso % (Auto) 0.6, Neut # (Auto) 10.8 H, Lymph # (Auto) 0.6 L, [place] # (Auto) 0.3, Eos # (Auto) 0.6 H, Baso # (Auto) 0.1, Total Counted 100, Neutrophils % (Manual) 81 H, Band Neutrophils % 10.0 H, Lymphocytes % (Manual) 7 L, Monocytes % (Manual) 2, Platelet Estimate Normal, RBC Morphology Not Reportable, Hypochromasia 3+, Anisocytosis 1+, Microcytosis 1+ 10/18/22 00:40: Sodium 145, Potassium 4.0, Chloride 104, Carbon Dioxide 33 H, Anion Gap 12.0, BUN 33 H, Creatinine 0.80, Estimated GFR 94, Est GFR ( Amer) 113, Glucose 163 H, Calcium 10.1, Magnesium 1.8, Total Bilirubin 0.8, AST 30 D, ALT 21 D, Alkaline Phosphatase 133 H, Troponin I 0.02, NT-Pro-B Natriuret Pep 3760 H, Total Protein 7.1, Albumin 3.8, Globulin 3.3 H, Albumin/Globulin Ratio 1.2, Procalcitonin 0.081 10/18/22 00:40: Lactate 1.8 10/18/22 00:40: SARS-CoV-2 (PCR) Not detected, Influenza A Untype (PCR) Not dete
[2022-10-18 08:52] LABS: ABG Base Excess -2.2 mmol/L (-2.4-2.3); ABG Oxygen Saturation 93 % (90-100); ABG PO2 85.9 mmhg (80-100)
[2022-10-18 08:53] LABS: Allen's Test ACCEPTABLE; Oxygen 100 %; Pressure Support BIPAP 18/8
[2022-10-18 08:54] LABS: Source Right Radial; Vent Rate 20
[2022-10-18 10:21] LABS: ABG Base Excess -5.5 mmol/L (-2.4-2.3); ABG HCO3 22.3 mmhg (22.0-26.0); ABG Oxygen Saturation 89 % (90-100); ABG PH 7.22 mmol/L (7.35-7.45); ABG PO2 62.7 mmhg (80-100); Allen's Test Acceptable; Oxygen 75% %; PEEP 6; Source Right Radial; Tidal Volume 500; Vent Rate 22
[2022-10-18 10:24] LABS: ABG PCO2 55.9 mmhg (35.0-45.0)
[2022-10-18 10:37] LABS: ABG PCO2 99.3 mmhg (35.0-45.0); ABG PH 7.07 mmol/L (7.35-7.45)
[2022-10-18 11:14] LABS: Microscopic, Urine URINE MICROSCOPIC (MICROSCOPIC)
[2022-10-18 11:28] LABS: Appearance,Urine CLOUDY (Clear); Bilirubin,Urine Negative (Negative); Blood, Urine TRACE-L (Negative); Color,Urine YELLOW (Yellow); Glucose,Urine (UA) Negative (Negative); Ketones,Urine TRACE (Negative); Leukocyte Esterase,Urine Negative (Negative); Nitrate,Urine Negative (Negative); Protein,Urine 2+ (Negative); Specific Gravity, Urine >= 1.030 (1.005-1.030); Urobilinogen,Urine 0.2 EU/dl (0.2)
[2022-10-18 11:37] LABS: Bacteria,Urine 3+ /lpf
--- NOTE | 2022-10-18 12:14 | DIET.NUTRFU ---
Patient was recently discharged from here on 10/14. He is dependent on TF for nutrition. Was on Nepro 60ml/hr when was discharged. When appropriate to restart start Nepro 20ml/hr and then slow increase to goal rate. In past he was also on prostat for increased vitamins and protein to promote healing. He still has breakdown noted to coccyx, will need additional protein for healing. He is receiving IV bolus currently and labs are WNL, sodium is WNL at 145. Has hx of hypernatremia, will monitor. He is NPO seocndary to failing multiple swallow studies.
[2022-10-18 14:14] LABS: ABG Base Excess -5.8 mmol/L (-2.4-2.3); ABG HCO3 22.2 mmhg (22.0-26.0); ABG Oxygen Saturation 86 % (90-100); ABG PO2 56.4 mmhg (80-100)
[2022-10-18 14:22] LABS: Allen's Test ACCEPTABLE; Oxygen 85 %; PEEP 6; Pressure Support AVAPS; Tidal Volume 550; Vent Rate 22
[2022-10-18 14:23] LABS: Source Right Radial
[2022-10-18 14:24] LABS: ABG PCO2 58.5 mmhg (35.0-45.0)
[2022-10-18 14:39] LABS: Adenovirus,PCR Not Detected (NotDetected); Bordetella Pertussis Not Detected (NotDetected); Chlamydophila Pneumoniae, PCR Not Detected (NotDetected); Coronavirus 19, PCR Not Detected (NotDetected); Coronavirus 229E Not Detected (NotDetected); Coronavirus NL63 Not Detected (NotDetected); Coronavirus OC43 Not Detected (NotDetected); Coronovirus HKU1,PCR Not Detected (NotDetected); Human Metapneumovirus Not Detected (NotDetected); Influenza A, PCR Not Detected (NotDetected); Influenza AH1, 2009 Not Detected (NotDetected); Influenza AH1, PCR Not Detected (NotDetected); Influenza AH3,PCR Not Detected (NotDetected); Influenza B, PCR Not Detected (NotDetected); Mycoplasma Pneumoniae, PCR Not Detected (NotDetected); Parainfluenza 1, PCR Not Detected (NotDetected); Parainfluenza 2, PCR Not Detected (NotDetected); Parainfluenza 3, PCR Not Detected (NotDetected); Parainfluenza 4, PCR Not Detected (NotDetected); Respiratory Syncytial Virus Not Detected (NotDetected); Rhinovirus/Enterovirus Not Detected (NotDetected)
--- NOTE | 2022-10-18 17:41 | PC.NURSE ---
0800- Levophed titrated to 26mcg, bp 83/43 0810- Levophed titrated to 28mcg, bp 88/43 0920- Levophed titrated to 30mcg, bp 81/48 1045- vasopressin started at 0.04mcg, bp 68/36
[2022-10-18 17:56] LABS: Basophils # 0.2 K/mm3 (0-0.2); Basophils % 1.2 % (0.1-2.0); Eosinophils # 0.1 K/mm3 (0.0-0.4); Eosinophils % 0.8 % (0.1-12.0); Hematocrit 34.1 % (42.0-52.0); Hemoglobin 10.4 g/dL (14.1-18.0); Lymphocytes # 0.5 K/mm3 (0.7-4.5); Lymphocytes % 3.4 % (10-50); Mean Corpuscular HGB Conc 30.4 g/dL (31.8-35.4); Mean Corpuscular Hemoglobin 27.9 pg (27.0-31.2); Mean Corpuscular Volume 91.9 fl (80-94); Mean Platelet Volume 8.9 fl (7.4-10.4); Monocytes % 6.4 % (1.7-9.3); Neutrophils # 13.7 K/mm3 (1.8-7.8); Neutrophils % 88.3 % (37.0-80.0); Platelet Count 373 K/mm3 (142-424); Red Blood Count 3.71 M/mm3 (4.60-6.20); Red Cell Distribution Width 17.9 % (11.5-17.5); White Blood Count 15.5 K/mm3 (4.8-10.8)
[2022-10-18 18:06] LABS: MANUAL DIFFERENTIAL MANUAL DIFFERENTIAL (MANUAL DIFF)
[2022-10-18 18:32] LABS: Anisocytosis 1+; Hypochromasia 1+; Lymphocytes % 8 % (10-50); Monocytes % 13 % (2-9); Neutrophils % 67 % (42-76); Platelet Estimate Normal; Total Cells Counted 100
[2022-10-18 19:08] LABS: Chloride 104 mmol/L (98-107)
[2022-10-18 19:09] LABS: Potassium 4.3 mmoL/L (3.5-5.1); Sodium 142 mmol/L (136-145)
[2022-10-18 19:11] LABS: Alanine Aminotransferase 22 U/L (12-78); Alkaline Phosphatase 117 U/L (38-126); Aspartate Amino Transferase 40 U/L (17-59); Bilirubin,Total 1.3 mg/dl (0.2-1.3); Blood Urea Nitrogen 37 mg/dl (9-20); Creatinine Clearance Estimated 58 mL/min (50-200); Estimated Glomerular Filt Rate 49 ml/min (>60); GFR (African American) 59 ML/MIN (>60)
[2022-10-18 19:12] LABS: Albumin Level 3.4 g/dl (3.5-5.0); Albumin/Globulin Ratio 1.1 (1.1-1.8); Anion Gap 18.3 mEq/L (5-15); Calcium 8.9 mg/dl (8.4-10.2); Carbon Dioxide 24 mmol/L (22.0-30.0); Globulin 3.2 g/dL (1.3-3.2); Glucose 143 mg/dl (74-100); Total Protein,Serum 6.6 g/dl (6.3-8.2)
--- NOTE | 2022-10-18 20:29 | EXP.SEPSISRE ---
[facility] Tissue Perfusion Eval Sepsis Re-Evaluation Performed: Yes Date Performed: 10/18/22 Time Performed: 08:00
--- NOTE | 2022-10-18 21:00 | PC.NURSE ---
POA states they want to change pt code status to DNR and place pt on nasal cannula for comfort measures. DNR form signed at 2053 and pt taken off AVAPS
--- NOTE | 2022-10-18 21:38 | P.DN_ITS ---
Documented by User: Joseph StephanieSUSANNE hanson 10/18/22 21:42 Pronouncement Note Date and Time of Date of : 10/18/22 Time of : 21:11 PCOD Preliminary cause of : Sepsis Contributing Factors (1) Septic shock: (2) Pleural effusion: (3) Fever: (4) Acute delirium: (5) G tube feedings: (6) Acute hypoxemic respiratory failure: Summary Additional details: Patient had multiple medical problems from history . He had been quite ill with multiple hospitalizations since Aug patient was made a full DNR earlier in shift Additional Data Confirmation of : no pulse, no respirations and no heart sounds Family: at bedside Attending/PCP notified?: Yes Attending physician: Juancarlos Bo MD Was code activated?: No Autopsy requested?: No merchandise examiner notified?: No Organ bank notified?: No Advance directives: Yes Documented by User: Juancarlos Bo MD 10/20/22 13:34 Pronouncement Note Contributing Factors (1) Septic shock: (2) Pleural effusion: (3) Fever: (4) Acute delirium: (5) G tube feedings: (6) Acute hypoxemic respiratory failure: Summary Additional details: Patient had progressive decline over the past several months. See H&P for full details. Recurrent readmission for hypercapnic respiratory failure. Unfortunately came in in septic shock. Was on norepinephrine, vasopressin, dopamine, midodrine per tube. Had received significant fluid resuscitation. Family had elected to not intubate and make patient DNR. Maximal noninvasive ventilation (AVAPS) was unsuccessful in improving acidosis and showing clinical improvement. Patient requested mask be taken off. Family honored his wishes and he shortly thereafter. Family including spouse, daughters, son-in-law's at bedside. Additional Data merchandise examiner notified?: Yes Organ bank notified?: Yes
--- NOTE | 2022-10-18 21:43 | EXP.DEATH.DS ---
Discharge Sum: Prov Provider Primary care physician: Navi Pino MD Visit Care Team Role Provider Type Navi Pino MD Primary Care Provider Staff Physician Rasheed Velasquez MD Emergency Provider ER Physician Juancarlos Bo MD Admit Provider Staff Physician Attending Provider Admitting clinician: Juancarlos Bo Attending physician on admission: Navi Pino Pronouncing clinician: Joseph Brown Discharge Sum: Diag Contributing Factors (1) Septic shock: (2) Pleural effusion: (3) Fever: (4) Acute delirium: (5) G tube feedings: (6) Acute hypoxemic respiratory failure: Discharge Sum: Summary Date and Time Date of admission: 10/18/22 02:54 Additional Data Attending physician: Juancarlos Bo MD
--- NOTE | 2022-10-18 22:28 | PC.NURSE ---
[address] [place] [address] Home contacted per family request.
== END 2022-10-19 00:30 | disposition expired | DRG 871 ==
LOC: ER 01:32 → 2ND 10:44
PROVIDERS: Nurse Practitioner Family; Admitting Provider Internal Medicine Adolescent Medicine; Emergency Provider Emergency Medicine; PCP Internal Medicine Adolescent Medicine; Visit Provider Internal Medicine Adolescent Medicine
DX: A41.9 Sepsis, unspecified organism (principal); J18.9 Pneumonia, unspecified organism; J96.01 Acute respiratory failure with hypoxia; R65.21 Severe sepsis with septic shock; D61.9 Aplastic anemia, unspecified; N17.9 Acute kidney failure, unspecified; Y95 Nosocomial condition; I50.9 Heart failure, unspecified; Z79.01 Long term (current) use of anticoagulants; I48.91 Unspecified atrial fibrillation; E03.9 Hypothyroidism, unspecified; I11.0 Hypertensive heart disease with heart failure; K21.9 Gastro-esophageal reflux disease without esophagitis; Z95.0 Presence of cardiac pacemaker; Z66 Do not resuscitate
CPT/HCPCS: 36415; 70450; 71045; 80053; 80162; 81001; 82803; 82962; 83605; 83735; 83880; 84145; 84484; 85007; 85025; 85610; 87040; 87077; 87086; 87186; 87581; 87632; 87798; 93005; 94640; 94660; 94761; 99291; C9803; J2405; U0003; U0005